=== PATIENT | female | born 1960 | race Caucasian/White ===

== ENCOUNTER → 2019-03-04 10:55 | Outpatient (BNVA) | payer MEDICARE, SELFPAY | PROVIDERS: Family Provider Dermatology; Visit Provider Nurse Practitioner Psychiatric/Mental Health | DX: F33.2 Major depressive disorder, recurrent severe without psychotic features (principal); F40.01 Agoraphobia with panic disorder; F43.12 Post-traumatic stress disorder, chronic | CPT/HCPCS: 99214 ==

== ENCOUNTER 2019-04-27 17:21 | Emergency (ER) | payer MEDICARE, SELFPAY ==
[2019-04-27 17:35] VITALS: BMI 26.4
[2019-04-27 17:44] VITALS: BP 130/84; PULSE 86; RESP 18; TEMP 36.8; O2SAT 97
--- NOTE | 2019-04-27 17:45 | ED_ITS ---
Entered by Eugenia Delaney, acting as scribe for Santi Webster MD, [facility] HPI - Female Genitourinary General: Chief complaint: Urogenital-Female Stated complaint: POSSIBLE UTI Time Seen by Provider: 04/27/19 17:45 Source: patient Mode of arrival: wheelchair Limitations: no limitations History of Present Illness: HPI Narrative: 58 yo Female presents to ED with co mplaint of lower abdominal and back pain. Pt states that she had blood in her urine earlier and every once in a while she gets a sharp pain. Pt states that toward the end of her urination she has pain. Pt has tenderness in her left flank and right lower quadrant. Pt states that she no longer has her gallbladder, appendix, or uterus. MD elicited complaint: UTI and back pain Onset (ago): day(s) Location of symptoms: LLQ and RLQ Female Urogenital Radiation: Non-Radiating Quality of pain: cramping and sharp Vaginal discharge: none Vaginal bleeding: none Urinary symptoms: Difficulty Urinating, Flank Pain and Hematuria Exacerbating factors: urination and movement Relieving factors: none Associated symptoms: Reports abdominal pain; Deny headache(s) or nausea Treatment prior to arrival: none Review of Systems General: Reports: 10 or more systems reviewed and unremarkable except in HPI and below Const: Denies: fever, chills or body aches Eyes: Denies: change in vision or blurry vision ENMT: Denies: throat pain, enlarged tonsils, painful swallowing, hoarseness, mouth pain or swelling of lips/tongue Card: Denies: chest pain, palpitations, irregular heart rhythm, edema or swelling of feet/ankles Resp: Denies: shortness of breath, productive cough or non-productive cough GI: Reports: abdominal pain; Denies: nausea or vomiting : Reports: flank pain, difficulty urinating, painful urination, urinary frequency and blood in urine; Denies: urinary urgency or urinary hesitancy Musc: Reports: back pain; Denies: neck pain or extremity swelling Skin/Breast: Denies: rash, itching or redness Neuro: Denies: headache, numbness in extremities or weakness in extremities Endo: Denies: excessive urination, excessive thirst or tired all the time [facility] ED PFSH: Medical History (Updated 04/27/19 @ 20:20 by Santi Webster MD, [facility]) Chronic post-traumatic stress disorder Major depressive disorder, recurrent severe without psychotic features Panic disorder with agoraphobia and severe panic attacks Surgical History (Updated 04/27/19 @ 17:58 by Eugenia Delaney) History of appendectomy History of cholecystectomy History of hysterectomy Social History Smoking and tobacco status: never smoked Physical Exam Const: COMMON NORMALS: no apparent distress, average body habitus, oriented x3, no limitations, healthy appearing, alert and well nourished HENMT: COMMON NORMALS: normocephalic, head/scalp atraumatic and moist oral mucous membranes HEAD & SCALP: normocephalic and atraumatic Eye: COMMON NORMALS: PERRL, EOMs intact bilaterally, conjunctivae normal and no scleral icterus CONJUNCTIVA: Yes conjunctivae normal PUPIL: Yes PERRL Neck/C-Spine: COMMON NORMALS: full ROM, supple, no meningeal signs, no JVD and no carotid bruits Chest: COMMONS NORMALS: inspection of chest normal and palpation of chest normal Resp: COMMON NORMALS: normal respiratory effort, no retractions, no use of accessory muscles, clear to auscultation bilaterally and percussion normal AUSCULTATION: clear to auscultation bilaterally PERCUSSION: percussion normal Cardio: COMMON NORMALS: no JVD, regular rate, regular rhythm, S1 normal heart sound, S2 normal heart sound, no gallops, no clicks, no murmurs, no rub and peripheral pulses 2+ throughout RATE: regular rate RHYTHM: regular rhythm HEART SOUNDS: S1 normal and S2 normal PERIPHERAL PULSES: pulses 2+ throughout GI: COMMON NORMALS: normal to inspection, nondistended, normoactive bowel sounds, soft to palpation, no hepatosplenomegaly, no masses and no bruits; negative for non-tender PALPATION: Yes soft, Yes tender Details: RLQ and Yes no hepatosplenomegaly : COMMON NORMALS: Yes no CVA tenderness BLADDER/KIDNEY EXAM: Yes no CVA tenderness Back/Pelvis: COMMON NORMALS: no CVA tenderness Extremity: COMMON NORMALS: normal to inspection, full ROM, normal capillary refill, no calf tenderness and no pedal edema Neuro: COMMON NORMALS: oriented x3 SENSORIUM/ORIENTATION: Yes alert MENINGEAL SIGNS: Yes no meningeal signs Skin: COMMON NORMALS: no rashes or lesions noted, no wounds, skin turgor normal, no jaundice, no petechiae and no mottling GENERAL SKIN EXAM: no rashes or lesions noted and turgor normal Course Reevaluation(s): Reevaluation #1: Discussed her labs and imaging findings with her. UA suggestive of a UTI. CT not suggestive of a pyelonephritis. Labs unremarkable. will discharge her home on oral antibiotics and pain medication. She voiced understanding and all questions answered. Time: 20:14 Vital Signs: Vital signs: Vital Signs Temperature 98.2 F 04/27/19 17:44 Pulse Rate 86 04/27/19 17:44 Respiratory Rate 18 04/27/19 20:00 Blood Pressure 130/84 04/27/19 17:44 Pulse Oximetry 98 04/27/19 20:00 MDM - Female MDM Narrative: Medical decision making narrative: 58-year-old female patient who presents to the emergency department with lower abdominal pain radiating to her flank. Evaluation in the emergency department is consistent with a urinary tract infection but no clinical features of pyelonephritis or urolithiasis. She was given 1 dose of ceftriaxone and discharged home on oral antibiotics. Medical Records: Attestation: I reviewed the patient's medical records. Lab Data: Attestation: I reviewed the patient's lab results. Labs: Lab Results 04/27/19 04/27/19 04/27/19 Range/Units 17:45 18:00 18:00 WBC 10.6 H (4.0-10.0) 10^3/ uL RBC 5.30 (4.1-5.3) 10^6/u L Hgb 14.3 (11.5-15.3) g/dL Hct 45.6 (37.0-47.0) % MCV 86.0 (81-99) fL MCH 27.0 L (28.0-34.0) pg MCHC 31.4 (30.0-36.0) g/dL RDW 15.1 (12.1-15.1) % Plt Count 474 H (130-400) 10^3/c mm MPV 9.1 (7.4-10.4) fL Neut % (Auto) 63.6 % Lymph % (Auto) 24.8 % Cameron % (Auto) 8.9 % Eos % (Auto) 1.2 % Baso % (Auto) 0.7 % Neut # (Auto) 6.7 (1.8-7.7) 10^3/u L Lymph # (Auto) 2.6 (0.8-4.8) 10^3/u L Cameron # (Auto) 0.9 (0.2-0.9) 10^3/u L Eos # (Auto) 0.1 (0.0-0.8) 10^3/u L Baso # (Auto) 0.1 (0.0-0.1) 10^3/u L Nucleated RBC % (a uto) 0 % Nucleated RBCs # 0.0 /100WBC Sodium 136 (136-145) mmol/L Potassium 4.3 (3.5-5.1) mmol/L Chloride 97 L (98-107) mmol/L Carbon Dioxide 26 (22-29) mmol/L Anion Gap 17.3 (5-19) BUN 21 (8-23) mg/dL Creatinine 0.9 (0.5-0.9) mg/dL GFR Calculation 63.9 L (90-130) mL/min Glucose 100 (65-115) mg/dL Calculated Osmolal ity 279 L (285-295) mOsm/k g Lactate (0.5-2.2) mmol/L Calcium 10.3 (8.5-10.5) mg/dL Total Bilirubin 0.4 (0.15-1.2) mg/dL AST 17 (0-32) U/L ALT 7 (0-33) U/L Alkaline Phosphata se 85 (35-105) IU/L C-Reactive Protein 24.7 H (0.0-4.9) mg/L Total Protein 7.9 (6.6-8.7) g/dL Albumin 4.5 (3.5-5.2) g/dL Globulin 3.4 (1.3-4.6) g/dL Urine Color Yellow (Yellow) Urine Appearance Cloudy (CLEAR) Urine pH 5 (5-7) Ur Specific Gravit y 1.005 (1.005-1.030) Urine Protein Neg (Negative) Urine Glucose (UA) Norm (Normal) Urine Ketones Negative (Negative) Urine Blood 3+ H (Negative) Urine Nitrate Negative (Negative) Urine Bilirubin Neg (NEGATIVE) Urine Urobilinogen Norm (Negative) mg/dL Ur Leukocyte Margaret ase 1+ H (Negative) Urine RBC 0-4 H (0-2) /hpf Urine WBC >100 H (0-5) /hpf Ur Squamous Epith Cells 0-4 H (0-5) Urine Bacteria 1+ H (NONE) 04/27/19 Range/Units 18:00 WBC (4.0-10.0) 10^3/ uL RBC (4.1-5.3) 10^6/u L Hgb (11.5-15.3) g/dL Hct (37.0-47.0) % MCV (81-99) fL MCH (28.0-34.0) pg MCHC (30.0-36.0) g/dL RDW (12.1-15.1) % Plt Count (130-400) 10^3/c mm MPV (7.4-10.4) fL Neut % (Auto) % Lymph % (Auto) % Cameron % (Auto) % Eos % (Auto) % Baso % (Auto) % Neut # (Auto) (1.8-7.7) 10^3/u L Lymph # (Auto) (0.8-4.8) 10^3/u L Cameron # (Auto) (0.2-0.9) 10^3/u L Eos # (Auto) (0.0-0.8) 10^3/u L Baso # (Auto) (0.0-0.1) 10^3/u L Nucleated RBC % (a uto) % Nucleated RBCs # /100WBC Sodium (136-145) mmol/L Potassium (3.5-5.1) mmol/L Chloride (98-107) mmol/L Carbon Dioxide (22-29) mmol/L Anion Gap (5-19) BUN (8-23) mg/dL Creatinine (0.5-0.9) mg/dL GFR Calculation (90-130) mL/min Glucose (65-115) mg/dL Calculated Osmolal ity (285-295) mOsm/k g Lactate 1.1 (0.5-2.2) mmol/L Calcium (8.5-10.5) mg/dL Total Bilirubin (0.15-1.2) mg/dL AST (0-32) U/L ALT (0-33) U/L Alkaline Phosphata se (35-105) IU/L C-Reactive Protein (0.0-4.9) mg/L Total Protein (6.6-8.7) g/dL Albumin (3.5-5.2) g/dL Globulin (1.3-4.6) g/dL Urine Color (Yellow) Urine Appearance (CLEAR) Urine pH (5-7) Ur Specific Gravit y (1.005-1.030) Urine Protein (Negative) Urine Glucose (UA) (Normal) Urine Ketones (Negative) Urine Blood (Negative) Urine Nitrate (Negative) Urine Bilirubin (NEGATIVE) Urine Urobilinogen (Negative) mg/dL Ur Leukocyte Margaret ase (Negative) Urine RBC (0-2) /hpf Urine WBC (0-5) /hpf Ur Squamous Epith Cells (0-5) Urine Bacteria (NONE) Imaging Data: CT Abd/Pel: Radiologist's impression: [place] [address] CT Scan Report Signed Patient: Annetta Delacruz #: [id number] : 9Acct#:[id number] Age/Sex: 58 / FADM Date: 04/27/19 Loc: [facility]/Bed: Attending Dr: Ordering Provider/Ordering MD: Santi Webster MD, [facility] Date of Service: 04/27/19 Procedure(s): CT kidney stone 41800 Accession Number(s): [id number] Report Number: [id number] PROCEDURE INFORMATION: Exam: CT Abdomen And Pelvis Without Contrast Exam date and time: 04/27/2019 7:40 PM Age: 58 years old Clinical indication: Abdominal pain; Localized; Prior surgery; Surgery date: 6+ months; Surgery type: Hyst; Patient HX: C/O lower abd/flank pain and urinary urgency; Additional info: Flank pain, UTI TECHNIQUE: Imaging protocol: Computed tomography of the abdomen and pelvis without contrast. Total DLP: 1596.07 mGy-cm Radiation optimization: All CT scans at this facility use at least one of these dose optimization techniques: automated exposure control; mA and/or kV adjustment per patient size (includes targeted exams where dose is matched to clinical indication); or iterative reconstruction. COMPARISON: CT abdomen pelvis wo con [id number] 05/18/2016 4:43 PM FINDINGS: Lungs: There are pulmonary parenchymal calcifications consistent with remote granulomatous organism exposure. Mediastinum: Small hiatal hernia. Liver: Normal. No mass. Gallbladder and bile ducts: The gallbladder has been removed. Pancreas: Normal. No ductal dilation. Spleen: Small incidental splenule. Adrenals: Normal. No mass. Kidneys and ureters: Normal. No hydronephrosis. Stomach and bowel: Colonic constipation is present. Appendix: No evidence of appendicitis. Intraperitoneal space: Unremarkable. No free air. No significant fluid collection. Vasculature: There is scattered atherosclerotic plaque in the aorta and iliac arteries. Lymph nodes: Unremarkable. No enlarged lymph nodes. Bladder: Unremarkable as visualized. Reproductive: The uterus is not visualized, consistent with hysterectomy. Bones/joints: There are degenerative changes in the visualized spine most severe across the L4-L5 level. Grade 1 degenerative anterolisthesis of L4 on L5. There is a disc bulge at the L4-L5 level as well contributing to moderate bilateral neural foraminal narrowing. Soft tissues: Tiny fat containing umbilical hernia. CT/CT kidney stone [id number] IMPRESSION: 1. Colonic constipation is present. 2. Grade 1 degenerative anterolisthesis of L4 on L5. There is a disc bulge at the L4-L5 level contributing to moderate bilateral neural foraminal narrowing. Radiation Dose CTDIVOL = (mGy): DLP = 1596.07 (mGy-cm) Dictated By:Susana Garay MD Signed By:Susana Garay MDSigned Date/Time:04/27/192002 DD/ 00 Discharge Plan Discharge Patient Disposition: Home, Self-Care Clinical Impression: Urinary tract infection Qualifiers: Urinary tract infection type: acute cystitis Hematuria presence: with hematuria Qualified Code(s): N30.01 - Acute cystitis with hematuria Condition: Stable Prescriptions: New Augmentin 875-125 mg tablet 1 tab PO BID Qty: 14 RF: 0 [place] 5-325 mg tablet 1 tab PO Q8H PRN (Reason: pain) Qty: 10 RF: 0 Continued omeprazole 40 mg capsule,delayed release(DR/EC) 40 mg PO QDAY RF: 0 Excedrin Migraine 250-250-65 mg tablet 2 tab PO Q6H PRNRF: 0 naproxen sodium [Aleve] 220 mg tablet 220 mg PO BID PRNRF: 0 lorazepam [Ativan] 2 mg tablet 2 mg PO TID Qty: 90 RF: 3 Fetzima 80 mg capsule,extended release 24 hr 80 mg PO .morning Qty: 30 RF: 3 Discharge Orders: Discharge Order (Routine); Ordered 04/27/19 Ordered By: Santi Webster Referrals: Yecenia Vega [Family Provider] - 4-7 days Patient Instructions: Urinary Tract Infection in Women (ED) Activity Restrictions/Additional Instructions: Return for any new or worsening symptoms. Take the medications as prescribed. Follow up with your primary care provider within 5 days. Drink plenty of water to keep well hydrated Coding Level of Care Code ED [employer] Operator Helper for Chg Fwd Exam Comprehensive The documentation recorded by the Elaina castro Carmen, accurately reflects the service I personally performed and the decisions made by Eleanor turner Adegoke I, MD, [facility] Apr 27, 2019 17:21
[2019-04-27 17:55] VITALS: O2SAT 98
[2019-04-27 18:29] LABS: Basophils # 0.1 10^3/uL (0.0-0.1); Basophils % 0.7 %; Eosinophils # 0.1 10^3/uL (0.0-0.8); Eosinophils % 1.2 %; Hematocrit 45.6 % (37.0-47.0); Hemoglobin 14.3 g/dL (11.5-15.3); Lymphocytes # 2.6 10^3/uL (0.8-4.8); Lymphocytes % 24.8 %; Mean Corpuscular HGB Conc 31.4 g/dL (30.0-36.0); Mean Platelet Volume 9.1 fL (7.4-10.4); Monocytes # 0.9 10^3/uL (0.2-0.9); Monocytes % 8.9 %; Neutrophils # 6.7 10^3/uL (1.8-7.7); Neutrophils % 63.6 %; Nucleated Red Blood Cells % 0 %; Platelet Count 474 10^3/cmm (130-400); Red Cell Distribution Width 15.1 % (12.1-15.1); White Blood Count 10.6 10^3/uL (4.0-10.0)
[2019-04-27 18:46] LABS: Alanine Aminotransferase 7 U/L (0-33); Albumin Level 4.5 g/dL (3.5-5.2); Alkaline Phosphatase 85 IU/L (35-105); Anion Gap 17.3 (5-19); Aspartate Amino Transferase 17 U/L (0-32); Blood Urea Nitrogen 21 mg/dL (8-23); C Reactive Protein 24.7 mg/L (0.0-4.9); Calcium 10.3 mg/dL (8.5-10.5); Carbon Dioxide 26 mmol/L (22-29); Chloride 97 mmol/L (98-107); Globulin 3.4 g/dL (1.3-4.6); Glomerular Filtration Rate 63.9 mL/min (90-130); Glucose 100 mg/dL (65-115); Lactate (Lactic Acid level) 1.1 mmol/L (0.5-2.2); Osmolality Calculated 279 mOsm/kg (285-295); Potassium 4.3 mmol/L (3.5-5.1); Sodium 136 mmol/L (136-145); Total Bilirubin 0.4 mg/dL (0.15-1.2); Total Protein 7.9 g/dL (6.6-8.7)
[2019-04-27] MEDS: sodium chloride 0.9% 1,000 ML 999 ML IV (18:48)
[2019-04-27] MEDS: morphine 4 mg/mL SDV 1 mL IVP ×2 (18:48→20:00)
--- NOTE | 2019-04-27 18:51 | PC.NURSE ---
IV infiltrated, initial dose of morphine not given
[2019-04-27 19:08] LABS: Glucose Urine UA Norm (Normal); Ketones Urine Negative (Negative); Protein Urine Neg (Negative); Specific Gravity, Urine 1.005 (1.005-1.030); Urine Appearance Cloudy (CLEAR); Urine Color Yellow (Yellow); pH Urine 5 (5-7)
[2019-04-27 19:09] LABS: Add Urine Culture? Yes; Add Urine Microscopic? YES; Bacteria Urine 1+; Bilirubin Urine Neg (NEGATIVE); Blood Urine 3+ (Negative); Leukocyte Esterase Urine 1+ (Negative); Nitrate Urine Negative (Negative); RBC Urine 0-4 /hpf (0-2); Squamous Epithelial Cell Urine 0-4 (0-5); Urobilinogen Urine Norm (Negative); WBC Urine >100 /hpf (0-5)
--- NOTE | 2019-04-27 19:13 | CTR_ITS ---
PROCEDURE INFORMATION: Exam: CT Abdomen And Pelvis Without Contrast Exam date and time: 04/27/2019 7:40 PM Age: 58 years old Clinical indication: Abdominal pain; Localized; Prior surgery; Surgery date: 6+ months; Surgery type: Hyst; Patient HX: C/O lower abd/flank pain and urinary urgency; Additional info: Flank pain, UTI TECHNIQUE: Imaging protocol: Computed tomography of the abdomen and pelvis without contrast. Total DLP: 1596.07 mGy-cm Radiation optimization: All CT scans at this facility use at least one of these dose optimization techniques: automated exposure control; mA and/or kV adjustment per patient size (includes targeted exams where dose is matched to clinical indication); or iterative reconstruction. COMPARISON: CT abdomen pelvis wo con [id number] 05/18/2016 4:43 PM FINDINGS: Lungs: There are pulmonary parenchymal calcifications consistent with remote granulomatous organism exposure. Mediastinum: Small hiatal hernia. Liver: Normal. No mass. Gallbladder and bile ducts: The gallbladder has been removed. Pancreas: Normal. No ductal dilation. Spleen: Small incidental splenule. Adrenals: Normal. No mass. Kidneys and ureters: Normal. No hydronephrosis. Stomach and bowel: Colonic constipation is present. Appendix: No evidence of appendicitis. Intraperitoneal space: Unremarkable. No free air. No significant fluid collection. Vasculature: There is scattered atherosclerotic plaque in the aorta and iliac arteries. Lymph nodes: Unremarkable. No enlarged lymph nodes. Bladder: Unremarkable as visualized. Reproductive: The uterus is not visualized, consistent with hysterectomy. Bones/joints: There are degenerative changes in the visualized spine most severe across the L4-L5 level. Grade 1 degenerative anterolisthesis of L4 on L5. There is a disc bulge at the L4-L5 level as well contributing to moderate bilateral neural foraminal narrowing. Soft tissues: Tiny fat containing umbilical hernia. CT/CT kidney stone [id number] IMPRESSION: 1. Colonic constipation is present. 2. Grade 1 degenerative anterolisthesis of L4 on L5. There is a disc bulge at the L4-L5 level contributing to moderate bilateral neural foraminal narrowing. Radiation Dose CTDIVOL = (mGy): DLP = 1596.07 (mGy-cm)
[2019-04-27] MEDS: ketorolac 30 mg/mL INJ 15 MG IVP (19:59)
[2019-04-27 20:00] VITALS: RESP 18; O2SAT 98
[2019-04-27] MEDS: cefTRIAXone 1,000 MG in sodium chloride 0.9% (plus) 50 ML 100 MG IV (20:01)
[2019-04-27] MEDS: HYDROcodone-acetaminophen 5-325 mg Tablet 4 TAB PO (21:14)
[2019-04-27] MEDS: amoxicillin-clav 875-125 mg Tablet 1 TAB PO (21:15)
[2019-04-27 21:51] VITALS: BP 101/62; PULSE 88; RESP 16; TEMP 36.9; O2SAT 96
== END 2019-04-27 21:15 | disposition home or self-care (01) ==
PROVIDERS: Emergency Provider Family Medicine; Family Provider Dermatology
DX: N39.0 Urinary tract infection, site not specified (principal)
CPT/HCPCS: 12345; 74176; 80053; 81001; 83605; 85025; 86140; 87077; 87086; 87186; 96374; 96375; 96376; 99283; 99284; A9270; J0696; J1885; J2270; J7030

== ENCOUNTER → 2019-05-27 08:07 | Outpatient (BNVA) | payer MEDICARE, SELFPAY | PROVIDERS: Family Provider Dermatology; Visit Provider Nurse Practitioner Psychiatric/Mental Health | DX: F33.2 Major depressive disorder, recurrent severe without psychotic features (principal); F40.01 Agoraphobia with panic disorder; F43.12 Post-traumatic stress disorder, chronic | CPT/HCPCS: 99214 ==

== ENCOUNTER → 2019-09-19 09:30 | Outpatient (BNVA) | payer MEDICARE, SELFPAY | PROVIDERS: Family Provider Dermatology; Visit Provider Nurse Practitioner Psychiatric/Mental Health | DX: F33.2 Major depressive disorder, recurrent severe without psychotic features (principal); F40.01 Agoraphobia with panic disorder; F43.12 Post-traumatic stress disorder, chronic | CPT/HCPCS: 99214 ==

== ENCOUNTER 2019-12-12 10:26 | Inpatient (IN) | payer MEDICARE, SELFPAY ==
[2019-12-12] VITALS (11 sets, daily range): BP systolic 95–108; BP diastolic 54–71; PULSE 69–74; RESP 12–20; TEMP 36.5–36.7; O2SAT 93–98; BMI 30.7
--- NOTE | 2019-12-12 10:48 | ECG_ITS ---
[facility] Test Date: 2019-12-12 Pat Name: Annetta Delacruz Department: Room: Gender: Female Needle Grinder: : 1960 Requested By: Ana Tabares Order Number: [id number] Reading MD: LORENA BARR Measurements Intervals Hayes Rate: 73 P: 60 MO: 156 QRS: 15 QRSD: 95 T: 67 QT: 418 QTc: 463 Interpretive Statements SINUS RHYTHM LOW QRS VOLTAGE IN PRECORDIAL LEADS [QRS DEFLECTION < 1.0 mV IN CHEST LEADS] NONSPECIFIC ST & T-WAVE ABNORMALITY Compared to ECG 11/22/2018 21:50:38 Low QRS voltage now present T-wave abnormality now present Electronically Signed On 12-13-2019 19:29:56 ENGINEER SERGEANT by LORENA BARR [email or web address]
--- NOTE | 2019-12-12 10:57 | W.ED.GENADLT ---
HPI - General Adult General: Chief complaint: General Medical Stated complaint: BEHAVIORAL ISSUES/ ANXIETY Time Seen by Provider: 12/12/19 10:32 History of Present Illness: HPI narrative: This patient is a 59-year-old female. She was brought in by ambulance today. She is complaining of weakness and hip pain. She says she has not been able to walk in a couple of days. She is extremely tearful and it is difficult to get any sort of coherent history from her. Drug paraphernalia was found in the bed beside her when EMS picked her up including a pipe and IV supplies. She admits to using meth yesterday. She admits to depression and anxiety. She sees counselors and says that is going well. She has a prescription bottle for fluoxetine which was filled on the Onset (ago): unknown Location: pelvis Severity: severe Review of Systems General: Reports: ROS unobtainable due to mental status PFS ED PFSH: Medical History (Updated 12/17/19 @ 00:00 by ) Amphetamine abuse Chronic post-traumatic stress disorder Major depressive disorder, recurrent severe without psychotic features Panic disorder with agoraphobia and severe panic attacks Suicidal risk Surgical History History of appendectomy History of cholecystectomy History of hysterectomy Family History Other Hypertension Psychiatric illness Social History Smoking and tobacco status: never smoked Alcohol intake: former Lives independently: Yes Housing: House Physical Exam Const: COMMON NORMALS: alert GENERAL APPEARANCE: cooperative HENMT: HEAD & SCALP: normal to inspection FACE & SINUS: normal facial exam Eye: GENERAL EYE: appearance normal, both eyes and all related structures Neck/C-Spine: COMMON NORMALS: supple, no meningeal signs and no JVD Chest: COMMONS NORMALS: normal inspection of the chest Resp: COMMON NORMALS: normal respiratory effort, No use of accessory muscles and clear to auscultation bilaterally AUSCULTATION: clear to auscultation bilaterally Cardio: COMMON NORMALS: no JVD, regular rate, regular rhythm and No murmurs present (Cardio) RATE: regular rate RHYTHM: regular rhythm GI: COMMON NORMALS: Normal to inspection, nondistended, normoactive bowel sounds present, Soft to palpation and non-tender INSPECTION: Yes normal to inspection AUSCULTATION: Yes normoactive bowel sounds PALPATION: Yes Soft to palpation Back/Pelvis: COMMON NORMALS: thoracic and lumbar spine normal to inspection Extremity: COMMON NORMALS: normal to inspection Neuro: COMMON NORMALS: moves all extremities and no sensory deficits noted SENSORIUM/ORIENTATION: Yes alert MENINGEAL SIGNS: Yes no meningeal signs GAIT: Yes Unable to assess gait MOTOR EXAM: Abnormal motor strength present (3-5 strength in the right lower extremity. 4 out of 5 strength in the left lower extremity.) DEEP TENDON REFLEXES: Right patellar reflex intensity grade: 1+ and Left patellar reflex intensity grade: 1+ Psych: COMMON NORMALS: mental status grossly normal APPEARANCE: Yes disheveled ATTITUDE: Yes bizarre MOOD & AFFECT: Yes depressed mood, Yes anxious, Yes sad, Yes tearful and Yes Labile affect present Skin: COMMON NORMALS: no rashes or lesions noted and turgor normal GENERAL SKIN EXAM: no rashes or lesions noted and turgor normal Course ED course: This patient is here with confusion and alteration in her mental status. I think she has some underlying psychiatric issues but also substance abuse and her mental status is not back to normal. She will be medically admitted for further evaluation and treatment prior to psychiatric evaluation and treatment. Vital Signs: Vital signs: Vital Signs Temperature 98.9 F 12/16/19 14:04 Pulse Rate 66 12/16/19 14:04 Respiratory Rate 18 12/16/19 14:04 Blood Pressure 125/82 12/16/19 14:04 Pulse Oximetry 93 12/16/19 14:04 [facility] - General Adult Lab Data: Labs: Lab Results 12/12/19 12/12/19 12/12/19 Range/Units 11:16 11:16 11:50 WBC 11.1 H (4.0-10.0) 10^3/ uL RBC 4.59 (4.1-5.3) 10^6/u L Hgb 12.4 (11.5-15.3) g/dL Hct 38.7 (37.0-47.0) % MCV 84.3 (81-99) fL MCH 27.0 L (28.0-34.0) pg MCHC 32.0 (30.0-36.0) g/dL RDW 14.3 (12.1-15.1) % Plt Count 267 (130-400) 10^3/c mm MPV 10.0 (7.4-10.4) fL Neut % (Auto) 52.8 % Lymph % (Auto) 34.8 % Churchill % (Auto) 10.7 % Eos % (Auto) 0.8 % Baso % (Auto) 0.5 % Neut # (Auto) 5.86 (1.8-7.7) 10^3/u L Lymph # (Auto) 3.9 (0.8-4.8) 10^3/u L Churchill # (Auto) 1.2 H (0.2-0.9) 10^3/u L Eos # (Auto) 0.1 (0.0-0.8) 10^3/u L Baso # (Auto) 0.1 (0.0-0.1) 10^3/u L Nucleated RBC % (a uto) 0 % Nucleated RBCs # 0.0 /100WBC Sodium (136-145) mmol/L Potassium (3.5-5.1) mmol/L Chloride (98-107) mmol/L Carbon Dioxide (22-29) mmol/L Anion Gap (5-19) BUN (8-23) mg/dL Creatinine (0.5-0.9) mg/dL GFR Calculation (90-130) mL/min Glucose (65-115) mg/dL Calculated Osmolal ity (285-295) mOsm/k g Calcium (8.5-10.5) mg/dL Iron (37-145) ug/dL TIBC mcg/dl % Saturation (20-50) % Unsat Iron Binding (112-347) ug/dL Total Bilirubin (0.15-1.2) mg/dL AST (0-32) U/L ALT (0-33) U/L Alkaline Phosphata se (35-105) IU/L Creatine Kinase (26-192) U/L C-Reactive Protein (0.0-4.9) mg/L Total Protein (6.6-8.7) g/dL Albumin (3.5-5.2) g/dL Globulin (1.3-4.6) g/dL Vitamin B12 (232-1245) pg/mL Folate (4.8-37.3) ng/mL Procalcitonin (0-0.5) ng/mL TSH (0.27-4.20) uIU/ mL Urine Color Straw (Yellow) Urine Appearance Clear (CLEAR) Urine pH 5 (5-7) Ur Specific Gravit y 1.010 (1.005-1.030) Urine Protein Neg (Negative) Urine Glucose (UA) Norm (Normal) Urine Ketones 1+ H (Negative) Urine Blood 2+ H (Negative) Urine Nitrate Negative (Negative) Urine Bilirubin Neg (Negative) Urine Urobilinogen Neg (Negative) mg/dL Ur Leukocyte Margaret ase Negative (Negative) Urine RBC 0-4 H (0-2) /hpf Urine WBC 0-4 H (0-5) /hpf Ur Squamous Epith Cells 0-4 H (0-5) /hpf Amorphous Sediment Not Reportable Urine Bacteria 3+ H (NONE) /hpf Ur Random Sodium mmol/L Ur Random Potassiu m mmol/L Ur Random Chloride mmol/L Salicylates (3-10) mg/dL Urine Opiates Scre en Negative (Negative) ng/mL Acetaminophen (10-30) ug/mL Ur Barbiturates Sc reen Negative (Negative) ng/mL Ur Phencyclidine S crn Negative (Negative) ng/mL Ur Amphetamines Sc reen Positive H (Negative) ng/mL U Benzodiazepines Scrn Positive H (Negative) ng/mL Urine Cocaine Scre en Negative (Negative) ng/mL U Marijuana (THC) Screen Negative (Negative) ng/mL Ethyl Alcohol (0-10) mg/dL 12/12/19 12/12/19 12/12/19 Range/Units 11:50 11:50 11:50 WBC (4.0-10.0) 10^3/ uL RBC (4.1-5.3) 10^6/u L Hgb (11.5-15.3) g/dL Hct (37.0-47.0) % MCV (81-99) fL MCH (28.0-34.0) pg MCHC (30.0-36.0) g/dL RDW (12.1-15.1) % Plt Count (130-400) 10^3/c mm MPV (7.4-10.4) fL Neut % (Auto) % Lymph % (Auto) % Churchill % (Auto) % Eos % (Auto) % Baso % (Auto) % Neut # (Auto) (1.8-7.7) 10^3/u L Lymph # (Auto) (0.8-4.8) 10^3/u L Churchill # (Auto) (0.2-0.9) 10^3/u L Eos # (Auto) (0.0-0.8) 10^3/u L Baso # (Auto) (0.0-0.1) 10^3/u L Nucleated RBC % (a uto) % Nucleated RBCs # /100WBC Sodium 131 L (136-145) mmol/L Potassium 3.8 (3.5-5.1) mmol/L Chloride 95 L (98-107) mmol/L Carbon Dioxide 20 L (22-29) mmol/L Anion Gap 19.8 H (5-19) BUN 23 (8-23) mg/dL Creatinine 1.2 H (0.5-0.9) mg/dL GFR Calculation 45.7 L (90-130) mL/min Glucose 109 (65-115) mg/dL Calculated Osmolal ity 276 L (285-295) mOsm/k g Calcium 9.6 (8.5-10.5) mg/dL Iron (37-145) ug/dL TIBC mcg/dl % Saturation (20-50) % Unsat Iron Binding (112-347) ug/dL Total Bilirubin 0.7 (0.15-1.2) mg/dL AST 338 H (0-32) U/L ALT 71 H (0-33) U/L Alkaline Phosphata se 86 (35-105) IU/L Creatine Kinase 34119 H* (26-192) U/L C-Reactive Protein 38.6 H (0.0-4.9) mg/L Total Protein 6.8 (6.6-8.7) g/dL Albumin 3.9 (3.5-5.2) g/dL Globulin 2.9 (1.3-4.6) g/dL Vitamin B12 (232-1245) pg/mL Folate (4.8-37.3) ng/mL Procalcitonin (0-0.5) ng/mL TSH 1.85 (0.27-4.20) uIU/ mL Urine Color (Yellow) Urine Appearance (CLEAR) Urine pH (5-7) Ur Specific Gravit y (1.005-1.030) Urine Protein (Negative) Urine Glucose (UA) (Normal) Urine Ketones (Negative) Urine Blood (Negative) Urine Nitrate (Negative) Urine Bilirubin (Negative) Urine Urobilinogen (Negative) mg/dL Ur Leukocyte Margaret ase (Negative) Urine RBC (0-2) /hpf Urine WBC (0-5) /hpf Ur Squamous Epith Cells (0-5) /hpf Amorphous Sediment Urine Bacteria (NONE) /hpf Ur Random Sodium 10 mmol/L Ur Random Potassiu m 6 mmol/L Ur Random Chloride 10 mmol/L Salicylates < 0.3 L (3-10) mg/dL Urine Opiates Scre en (Negative) ng/mL Acetaminophen < 5.0 L (10-30) ug/mL Ur Barbiturates Sc reen (Negative) ng/mL Ur Phencyclidine S crn (Negative) ng/mL Ur Amphetamines Sc reen (Negative) ng/mL U Benzodiazepines Scrn (Negative) ng/mL Urine Cocaine Scre en (Negative) ng/mL U Marijuana (THC) Screen (Negative) ng/mL Ethyl Alcohol < 10 (0-10) mg/dL 12/12/19 12/12/19 12/12/19 Range/Units 11:50 11:50 11:50 WBC (4.0-10.0) 10^3/ uL RBC (4.1-5.3) 10^6/u L Hgb (11.5-15.3) g/dL Hct (37.0-47.0) % MCV (81-99) fL MCH (28.0-34.0) pg MCHC (30.0-36.0) g/dL RDW (12.1-15.1) % Plt Count (130-400) 10^3/c mm MPV (7.4-10.4) fL Neut % (Auto) % Lymph % (Auto) % Churchill % (Auto) % Eos % (Auto) % Baso % (Auto) % Neut # (Auto) (1.8-7.7) 10^3/u L Lymph # (Auto) (0.8-4.8) 10^3/u L Churchill # (Auto) (0.2-0.9) 10^3/u L Eos # (Auto) (0.0-0.8) 10^3/u L Baso # (Auto) (0.0-0.1) 10^3/u L Nucleated RBC % (a uto) % Nucleated RBCs # /100WBC Sodium (136-145) mmol/L Potassium (3.5-5.1) mmol/L Chloride (98-107) mmol/L Carbon Dioxide (22-29) mmol/L Anion Gap (5-19) BUN (8-23) mg/dL Creatinine (0.5-0.9) mg/dL GFR Calculation (90-130) mL/min Glucose (65-115) mg/dL Calculated Osmolal ity (285-295) mOsm/k g Calcium (8.5-10.5) mg/dL Iron 50 (37-145) ug/dL TIBC 322 mcg/dl % Saturation 15.5 L (20-50) % Unsat Iron Binding 272 (112-347) ug/dL Total Bilirubin (0.15-1.2) mg/dL AST (0-32) U/L ALT (0-33) U/L Alkaline Phosphata se (35-105) IU/L Creatine Kinase (26-192) U/L C-Reactive Protein (0.0-4.9) mg/L Total Protein (6.6-8.7) g/dL Albumin (3.5-5.2) g/dL Globulin (1.3-4.6) g/dL Vitamin B12 365 (232-1245) pg/mL Folate 11.4 (4.8-37.3) ng/mL Procalcitonin 0.40 (0-0.5) ng/mL TSH 1.93 (0.27-4.20) uIU/ mL Urine Color (Yellow) Urine Appearance (CLEAR) Urine pH (5-7) Ur Specific Gravit y (1.005-1.030) Urine Protein (Negative) Urine Glucose (UA) (Normal) Urine Ketones (Negative) Urine Blood (Negative) Urine Nitrate (Negative) Urine Bilirubin (Negative) Urine Urobilinogen (Negative) mg/dL Ur Leukocyte Margaret ase (Negative) Urine RBC (0-2) /hpf Urine WBC (0-5) /hpf Ur Squamous Epith Cells (0-5) /hpf Amorphous Sediment Urine Bacteria (NONE) /hpf Ur Random Sodium mmol/L Ur Random Potassiu m mmol/L Ur Random Chloride mmol/L Salicylates (3-10) mg/dL Urine Opiates Scre en (Negative) ng/mL Acetaminophen (10-30) ug/mL Ur Barbiturates Sc reen (Negative) ng/mL Ur Phencyclidine S crn (Negative) ng/mL Ur Amphetamines Sc reen (Negative) ng/mL U Benzodiazepines Scrn (Negative) ng/mL Urine Cocaine Scre en (Negative) ng/mL U Marijuana (THC) Screen (Negative) ng/mL Ethyl Alcohol (0-10) mg/dL Discharge Plan Discharge Admit Provider: Asael Emerson Condition: Stable Discharge Orders: Discharge Order (Routine); Ordered 12/16/19 Ordered By: Jamir Fernandez Discharge Diet: Regular Discharge Activity: Resume usual activity Coding Level of Care Code ED Rehab Specialist for Chg Fwd Exam Comprehensive
[2019-12-12 11:38] LABS: Add Urine Microscopic? YES; Bilirubin Urine Neg (Negative); Blood Urine 2+ (Negative); Glucose Urine UA Norm (Normal); Ketones Urine 1+ (Negative); Leukocyte Esterase Urine Negative (Negative); Nitrate Urine Negative (Negative); Protein Urine Neg (Negative); Urine Appearance Clear (CLEAR); Urine Color Straw (Yellow); Urobilinogen Urine Neg (Negative); pH Urine 5 (5-7)
[2019-12-12 11:46] LABS: Amphetamines Screen Urine Positive (Negative); Barbiturates Screen Urine Negative (Negative); Benzodiazepines Screen Urine Positive (Negative); Cocaine Screen Urine Negative (Negative); Opiate Screen Urine Negative (Negative); PCP Screen Urine Negative (Negative); THC Screen Urine Negative (Negative)
[2019-12-12 11:47] LABS: Add Urine Culture? Yes; Bacteria Urine 3+ /hpf; RBC Urine 0-4 /hpf (0-2); Squamous Epithelial Cell Urine 0-4 /hpf (0-5); WBC Urine 0-4 /hpf (0-5)
[2019-12-12] MEDS: haloperidol inj 5 mg/mL INJ 1 mL IM (11:58)
[2019-12-12] MEDS: diphenhydrAMINE 50 mg/mL SDV 1mL IM (11:58)
[2019-12-12] MEDS: LORazepam 2 mg/mL INJ 1 mL IM (11:58)
[2019-12-12 12:07] LABS: Basophils # 0.1 10^3/uL (0.0-0.1); Basophils % 0.5 %; Eosinophils # 0.1 10^3/uL (0.0-0.8); Eosinophils % 0.8 %; Hematocrit 38.7 % (37.0-47.0); Hemoglobin 12.4 g/dL (11.5-15.3); Lymphocytes # 3.9 10^3/uL (0.8-4.8); Lymphocytes % 34.8 %; Mean Corpuscular Volume 84.3 fL (81-99); Monocytes # 1.2 10^3/uL (0.2-0.9); Monocytes % 10.7 %; Neutrophils # 5.86 10^3/uL (1.8-7.7); Neutrophils % 52.8 %; Nucleated Red Blood Cells % 0 %; Platelet Count 267 10^3/cmm (130-400); Red Blood Count 4.59 10^6/uL (4.1-5.3); Red Cell Distribution Width 14.3 % (12.1-15.1); White Blood Count 11.1 10^3/uL (4.0-10.0)
[2019-12-12 12:39] LABS: Alanine Aminotransferase 71 U/L (0-33); Albumin Level 3.9 g/dL (3.5-5.2); Alkaline Phosphatase 86 IU/L (35-105); Aspartate Amino Transferase 338 U/L (0-32); Blood Urea Nitrogen 23 mg/dL (8-23); C Reactive Protein 38.6 mg/L (0.0-4.9); Calcium 9.6 mg/dL (8.5-10.5); Carbon Dioxide 20 mmol/L (22-29); Chloride 95 mmol/L (98-107); Globulin 2.9 g/dL (1.3-4.6); Glomerular Filtration Rate 45.7 mL/min (90-130); Glucose 109 mg/dL (65-115); Osmolality Calculated 276 mOsm/kg (285-295); Sodium 131 mmol/L (136-145); Thyroid Stimulating Hormone 1.85 uIU/mL (0.27-4.20); Total Bilirubin 0.7 mg/dL (0.15-1.2); Total Protein 6.8 g/dL (6.6-8.7)
[2019-12-12 12:40] LABS: Acetaminophen < 5.0 ug/mL (10-30); Alcohol Level < 10 mg/dL (0-10); Anion Gap 19.8 (5-19); Potassium 3.8 mmol/L (3.5-5.1); Salicylate < 0.3 mg/dL (3-10)
--- NOTE | 2019-12-12 12:43 | CT_ITS ---
WS: [id number] CT THORACIC SPINE TECHNIQUE: Contrast-enhanced CT of the thoracic spine with coronal and sagittal reformatted images. CLINICAL INFORMATION: leg weakness, IVDU COMPARISON: None. DLP: 2505.[address] scans at [facility] use at least one of these dose optimization techniques: automat ed exposure control; mA and/or kV adjustment per patient size (includes targeted exams where dose is matched to clinical indication); or iterative reconstruction. FINDINGS: Images somewhat degraded due to body habitus and beam hardening artifact. Mild thoracic curve convex right. Mild thoracic kyphosis. No acute compression fractures. Disc space heights and vertebral body heights are well preserved. No high-grade central canal stenosis. Mild spi nal canal narrowing in the lower thoracic spine at T10-11. Moderate facet arthropathy lower thoracic spine. No evidence of enhancing epidural abscess or discitis. Mild to moderate bony foraminal narrowing at right T8-9, bilateral T9-T10, and bilateral T10-11. Mild right bony foraminal narrowing T11-12.Diffuse fatty infiltration of the liver. Cholecystectomy clips . Adrenal glands are normal. CT/CT thoracic spine w con [id number] IMPRESSION: 1. Mild thoracic curve. No acute compression fractures. 2. No high-grade central canal stenosis. No evidence of enhancing epidural abs cess or discitis 3. Mild spinal canal narrowing in the lower thoracic spine described above.
--- NOTE | 2019-12-12 12:43 | CT_ITS ---
WS: [id number] CT LUMBAR SPINE TECHNIQUE: Contrast-enhanced CT of the lumbar spine with coronal and sagittal reformatted images. CLINICAL INFORMATION: leg weakness, IVDU COMPARISON: None. DLP: 2320.[address] scans at [facility] use at least one of these dose optimization techniques: automat ed exposure control; mA and/or kV adjustment per patient size (includes targeted exams where dose is matched to clinical indication); or iterative reconstruction. FINDINGS: Mild lumbar curve. No acute compression. Grade 1 anterolisthesis L4 on L5 with disc space narrowing w orse L4-L5 and L5-S1. No evidence of enhancing epidural abscess or discitis. Disc space heights well- preserved. L1-L2: Normal. L2-L3: Normal. L3-L4: Mild annular bulging. Slight effacement of ventral thecal sac. Spinal canal and foramen are pa tent. Moderate facet arthropathy. L4-L5: Grade 1 anterolisthesis. Disc bulging with osteophytic ridging results in moderate to severe c entral canal stenosis. Advanced facet arthropathy. Mild right greater than left foraminal narrowing. L5-S1: Mild annular bulging with slight effacement of ventral thecal sac. Moderate left and no signif icant right foraminal narrowing. Cholecystectomy clips. Adrenal glands are normal. CT/CT lumbar spine w con [id number] IMPRESSION: 1. No evidence of discitis or epidural abscess. 2. Moderate to severe central canal stenosis L4-5 due to disc osteophyte compl ex with facet arthropathy and ligament flavum hypertrophy. 3. Mild to moderate foraminal narrowing described above.
[2019-12-12] MEDS: iodixanol 320 mg/mL 100mL Btl IV ×2 (13:21→13:22)
[2019-12-12] MEDS: ondansetron 2 mg/ML SDV 2 mL 4 MG IVP (13:29)
[2019-12-12] MEDS: morphine 4 mg/mL SDV 1 mL IVP (13:30)
--- NOTE | 2019-12-12 16:58 | XR_ITS ---
WS: [id number] XR pelvis 1-2V* [id number] REASON FOR EXAM: hip pain FINDINGS: Single AP view of the pelvis demonstrates symmetric narrowing of the superior hip joints with margina l spurring of the acetabula. No focal bone lesion identified. No soft tissue abnormality. Incidentally noted is residual contrast in the ureters and within a significantly dilated urinary nita dder. Patient had contrast-enhanced CT scan of the spine. XR/XR pelvis 1-2V* [id number] IMPRESSION: Moderate symmetric osteoarthropathy of the hips.
--- NOTE | 2019-12-12 17:18 | CTR_ITS ---
PROCEDURE INFORMATION: Exam: CT Head Without Contrast Exam date and time: 12/12/2019 6:08 PM Age: 59 years old Clinical indication: Altered mental status/memory loss; Patient HX: Used meth yesterday; Additional info: AMS TECHNIQUE: Imaging protocol: Computed tomography of the head without contrast. Radiation optimization: All CT scans at this facility use at least one of these dose optimization techniques: automated exposure control; mA and/or kV adjustment per patient size (includes targeted exams where dose is matched to clinical indication); or iterative reconstruction. COMPARISON: CT head wo con* [id number] 05/18/2016 3:27 PM RADIATION DOSE METRICS: Total DLP (mGy-cm): 902.49 FINDINGS: Brain: Moderate parenchymal volume loss noted. There is decreased attenuation of the periventricular white matter, consistent with mild microangiopathic chronic white matter disease. Old lacunar infarcts in the bilateral basal ganglia. No parenchymal edema identified. No intracranial hemorrhage noted. Cerebral ventricles: The ventricles are proportional to the sulci. No hydrocephalus is noted. Bones/joints: Unremarkable. No acute fracture. Paranasal sinuses: Small retention cysts in the right maxillary sinus. Minimal air-fluid level left sphenoid sinus. Mastoid air cells: Unremarkable as visualized. No mastoid effusion. Soft tissues: Unremarkable. CT/CT head wo con* [id number] IMPRESSION: 1. Small retention cysts in the right maxillary sinus. Minimal air-fluid level left sphenoid sinus. Chronic intracranial changes are present. 2. No acute intracranial abnormality is noted. 3. There is no interval change from the prior examination. Radiation Dose CTDIVOL = (mGy): DLP = 902.49 (mGy-cm)
--- NOTE | 2019-12-12 18:01 | P.HP_ITS ---
Providers/Chief Complaint Chief Complaint: BEHAVIORAL ISSUES/ ANXIETY History of Present Illness Annetta Delacruz is a 59 year old female with past medical history of PTSD, panic disorder, major depressive disorder with passive ideation of suicide was sent into the ER today after nurse from [facility] called the ambulance. Most of the history taken through the chart review and by phone through her sister Ms. Gustafson on [phone]. Apparently patient has been complaining of back pain and has been having few episodes of fall with last episode yesterday afternoon. These all symptoms started after one of her medication called at [facility] was stopped by her primary care provider and she was started on low-dose Prozac. As per the sister patient has been becoming more confused, becoming more sleepy. As per my review of the chart the nurse from [facility] was concerned of overdose of Ativan because of longstanding history of passive wish so EMS was called. When EMS reached her house drug paraphernalia was found in the bed beside her when EMS picked her up including a pipe and IV supplies. In the ER patient was complaining of hip pain, was extremely tearful, and was difficult to get any current history though she did agree to using meth yesterday. In ER she was given 50 of Benadryl and 5 of Haldol. Her blood work in the ER showed a white count of 11.1, hemoglobin of 12.4, sodium of 131, chloride of 95, creatinine of 1.2, AST/ALT of 338/71, CRP of 38.6, UA negative for nitrite or leukoesterase, drug screen positive for amphetamines and benzodiazepines with negative alcohol level. Review of Systems General: Reports: ROS unobtainable due to mental status Medications/Allergies Home Medications Medication Instructions Recorded Confirmed Last Taken Type efmbiqs-kqoimvcfxkoek-[id number] 250 2 tab PO Q6H PRN 03/04/19 12/12/19 12/12/19 History mg-250 mg-65 mg tablet naproxen sodium 220 mg tablet 220 mg PO BID PRN 03/04/19 12/12/19 12/12/19 History lorazepam 2 mg tablet 2 mg PO TID #90 tab 09/19/19 12/12/19 12/12/19 Rx fluoxetine 40 mg capsule 40 mg PO .morning #30 cap 12/03/19 12/12/19 12/12/19 Rx pantoprazole 40 mg PO DAILY 12/12/19 12/12/19 12/12/19 History Allergies Allergy/AdvReac Type Severity Reaction Status Date / Time benzoin Allergy rash Verified 12/12/19 10:40 butorphanol [From Stadol] Allergy rash Verified 12/12/19 10:40 ciprofloxacin [From Cipro] Allergy rash Verified 12/12/19 10:40 gabapentin Allergy rash Verified 12/12/19 10:40 midazolam [From Versed] Allergy rash Verified 12/12/19 10:40 Sulfa (Sulfonamide Allergy rash Verified 12/12/19 10:40 Antibiotics) tramadol [From Ultram] Allergy rash Verified 12/12/19 10:40 PFSH Acute PFSH: Medical History Chronic post-traumatic stress disorder Major depressive disorder, recurrent severe without psychotic features Panic disorder with agoraphobia and severe panic attacks Suicidal risk Surgical History History of appendectomy History of cholecystectomy History of hysterectomy Family History Other Hypertension Psychiatric illness Social History Smoking and tobacco status: never smoked Alcohol intake: former Substance/Drug Use: current Lives independently: Yes Housing: House Vitals/I&O/Wt Last Vital Signs Temp 97.8 F 12/12/19 10:28 Pulse 73 12/12/19 17:09 Resp 18 12/12/19 17:09 BP 101/64 12/12/19 17:09 Pulse Ox 93 12/12/19 17:09 Weight last 48 hrs Weight 99.79 kg Physical Exam Narrative: EXAM NARRATIVE: General: Dehydrated, obtunded, protecting airway HEENT: PERRLA, pupils bilaterally equal and reactive Chest: Normal vesicular breath sounds, no added sounds, equal good air entry bilaterally CVS: S1-S2 regular, no murmurs, no tachycardia, no gallops, no rubs Abdomen: Soft, nontender, no organomegaly, bowel sounds present Neuro: Obtunded, responds to painful stimulus Data : 12/12/19 11:50 12/12/19 11:50 A&P Assessment and plan (1) ROBERT (acute kidney injury): Status: Acute (2) Dehydration: Status: Acute (3) Hyponatremia: Status: Acute (4) Abnormal liver enzymes: Status: Acute (5) Major depressive disorder, recurrent severe without psychotic features: Status: Chronic (6) Amphetamine abuse: Status: Acute (7) Suicidal risk: Status: Acute Additional A&P Information 59 female with past medical history of depressive disorder, passive suicidal ideation, amphetamine abuse with most recently used yesterday with history of recent changes in medication was brought into the ER by EMS today was delirious and was given diphenhydramine and Haldol. Delirium: Most likely secondary to meth abuse, exacerbation of maría due to recent medication change. Psychiatry has been consulted from the ER. D5 NS at 75 cc/h. Drug screen appreciated. Zofran, Protonix. One-to-one sitter. No sign of infection for now. Has mild leukocytosis most likely secondary to dehydration. If patient has any fever will start on antibiotics at that point. Check blood cultures, procalcitonin. Advised CT head. Thoracolumbar spine CT results appreciated. ROBERT: Creatinine baseline normal. Most likely secondary dehydration. IV fluids as above. Medical reconciliation done for nephrotoxic drugs. Monitor BMP daily. Check urine lites. Hyponatremia/high anion gap metabolic acidosis: Secondary dehydration. Treatment as above. Check vitamin B12, TSH, folate levels, iron panel, HbA1c. Full code. Protonix OPD prophylaxis. Low chances of DVT: SCDs. One-to-one sitter. N.p.o. for now. Cardiac monitoring, fall and seizure precautions. Attestations Medical Necessity Statement*: Patient needs hospitalization for management of acute kidney injury, hyponatremia, delirium secondary to meth abuse and exacerbation of maría. Needs admission most likely for more than 2 midnights. Time Spent in Patient Care: Greater than 35 minutes (>than 50% of time spent in counselling and/or direct pt care on unit) . Coding Level of Care Code Acute Dining Room Cashier for Gage Narayanan Diagnoses ROBERT (acute kidney injury) N17.9 Dehydration E86.0 Hyponatremia E87.1 Abnormal liver enzymes R74.8 Major depressive disorder, recurrent severe without psychotic features F33.2 Amphetamine abuse F15.10 Suicidal risk R45.89
[2019-12-12 18:35] LABS: Creatine Phosphokinase 19870 U/L (26-192)
[2019-12-12 19:59] LABS: Potassium, Radom Urine 6 mmol/L
[2019-12-12 20:11] LABS: Thyroid Stimulating Hormone 1.93 uIU/mL (0.27-4.20); Vitamin B12 365 pg/mL (232-1245)
[2019-12-12 20:13] LABS: Folate Level 11.4 ng/mL (4.8-37.3)
[2019-12-12 20:22] LABS: Urine Random Chloride 10 mmol/L; Urine Random Sodium 10 mmol/L
[2019-12-12 20:24] LABS: Iron 50 ug/dL (37-145); Percent Saturation 15.5 % (20-50); Total Iron Binding Capacity 322 mcg/dl; Unsaturated Iron Binding 272 ug/dL (112-347)
[2019-12-12] MEDS: pantoprazole 40 mg SDV IVP (21:14)
[2019-12-12] MEDS: sodium chloride 0.9% 1,000 ML 999 ML IV ×2 (21:42)
--- NOTE | 2019-12-12 22:27 | PC.NURSE ---
[facility]
[2019-12-13] VITALS: BP 98/63; PULSE 69; RESP 14; TEMP 35.8; O2SAT 93
[2019-12-13] MEDS: dextrose 5%-sod chloride 0.9% 1,000 ML 75 ML IV ×2 (00:30→13:21)
[2019-12-13 04:00] VITALS: BP 92/60; PULSE 66; RESP 20; TEMP 36.4; O2SAT 93
[2019-12-13 05:27] LABS: Basophils % 0.8 %; Eosinophils # 0.1 10^3/uL (0.0-0.8); Eosinophils % 2.8 %; Hematocrit 37.1 % (37.0-47.0); Hemoglobin 11.5 g/dL (11.5-15.3); Lymphocytes # 1.8 10^3/uL (0.8-4.8); Lymphocytes % 35.9 %; Mean Corpuscular Hemoglobin 26.9 pg (28.0-34.0); Mean Corpuscular Volume 86.7 fL (81-99); Monocytes # 0.5 10^3/uL (0.2-0.9); Monocytes % 9.1 %; Neutrophils # 2.56 10^3/uL (1.8-7.7); Neutrophils % 50.8 %; Nucleated Red Blood Cells % 0 %; Platelet Count 264 10^3/cmm (130-400); Red Blood Count 4.28 10^6/uL (4.1-5.3); Red Cell Distribution Width 14.7 % (12.1-15.1)
[2019-12-13 05:41] LABS: Alanine Aminotransferase 55 U/L (0-33); Albumin Level 3.8 g/dL (3.5-5.2); Alkaline Phosphatase 77 IU/L (35-105); Aspartate Amino Transferase 206 U/L (0-32); Blood Urea Nitrogen 16 mg/dL (8-23); Calcium 8.3 mg/dL (8.5-10.5); Carbon Dioxide 25 mmol/L (22-29); Chloride 105 mmol/L (98-107); Globulin 2.3 g/dL (1.3-4.6); Glomerular Filtration Rate 56.4 mL/min (90-130); Glucose 98 mg/dL (65-115); Magnesium 2.2 mg/dL (1.7-2.3); Osmolality Calculated 289 mOsm/kg (285-295); Phosphorus 3.5 mg/dL (2.5-4.5); Sodium 139 mmol/L (136-145); Total Bilirubin 0.7 mg/dL (0.15-1.2); Total Protein 6.1 g/dL (6.6-8.7)
[2019-12-13 05:42] LABS: Chol HDL Ratio 5.56 mg/dL (0.0-4.40); Cholesterol 217 mg/dL (0-200); HDL Cholesterol 39 mg/dL (60-100); LDL Cholesterol Calculated 138 mg/dL (50-129); Triglycerides 199 mg/dL (0-150); VLDL Cholestrol Calculation 40 mg/dL (0-30)
[2019-12-13 05:55] LABS: Anion Gap 12.1 (5-19); Potassium 3.1 mmol/L (3.5-5.1)
[2019-12-13 06:44] LABS: Estmated Average Glucose 120; Hemoglobin A1C 5.8 % (4.0-6.0)
[2019-12-13 07:37] VITALS: BP 96/61; PULSE 67; RESP 15; TEMP 36.8; O2SAT 95
[2019-12-13] MEDS: pantoprazole DR 40 mg Tablet PO (08:30)
[2019-12-13] MEDS: potassium chloride ER 10 mEq Tablet 40 MEQ PO (09:18)
[2019-12-13 11:22] VITALS: BP 92/56; PULSE 72; RESP 16; TEMP 36.6; O2SAT 93
--- NOTE | 2019-12-13 12:15 | PC.CHAP ---
Pastoral Care Encounter/Spiritual Assessment Type of Contact [] Declined e commerce director visit [] Patient/Family/Request visit [] Outpatient visit [] Follow-up visit [] Physician referral [] Code/Alert [] Routine visit [] Staff referral [] Actively dying [] Patient sleeping [] Family support [] [] Out of room [] Palliative care [] [xx] Receiving care in room [] Pre-surgical visit [] Trauma [] Long length of stay [] ICU visit [xx] Other: Constant medical staff care who recommended later visit. Follow up needed Relational/Emotional Strength [] Patient feels connected with others/family/visitors/staff [] Distress [] Loneliness/isolation [] Abandonment Spirituality of Patient [] Person of Jeaneth [] Attends Muslim of their Jeaneth [] Believes in Prayer [] Reads Bible or Yazidism materials [] There are Spiritual issues to be addressed Senior Strategy Analyst Interventions [] Prayer [] Active listening [] Non-anxious presence [] Spiritual/emotional support [] Crisis/trauma care [] Spiritual counseling [] Bereavement support [] Provided bereavement packet [] Provided Bible/devotional materials [] Provided toy/stuffed animal, coloring book to patient or family member [] Provided Communion [] Anointing/Kasbeer [] Salvation [] Completed spiritual assessment [] Other: Impact on Illness or Injury [] Angry [] Fearful [] Anxious [] Often cries [] Exhaustion [] Unable to work [] Unable to attend adventism [] Unable to walk/stand [] Unable to read [] Unable to drive [] Unable to eat/drink [] Unable to sleep [] Unable to be with family [] Patient intubated [] Other: Summary Follow up needed Time spent with patient 2 minutes Senior Strategy Analyst Brittany Skinner
--- NOTE | 2019-12-13 13:27 | P.PN_ITS ---
Subjective Subjective: Interval history: History and physical was reviewed. Patient reports she is doing okay this morning. She denies any suicidal intent. Medications: Reviewed: Yes Vitals/I&O/Wt Last Vital Signs Temp 97.9 F 12/13/19 11:22 Pulse 72 12/13/19 11:22 Resp 16 12/13/19 11:22 BP 92/56 12/13/19 11:22 Pulse Ox 93 12/13/19 11:22 12/12/19 12/13/19 12/13/19 22:59 06:59 14:59 Intake Total 0 / 0 0 / 0 1443.75 / 1443.75 Output Total 0 / 0 850 / 850 Balance 0 / 0 0 / 0 593.75 / 593.75 Weight last 48 hrs Weight 99.337 kg Weight 99.79 kg Physical Exam Narrative: EXAM NARRATIVE: General exam no apparent distress Cardiovascular regular rate and rhythm without murmur Lungs clear Abdomen is soft with positive bowel sounds Extremities no cyanosis clubbing or edema Data : 12/13/19 04:22 12/13/19 04:22 Micro: Microbiology 12/12/19 11:16 Urine Culture - Preliminary Urine,Clean Catch Gram Negative Rods 12/12/19 04:22 Blood Culture - Preliminary Blood SPECIMEN COLLECTED 12/12/19 04:22 Blood Culture - Preliminary Blood SPECIMEN COLLECTED A&P Assessment and plan (1) ROBERT (acute kidney injury): This appears to be resolving Status: Acute (2) Dehydration: Resolved Status: Resolved (3) Hyponatremia: Resolved Status: Resolved (4) Abnormal liver enzymes: Improving Status: Acute (5) Major depressive disorder, recurrent severe without psychotic features: Status: Chronic (6) Amphetamine abuse: Status: Acute (7) Suicidal risk: Psychiatry has evaluated. They accept her to neuropsych when medical appropriate Status: Acute Additional A&P Information Delirium. This appears to be resolved. Psychiatry is seeing the patient. Would like for her to come down to neuropsychiatric floor for further evaluation. Rhabdomyolysis. Await CK level today. Hypokalemia. Supplement. Full code Low risk for DVT, SCDs in place Possible transfer to neuropsychiatric unit today, depending upon CK level. Attestations Medical Necessity Statement*: Needs continued hospitalization for further evaluation of neuropsychiatric disorder with passive suicidal ideation, drug use, poor judgment. Coding Level of Care Code Acute Sales Service Assistant for [facility] Fwd Diagnoses ROBERT (acute kidney injury) N17.9 Dehydration E86.0 Hyponatremia E87.1 Abnormal liver enzymes R74.8 Major depressive disorder, recurrent severe without psychotic features F33.2 Amphetamine abuse F15.10 Suicidal risk R45.89
[2019-12-13 13:47] LABS: Creatine Phosphokinase 8488 U/L (26-192)
[2019-12-13] MEDS: sodium chloride 0.9% 1,000 ML 150 ML IV ×2 (14:55→21:59)
[2019-12-13 15:21] VITALS: BP 90/54; PULSE 72; RESP 16; TEMP 37.8; O2SAT 94
[2019-12-13] MEDS: HYDROcodone-acetaminophen 5-325 mg Tablet 1 TAB PO (15:25)
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
[2019-12-13 20:00] VITALS: BP 166/70; PULSE 69; RESP 17; TEMP 37.1; O2SAT 96
[2019-12-13] MEDS: LORazepam 2 mg Tablet PO (20:04)
[2019-12-13] MEDS: pantoprazole 40 mg SDV IVP (20:33)
[2019-12-14] VITALS (8 sets, daily range): BP systolic 94–147; BP diastolic 58–82; PULSE 66–76; RESP 15–18; TEMP 36.4–37.2; O2SAT 92–97
[2019-12-14] MEDS: sodium chloride 0.9% 1,000 ML 150 ML IV (05:13)
[2019-12-14 07:13] LABS: Alanine Aminotransferase 43 U/L (0-33); Albumin Level 3.1 g/dL (3.5-5.2); Alkaline Phosphatase 63 IU/L (35-105); Anion Gap 13.2 (5-19); Aspartate Amino Transferase 110 U/L (0-32); Blood Urea Nitrogen 10 mg/dL (8-23); Carbon Dioxide 22 mmol/L (22-29); Chloride 108 mmol/L (98-107); Globulin 2.5 g/dL (1.3-4.6); Glomerular Filtration Rate 72.9 mL/min (90-130); Glucose 108 mg/dL (65-115); Osmolality Calculated 288 mOsm/kg (285-295); Potassium 4.2 mmol/L (3.5-5.1); Sodium 139 mmol/L (136-145); Total Bilirubin 0.3 mg/dL (0.15-1.2); Total Protein 5.6 g/dL (6.6-8.7)
[2019-12-14] MEDS: HYDROcodone-acetaminophen 5-325 mg Tablet 1 TAB PO ×3 (07:56→20:30)
[2019-12-14] MEDS: fluoxetine 20 mg Capsule 40 MG PO (08:03)
[2019-12-14] MEDS: LORazepam 2 mg Tablet PO ×3 (08:03→20:30)
[2019-12-14] MEDS: pantoprazole DR 40 mg Tablet PO (08:03)
[2019-12-14 08:30] LABS: Creatine Phosphokinase 4306 U/L (26-192)
[2019-12-14 09:06] LABS: Basophils % 0.8 %; Eosinophils # 0.1 10^3/uL (0.0-0.8); Eosinophils % 2.4 %; Hematocrit 36.2 % (37.0-47.0); Hemoglobin 10.7 g/dL (11.5-15.3); Lymphocytes # 1.7 10^3/uL (0.8-4.8); Lymphocytes % 34.8 %; Mean Corpuscular HGB Conc 29.6 g/dL (30.0-36.0); Mean Corpuscular Hemoglobin 27.1 pg (28.0-34.0); Mean Corpuscular Volume 91.6 fL (81-99); Monocytes # 0.5 10^3/uL (0.2-0.9); Monocytes % 10.4 %; Neutrophils % 50.8 %; Nucleated Red Blood Cells % 0 %; Platelet Count 222 10^3/cmm (130-400); Red Blood Count 3.95 10^6/uL (4.1-5.3); Red Cell Distribution Width 15.4 % (12.1-15.1); White Blood Count 4.9 10^3/uL (4.0-10.0)
--- NOTE | 2019-12-14 11:56 | P.PN_ITS ---
Subjective Subjective: Interval history: CPK continues to trend down, sitter at bedside, hemodynamically stable, afebrile, on RA. Resting quietly in bed, does report some hip pain but otherwise no complaints. Had breakfast this AM, not hungry now so did not eat lunch. Voiding well. To be transferred to NPU this afternoon. Medications: Reviewed: Yes Medication Review Details: Active Medications Generic Name Dose Route Start Last Admin Trade Name Freq PRN Reason Stop Dose Admin Hydrocodone Bitart /Acetaminophen 1 tab 12/13/19 15:07 12/14/19 07:56 [place] 5-325 Mg PO 1 tab Q6H PRN Administration MODERATE PAIN Bisacodyl 10 mg 12/12/19 20:10 Dulcolax PO DAILY PRN CONSTIPATION Fluoxetine HCl 40 mg 12/14/19 09:00 12/14/19 08:03 Prozac PO 40 mg DAILY REJI Administration Sodium Chloride 1,000 mls @ 150 m ls/hr 12/13/19 14:30 12/14/19 05:13 Sodium Chloride 0.9% IV 150 mls/hr .Q6H40M REJI Administration Lorazepam 2 mg 12/13/19 21:00 12/14/19 08:03 Ativan PO 2 mg TID REJI Administration Ondansetron HCl 4 mg 12/12/19 20:10 Zofran IVP Q8H PRN vomiting, or N/V if npo Pantoprazole Sodiu m 40 mg 12/13/19 09:00 12/14/19 08:03 Protonix PO 40 mg DAILY REJI Administration benzoin Allergy (Verified 12/12/19 10:40) rash butorphanol [From Stadol] Allergy (Verified 12/12/19 10:40) rash ciprofloxacin [From Cipro] Allergy (Verified 12/12/19 10:40) rash gabapentin Allergy (Verified 12/12/19 10:40) rash midazolam [From Versed] Allergy (Verified 12/12/19 10:40) rash Sulfa (Sulfonamide Antibiotics) Allergy (Verified 12/12/19 10:40) rash tramadol [From Ultram] Allergy (Verified 12/12/19 10:40) rash Vitals/I&O/Wt Last Vital Signs Temp 98.8 F 12/14/19 11:09 Pulse 71 12/14/19 11:09 Resp 17 12/14/19 11:09 BP 113/71 12/14/19 11:09 Pulse Ox 94 12/14/19 11:09 12/13/19 12/14/19 12/14/19 22:59 06:59 14:59 Intake Total 1240 / 2923.75 1000 / 3923.75 Output Total 650 / 1500 850 / 2350 400 / 400 Balance 590 / 1423.75 150 / 1573.75 -400 / -400 Weight last 48 hrs Weight 109.344 kg Weight 99.337 kg Physical Exam Const: COMMON NORMALS: no acute distress, patient oriented x3 and alert GENERAL APPEARANCE: cooperative and comfortable ORIENTATION/CONSCIOUSNESS: Yes awake OTHER: -resting quietly in bed HENMT: COMMON NORMALS: normocephalic, atraumatic, hearing grossly normal bilaterally and moist oral mucous membranes HEAD & SCALP: normocephalic and atraumatic Eye: COMMON NORMALS: Equal, round and reactive pupils present, EOMs intact bilaterally and conjunctivae normal CONJUNCTIVA: Yes conjunctivae normal PUPIL: Yes Equal, round and reactive pupils present Neck/C-Spine: COMMON NORMALS: full ROM GENERAL: Yes normal visual inspection and Yes trachea midline Resp: COMMON NORMALS: normal respiratory effort, No retractions, No use of ac cessory muscles and clear to auscultation bilaterally EFFORT & INSPECTION: Yes able to speak in complete sentences, Yes symmetric chest movement and No tachypneic AUSCULTATION: clear to auscultation bilaterally OTHER: -on RA Cardio: COMMON NORMALS: regular rate, regular rhythm, S1 normal heart sound present, S2 normal heart sound present and No murmurs present (Cardio) RATE: regular rate RHYTHM: regular rhythm HEART SOUNDS: S1 normal heart sound present and S2 normal heart sound present GI: COMMON NORMALS: Normal to inspection, nondistended, normoactive bowel sounds present, Soft to palpation and non-tender PALPATION: Yes Soft to palpation Extremity: COMMON NORMALS: normal to inspection, full ROM and no clubbing, cyanosis or edema; negative for no pedal edema Neuro: COMMON NORMALS: patient oriented x3, moves all extremities, no focal motor deficits and no sensory deficits noted SENSORIUM/ORIENTATION: Yes alert Psych: COMMON NORMALS: mental status grossly normal, Normal thought process present, cooperative and speech normal SPEECH: Yes normal speech MOOD & AFFECT: Yes Flat affect present THOUGHT PROCESS: Normal thought process present Skin: COMMON NORMALS: no rashes or lesions noted, no jaundice, no petechiae and no mottling GENERAL SKIN EXAM: no rashes or lesions noted Data : 12/14/19 06:42 12/14/19 06:42 Micro: Microbiology 12/12/19 11:16 Urine Culture - Final Urine,Clean Catch Escherichia coli 12/12/19 04:22 Blood Culture - Preliminary Blood NEGATIVE TO DATE 12/12/19 04:22 Blood Culture - Preliminary Blood NEGATIVE TO DATE A&P Assessment and plan (1) Rhabdomyolysis: -CPK consistently trending down with hydration -precipitated by falls prior to presentation -VSS Status: Acute Qualifiers: Encounter type: initial encounter Rhabdomyolysis type: traumatic Qualified Code(s): T79.6XXA - Traumatic ischemia of muscle, initial encounter (2) Suicidal risk: -Appreciate Psychiatry evaluation by Dr. Fernandez -plan to transfer to NPU -has been following at [facility] [place] -sitter at bedside Status: Acute (3) Methamphetamine abuse: -noted on UDS Status: Acute (4) Abnormal liver enzymes: -gradually improving Status: Acute (5) Hyponatremia: Status: Resolved (6) Dehydration: Status: Resolved (7) ROBERT (acute kidney injury): Status: Resolved Additional A&P Information -regular diet as tolerated -GI ppx with PPI -Dispo: transfer to NPU -Code status: FULL code -transfer to NPU this afternoon Attestations Medical Necessity Statement*: Patient requires hospitalization for continued psychiatric care. Time Spent in Patient Care: 16 - 35 minutes (>than 50% of time spent in counselling and/or direct pt care on unit) . Coding Level of Care Code Acute Registered Appraiser for Gage Fwd Exam Comprehensive Diagnoses Rhabdomyolysis T79.6XXA Encounter type: initial encounter Rhabdomyolysis type: traumatic Suicidal risk R45.89 Methamphetamine abuse F15.10 Abnormal liver enzymes R74.8 Hyponatremia E87.1 Dehydration E86.0 ROBERT (acute kidney injury) N17.9
--- NOTE | 2019-12-14 13:45 | PC.NURSE ---
Patient report called to Rodrick RN in NPU, patient going to room 155-1
--- NOTE | 2019-12-14 15:30 | PC.NURSE ---
Patient transported to NPU via wheelchair to room 155-1 with zero difficulties.
[2019-12-15] MEDS: HYDROcodone-acetaminophen 5-325 mg Tablet 1 TAB PO ×3 (02:46→21:20)
[2019-12-15 06:00] VITALS: BP 136/87; PULSE 74; RESP 17; TEMP 36.5; O2SAT 91
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
[2019-12-15] MEDS: pantoprazole DR 40 mg Tablet PO (07:56)
[2019-12-15] MEDS: fluoxetine 20 mg Capsule 40 MG PO (07:56)
[2019-12-15] MEDS: LORazepam 2 mg Tablet PO ×3 (07:56→21:20)
[2019-12-15 14:00] VITALS: BP 123/72; PULSE 70; RESP 18; TEMP 37.2
[2019-12-15 20:21] VITALS: BP 126/82; PULSE 74; RESP 16; TEMP 37.5; O2SAT 95
[2019-12-15 22:09] VITALS: BP 126/82; PULSE 74; RESP 16; TEMP 37.5; O2SAT 95
[2019-12-16 06:13] VITALS: BP 125/82; PULSE 66; RESP 18; TEMP 37.2; O2SAT 93
[2019-12-16] MEDS: HYDROcodone-acetaminophen 5-325 mg Tablet 1 TAB PO (06:21)
[2019-12-16] MEDS: LORazepam 2 mg Tablet PO (09:01)
[2019-12-16] MEDS: pantoprazole DR 40 mg Tablet PO (09:01)
[2019-12-16] MEDS: fluoxetine 20 mg Capsule 40 MG PO (09:01)
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
[2019-12-16 14:04] VITALS: BP 125/82; PULSE 66; RESP 18; TEMP 37.2; O2SAT 93
== END 2019-12-16 14:21 | disposition home or self-care (01) | DRG 683 ==
LOC: ER 18:59 → MEDSURG 19:36 → NP 12-14 15:30
PROVIDERS: Internal Medicine; Admitting Provider Student in an Organized Health Care Education/Training Program; Emergency Provider Emergency Medicine; Visit Provider Psychiatry & Neurology Psychiatry
DX: N17.9 Acute kidney failure, unspecified (principal); R45.851 Suicidal ideations; E87.1 Hypo-osmolality and hyponatremia; F15.121 Other stimulant abuse with intoxication delirium; E87.2 Acidosis; F43.12 Post-traumatic stress disorder, chronic; F40.01 Agoraphobia with panic disorder; F32.9 Major depressive disorder, single episode, unspecified; M25.559 Pain in unspecified hip; F10.21 Alcohol dependence, in remission; E86.0 Dehydration; Z91.5 Personal history of self-harm; T79.6XXA Traumatic ischemia of muscle, initial encounter; X58.XXXA Exposure to other specified factors, initial encounter
CPT/HCPCS: 12345; 36415; 70450; 72129; 72132; 72170; 80053; 80061; 80306; 80307; 81001; 82436; 82550; 82607; 82746; 83036; 83540; 83550; 83735; 84100; 84133; 84145; 84300; 84443; 85025; 86140; 87040; 87077; 87086; 87186; 90471; 90686; 93005; 94664; 96372; 96375; 99283; C9113; J1200; J1630; J2060; J2270; J2405; J7030; Q9967

== ENCOUNTER 2019-12-30 10:15 | Emergency (ER) | payer MEDICARE, SELFPAY ==
[2019-12-30 08:14] VITALS: BP 150/92; PULSE 82; RESP 20; TEMP 36.9; O2SAT 93; BMI 30.1
--- NOTE | 2019-12-30 08:23 | ECG_ITS ---
[facility] Test Date: 2019-12-30 Pat Name: Annetta Delacruz Department: Room: Gender: Female [employer]ol[employer] Aptitude Test Grader: : 1960 Requested By: Jeffery Tabares Order Number: [id number] Sharon MD: Nnamdi Hewitt M.D. Measurements Intervals [place] Rate: 72 P: 81 DE: 175 QRS: 8 QRSD: 82 T: 44 QT: 395 QTc: 434 Interpretive Statements SINUS RHYTHM Compared to ECG 12/12/2019 11:10:28 T-wave abnormality no longer present Electronically Signed On 12-30-2019 16:37:54 BREAKFAST SERVER by Nnamdi Hewitt M.D. [id number]
--- NOTE | 2019-12-30 08:25 | XR_ITS ---
WS: [id number] XR chest 1V portable [id number] REASON FOR EXAM: dyspnea/cough FINDINGS: The chest is unchanged compared 05/19/2016. No active pulmonary parenchymal pleural disease. The heart and mediastinum are within normal limits. The bony thorax is intact. XR/XR chest 1V portable [id number] IMPRESSION: No acute chest abnormality.
--- NOTE | 2019-12-30 08:29 | W.ED.PSYCH ---
HPI - Psych General: Chief Complaint: Psychiatric Symptoms Stated Complaint: panic attack/benzo withdrawl History of Present Illness: MD complaint: feels depressed and other (anxious recently stopped Ativan) Onset (ago): hour(s) Duration: intermittent History of same: Yes Relieving factors: none Exacerbating factors: none Context: significant life stressor Associated psychiatric symptoms: depression and other (anxiety) Treatments prior to arrival: none Review of Systems Const: Denies: fever(s), chills, body aches, change in appetite, fatigue or malaise ENMT: Denies: throat pain, ear or mastoid pain, nasal discharge or nasal congestion Card: Denies: chest pain, edema, dyspnea on exertion or orthopnea Resp: Denies: dyspnea, productive cough or non-productive cough GI: Denies: abdominal pain, nausea, vomiting, hematemesis, coffee ground emesis, diarrhea, constipation, bloating, hematochezia or melena : Denies: flank pain, difficulty voiding, dysuria, urinary frequency or urinary urgency Skin/Breast: Denies: rash or pruritus PFSH ED PFSH: Medical History (Updated 12/30/19 @ 10:14 by Jeffery Finney DO) Amphetamine abuse Chronic post-traumatic stress disorder Major depressive disorder, recurrent severe without psychotic features Panic disorder with agoraphobia and severe panic attacks Suicidal risk Surgical History History of appendectomy History of cholecystectomy History of hysterectomy Family History Other Hypertension Psychiatric illness Social History Smoking and tobacco status: never smoked Alcohol intake: former Substance/Drug Use: former Lives independently: Yes Housing: House Physical Exam Const: COMMON NORMALS: no acute distress GENERAL APPEARANCE: cooperative and comfortable ORIENTATION/CONSCIOUSNESS: Yes awake, Yes oriented to person, Yes oriented to place and Yes oriented to time HENMT: COMMON NORMALS: normocephalic, atraumatic and hearing grossly normal bilaterally HEAD & SCALP: normocephalic and atraumatic Eye: COMMON NORMALS: Equal, round and reactive pupils present, EOMs intact bilaterally, conjunctivae normal and no scleral icterus CONJUNCTIVA: Yes conjunctivae normal PUPIL: Yes Equal, round and reactive pupils present Neck/C-Spine: COMMON NORMALS: no JVD Resp: COMMON NORMALS: normal respiratory effort, No retractions, No use of accessory muscles and clear to auscultation bilaterally AUSCULTATION: clear to auscultation bilaterally Cardio: COMMON NORMALS: no JVD, regular rate, regular rhythm and No murmurs present (Cardio) RATE: regular rate RHYTHM: regular rhythm GI: COMMON NORMALS: Soft to palpation and No hepatosplenomegaly present AUSCULTATION: Yes normoactive bowel sounds PALPATION: Yes Soft to palpation, No Tenderness to palpation present (GI), No Guarding due to palpation present (GI) and Yes No hepatosplenomegaly present Extremity: COMMON NORMALS: normal to inspection, capillary refill normal, no clubbing, cyanosis or edema, no calf tenderness and no pedal edema Neuro: SENSORIUM/ORIENTATION: Yes oriented to person, Yes oriented to place and Yes oriented to time Skin: COMMON NORMALS: no rashes or lesions noted GENERAL SKIN EXAM: no rashes or lesions noted MDM - Psych MDM Narrative: Medical decision making narrative: Patient is hyperventilating. We will go ahead and give her some hydroxyzine here discharge home with a short prescription for hydroxyzine follow-up with [facility] return if has problems Lab Data: Labs: Lab Results 12/30/19 12/30/19 12/30/19 Range/Units 08:37 09:05 09:05 WBC 9.0 (4.0-10.0) 10^3/ uL RBC 4.96 (4.1-5.3) 10^6/u L Hgb 13.3 (11.5-15.3) g/dL Hct 42.4 (37.0-47.0) % MCV 85.5 (81-99) fL MCH 26.8 L (28.0-34.0) pg MCHC 31.4 (30.0-36.0) g/dL RDW 15.2 H (12.1-15.1) % Plt Count 447 H (130-400) 10^3/c mm MPV 9.4 (7.4-10.4) fL Neut % (Auto) 72.2 % Lymph % (Auto) 20.3 % [place] % (Auto) 5.2 % Eos % (Auto) 0.8 % Baso % (Auto) 0.7 % Neut # (Auto) 6.51 (1.8-7.7) 10^3/u L Lymph # (Auto) 1.8 (0.8-4.8) 10^3/u L [place] # (Auto) 0.5 (0.2-0.9) 10^3/u L Eos # (Auto) 0.1 (0.0-0.8) 10^3/u L Baso # (Auto) 0.1 (0.0-0.1) 10^3/u L Nucleated RBC % (a uto) 0 % Nucleated RBCs # 0.0 /100WBC Specimen Type Arterial Sample Site Radial, left ABG pH 7.47 H (7.35-7.45) ABG pCO2 31.3 L (35-45) mmHg ABG pO2 108.0 H (80.0-100.0) mmH g ABG HCO3 22.5 (22-26) mmol/L ABG O2 Saturation 97.8 ABG Base Excess -0.3 (-2.0-2.0) mmol/ L Clark Test Pos A-a O2 Gradient 0.4 L (5-10) mmHg Hematocrit 43.0 (37-47) % Hgb O2 Saturation 97.1 (95-100) % Carboxyhemoglobin 0.1 L (0.4-20.1) %THgb Methemoglobin 0.6 (0.4-1.5) % Total Hemoglobin 14.0 (12-16) g/dL Sodium 138.0 142 (131-143) mmol/L Potassium 4.0 4.3 (3.5-5.0) mmol/L Glucose 134.0 H 144 H (70-115) mg/dL Ionized Calcium 1.2 (1.1-1.4) mmol/L O2 Delivery Device Room air FiO2 21.0 % Engineer Operations And Maintenance ID Cak Chloride 105 (98-107) mmol/L Carbon Dioxide 22 (22-29) mmol/L Anion Gap 19.3 H (5-19) BUN 15 (8-23) mg/dL Creatinine 0.8 (0.5-0.9) mg/dL GFR Calculation 72.9 L (90-130) mL/min Calculated Osmolal ity 297 H (285-295) mOsm/k g Calcium 9.2 (8.5-10.5) mg/dL Total Bilirubin 0.3 (0.15-1.2) mg/dL AST 31 (0-32) U/L ALT 20 (0-33) U/L Alkaline Phosphata se 85 (35-105) IU/L Total Protein 7.2 (6.6-8.7) g/dL Albumin 4.2 (3.5-5.2) g/dL Globulin 3.0 (1.3-4.6) g/dL Urine Color (Yellow) Urine Appearance (CLEAR) Urine pH (5-7) Ur Specific Gravit y (1.005-1.030) Urine Protein (Negative) Urine Glucose (UA) (Normal) Urine Ketones (Negative) Urine Blood (Negative) Urine Nitrate (Negative) Urine Bilirubin (Negative) Urine Urobilinogen (Negative) mg/dL Ur Leukocyte Margaret ase (Negative) Ethyl Alcohol < 10 (0-10) mg/dL 12/30/19 Range/Units 09:36 WBC (4.0-10.0) 10^3/ uL RBC (4.1-5.3) 10^6/u L Hgb (11.5-15.3) g/dL Hct (37.0-47.0) % MCV (81-99) fL MCH (28.0-34.0) pg MCHC (30.0-36.0) g/dL RDW (12.1-15.1) % Plt Count (130-400) 10^3/c mm MPV (7.4-10.4) fL Neut % (Auto) % Lymph % (Auto) % [place] % (Auto) % Eos % (Auto) % Baso % (Auto) % Neut # (Auto) (1.8-7.7) 10^3/u L Lymph # (Auto) (0.8-4.8) 10^3/u L [place] # (Auto) (0.2-0.9) 10^3/u L Eos # (Auto) (0.0-0.8) 10^3/u L Baso # (Auto) (0.0-0.1) 10^3/u L Nucleated RBC % (a uto) % Nucleated RBCs # /100WBC Specimen Type Sample Site ABG pH (7.35-7.45) ABG pCO2 (35-45) mmHg ABG pO2 (80.0-100.0) mmH g ABG HCO3 (22-26) mmol/L ABG O2 Saturation ABG Base Excess (-2.0-2.0) mmol/ L Clark Test A-a O2 Gradient (5-10) mmHg Hematocrit (37-47) % Hgb O2 Saturation (95-100) % Carboxyhemoglobin (0.4-20.1) %THgb Methemoglobin (0.4-1.5) % Total Hemoglobin (12-16) g/dL Sodium (131-143) mmol/L Potassium (3.5-5.0) mmol/L Glucose (70-115) mg/dL Ionized Calcium (1.1-1.4) mmol/L O2 Delivery Device FiO2 % Engineer Operations And Maintenance ID Chloride (98-107) mmol/L Carbon Dioxide (22-29) mmol/L Anion Gap (5-19) BUN (8-23) mg/dL Creatinine (0.5-0.9) mg/dL GFR Calculation (90-130) mL/min Calculated Osmolal ity (285-295) mOsm/k g Calcium (8.5-10.5) mg/dL Total Bilirubin (0.15-1.2) mg/dL AST (0-32) U/L ALT (0-33) U/L Alkaline Phosphata se (35-105) IU/L Total Protein (6.6-8.7) g/dL Albumin (3.5-5.2) g/dL Globulin (1.3-4.6) g/dL Urine Color Straw (Yellow) Urine Appearance Clear (CLEAR) Urine pH 5 (5-7) Ur Specific Gravit y 1.020 (1.005-1.030) Urine Protein Neg (Negative) Urine Glucose (UA) Norm (Normal) Urine Ketones Negative (Negative) Urine Blood Neg (Negative) Urine Nitrate Negative (Negative) Urine Bilirubin Neg (Negative) Urine Urobilinogen Norm (Negative) mg/dL Ur Leukocyte Margaret ase Negative (Negative) Ethyl Alcohol (0-10) mg/dL Discharge Plan Discharge Patient Disposition: Home Clinical Impression: Acute anxiety, Hyperventilation Condition: Stable Prescriptions: New hydroxyzine HCl 25 mg tablet 25 mg PO Q6H PRN (Reason: anxiety) Qty: 14 RF: 0 No Action Excedrin Migraine 250-250-65 mg tablet 2 tab PO Q6H PRN (Reason: haedache) RF: 0 naproxen sodium [Aleve] 220 mg tablet 220 mg PO BID PRN (Reason: Pain) RF: 0 fluoxetine [Prozac] 40 mg capsule 40 mg PO .morning Qty: 30 RF: 1 lorazepam [Ativan] 1 mg tablet 1 mg PO TID Qty: 21 RF: 0 lorazepam [Ativan] 0.5 mg tablet 0.5 mg PO TID Qty: 21 RF: 0 hydroxyzine HCl 25 mg tablet 25 mg PO BID PRN (Reason: anxiety) Qty: 60 RF: 0 pantoprazole 40 mg tablet,delayed release (DR/EC) 40 mg PO DAILY RF: 0 Discharge Orders: Discharge Order (Routine); Ordered 12/30/19 Ordered By: Jeffery Finney Discharge Diet: Usual diet Discharge Activity: Increase activity as tolerated Activity Restrictions/Additional Instructions: Follow-up with [facility] as previously scheduled Coding Level of Care Code ED Quitline Counselor for Emilyg Fwd Exam Comprehensive
[2019-12-30 08:50] LABS: ABG PCO2 31.3 mmHg (35-45); ABG PH Result 7.47 (7.35-7.45); Alveolar-Arterial Oxygen Gradi 0.4 mmHg (5-10); Base Excess ABG -0.3 mmol/L (-2.0-2.0); Blood Gas Allen Test Pos; Blood Gas Operator Identificat CAK; Blood Gas Sample Site Radial, left; Blood Gas Sample Type Arterial; Carboxyhemoglobin 0.1 %THgb (0.4-20.1); HCO3 ABG 22.5 mmol/L (22-26); HGB O2 Sat 97.1 % (95-100); Ionized Calcium Level - ABG 1.2 mmol/L (1.1-1.4); Methemoglobin 0.6 % (0.4-1.5); Oxygen Device ROOM AIR; Oxygen Saturation ABG 97.8
[2019-12-30 09:25] LABS: Basophils # 0.1 10^3/uL (0.0-0.1); Basophils % 0.7 %; Eosinophils # 0.1 10^3/uL (0.0-0.8); Eosinophils % 0.8 %; Hematocrit 42.4 % (37.0-47.0); Hemoglobin 13.3 g/dL (11.5-15.3); Lymphocytes # 1.8 10^3/uL (0.8-4.8); Lymphocytes % 20.3 %; Mean Corpuscular HGB Conc 31.4 g/dL (30.0-36.0); Mean Corpuscular Hemoglobin 26.8 pg (28.0-34.0); Mean Corpuscular Volume 85.5 fL (81-99); Mean Platelet Volume 9.4 fL (7.4-10.4); Monocytes # 0.5 10^3/uL (0.2-0.9); Monocytes % 5.2 %; Neutrophils # 6.51 10^3/uL (1.8-7.7); Neutrophils % 72.2 %; Nucleated Red Blood Cells % 0 %; Platelet Count 447 10^3/cmm (130-400); Red Blood Count 4.96 10^6/uL (4.1-5.3); Red Cell Distribution Width 15.2 % (12.1-15.1)
[2019-12-30 09:42] LABS: Alanine Aminotransferase 20 U/L (0-33); Albumin Level 4.2 g/dL (3.5-5.2); Alkaline Phosphatase 85 IU/L (35-105); Anion Gap 19.3 (5-19); Aspartate Amino Transferase 31 U/L (0-32); Blood Urea Nitrogen 15 mg/dL (8-23); Calcium 9.2 mg/dL (8.5-10.5); Carbon Dioxide 22 mmol/L (22-29); Chloride 105 mmol/L (98-107); Glomerular Filtration Rate 72.9 mL/min (90-130); Glucose 144 mg/dL (65-115); Osmolality Calculated 297 mOsm/kg (285-295); Potassium 4.3 mmol/L (3.5-5.1); Sodium 142 mmol/L (136-145); Total Bilirubin 0.3 mg/dL (0.15-1.2); Total Protein 7.2 g/dL (6.6-8.7)
[2019-12-30 09:43] LABS: Alcohol Level < 10 mg/dL (0-10)
[2019-12-30] MEDS: hyDROXYzine 25 mg Capsule 50 MG PO (10:00)
[2019-12-30 10:08] LABS: Add Urine Microscopic? NO
[2019-12-30 10:10] LABS: Bilirubin Urine Neg (Negative); Blood Urine Neg (Negative); Glucose Urine UA Norm (Normal); Ketones Urine Negative (Negative); Leukocyte Esterase Urine Negative (Negative); Nitrate Urine Negative (Negative); Protein Urine Neg (Negative); Urine Appearance Clear (CLEAR); Urine Color Straw (Yellow); Urobilinogen Urine Norm (Negative); pH Urine 5 (5-7)
[2019-12-30 10:19] LABS: Amphetamines Screen Urine Negative (Negative); Barbiturates Screen Urine Negative (Negative); Benzodiazepines Screen Urine Positive (Negative); Cocaine Screen Urine Negative (Negative); Opiate Screen Urine Negative (Negative); PCP Screen Urine Negative (Negative); THC Screen Urine Negative (Negative)
[2019-12-30 11:03] VITALS: BP 161/115; PULSE 79; RESP 14; O2SAT 95
== END 2019-12-30 11:04 | disposition home or self-care (01) ==
PROVIDERS: Emergency Provider Family Medicine
DX: F41.9 Anxiety disorder, unspecified (principal); R06.4 Hyperventilation; Z79.899 Other long term (current) drug therapy
CPT/HCPCS: 12345; 36600; 71045; 80051; 80053; 80306; 80307; 81003; 82330; 82805; 83605; 85025; 93005; 99284

== ENCOUNTER → 2020-01-14 08:00 | Outpatient (BNVA) | payer MEDICARE, SELFPAY | PROVIDERS: Visit Provider Nurse Practitioner Psychiatric/Mental Health | DX: F33.2 Major depressive disorder, recurrent severe without psychotic features (principal); F40.01 Agoraphobia with panic disorder; F43.12 Post-traumatic stress disorder, chronic | CPT/HCPCS: 99214 ==

== ENCOUNTER 2020-01-23 10:33 | Outpatient (CLI) | payer MEDICARE, SELFPAY ==
--- NOTE | 2020-01-23 10:50 | XR_ITS ---
WS: [id number] AP views, both hips, 01/23/2020 Clinical Data: HIP PAIN Comparison: None. Findings: No narrowing, erosion or sclerosis is seen of the hips. There are no fractures or dislocations. There are prominent acetabular lips. The adjacent pelvis is unremarkable. XR/XR hip BI 2V wo/w pel [id number] Impression: Bilateral acetabular lips which can indicate osteoarthritis.
--- NOTE | 2020-01-23 10:50 | XR_ITS ---
WS: [id number] Left knee, 3 views, 01/23/2020 Clinical Data: ACUTE PAIN OF LEFT KNEE Comparison: None. Findings: No fractures or dislocations are seen. There is narrowing of the medial joint compartment with a smal l osteophyte of the medial femoral condyle. The patella is normal. The soft tissues are unremarkable. XR/XR knee LT 3V* [id number] Impression: Osteoarthritis of the medial joint compartment of the left knee.
== END 2020-01-23 10:34 | disposition home or self-care (01) ==
LOC: RADWPI 10:37
PROVIDERS: PCP Family Medicine
DX: M25.552 Pain in left hip; M25.551 Pain in right hip; M17.12 Unilateral primary osteoarthritis, left knee
CPT/HCPCS: 73521; 73562

== ENCOUNTER → 2020-01-27 08:11 | Outpatient (BNVA) | payer MEDICARE, SELFPAY | PROVIDERS: Visit Provider Nurse Practitioner Psychiatric/Mental Health | DX: F43.12 Post-traumatic stress disorder, chronic (principal); F33.2 Major depressive disorder, recurrent severe without psychotic features; F40.01 Agoraphobia with panic disorder; F15.21 Other stimulant dependence, in remission | CPT/HCPCS: 99214 ==

== ENCOUNTER → 2020-02-25 07:37 | Outpatient (BNVA) | payer MEDICARE, SELFPAY | PROVIDERS: Visit Provider Nurse Practitioner Psychiatric/Mental Health | DX: F33.2 Major depressive disorder, recurrent severe without psychotic features (principal); F40.01 Agoraphobia with panic disorder; F43.12 Post-traumatic stress disorder, chronic; F15.21 Other stimulant dependence, in remission | CPT/HCPCS: 99214 ==

== ENCOUNTER → 2020-03-10 09:07 | Outpatient (BNVA) | payer MEDICARE, SELFPAY | PROVIDERS: Visit Provider Nurse Practitioner Psychiatric/Mental Health | DX: F33.2 Major depressive disorder, recurrent severe without psychotic features (principal); F40.01 Agoraphobia with panic disorder; F43.12 Post-traumatic stress disorder, chronic; F15.21 Other stimulant dependence, in remission | CPT/HCPCS: 99214 ==

== ENCOUNTER → 2020-03-24 07:40 | Outpatient (BNVA) | payer MEDICARE, SELFPAY | PROVIDERS: Visit Provider Nurse Practitioner Psychiatric/Mental Health | DX: F33.2 Major depressive disorder, recurrent severe without psychotic features (principal); F15.21 Other stimulant dependence, in remission; F40.01 Agoraphobia with panic disorder; F43.12 Post-traumatic stress disorder, chronic | CPT/HCPCS: 99214 ==

== ENCOUNTER → 2020-04-21 07:39 | Outpatient (BNVA) | payer MEDICARE, SELFPAY | PROVIDERS: Visit Provider Nurse Practitioner Psychiatric/Mental Health | DX: F33.2 Major depressive disorder, recurrent severe without psychotic features (principal); F40.01 Agoraphobia with panic disorder; F43.12 Post-traumatic stress disorder, chronic; Z79.899 Other long term (current) drug therapy; F15.21 Other stimulant dependence, in remission | CPT/HCPCS: 99214 ==

== ENCOUNTER → 2020-05-11 07:34 | Outpatient (BNVA) | payer MEDICARE, SELFPAY | PROVIDERS: Visit Provider Nurse Practitioner Psychiatric/Mental Health | DX: F33.2 Major depressive disorder, recurrent severe without psychotic features (principal); F43.12 Post-traumatic stress disorder, chronic; F40.01 Agoraphobia with panic disorder; Z79.899 Other long term (current) drug therapy; F15.21 Other stimulant dependence, in remission | CPT/HCPCS: 99214 ==

== ENCOUNTER → 2020-05-25 07:37 | Outpatient (BNVA) | payer MEDICARE, SELFPAY | PROVIDERS: Visit Provider Nurse Practitioner Psychiatric/Mental Health | DX: F33.2 Major depressive disorder, recurrent severe without psychotic features (principal); F40.01 Agoraphobia with panic disorder; F43.12 Post-traumatic stress disorder, chronic; Z79.899 Other long term (current) drug therapy; F15.21 Other stimulant dependence, in remission | CPT/HCPCS: 99214 ==

== ENCOUNTER → 2020-06-08 07:45 | Outpatient (BNVA) | payer MEDICARE, SELFPAY | PROVIDERS: Visit Provider Nurse Practitioner Psychiatric/Mental Health | DX: F33.2 Major depressive disorder, recurrent severe without psychotic features (principal); F40.01 Agoraphobia with panic disorder; Z79.899 Other long term (current) drug therapy; F15.21 Other stimulant dependence, in remission; F43.12 Post-traumatic stress disorder, chronic; F33.1 Major depressive disorder, recurrent, moderate | CPT/HCPCS: 99214 ==

== ENCOUNTER → 2020-06-22 07:20 | Outpatient (BNVA) | payer MEDICARE, SELFPAY | PROVIDERS: Visit Provider Nurse Practitioner Psychiatric/Mental Health | DX: F33.2 Major depressive disorder, recurrent severe without psychotic features (principal); F43.12 Post-traumatic stress disorder, chronic; F40.01 Agoraphobia with panic disorder; F15.21 Other stimulant dependence, in remission | CPT/HCPCS: 99214 ==

== ENCOUNTER 2020-07-08 09:34 | Outpatient (CLI) | payer MEDICARE, SELFPAY ==
[2020-07-08 10:31] LABS: Estmated Average Glucose 148; Hemoglobin A1C 6.8 % (4.0-6.0)
[2020-07-08 10:40] LABS: Alanine Aminotransferase 40 U/L (0-33); Albumin Level 4.1 g/dL (3.5-5.2); Alkaline Phosphatase 96 IU/L (35-105); Aspartate Amino Transferase 40 U/L (0-32); Blood Urea Nitrogen 24 mg/dL (8-23); Calcium 8.2 mg/dL (8.5-10.5); Carbon Dioxide 18 mmol/L (22-29); Chloride 106 mmol/L (98-107); Chol HDL Ratio 4.56 mg/dL (0.0-4.40); Cholesterol 246 mg/dL (0-200); Glomerular Filtration Rate 72.7 mL/min (90-130); Glucose 125 mg/dL (65-115); HDL Cholesterol 54 mg/dL (60-100); LDL Cholesterol Calculated 158 mg/dL (50-129); LDL HDL Ratio 2.93 RATIO (0.00-3.22); Osmolality Calculated 290 mOsm/kg (285-295); Sodium 137 mmol/L (136-145); Total Bilirubin 0.2 mg/dL (0.15-1.2); Total Protein 7.1 g/dL (6.6-8.7); Triglycerides 168 mg/dL (0-150)
== END 2020-07-08 09:35 | disposition home or self-care (01) ==
PROVIDERS: Visit Provider Nurse Practitioner Psychiatric/Mental Health
DX: Z79.899 Other long term (current) drug therapy (principal)
CPT/HCPCS: 36415; 80053; 80061; 83036

== ENCOUNTER → 2020-07-09 07:27 | Outpatient (BNVA) | payer MEDICARE, SELFPAY | PROVIDERS: Visit Provider Nurse Practitioner Psychiatric/Mental Health | DX: F33.2 Major depressive disorder, recurrent severe without psychotic features (principal); F40.01 Agoraphobia with panic disorder; F43.12 Post-traumatic stress disorder, chronic; Z79.899 Other long term (current) drug therapy; F15.21 Other stimulant dependence, in remission | CPT/HCPCS: 99214 ==

== ENCOUNTER → 2020-08-03 08:04 | Outpatient (BNVA) | payer MEDICARE, SELFPAY | PROVIDERS: PCP Family Medicine; Visit Provider Nurse Practitioner Psychiatric/Mental Health | DX: F33.2 Major depressive disorder, recurrent severe without psychotic features (principal); F40.01 Agoraphobia with panic disorder; F43.12 Post-traumatic stress disorder, chronic; Z79.899 Other long term (current) drug therapy; F15.21 Other stimulant dependence, in remission | CPT/HCPCS: 99214 ==

== ENCOUNTER → 2020-08-06 08:31 | Outpatient (BNVA) | payer MEDICARE, SELFPAY | PROVIDERS: PCP Family Medicine; Visit Provider Family Medicine Adult Medicine | DX: R10.9 Unspecified abdominal pain (principal); S29.012A Strain of muscle and tendon of back wall of thorax, initial encounter; E66.01 Morbid (severe) obesity due to excess calories; Z68.35 Body mass index [BMI] 35.0-35.9, adult | CPT/HCPCS: 81000 ==

== ENCOUNTER → 2020-09-11 12:45 | Outpatient (BNVA) | payer MEDICARE, SELFPAY | PROVIDERS: PCP Family Medicine Adult Medicine; Visit Provider Nurse Practitioner Family | DX: Z20.822 Contact with and (suspected) exposure to COVID-19 (principal); J06.9 Acute upper respiratory infection, unspecified | CPT/HCPCS: 87426 ==

== ENCOUNTER 2020-10-05 | Outpatient (CLI) | payer MEDICARE, SELFPAY | END 2020-10-05 00:01 | disposition home or self-care (01) | LOC: RADSHAW 06-14 08:51 | PROVIDERS: PCP Family Medicine Adult Medicine; Visit Provider Family Medicine Adult Medicine | DX: F33.2 Major depressive disorder, recurrent severe without psychotic features (principal); F40.01 Agoraphobia with panic disorder; F43.12 Post-traumatic stress disorder, chronic; F15.21 Other stimulant dependence, in remission | CPT/HCPCS: 99214 ==

== ENCOUNTER → 2021-04-08 16:02 | Outpatient (BNVA) | payer MEDICARE, SELFPAY | PROVIDERS: PCP Family Medicine Adult Medicine; Visit Provider Family Medicine Adult Medicine | DX: N18.2 Chronic kidney disease, stage 2 (mild) (principal); E11.9 Type 2 diabetes mellitus without complications; E78.5 Hyperlipidemia, unspecified; Z13.6 Encounter for screening for cardiovascular disorders; L82.1 Other seborrheic keratosis; E66.9 Obesity, unspecified | CPT/HCPCS: 85025 ==

== ENCOUNTER 2021-08-01 12:04 | Inpatient (IN) | payer MEDICARE, SELFPAY ==
[2021-08-01] VITALS (8 sets, daily range): BP systolic 106–144; BP diastolic 50–66; PULSE 65–92; RESP 16–20; TEMP 37.9; O2SAT 89–97
--- NOTE | 2021-08-01 20:07 | CTR_ITS ---
PROCEDURE INFORMATION: Exam: CT Abdomen And Pelvis Without Contrast Exam date and time: 08/01/2021 9:10 PM Age: 61 years old Clinical indication: Nausea and vomiting; Abdominal pain; Localized; Left lower quadrant (llq); Prior surgery; Surgery type: Gb. Appy. Hysterectomy. Patient HX: Llq pain with n/v. ; Additional info: Llq pain, fever vomiting TECHNIQUE: Imaging protocol: Computed tomography of the abdomen and pelvis without contrast. Sagittal and coronal reformatted images were created and reviewed. Radiation optimization: All CT scans at this facility use at least one of these dose optimization techniques: automated exposure control; mA and/or kV adjustment per patient size (includes targeted exams where dose is matched to clinical indication); or iterative reconstruction. COMPARISON: CT kidney stone [id number] 04/27/2019 7:45 PM RADIATION DOSE METRICS: Total DLP (mGy-cm): 1839.81 FINDINGS: Limitations: Evaluation of solid organs and vasculature is limited without intravenous contrast. Lungs: Stable calcified granuloma in the right lower lobe. No focal consolidation. No pulmonary edema. Liver: Interval development of diffuse, moderately decreased density in the liver. Findings are consistent with moderate fatty infiltration. Gallbladder and bile ducts: Stable findings consistent with a previous cholecystectomy. No biliary ductal dilatation. Pancreas: The pancreas is unremarkable. No pancreatic ductal dilatation. Spleen: The spleen is unremarkable. Adrenal glands: The right and left adrenal glands are unremarkable. Kidneys and ureters: The right kidney is unremarkable. Moderate left perinephric inflammation, possible pyelonephritis cannot be ruled out. The right and left ureters are unremarkable. No hydroureteronephrosis. No calcified urolithiasis. Stomach and bowel: See Appendix finding. Appendix: Appendix not definitely visualized. No inflammatory changes in the pericecal region however. Intraperitoneal space: No free intraperitoneal air. No ascites. No loculated fluid collections to suggest an abscess. Vasculature: Stable mild atherosclerotic calcifications in the visualized arteries. No evidence for aortic aneurysm. Lymph nodes: No lymphadenopathy. Urinary bladder: Small amount of air in the bladder. Reproductive: Stable changes consistent with a previous hysterectomy. The ovaries are not definitely visualized, not an expected in a postmenopausal female. This may be due to ovarian atrophy. Alternatively, the patient may have had a previous bilateral oophorectomy. Findings are stable. Bones/joints: Old fracture of the posterior left 11th rib. This is new compared with 04/27/2019. Degenerative changes in the spine and hips. Grade I anterolisthesis of L4 on L5. Mild spinal canal stenosis at L4-L5. Multilevel foraminal stenosis of varying severity in the visualized spine. Soft tissues: No acute abnormality in the extra-abdominal soft tissues. CT/CT abdomen pelvis wo con [id number] IMPRESSION: 1. Moderate left perinephric inflammation, possible left pyelonephritis cannot be ruled out. Recommend clinical correlation. No hydroureteronephrosis. 2. Small amount of air in the bladder. This may be iatrogenic related to recent catheterization. If this is not the case, then cystitis would be a consideration. Recommend clinical correlation. 3. Interval development of moderate fatty infiltration of the liver. 4. Incidental/nonacute findings are listed in the report.
[2021-08-01 20:28] LABS: Bilirubin Urine Neg (Negative); Blood Urine 3+ (Negative); Glucose Urine UA 4+ (Normal); Ketones Urine 1+ (Negative); Nitrate Urine Negative (Negative); Protein Urine 3+ (Negative); Urine Appearance Cloudy (CLEAR); Urine Color Yellow (Yellow); pH Urine 5 (5-7)
[2021-08-01 20:29] LABS: Add Urine Microscopic? YES; Leukocyte Esterase Urine 2+ (Negative); SARS Covid-2 Antigen Negative (Negative); Urobilinogen Urine Norm (Negative)
[2021-08-01 20:30] LABS: WBC Urine TOO NUMEROUS TO CNT /hpf (0-5)
[2021-08-01 20:33] LABS: Add Urine Culture? Yes; Bacteria Urine 3+ /hpf; Coarse Granular Casts Urine 0-4 /lpf; Mucus Urine 1+ /hpf; RBC Urine 15-25 /hpf (0-2)
--- NOTE | 2021-08-01 20:49 | ED_ITS ---
HPI - General Adult General: Chief complaint: General Medical Stated complaint: Fever, abd pain, vomiting Time Seen by Provider: 08/01/21 19:41 Source: patient History of Present Illness: 61-year-old female with 3 days of abdominal discomfort, fever, and vomiting. She notes that she has not been able to hold down liquids today. No significant diarrhea. No cough. No blood in the stool. Onset (ago): day(s) Location: abdomen Radiation: non-radiation Severity: moderate Quality: aching Relieving factors: none Exacerbating factors: none Associated symptoms: Reports decreased appetite, fevers/chills, headache(s), nausea, vomiting and weakness (Generalized); Deny chest pain, confusion, cough, dyspnea or short of breath Review of Systems Const: Reports: fever(s), chills and body aches Eyes: Denies: change in vision ENMT: Denies: throat pain Card: Denies: chest pain Resp: Denies: dyspnea, productive cough or non-productive cough GI: Reports: abdominal pain, nausea and vomiting Neuro: Reports: headache(s); Denies: confusion PFSH ED PFSH: Medical History Abnormal liver enzymes Amphetamine abuse Amphetamine substance use disorder, moderate, in early remission last use of meth on 12/12/19 Chronic kidney disease (CKD) stage G2/A2, mildly decreased glomerular filtration rate (GFR) between 60-89 mL/min/1.73 square meter and albuminuria creatinine ratio between 30-299 mg/g Chronic post-traumatic stress disorder Dyslipidemia (high LDL; low HDL) Fibromyalgia muscle pain GERD (gastroesophageal reflux disease) History of hepatitis C Major depressive disorder, recurrent severe without psychotic features Methamphetamine abuse Newly diagnosed diabetes Obesity (BMI 30-39.9) Osteoarthritis (arthritis due to wear and tear of joints) Panic disorder with agoraphobia and severe panic attacks Seborrheic keratoses Surgical History History of appendectomy History of cholecystectomy History of hysterectomy Family History Other Hypertension Psychiatric illness Social History Smoking and tobacco status: former smoker Alcohol intake: former Lives independently: Yes Housing: House Marital status: Number of children: 2 Number of grandchildren: 6 Current occupational status: disabled Physical Exam Const: GENERAL APPEARANCE: cooperative and frail appearing NUTRITIONAL APPEARANCE: obese HENMT: COMMON NORMALS: normocephalic and atraumatic HEAD & SCALP: normocephalic and atraumatic FACE & SINUS: normal facial exam and face symmetric Eye: COMMON NORMALS: Equal, round and reactive pupils present and EOMs intact bilaterally PUPIL: Yes Equal, round and reactive pupils present Neck/C-Spine: GENERAL: Yes trachea midline Chest: CHEST: Yes Symmetrical chest wall rise Resp: COMMON NORMALS: normal respiratory effort, No use of accessory muscles and clear to auscultation bilaterally AUSCULTATION: clear to auscultation bi laterally Cardio: COMMON NORMALS: regular rate and regular rhythm RATE: regular rate RHYTHM: regular rhythm GI: COMMON NORMALS: Soft to palpation INSPECTION: Yes abdominal distension PALPATION: Yes Soft to palpation and Yes Tenderness to palpation present (GI) Details: LLQ Neuro: BIPIN COMA SCALE: document GCS findings [place] coma scale eye opening: Spontaneous [place] coma scale verbal response: Orientated [place] coma scale motor response: Obey commands [place] coma scale total score: 15 Course Vital Signs: Vital signs: Vital Signs Temperature 98.0 F 08/02/21 15:44 Pulse Rate 86 08/02/21 23:51 Respiratory Rate 17 08/03/21 00:05 Blood Pressure 111/70 08/02/21 23:51 Pulse Oximetry 96 08/02/21 23:51 MDM - General Adult Medical Decision Making WBC 15. Temp 100.3. She has been vomiting. Too many WBCS to count on your analysis. She has evidence of pyelonephritis on CT scan. She will be admitted. has received antibiotics after blood cultures here, As well as fluid resuscitation. Lab Data : 08/02/21 05:16 08/02/21 12:57 Radiology Impressions Abdomen/Pelvis CT 08/01/21 20:07 IMPRESSION: 1. Moderate left perinephric inflammation, possible left pyelonephritis cannot be ruled out. Recommend clinical correlation. No hydroureteronephrosis. 2. Small amount of air in the bladder. This may be iatrogenic related to recent catheterization. If this is not the case, then cystitis would be a consideration. Recommend clinical correlation. 3. Interval development of moderate fatty infiltration of the liver. 4. Incidental/nonacute findings are listed in the report. Head CT 08/01/21 21:08 IMPRESSION: No acute intracranial abnormality. Laboratory Results WBC 15.3 10^3/uL (4.0-10.0) H 08/01/21 20:49 RBC 5.07 10^6/uL (4.1-5.3) 08/01/21 20:49 Hgb 13.5 g/dL (11.5-15.3) 08/01/21 20:49 Hct 41.0 % (37.0-47.0) 08/01/21 20:49 MCV 80.9 fl (81-99) L 08/01/21 20:49 MCH 26.6 pg (28.0-34.0) L 08/01/21 20:49 MCHC 32.9 g/dL (30.0-36.0) 08/01/21 20:49 RDW 15.5 % (12.1-15.1) H 08/01/21 20:49 Plt Count 243 10^3/cmm (130-400) 08/01/21 20:49 MPV 10.2 fL (7.4-10.4) 08/01/21 20:49 Neut % (Auto) 78.6 % 08/01/21 20:49 Lymph % (Auto) 9.5 % 08/01/21 20:49 [place] % (Auto) 9.9 % 08/01/21 20:49 Eos % (Auto) 0.7 % 08/01/21 20:49 Baso % (Auto) 0.5 % 08/01/21 20:49 Neut # (Auto) 12.04 10^3/uL (1.8-7.7) H 08/01/21 20:49 Lymph # (Auto) 1.5 10^3/uL (0.8-4.8) 08/01/21 20:49 [place] # (Auto) 1.5 10^3/uL (0.2-0.9) H 08/01/21 20:49 Eos # (Auto) 0.1 10^3/uL (0.0-0.8) 08/01/21 20:49 Baso # (Auto) 0.1 10^3/uL (0.0-0.1) 08/01/21 20:49 Nucleated RBC % (auto) 0 % 08/01/21 20:49 Nucleated RBCs # 0.0 /100WBC 08/01/21 20:49 Specimen Type Arterial 08/01/21 23:07 Sample Site Radial, left 08/01/21 23:07 ABG pH 7.39 (7.35-7.45) 08/01/21 23:07 ABG pCO2 35.9 mmHg (35-45) 08/01/21 23:07 ABG pO2 78.2 mmHg (80.0-100.0) L 08/01/21 23:07 ABG HCO3 21.8 mmol/L (22-26) L 08/01/21 23:07 ABG Base Excess -2.6 mmol/L (-2.0-2.0) L 08/01/21 23:07 Clark Test Pos 08/01/21 23:07 Hematocrit 38.9 % (37-47) 08/01/21 23:07 FiO2 21.0 % 08/01/21 23:07 College Sports Coach ID [place] 08/01/21 23:07 Sodium 127 mmol/L (136-145) L 08/01/21 20:49 Potassium 4.5 mmol/L (3.5-5.1) 08/01/21 20:49 Chloride 89 mmol/L (98-107) L 08/01/21 20:49 Carbon Dioxide 21 mmol/L (22-29) L 08/01/21 20:49 Anion Gap 21.5 (5-19) H 08/01/21 20:49 BUN 28 mg/dL (8-23) H 08/01/21 20:49 Creatinine 2.3 mg/dL (0.5-0.9) H 08/01/21 20:49 GFR Calculation 21.4 mL/min (90-130) L 08/01/21 20:49 Glucose 495 mg/dL (65-115) H 08/01/21 20:49 Estimat Average Glucose 312 08/01/21 20:49 Hemoglobin A1c 12.5 % (4.0-6.0) H 08/01/21 20:49 Calculated Osmolality 292 mOsm/kg (285-295) 08/01/21 20:49 Lactate 1.6 mmol/L (0.5-2.2) 08/01/21 23:30 Calcium 8.4 mg/dL (8.5-10.5) L 08/01/21 20:49 Total Bilirubin 0.9 mg/dL (0.15-1.2) 08/01/21 20:49 AST 44 U/L (0-32) H 08/01/21 20:49 ALT 32 U/L (0-33) 08/01/21 20:49 Alkaline Phosphatase 230 IU/L (35-105) H 08/01/21 20:49 Total Protein 8.2 g/dL (6.6-8.7) 08/01/21 20:49 Albumin 3.8 g/dL (3.5-5.2) 08/01/21 20:49 Globulin 4.4 g/dL (1.3-4.6) 08/01/21 20:49 Lipase 3 U/L (13-60) L 08/01/21 20:49 TSH 2.29 uIU/mL (0.27-4.20) 08/01/21 20:49 Random Cortisol 45.03 ug/dL (2.47-19.5) H 08/01/21 20:49 Urine Color Yellow (Yellow) 08/01/21 20:00 Urine Appearance Cloudy (CLEAR) 08/01/21 20:00 Urine pH 5 (5-7) 08/01/21 20:00 Ur Specific [place] 1.020 (1.005-1.030) 08/01/21 20:00 Urine Protein 3+ (Negative) H 08/01/21 20:00 Urine Glucose (UA) 4+ (Normal) H 08/01/21 20:00 Urine Ketones 1+ (Negative) H 08/01/21 20:00 Urine Blood 3+ (Negative) H 08/01/21 20:00 Urine Nitrate Negative (Negative) 08/01/21 20:00 Urine Bilirubin Neg (Negative) 08/01/21 20:00 Urine Urobilinogen Norm mg/dL (Negative) 08/01/21 20:00 Ur Leukocyte Esterase 2+ (Negative) H 08/01/21 20:00 Urine RBC 15-25 /hpf (0-2) H 08/01/21 20:00 Urine WBC Too numerous to cnt /hpf (0-5) H 08/01/21 20:00 Ur Squamous Epith Cells 5-10 /hpf (0-5) H 08/01/21 20:00 Amorphous Sediment Not Reportable 08/01/21 20:00 Urine Bacteria 3+ /hpf (NONE) H 08/01/21 20:00 Coarse Granular Casts 0-4 /lpf H 08/01/21 20:00 Urine Mucus 1+ /hpf 08/01/21 20:00 U Random Total Protein 510 mg/dL 08/01/21 20:50 Ur Random Sodium 37 mmol/L 08/01/21 20:50 Ur Random Chloride 22 mmol/L 08/01/21 20:50 Urine Creatinine 133 mg/dL (28-217) 08/01/21 20:50 Serum Ketones Negative (Negative) 08/01/21 23:30 SARS-CoV-2 Ag (Rapid) Negative (Negative) 08/01/21 20:00 Discharge Plan Discharge Patient Disposition: Admitted As Inpatient Admit Provider: Bar Malloy Clinical Impression: Pyelonephritis, UTI (urinary tract infection), Acute kidney injury superimposed on CKD Condition: Stable Coding Level of Care Code ED Substance Abuse Therapist for Emilyg Fwd Exam Comprehensive
[2021-08-01 20:54] LABS: Basophils # 0.1 10^3/uL (0.0-0.1); Basophils % 0.5 %; Eosinophils # 0.1 10^3/uL (0.0-0.8); Eosinophils % 0.7 %; Hemoglobin 13.5 g/dL (11.5-15.3); Lymphocytes # 1.5 10^3/uL (0.8-4.8); Lymphocytes % 9.5 %; Mean Corpuscular HGB Conc 32.9 g/dL (30.0-36.0); Mean Corpuscular Hemoglobin 26.6 pg (28.0-34.0); Mean Corpuscular Volume 80.9 fl (81-99); Mean Platelet Volume 10.2 fL (7.4-10.4); Monocytes # 1.5 10^3/uL (0.2-0.9); Monocytes % 9.9 %; Neutrophils # 12.04 10^3/uL (1.8-7.7); Neutrophils % 78.6 %; Nucleated Red Blood Cells % 0 %; Platelet Count 243 10^3/cmm (130-400); Red Blood Count 5.07 10^6/uL (4.1-5.3); Red Cell Distribution Width 15.5 % (12.1-15.1); White Blood Count 15.3 10^3/uL (4.0-10.0)
[2021-08-01] MEDS: sodium chloride 0.9% 1,000 ML 999 ML IV ×2 (20:55→23:41)
[2021-08-01] MEDS: ondansetron 2 mg/ML SDV 2 mL 4 MG IVP ×2 (20:55→21:29)
[2021-08-01] MEDS: ketorolac 30 mg/mL INJ 15 MG IVP (20:55)
--- NOTE | 2021-08-01 21:08 | CTR_ITS ---
PROCEDURE INFORMATION: Exam: CT Head Without Contrast Exam date and time: 08/01/2021 9:14 PM Age: 61 years old Clinical indication: Pain; Patient HX: C/O severe left temporal headache. ; Additional info: Headache L roman catholic TECHNIQUE: Imaging protocol: Computed tomography of the head without contrast. Radiation optimization: All CT scans at this facility use at least one of these dose optimization techniques: automated exposure control; mA and/or kV adjustment per patient size (includes targeted exams where dose is matched to clinical indication); or iterative reconstruction. COMPARISON: CT head wo con* [id number] 12/12/2019 6:17 PM RADIATION DOSE METRICS: Total DLP (mGy-cm): 913.94 FINDINGS: Brain: No hemorrhage. No edema. Mild diffuse cerebral atrophy and sequela of chronic small vessel ischemic disease. No mass effect. Cerebral ventricles: No ventriculomegaly. Paranasal sinuses: Visualized sinuses are unremarkable. No fluid levels. Mastoid air cells: Visualized mastoid air cells are well aerated. Bones/joints: Unremarkable. No acute fracture. Soft tissues: Unremarkable. CT/CT head wo con* [id number] IMPRESSION: No acute intracranial abnormality.
[2021-08-01 21:11] LABS: Alanine Aminotransferase 32 U/L (0-33); Albumin Level 3.8 g/dL (3.5-5.2); Alkaline Phosphatase 230 IU/L (35-105); Anion Gap 21.5 (5-19); Aspartate Amino Transferase 44 U/L (0-32); Blood Urea Nitrogen 28 mg/dL (8-23); Calcium 8.4 mg/dL (8.5-10.5); Carbon Dioxide 21 mmol/L (22-29); Chloride 89 mmol/L (98-107); Globulin 4.4 g/dL (1.3-4.6); Glomerular Filtration Rate 21.4 mL/min (90-130); Glucose 495 mg/dL (65-115); Lipase 3 U/L (13-60); Osmolality Calculated 292 mOsm/kg (285-295); Potassium 4.5 mmol/L (3.5-5.1); Sodium 127 mmol/L (136-145); Total Bilirubin 0.9 mg/dL (0.15-1.2); Total Protein 8.2 g/dL (6.6-8.7)
[2021-08-01] MEDS: morphine 4 mg/mL SDV 1 mL IVP (21:29)
[2021-08-01 23:18] LABS: ABG PCO2 35.9 mmHg (35-45); ABG PH Result 7.39 (7.35-7.45); Arterial Blood Gas Hematocrit 38.9 % (37-47); Base Excess ABG -2.6 mmol/L (-2.0-2.0); Blood Gas Allen Test Pos; Blood Gas Operator Identificat WALCI; Blood Gas Sample Site Radial, left; Blood Gas Sample Type Arterial; HCO3 ABG 21.8 mmol/L (22-26); PO2 ABG 78.2 mmHg (80.0-100.0)
[2021-08-01] MEDS: cefTRIAXone 1,000 MG in sodium chloride 0.9% (plus) 50 ML 100 MG IV (23:40)
[2021-08-01] MEDS: insulin regular-human 100 units/1 mL 10 UNIT IVP (23:43)
[2021-08-01 23:51] LABS: Ketone (Acetest) Serum Negative (Negative)
[2021-08-01 23:58] LABS: Lactate (Lactic Acid level) 1.6 mmol/L (0.5-2.2)
[2021-08-02] VITALS (15 sets, daily range): BP systolic 99–129; BP diastolic 43–80; PULSE 70–96; RESP 16–22; TEMP 36.7–38.7; O2SAT 92–98
--- NOTE | 2021-08-02 00:28 | PM.HP ---
Providers/Chief Complaint Admitting Physician: Bar Malloy MD Primary Care Provider: Roscoe Chilel MD Chief Complaint: Fever, abd pain, vomiting History of Present Illness Annetta Delacruz is a 61 year old female with past medical history of morbid obesity, fibromyalgia GERD history of hep C, depression, newly diagnosed diabetes, Came in with chief complaint of left lower quadrant abdominal pain fever, nausea as well as vomiting going on for the last 3 days. Abdominal pain is 8 out of 10 in severity, sharp, partially relieved with pain medicine.She is also complaining of generalized headache, is extremely anxious. Currently she is denying any chest pain shortness of breath, cough. Upon arrival in the ER she was worked up for above mentioned complaint: Pertinent imaging studies: CT head without contrast: No acute intracranial abnormality. CT abdomen pelvis with contrast: ?Moderate left perinephric inflammation, possible left pyelonephritis cannot be ruled out. Recommend clinical correlation.? No hydroureteronephrosis.Small amount of air in the bladder.Interval development of moderate fatty infiltration of the liver. Pertinent labs: WBC 15.3, H&H 13 and 41 , PLT : 243 , serum sodium 127 , serum potassium 4.5, BUN and serum creatinine:28/2.3 , random blood sugar 495 Total bilirubin 0.9 , AST: 44 ,ALT : 32 ALP : 230 , lipase 3, serum bicarb 21, anion gap 21 HbA1c:6.8 Urinalysis: Urine WBC too numerous to count, urine bacteria 3+, urine leukocyte esterase 2+, urine nitrite negative, urine protein 3+, urine ketones 1+ Lactate 1.6, ABG: pH 7.39, PCO2 35 , PO2 78 Review of Systems General: Reports: 10 or more systems reviewed and unremarkable except in HPI and below Const: Reports: fever(s); Denies: chills or diaphoresis Card: Denies: palpitations, edema, swelling of feet/ankles, dyspnea on exertion, orthopnea or leg pain with exertion Resp: Denies: dyspnea, productive cough, wheezing or pain on inspiration GI: Reports: abdominal pain, nausea and vomiting; Denies: diarrhea or constipation : Reports: flank pain Musc: Denies: back pain, extremity pain or extremity swelling Medications/Allergies Home Medications Medication Instructions Recorded Confirmed Last Taken Type acetaminophen 325 mg tablet 325 mg PO TID PRN #100 tab 07/22/20 08/02/2122 Rx (Tylenol) aspirin 81 mg tablet,delayed 81 mg PO DAILY 07/22/20 08/02/21 08/01/21 08:00 History release (Adult Aspirin Regimen) vit d 3 5,000 units PO DAILY 07/22/20 08/02/21 08/01/21 08:00 History pantoprazole 40 mg tablet,delayed 40 mg PO DAILY #30 tab 08/24/20 08/02/21 08/01/21 08:00 Rx release celecoxib 400 mg capsule See Rx Instructions .ROUTE 04/28/21 08/02/21 08/01/21 08:00 Rx .COMPLEX 90 Days #90 cap niacin 500 mg tablet,extended See Rx Instructions .ROUTE 04/28/21 08/02/21 07/31/21 21:00 Rx release 24 hr .COMPLEX #30 tab olanzapine 2.5 mg tablet (Zyprexa) 2.5 mg PO BID #60 tab 06/07/21 08/02/21 07/31/21 21:00 Rx fluoxetine 10 mg capsule 10 mg PO 0800 08/02/21 08/02/21 08/02/21 01:22 History fluoxetine 20 mg capsule 20 mg PO 0800 08/02/21 08/02/21 08/01/21 08:00 History Allergies Allergy/AdvReac Type Severity Reaction Status Date / Time benzoin Allergy Intermediate rash Verified 04/08/21 15:20 butorphanol [From Stadol] Allergy Intermediate rash Verified 04/08/21 15:20 ciprofloxacin [From Cipro] Allergy Intermediate rash Verified 04/08/21 15:20 midazolam [From Versed] Allergy Intermediate rash Verified 04/08/21 15:20 Sulfa (Sulfonamide Allergy Intermediate rash Verified 04/08/21 15:20 Antibiotics) tramadol [From Ultram] Allergy Intermediate rash Verified 04/08/21 15:20 PFSH Acute PFSH: Medical History Abnormal liver enzymes Amphetamine abuse Amphetamine substance use disorder, moderate, in early remission last use of meth on 12/12/19 Chronic kidney disease (CKD) stage G2/A2, mildly decreased glomerular filtration rate (GFR) between 60-89 mL/min/1.73 square meter and albuminuria creatinine ratio between 30-299 mg/g Chronic post-traumatic stress disorder Dyslipidemia (high LDL; low HDL) Fibromyalgia muscle pain GERD (gastroesophageal reflux disease) History of hepatitis C Major depressive disorder, recurrent severe without psychotic features Methamphetamine abuse Newly diagnosed diabetes Obesity (BMI 30-39.9) Osteoarthritis (arthritis due to wear and tear of joints) Panic disorder with agoraphobia and severe panic attacks Seborrheic keratoses Surgical History History of appendectomy History of cholecystectomy History of hysterectomy Family History Other Hypertension Psychiatric illness Social History Smoking and tobacco status: former smoker Alcohol intake: former Lives independently: Yes Housing: House Marital status: Number of children: 2 Number of grandchildren: 6 Current occupational status: disabled Vitals/I&O/Wt Last Vital Signs Temp 100.3 F H 08/01/21 13:07 Pulse 72 08/01/21 23:30 Resp 16 08/01/21 23:30 BP 112/66 08/01/21 23:30 Pulse Ox 94 08/01/21 23:30 08/01/21 08/01/21 08/02/21 14:59 22:59 06:59 Intake Total 1000 / 1000 Balance 1000 / 1000 Weight last 48 hrs Weight 108.862 kg Physical Exam Const: COMMON NORMALS: patient oriented x3 HENMT: COMMON NORMALS: normocephalic and atraumatic HEAD & SCALP: normocephalic and atraumatic Resp: COMMON NORMALS: clear to auscultation bilaterally EFFORT & INSPECTION: Yes symmetric chest movement AUSCULTATION: clear to auscultation bilaterally Cardio: COMMON NORMALS: regular rate, regular rhythm, S1 normal heart sound present, S2 normal heart sound present, No gallops present (Cardio), No murmurs present (Cardio), No rub (Cardio) and Peripheral pulses 2+ throughout RATE: regular rate RHYTHM: regular rhythm HEART SOUNDS: S1 normal heart sound present and S2 normal heart sound present PERIPHERAL PULSES: Peripheral pulses 2+ throughout GI: AUSCULTATION: Yes normoactive bowel sounds RECTAL EXAM: deferred OTHER: Left lower quadrant abdominal tenderness present , minimal guarding, no rebound tenderness, no rigidity Extremity: COMMON NORMALS: no clubbing, cyanosis or edema and no pedal edema Neuro: COMMON NORMALS: patient oriented x3 Data : 08/01/21 20:49 08/01/21 20:49 A&P Assessment and plan (1) Obesity (BMI 30-39.9): Status: Acute (2) GERD (gastroesophageal reflux disease): Status: Acute (3) Fibromyalgia muscle pain: Status: Acute (4) UTI (urinary tract infection): Status: Acute (5) Pyelonephritis: Status: Acute (6) Acute kidney injury superimposed on CKD: Status: Acute (7) Hyperglycemia: Status: Acute (8) Diabetes: Status: Acute Plan 61 year old female with past medical history of morbid obesity, fibromyalgia GERD history of hep C, depression, newly diagnosed diabetes, Came in with chief complaint of left lower quadrant abdominal pain fever, nausea as well as vomiting going on for the last 3 days. Abdominal pain is 8 out of 10 in severity, sharp, partially relieved with pain medicine.She is also complaining of generalized headache, is extremely anxious. Assessment: Acute pyelonephritis UTI ROBERT on CKD: Likely prerenal ROBERT Diabetes Hyperglycemia Pseudohyponatremia History of hep C Fibromyalgia GERD Plan: Follow blood culture Follow urine culture Follow procalcitonin Follow random urine sodium Follow random urine creatinine Follow random urine total protein UPCR Fena Random cortisol Low-dose sliding scale insulin Monitor fingerstick because Monitoring intake output charting Avoid nephrotoxic's Continue ceftriaxone CODE STATUS: Full code DVT prophylaxis: On heparin Attestations Medical Necessity Statement*: Patient needs to be in hospital for the management of Ac pyelonephritis. Anticipated LOS Greater then 2 midnights. Time Spent in Patient Care: Greater than 35 minutes (>than 50% of time spent in counselling and/or direct pt care on unit). Coding Level of Care Code Acute Director Of Vocational Training for Chg Fwd Exam Detailed Diagnoses Obesity (BMI 30-39.9) E66.9 GERD (gastroesophageal reflux disease) K21.9 Fibromyalgia muscle pain M79.7 UTI (urinary tract infection) N39.0 Pyelonephritis N12 Acute kidney injury superimposed on CKD N17.9; N18.9 Hyperglycemia R73.9 Diabetes E11.9
[2021-08-02] MEDS: morphine 4 mg/mL SDV 1 mL IVP (00:45)
[2021-08-02 00:48] LABS: Glucose Point of Care 411 mg/dL (70-110)
[2021-08-02] MEDS: sodium chloride 0.9% 1,000 ML 125 ML IV ×3 (01:02→16:18)
[2021-08-02 01:08] LABS: Urine Creatinine 133 mg/dL (28-217); Urine Random Chloride 22 mmol/L; Urine Random Sodium 37 mmol/L
[2021-08-02] MEDS: fluoxetine 10 mg Capsule PO (01:09)
[2021-08-02] MEDS: heparin 5,000 unit/mL INJ 1 mL 5000 UNIT SUBCUT ×2 (01:10→12:39)
[2021-08-02 01:19] LABS: Urine Protein Random 510 mg/dL
--- NOTE | 2021-08-02 01:35 | PC.NURSE ---
Discussed patient allergy to Versed and patient says it makes her mean however she reports taking Ativan in the past without any reactions.
[2021-08-02] MEDS: LORazepam 2 mg Tablet PO (01:38)
[2021-08-02 05:41] LABS: Basophils % 0.3 %; Eosinophils # 0.1 10^3/uL (0.0-0.8); Eosinophils % 0.4 %; Hematocrit 40.7 % (37.0-47.0); Hemoglobin 12.7 g/dL (11.5-15.3); Lymphocytes # 1.3 10^3/uL (0.8-4.8); Lymphocytes % 10.1 %; Mean Corpuscular HGB Conc 31.2 g/dL (30.0-36.0); Mean Corpuscular Hemoglobin 26.3 pg (28.0-34.0); Mean Corpuscular Volume 84.4 fl (81-99); Monocytes # 0.8 10^3/uL (0.2-0.9); Monocytes % 6.8 %; Neutrophils # 10.09 10^3/uL (1.8-7.7); Neutrophils % 81.7 %; Nucleated Red Blood Cells % 0 %; Platelet Count 213 10^3/cmm (130-400); Red Blood Count 4.82 10^6/uL (4.1-5.3); Red Cell Distribution Width 15.7 % (12.1-15.1); White Blood Count 12.4 10^3/uL (4.0-10.0)
[2021-08-02 06:01] LABS: Alanine Aminotransferase 27 U/L (0-33); Albumin Level 2.4 g/dL (3.5-5.2); Alkaline Phosphatase 200 IU/L (35-105); Blood Urea Nitrogen 32 mg/dL (8-23); Calcium 7.5 mg/dL (8.5-10.5); Carbon Dioxide 16 mmol/L (22-29); Chloride 93 mmol/L (98-107); Globulin 4.7 g/dL (1.3-4.6); Glomerular Filtration Rate 22.5 mL/min (90-130); Glucose 365 mg/dL (65-115); Osmolality Calculated 282 mOsm/kg (285-295); Sodium 125 mmol/L (136-145); Total Bilirubin 0.7 mg/dL (0.15-1.2); Total Protein 7.1 g/dL (6.6-8.7)
[2021-08-02 06:04] LABS: Anion Gap 20.5 (5-19); Aspartate Amino Transferase 42 U/L (0-32); Potassium 4.5 mmol/L (3.5-5.1)
[2021-08-02 06:07] LABS: Procalcitonin 5.24 ng/mL (0-0.5)
[2021-08-02] MEDS: cefTRIAXone 2,000 MG in sodium chloride 0.9% (plus) 50 ML 100 MG IV (06:08)
[2021-08-02 07:10] LABS: Estmated Average Glucose 312; Hemoglobin A1C 12.5 % (4.0-6.0)
[2021-08-02 07:32] LABS: Thyroid Stimulating Hormone 2.29 uIU/mL (0.27-4.20)
[2021-08-02 07:33] LABS: Cortisol Random 45.03 ug/dL (2.47-19.5)
[2021-08-02 08:18] LABS: Glucose Point of Care 326 mg/dL (70-110)
[2021-08-02] MEDS: acetaminophen 325 mg Tablet 650 MG PO ×3 (08:26→22:45)
[2021-08-02] MEDS: OLANZapine 5 mg TABLET 2.5 MG PO ×2 (08:26→18:23)
[2021-08-02] MEDS: pantoprazole DR 40 mg Tablet PO (08:27)
[2021-08-02] MEDS: insulin lispro 100 unit/1 mL SUBCUT ×4 (08:27→21:27)
[2021-08-02] MEDS: aspirin 81 mg EC Tablet PO (08:27)
[2021-08-02] MEDS: piperacillin-tazobactam 3.375 GM in sodium chloride 0.9% (plus) 50 ML IV ×2 (10:28→21:28)
[2021-08-02] MEDS: insulin glargine 100 units/1 mL 5 UNIT SUBCUT ×2 (10:28→21:27)
--- NOTE | 2021-08-02 10:41 | PC.CHAP ---
Pastoral Care Encounter/Spiritual Assessment Type of Contact [] Declined biomedical repair technician visit [] Patient/Family/Request visit [] Outpatient visit [] Follow-up visit [] Physician referral [] Code/Alert [x] Routine visit [] Staff referral [] Actively dying [x] Patient sleeping [] Family support [] [] Out of room [] Palliative care [] [] Receiving care in room [] Pre-surgical visit [] Trauma [] Long length of stay [] ICU visit [] Other: Relational/Emotional Strength [] Patient feels connected with others/family/visitors/staff [] Distress [] Loneliness/isolation [] Abandonment Spirituality of Patient [] Person of Jeaneth [] Attends Caodaism of their Jeaneth [] Believes in Prayer [] Reads Bible or Caodaism materials [] There are Spiritual issues to be addressed National Sales Trainer Interventions [] Prayer [] Active listening [] Non-anxious presence [] Spiritual/emotional support [] Crisis/trauma care [] Spiritual counseling [] Bereavement support [] Provided bereavement packet [] Provided Bible/devotional materials [] Provided toy/stuffed animal, coloring book to patient or family member [] Provided Communion [] Anointing/[place] [] Salvation [] Completed spiritual assessment [] Other: Impact on Illness or Injury [] Angry [] Fearful [] Anxious [] Often cries [] Exhaustion [] Unable to work [] Unable to attend yarsani [] Unable to walk/stand [] Unable to read [] Unable to drive [] Unable to eat/drink [] Unable to sleep [] Unable to be with family [] Patient intubated [] Other: Summary Time spent with patient
[2021-08-02 11:56] LABS: Glucose Point of Care 386 mg/dL (70-110)
[2021-08-02 13:41] LABS: Anion Gap 19.4 (5-19); Blood Urea Nitrogen 36 mg/dL (8-23); Calcium 7.8 mg/dL (8.5-10.5); Carbon Dioxide 21 mmol/L (22-29); Chloride 91 mmol/L (98-107); Glomerular Filtration Rate 16.4 mL/min (90-130); Glucose 431 mg/dL (65-115); Osmolality Calculated 291 mOsm/kg (285-295); Potassium 4.4 mmol/L (3.5-5.1); Sodium 127 mmol/L (136-145)
[2021-08-02 13:50] LABS: Magnesium 1.6 mg/dL (1.7-2.3); Phosphorus 3.4 mg/dL (2.5-4.5)
[2021-08-02 13:59] LABS: Ketone (Acetest) Serum Negative (Negative)
--- NOTE | 2021-08-02 14:31 | PM.PN ---
Subjective Subjective: Patient was seen this morning, she is a bit nauseous, no abdominal pain, no lightheadedness, no dizziness, she is surprised about her hemoglobin A1c, she does also complain of fatigue and malaise Vitals/I&O/Wt Last Vital Signs Temp 98.7 F 08/02/21 12:00 Pulse 71 08/02/21 12:00 Resp 16 08/02/21 12:00 BP 99/63 08/02/21 12:00 Pulse Ox 93 08/02/21 12:00 08/01/21 08/02/21 08/02/21 22:59 06:59 14:59 Intake Total 1000 / 1000 1580 / 2580 1097.083 / 1097.083 Balance 1000 / 1000 1580 / 2580 1097.083 / 1097.083 Weight last 48 hrs Weight 109.951 kg Weight 108.862 kg Physical Exam Const: COMMON NORMALS: no acute distress and patient oriented x3 Resp: COMMON NORMALS: normal respiratory effort, No retractions, No use of accessory muscles and clear to auscultation bilaterally AUSCULTATION: clear to auscultation bilaterally Cardio: COMMON NORMALS: regular rate, regular rhythm, S1 normal heart sound present and S2 normal heart sound present RATE: regular rate RHYTHM: regular rhythm HEART SOUNDS: S1 normal heart sound present and S2 normal heart sound present GI: COMMON NORMALS: Normal to inspection, nondistended, normoactive bowel sounds present, Soft to palpation and non-tender PALPATION: Yes Soft to palpation Extremity: COMMON NORMALS: no pedal edema Neuro: COMMON NORMALS: patient oriented x3 Psych: COMMON NORMALS: mental status grossly normal Data : 08/02/21 05:16 08/02/21 12:57 Micro: Microbiology 08/02/21 10:30 Blood Culture - Preliminary Blood SPECIMEN COLLECTED 08/02/21 10:30 Blood Culture - Preliminary Blood SPECIMEN COLLECTED A&P Assessment and plan (1) Obesity (BMI 30-39.9): Status: Acute (2) GERD (gastroesophageal reflux disease): Status: Acute (3) Fibromyalgia muscle pain: Status: Acute (4) UTI (urinary tract infection): Status: Acute (5) Pyelonephritis: Status: Acute (6) Acute kidney injury superimposed on CKD: Status: Acute (7) Hyperglycemia: Status: Acute (8) Diabetes: Status: Acute Plan 61 year old female with past medical history of morbid obesity, fibromyalgia GERD history of hep C, depression, newly diagnosed diabetes, Came in with chief complaint of left lower quadrant abdominal pain fever, nausea as well as vomiting going on for the last 3 days. Abdominal pain is 8 out of 10 in severity, sharp, partially relieved with pain medicine.She is also complaining of generalized headache, is extremely anxious. Assessment: Acute pyelonephritis UTI ROBERT on CKD: Likely prerenal ROBERT Diabetes Hyperglycemia Pseudohyponatremia History of hep C Fibromyalgia GERD Plan: Follow blood culture Follow urine culture Low-dose sliding scale insulin, Lantus 5 units twice daily Monitor blood sugars Monitoring intake output charting Avoid nephrotoxic's Expand antibiotic coverage to Zosyn Continue IV fluids CODE STATUS: Full code DVT prophylaxis: On heparin Attestations Medical Necessity Statement*: patient requires hospitalization for pyelonephritis Coding Level of Care Code Acute Table Cover Folder for Chg Fwd Exam Detailed Diagnoses Obesity (BMI 30-39.9) E66.9 GERD (gastroesophageal reflux disease) K21.9 Fibromyalgia muscle pain M79.7 UTI (urinary tract infection) N39.0 Pyelonephritis N12 Acute kidney injury superimposed on CKD N17.9; N18.9 Hyperglycemia R73.9 Diabetes E11.9
[2021-08-02] MEDS: HYDROmorphone 1 mg/mL INJ 1 mL 0.4 MG IVP ×2 (16:15→19:55)
[2021-08-02 17:23] LABS: Glucose Point of Care 368 mg/dL (70-110)
[2021-08-02 21:07] LABS: Glucose Point of Care 317 mg/dL (70-110)
[2021-08-03] VITALS (14 sets, daily range): BP systolic 97–146; BP diastolic 50–80; PULSE 72–94; RESP 17–20; TEMP 36.5–37.3; O2SAT 87–94
[2021-08-03] MEDS: HYDROmorphone 1 mg/mL INJ 1 mL 0.4 MG IVP ×5 (00:05→21:00)
[2021-08-03] MEDS: heparin 5,000 unit/mL INJ 1 mL 5000 UNIT SUBCUT ×2 (00:08→11:54)
[2021-08-03] MEDS: piperacillin-tazobactam 3.375 GM in sodium chloride 0.9% (plus) 50 ML IV (04:06)
[2021-08-03] MEDS: sodium chloride 0.9% 1,000 ML 125 ML IV ×4 (05:41→23:53)
[2021-08-03] MEDS: fluoxetine 10 mg Capsule PO (05:41)
[2021-08-03] MEDS: acetaminophen 325 mg Tablet 650 MG PO ×3 (05:44→23:17)
[2021-08-03 06:45] LABS: Glucose Point of Care 194 mg/dL (70-110)
[2021-08-03 07:19] LABS: Basophils # 0.1 10^3/uL (0.0-0.1); Basophils % 0.6 %; Eosinophils # 0.1 10^3/uL (0.0-0.8); Eosinophils % 0.7 %; Hematocrit 34.1 % (37.0-47.0); Hemoglobin 11.2 g/dL (11.5-15.3); Lymphocytes # 1.3 10^3/uL (0.8-4.8); Lymphocytes % 10.4 %; Mean Corpuscular HGB Conc 32.8 g/dL (30.0-36.0); Mean Corpuscular Hemoglobin 26.7 pg (28.0-34.0); Mean Corpuscular Volume 81.4 fl (81-99); Monocytes # 1.3 10^3/uL (0.2-0.9); Monocytes % 10.6 %; Neutrophils # 9.29 10^3/uL (1.8-7.7); Neutrophils % 76.5 %; Nucleated Red Blood Cells % 0 %; Platelet Count 187 10^3/cmm (130-400); Red Blood Count 4.19 10^6/uL (4.1-5.3); Red Cell Distribution Width 15.6 % (12.1-15.1); White Blood Count 12.1 10^3/uL (4.0-10.0)
[2021-08-03 07:29] LABS: Anion Gap 20.1 (5-19); Blood Urea Nitrogen 38 mg/dL (8-23); Calcium 7.3 mg/dL (8.5-10.5); Carbon Dioxide 17 mmol/L (22-29); Chloride 95 mmol/L (98-107); Glomerular Filtration Rate 15.8 mL/min (90-130); Glucose 215 mg/dL (65-115); Magnesium 1.7 mg/dL (1.7-2.3); Osmolality Calculated 282 mOsm/kg (285-295); Phosphorus 3.1 mg/dL (2.5-4.5); Potassium 4.1 mmol/L (3.5-5.1); Sodium 128 mmol/L (136-145)
[2021-08-03 07:36] LABS: Procalcitonin 6.87 ng/mL (0-0.5)
[2021-08-03] MEDS: insulin glargine 100 units/1 mL 5 UNIT SUBCUT ×2 (09:13→21:01)
[2021-08-03] MEDS: insulin lispro 100 unit/1 mL SUBCUT ×4 (09:14→23:47)
[2021-08-03] MEDS: midodrine 5 mg TABLET PO ×3 (09:15→20:59)
[2021-08-03] MEDS: pantoprazole DR 40 mg Tablet PO (09:15)
[2021-08-03] MEDS: OLANZapine 5 mg TABLET 2.5 MG PO ×2 (09:15→17:28)
[2021-08-03] MEDS: aspirin 81 mg EC Tablet PO (09:16)
--- NOTE | 2021-08-03 11:12 | US_ITS ---
WS: [id number] RENAL ULTRASOUND HISTORY: coral COMPARISON: None available. TECHNIQUE: 2-D and color Doppler imaging of the kidney submitted. Right kidney: 10.9 cm x 5.5 cm x 6.9 cm. Normal echogenicity with no hydronephrosis or mass. Left kidney: 12.5 cm x 5.2 cm x 6.4 cm. Normal echogenicity with no hydronephrosis or mass. Aorta: Normal. Urinary Bladder: Normal distention. US/US renal BI* [id number] IMPRESSION: Normal renal ultrasound.
[2021-08-03 11:23] LABS: Glucose Point of Care 243 mg/dL (70-110)
--- NOTE | 2021-08-03 12:01 | PC.CHAP ---
Pastoral Care Encounter/Spiritual Assessment Type of Contact [] Declined circuit clerk visit [] Patient/Family/Request visit [] Outpatient visit [] Follow-up visit [] Physician referral [] Code/Alert [x] Routine visit [] Staff referral [] Actively dying [] Patient sleeping [] Family support [] [] Out of room [] Palliative care [] [] Receiving care in room [] Pre-surgical visit [] Trauma [] Long length of stay [] ICU visit [] Other: Relational/Emotional Strength [x] Patient feels connected with others/family/visitors/staff [] Distress [] Loneliness/isolation [] Abandonment Spirituality of Patient [x] Person of Jeaneth [] Attends Jainism of their Jeaneth [x] Believes in Prayer [] Reads Bible or Yarsani materials [] There are Spiritual issues to be addressed Micromatic Hone Operator Interventions [x] Prayer [x] Active listening []x Non-anxious presence x[] Spiritual/emotional support [] Crisis/trauma care [x] Spiritual counseling [] Bereavement support [] Provided bereavement packet [] Provided Bible/devotional materials [] Provided toy/stuffed animal, coloring book to patient or family member [] Provided Communion [] Anointing/[place] [] Salvation [x] Completed spiritual assessment [] Other: Impact on Illness or Injury [] Angry [] Fearful [] Anxious [] Often cries [] Exhaustion [] Unable to work [] Unable to attend sikhism [] Unable to walk/stand [] Unable to read [] Unable to drive [] Unable to eat/drink [] Unable to sleep [] Unable to be with family [] Patient intubated [] Other: Summary Time spent with patient 10 min
[2021-08-03 16:17] LABS: Osmolality Urine 436 mOsm/kg (50-1200)
[2021-08-03 16:17] LABS: Osmolality Serum 295 mOsm/kg (278-305)
[2021-08-03 17:18] LABS: Glucose Point of Care 208 mg/dL (70-110)
--- NOTE | 2021-08-03 17:36 | PM.PN ---
Subjective Subjective: Patient was seen this morning she continues to complain of abdominal pain, her appetite has improved, she does complain of intermittent left temporal pain and tenderness, no headache, blurry vision, no jaw pain, no nausea, no lightheadedness, no dizziness, she never had a pain like this before, no history of migraines, denies any diarrhea, dysuria Vitals/I&O/Wt Last Vital Signs Temp 98.9 F 08/03/21 16:00 Pulse 81 08/03/21 16:00 Resp 18 08/03/21 16:00 BP 124/77 08/03/21 16:00 Pulse Ox 92 08/03/21 16:00 08/03/21 08/03/21 08/03/21 06:59 14:59 22:59 Intake Total 1050 / 3848.333 1502.500 / 1502.500 100 / 1602.500 Output Total 400 / 1100 1000 / 1000 Balance 650 / 2748.333 502.500 / 502.500 100 / 602.500 Weight last 48 hrs Weight 109.951 kg Physical Exam Const: COMMON NORMALS: no acute distress and patient oriented x3 OTHER: On exam, left temporal artery, not palpable does have superficial tenderness more medial Resp: COMMON NORMALS: normal respiratory effort, No retractions, No use of accessory muscles and clear to auscultation bilaterally AUSCULTATION: clear to auscultation bilaterally Cardio: COMMON NORMALS: regular rate, regular rhythm, S1 normal heart sound present and S2 normal heart sound present RATE: regular rate RHYTHM: regular rhythm HEART SOUNDS: S1 normal heart sound present and S2 normal heart sound present GI: COMMON NORMALS: Normal to inspection, nondistended, normoactive bowel sounds present, Soft to palpation and non-tender PALPATION: Yes Soft to palpation Extremity: COMMON NORMALS: no pedal edema Neuro: COMMON NORMALS: patient oriented x3 Psych: COMMON NORMALS: mental status grossly normal Data : 08/03/21 06:56 08/03/21 06:56 Micro: Microbiology 08/02/21 10:30 Blood Culture - Preliminary Blood NEGATIVE TO DATE 08/02/21 10:30 Blood Culture - Preliminary Blood NEGATIVE TO DATE 08/01/21 20:00 Urine Culture - Preliminary Urine,Clean Catch Gram Negative Rods A&P Assessment and plan (1) Obesity (BMI 30-39.9): Status: Acute (2) GERD (gastroesophageal reflux disease): Status: Acute (3) Fibromyalgia muscle pain: Status: Acute (4) UTI (urinary tract infection): Status: Acute (5) Pyelonephritis: Status: Acute (6) Acute kidney injury superimposed on CKD: Status: Acute (7) Hyperglycemia: Status: Acute (8) Diabetes: Status: Acute Plan 61 year old female with past medical history of morbid obesity, fibromyalgia GERD history of hep C, depression, newly diagnosed diabetes, Came in with chief complaint of left lower quadrant abdominal pain fever, nausea as well as vomiting going on for the last 3 days. Abdominal pain is 8 out of 10 in severity, sharp, partially relieved with pain medicine.She is also complaining of generalized headache, is extremely anxious. Assessment: Acute pyelonephritis UTI ROBERT on CKD: Likely prerenal ROBERT Diabetes Hyperglycemia Pseudohyponatremia History of hep C Fibromyalgia GERD Plan: Follow blood culture Follow urine culture Low-dose sliding scale insulin, Lantus 5 units twice daily Monitor blood sugars Monitoring intake output charting Avoid nephrotoxic's Expand antibiotic coverage to Zosyn Continue IV fluids Creatinine at 3, monitor urine output She does have complaints of left temporal tenderness, temporal arteritis is certainly possible, ESR ordered, continue to monitor, if she would have any jaw pain or changes in vision w, will consider temporal artery biopsy CODE STATUS: Full code DVT prophylaxis: On heparin Attestations Medical Necessity Statement*: Patient requires hospitalization for pyelonephritis, ROBERT, left temporal tenderness Coding Level of Care Code Acute Stable Manager for Chg Fwd Diagnoses Obesity (BMI 30-39.9) E66.9 GERD (gastroesophageal reflux disease) K21.9 Fibromyalgia muscle pain M79.7 UTI (urinary tract infection) N39.0 Pyelonephritis N12 Acute kidney injury superimposed on CKD N17.9; N18.9 Hyperglycemia R73.9 Diabetes E11.9
[2021-08-04] VITALS (14 sets, daily range): BP systolic 136–172; BP diastolic 70–90; PULSE 65–84; RESP 16–20; TEMP 36.4–37.6; O2SAT 91–97
[2021-08-04] MEDS: heparin 5,000 unit/mL INJ 1 mL 5000 UNIT SUBCUT (00:01)
[2021-08-04] MEDS: HYDROmorphone 1 mg/mL INJ 1 mL 0.4 MG IVP ×4 (02:06→18:02)
[2021-08-04 05:21] LABS: Glucose Point of Care 248 mg/dL (70-110)
[2021-08-04 05:21] LABS: Glucose Point of Care 173 mg/dL (70-110)
[2021-08-04] MEDS: fluoxetine 10 mg Capsule PO (05:45)
[2021-08-04 06:48] LABS: Basophils # 0.1 10^3/uL (0.0-0.1); Basophils % 0.9 %; Eosinophils # 0.1 10^3/uL (0.0-0.8); Hematocrit 35.4 % (37.0-47.0); Hemoglobin 11.2 g/dL (11.5-15.3); Lymphocytes # 1.4 10^3/uL (0.8-4.8); Lymphocytes % 13.4 %; Mean Corpuscular HGB Conc 31.6 g/dL (30.0-36.0); Mean Corpuscular Hemoglobin 26.3 pg (28.0-34.0); Mean Corpuscular Volume 83.1 fl (81-99); Mean Platelet Volume 10.8 fL (7.4-10.4); Monocytes % 10.1 %; Neutrophils # 7.41 10^3/uL (1.8-7.7); Neutrophils % 72.8 %; Nucleated Red Blood Cells % 0 %; Platelet Count 258 10^3/cmm (130-400); Red Blood Count 4.26 10^6/uL (4.1-5.3); Red Cell Distribution Width 15.9 % (12.1-15.1); White Blood Count 10.2 10^3/uL (4.0-10.0)
[2021-08-04 07:18] LABS: Anion Gap 16.9 (5-19); Blood Urea Nitrogen 28 mg/dL (8-23); Calcium 7.8 mg/dL (8.5-10.5); Carbon Dioxide 20 mmol/L (22-29); Chloride 102 mmol/L (98-107); Glomerular Filtration Rate 25.2 mL/min (90-130); Glucose 221 mg/dL (65-115); Magnesium 1.9 mg/dL (1.7-2.3); Osmolality Calculated 292 mOsm/kg (285-295); Phosphorus 2.6 mg/dL (2.5-4.5); Potassium 3.9 mmol/L (3.5-5.1); Sodium 135 mmol/L (136-145)
[2021-08-04 07:24] LABS: Procalcitonin 3.11 ng/mL (0-0.5)
[2021-08-04] MEDS: aspirin 81 mg EC Tablet PO (08:19)
[2021-08-04] MEDS: OLANZapine 5 mg TABLET 2.5 MG PO ×2 (08:19→17:17)
[2021-08-04] MEDS: pantoprazole DR 40 mg Tablet PO ×2 (08:21→17:17)
[2021-08-04] MEDS: sodium chloride 0.9% 1,000 ML 125 ML IV (08:22)
[2021-08-04] MEDS: insulin lispro 100 unit/1 mL SUBCUT ×5 (08:24→20:44)
[2021-08-04] MEDS: insulin glargine 100 units/1 mL 5 UNIT SUBCUT (08:25)
--- NOTE | 2021-08-04 10:20 | CT_ITS ---
WS: [id number] CT HEAD NONCONTRAST HISTORY: left [facility] TECHNIQUE: Contiguous axial imaging performed through the brain in 2.5 mm imaging. Bone and soft tiss ue windows. Sagittal and coronal reformats reviewed. All CT scans at [facility] use at least one of these dose optimization techniques: automated exposure control; mA and/or kV adjustment per pa tient size (includes targeted exams where dose is matched to clinical indication); or iterative recon struction. DLP: 940.19 mGy.cm COMPARISON: 08/01/2021 No acute intracranial hemorrhage, midline shift or mass effect. Very mild atrophy and small vessel ischemic disease. Prior lacunar infarcts bilateral basal ganglia. There is a large amount of artifact through the posterior fossa. Ventricles: Normal size with no hydrocephalus. No inferior displacement of cerebellar tonsils. Paranasal sinuses: As visualized are clear. Mastoid air cells: Well pneumatized. Calvarium and scalp: Skull is intact with no soft tissue edema or swelling. CT/CT head wo con* [id number] IMPRESSION: 1. No acute intracranial hemorrhage or edema. 2. Mild atrophy and small vessel ischemic disease. Stable noncontrast head CT since 08/01/2021.
[2021-08-04 12:08] LABS: Glucose Point of Care 204 mg/dL (70-110)
--- NOTE | 2021-08-04 13:29 | P.PN_ITS ---
Subjective Subjective: Patient was seen this morning -Denies any abdominal pain, no nausea, no vomiting, no flank pain -Patient's only complaint today is severe left yarsanism pain, she continues to have left yarsanism pain, now she tells me that is radiating to her jaw, now she is having jaw pain -No blurry vision, no changes in vision -I advised that given her persistent left yarsanism tenderness, unfortunately our ESR machine here in the hospital is down, and were sending everything off to [facility], and the result is not back yet -Given her left temporal tenderness, jaw claudication like symptoms, her persistent elevated CRP, I am highly suspicious that this is temporal arteritis -Given the life-threatening nature of temporal arteritis, and its threatening nature to her vision -I will start her on high-dose steroids, will have to keep an eye on her blood sugar, there is a high risk of hypoglycemia given her underlying diabetes -ESR still pending -CT of the head has been ordered -I have kept her n.p.o. -I have consulted general surgery for a temporal artery biopsy -Anticoagulation has been held -Patient voices any, all questions answered, agreed to proceed Vitals/I&O/Wt Last Vital Signs Temp 98.9 F 08/04/21 11:48 Pulse 69 08/04/21 11:48 Resp 18 08/04/21 11:48 BP 144/78 08/04/21 11:48 Pulse Ox 92 08/04/21 11:48 08/03/21 08/04/21 08/04/21 22:59 06:59 14:59 Intake Total 1260 / 2762.500 340 / 3102.500 1120 / 1120 Output Total 800 / 1800 1000 / 1000 Balance 1260 / 1762.500 -460 / 1302.500 120 / 120 Physical Exam Const: COMMON NORMALS: no acute distress and patient oriented x3 HENMT: OTHER: On examination, exquisite left temporal tenderness Pupils equal round reactive to light, no visual deficits reported, no blurry vision No neck pain, does have jaw pain, temporal tenderness rating to left jaw Resp: COMMON NORMALS: normal respiratory effort, No retractions, No use of accessory muscles and clear to auscultation bilaterally AUSCULTATION: clear to auscultation bilaterally Cardio: COMMON NORMALS: regular rate, regular rhythm, S1 normal heart sound present and S2 normal heart sound present RATE: regular rate RHYTHM: regular rhythm HEART SOUNDS: S1 normal heart sound present and S2 normal heart sound present GI: COMMON NORMALS: Normal to inspection, nondistended, normoactive bowel sounds present, Soft to palpation and non-tender PALPATION: Yes Soft to palpation Extremity: COMMON NORMALS: no pedal edema Neuro: COMMON NORMALS: patient oriented x3 Psych: COMMON NORMALS: mental status grossly normal Data : 08/04/21 06:34 08/04/21 06:34 Micro: Microbiology 08/01/21 20:00 Urine Culture - Final Urine,Clean Catch Escherichia coli 08/02/21 10:30 Blood Culture - Preliminary Blood NEGATIVE TO DATE 08/02/21 10:30 Blood Culture - Preliminary Blood NEGATIVE TO DATE A&P Assessment and plan (1) Obesity (BMI 30-39.9): Status: Acute (2) GERD (gastroesophageal reflux disease): Status: Acute (3) Fibromyalgia muscle pain: Status: Acute (4) UTI (urinary tract infection): Status: Acute (5) Pyelonephritis: Status: Acute (6) Acute kidney injury superimposed on CKD: Status: Acute (7) Hyperglycemia: Status: Acute (8) Diabetes: Status: Acute (9) Temporal arteritis: Status: Acute Plan 61 year old female with past medical history of morbid obesity, fibromyalgia GERD history of hep C, depression, newly diagnosed diabetes, Came in with chief complaint of left lower quadrant abdominal pain fever, nausea as well as vomiting going on for the last 3 days. Abdominal pain is 8 out of 10 in severity, sharp, partially relieved with pain medicine.She is also complaining of generalized headache, is extremely anxious. Assessment: Acute pyelonephritis UTI ROBERT on CKD: Likely prerenal ROBERT Diabetes Hyperglycemia Pseudohyponatremia History of hep C Fibromyalgia GERD Now with temporal arteritis concern Plan: Follow blood culture, so far no growth Urine cultures E. coli, sensitive to penicillins Stop Primaxin, switch to Rocephin Given concerns for temporal arteritis, start high-dose steroids Solu-Medrol 500 every 24 hours Continue home aspirin Given her decreased GFR, will hold off on PCP prophylaxis, and has allergy to sulfas Follow ESR General surgery consulted for temporal artery biopsy Has type 2 diabetes mellitus, will need to monitor blood sugars very closely Switch to high-dose sliding scale, Lantus 10 units twice daily Monitor blood sugars Monitoring intake output charting Avoid nephrotoxic's Continue IV fluids, decrease to 50 cc Creatinine at 2, monitor urine output CODE STATUS: Full code DVT prophylaxis: On heparin, currently on hold and plans for temporal artery biopsy Attestations Medical Necessity Statement*: Patient requires hospitalization for acute pyelonephritis, UTI, ROBERT, now with concerns for left temporal arteritis Coding Level of Care Code Acute Medical Assistant Cardiology for Chg Fwd Diagnoses Obesity (BMI 30-39.9) E66.9 GERD (gastroesophageal reflux disease) K21.9 Fibromyalgia muscle pain M79.7 UTI (urinary tract infection) N39.0 Pyelonephritis N12 Acute kidney injury superimposed on CKD N17.9; N18.9 Hyperglycemia R73.9 Diabetes E11.9 Temporal arteritis M31.6
[2021-08-04 14:18] LABS: COMPLEMENT COMPONENT C3C 218 mg/dL (83-193); COMPLEMENT COMPONENT C4C 35 mg/dL (15-57); COMPLEMENT, TOTAL (CH50) >60 U/mL (31-60)
[2021-08-04 15:23] LABS: THYROID PEROXIDASE ANTIBODIES <1 IU/mL (<9)
[2021-08-04 16:57] LABS: Glucose Point of Care 185 mg/dL (70-110)
--- NOTE | 2021-08-04 16:58 | P.CONIM_ITS ---
Providers/Reason For Consult Consulting Physician/Specialty*: Dr. Adrián Sanchez, DO Reason for Consult*: Left temporal headache with left jaw pain Attending Physician: Luis E Bro MD Primary Care Provider: Roscoe Chilel MD History of Present Illness History of Present Illness Annetta Delacruz is a 61 year old female who presented hospital a couple days ago with left flank pain. She was found to have pyelonephritis and is being treated for that. Also, she has had a left temporal headache since Monday which is only gotten worse. She denies any changes in vision. She does report some left jaw pain. The headache is throbbing and constant. Pain radiates to her jaw. Nothing makes the pain worse but pressure makes the pain better. Denies any other symptoms Review of Systems General: Reports: 10 or more systems reviewed and unremarkable except in HPI and below Medications/Allergies Home Medications Medication Instructions Recorded Confirmed Last Taken Type acetaminophen 325 mg tablet 325 mg PO TID PRN #100 tab 07/22/20 08/02/21 08/01/21 Rx (Tylenol) aspirin 81 mg tablet,delayed 81 mg PO DAILY 07/22/20 08/02/21 08/01/21 08:00 History release (Adult Aspirin Regimen) vit d 3 5,000 units PO DAILY 07/22/20 08/02/21 08/01/21 08:00 History pantoprazole 40 mg tablet,delayed 40 mg PO DAILY #30 tab 08/24/20 08/02/21 08/01/21 08:00 Rx release celecoxib 400 mg capsule See Rx Instructions .ROUTE 04/28/21 08/02/21 08/01/21 08:00 Rx .COMPLEX 90 Days #90 cap niacin 500 mg tablet,extended See Rx Instructions .ROUTE 04/28/21 08/02/21 07/31/21 21:00 Rx release 24 hr .COMPLEX #30 tab olanzapine 2.5 mg tablet (Zyprexa) 2.5 mg PO BID #60 tab 06/07/21 08/02/21 07/31/21 21:00 Rx fluoxetine 10 mg capsule [place] [address]/02/21 08/02/21 08/02/21 01:22 History fluoxetine 20 mg capsule [place] [address]/02/21 08/02/21 08/01/21 08:00 History Allergies Allergy/AdvReac Type Severity Reaction Status Date / Time benzoin Allergy Intermediate rash Verified 04/08/21 15:20 butorphanol [From Stadol] Allergy Intermediate rash Verified 04/08/21 15:20 ciprofloxacin [From Cipro] Allergy Intermediate rash Verified 04/08/21 15:20 midazolam [From Versed] Allergy Intermediate rash Verified 04/08/21 15:20 Sulfa (Sulfonamide Allergy Intermediate rash Verified 04/08/21 15:20 Antibiotics) tramadol [From Ultram] Allergy Intermediate rash Verified 04/08/21 15:20 Current Medications Generic Name Dose Route Start Last Admin Trade Name Freq PRN Reason Stop Dose Admin Acetaminophen 650 mg 08/02/21 00:20 08/03/21 23:17 Acetaminophen 325 Mg Tablet PO 650 mg Q6H PRN Administration Mild/Mod Pain Or Temp >/= 101 Aspirin 81 mg 08/02/21 09:00 08/04/21 08:19 Aspirin 81 Mg Ec Tablet PO 81 mg DAILY REJI Administration Fluoxetine HCl 10 mg 08/02/21 00:30 08/04/21 05:45 Fluoxetine 10 Mg Capsule PO 10 mg QAM REJI Administration Heparin Sodium (Porcine) 5,000 unit 08/02/21 00:30 08/04/21 00:01 Heparin 5,000 Unit/Ml Inj 1 Ml SUBCUT 5,000 unit Q12H REJI Administration Hydromorphone HCl 0.4 mg 08/02/21 08:55 08/04/21 10:49 Hydromorphone 1 Mg/Ml Inj 1 Ml IVP 0.4 mg Q4H PRN Administration PAIN Insulin Human Lispro 0 unit 08/04/21 12:00 08/04/21 11:45 Insulin Lispro 100 Unit/1 Ml SUBCUT 4 unit WM&BEDTIME REJI Administration Protocol Methylprednisolone Sodium Succinate 500 mg 08/04/21 10:30 08/04/21 10:48 Methylprednisolone Sod Succ 125 Mg/2 Ml Inj IVP 08/07/21 10:29 500 mg Q24H REJI Administration Olanzapine 2.5 mg 08/02/21 09:00 08/04/21 08:19 Olanzapine 5 Mg Tablet PO 2.5 mg BID REJI Administration PFSH Acute PFSH: Medical History Abnormal liver enzymes Amphetamine abuse Amphetamine substance use disorder, moderate, in early remission last use of meth on 12/12/19 Chronic kidney disease (CKD) stage G2/A2, mildly decreased glomerular filtration rate (GFR) between 60-89 mL/min/1.73 square meter and albuminuria creatinine ratio between 30-299 mg/g Chronic post-traumatic stress disorder Dyslipidemia (high LDL; low HDL) Fibromyalgia muscle pain GERD (gastroesophageal reflux disease) History of hepatitis C Major depressive disorder, recurrent severe without psychotic features Methamphetamine abuse Newly diagnosed diabetes Obesity (BMI 30-39.9) Osteoarthritis (arthritis due to wear and tear of joints) Panic disorder with agoraphobia and severe panic attacks Seborrheic keratoses Surgical History History of appendectomy History of cholecystectomy History of hysterectomy Family History Other Hypertension Psychiatric illness Social History Smoking and tobacco status: former smoker Alcohol intake: former Lives independently: Yes Housing: House Marital status: Number of children: 2 Number of grandchildren: 6 Current occupational status: disabled Vitals/I&O/Wt Last Vital Signs Temp 98.1 F 08/04/21 16:00 Pulse 71 08/04/21 16:00 Resp 17 08/04/21 16:00 BP 151/89 08/04/21 16:00 Pulse Ox 91 08/04/21 16:00 08/04/21 08/04/21 08/04/21 06:59 14:59 22:59 Intake Total 340 / 3102.500 1120 / 1120 Output Total 800 / 1800 1000 / 1000 Balance -460 / 1302.500 120 / 120 Physical Exam Narrative: General : Patient is well developed , no acute distress, oriented x3 Head : Normal cephalic, a-traumatic. Ears : Pinnae and external canal are normal. Hearing is normal. Eyes : PERRLA, Sclera and injection are normal. No conjunctival discharge. Nose : Mucous membranes are without erythema. Throat : buccal mucosa is normal, gums are without significant recession or hypertrophy. Lungs : Equal chest rise bilaterally, no use of accessory muscles, trachea is mi dline. Cor : Rate and rhythm are normal. Abdomen : Soft, ND, NT, no g/r/m Extremities : No edema, no cyanosis or clubbing, dorsalis pedis pulses are present bilaterally, non-tender to palpation of calves. Upper extremities are normal bilaterally. Back : non-tender to palpation, no CVA tenderness. Neuro : CN II - XII intact, Upper and lower extremities have equal and full strength Data : 08/04/21 06:34 08/04/21 06:34 Micro: Microbiology 08/01/21 20:00 Urine Culture - Final Urine,Clean Catch Escherichia coli A&P Assessment and plan (1) Left temporal headache: Status: Acute Plan Bilateral temporal artery biopsy Risks and benefits of the procedure, including not limited to, bleeding, infection, lack of an artery on that side, scar, numbness, pain, nerve damage, damage to surrounding structures, were explained to the patient. She is understanding of the risks and wishes to proceed. N.p.o. 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
[2021-08-04 17:08] LABS: CENTROMERE B ANTIBODY <1.0 NEG AI (<1.0 NEG); JO-1 ANTIBODY <1.0 NEG AI (<1.0 NEG); RNP ANTIBODY <1.0 NEG AI (<1.0 NEG); SCL-70 ANTIBODY <1.0 NEG AI (<1.0 NEG); SJOGREN'S ANTIBODY (SS-A) <1.0 NEG AI (<1.0 NEG); SM ANTIBODY <1.0 NEG AI (<1.0 NEG); SS-B <1.0 NEG AI (<1.0 NEG)
[2021-08-04] MEDS: sodium chloride 0.9% 1,000 ML 50 ML IV (17:18)
[2021-08-04 17:29] LABS: Glucose Point of Care 325 mg/dL (70-110)
--- NOTE | 2021-08-04 18:13 | PC.NURSE ---
PATIENT'S PAIN HAS GREATLY IMPROVED AFTER LARGE DOSE OF SOLU MEDROL THIS MORNING. GOOD PO INTAKE AND GOOD OUTPUT. PATIENT HAS REQUIRED DILAUDID TWICE TODAY. BLOOD SUGAR ELEVATED THIS EVENING, INSULIN ADMINISTERED. CURRENTLY RESTING IN BED AT THIS TIME.
[2021-08-04] MEDS: insulin glargine 100 units/1 mL 10 UNIT SUBCUT (20:37)
[2021-08-04 20:49] LABS: Glucose Point of Care 472 mg/dL (70-110)
[2021-08-04] MEDS: ALPRAZolam 0.5 mg Tablet 0.25 MG PO (22:17)
[2021-08-05] VITALS (21 sets, daily range): BP systolic 122–183; BP diastolic 77–95; PULSE 40–77; RESP 12–25; TEMP 35.2–37; O2SAT 90–98
[2021-08-05 00:55] LABS: Glucose Point of Care 410 mg/dL (70-110)
--- NOTE | 2021-08-05 02:07 | PC.NURSE ---
DAVID givens informed of midnight low temp and low HR
[2021-08-05] MEDS: sodium chloride 0.9% 1,000 ML 50 ML IV (03:08)
--- NOTE | 2021-08-05 04:58 | PC.NURSE ---
Rosa< RN notified about 0 BP
--- NOTE | 2021-08-05 05:15 | PC.NURSE ---
Assumed pt care at this time. Pt was up in the shower, linen change done.
[2021-08-05 06:26] LABS: Glucose Point of Care 357 mg/dL (70-110)
[2021-08-05] MEDS: HYDROmorphone 1 mg/mL INJ 1 mL 0.4 MG IVP ×3 (08:10→20:03)
[2021-08-05] MEDS: cefTRIAXone 1,000 MG in sodium chloride 0.9% (plus) 50 ML 100 MG IV (08:10)
--- NOTE | 2021-08-05 09:19 | W.PM.OPSUD ---
Surgery/Procedure H&P Update DATE OF PROCEDURE: August 05, 2021 DATE H&P PERFORMED: 08/04/21 PLANNED PROCEDURE: Operation Date: 08/05/21 10:30 Proposed Procedures p Temporal Artery Biopsy(Not Applicable) - Adrián Sanchez DO
[2021-08-05] MEDS: insulin lispro 100 unit/1 mL SUBCUT ×3 (09:49→21:31)
--- NOTE | 2021-08-05 10:01 | ANES.PREANE2 ---
Pre-Anesthetic Assessment Height/Weight: Height 1.8 m Weight 109.951 kg Temp Pulse Resp BP Pulse Ox 98 F 56 L 17 157/91 96 08/05/21 08:00 08/05/21 08:00 08/05/21 08:10 08/05/21 08:00 08/05/21 08:00 Preop Diagnosis: temporal arteritis Operation Date: 08/05/21 10:30 Proposed Procedures p Temporal Artery Biopsy(Not Applicable) - Adrián Sanchez DO Familial anesthetic complications: none Was Beta Roula taken within 24 hours: N/A Was Clonidine taken within 24 hours: N/A Last intake: Intake Last Liquid Date 08/05/21 Last Liquid Time 00:00 Last Solid Date 08/04/21 Last Solid Time 21:00 Social No alcohol and No tobacco Hx of amphetamine abuse Exam alert, oriented x 3, clear to auscultation bilaterally and regular rate & rhythm Airway Submandibular: within normal limits Mallampati: Class II Dentition: false Pulmonary None reported CV/HEM Anemia Chronic Renal Failure Acute on chronic renal failure Pyelonephritis Hepatic Hepatitis (C) GI Gastroesophageal Reflux Disease (Poorly controlled ) Metabolic Diabetes Mellitus [facility] [place] Fibromyalgia and Osteoarthritis/DJD Neuropsych Anxiety and Depression Agoraphobia Anesthetic Plan ASA status: 3 (61 year old obese former smoker with hx of hepatitis C, agoraphobia, GERD, methamphetamine abuse, with pyelonephritis acute on chronic kidney disease and newly diagnosed DM for temporal artery biopsy for arteritis ) Anesthesia: Anesthesia Evaluation and General Other: We discussed risk and benefits of general anesthesia including PONV, sore throat (sometimes severe), corneal abrasion, positioning and peripheral nerve injuries, life threatening allergic reaction, post operative ICU admission requiring prolonged intubation, aspiration, stroke, heart attack, , and rare incidences of recall. I discussed with the patient risks, goals, and benefits of MAC and general anesthesia. We discussed spectrum of MAC anesthesia including conversion to general as well as possibility of recall of intraoperative stimuli including discomfort/pain. Patient prefers general anesthesia. Risk of > 500 ml blood loss (7ml/kg in children): No Other Pertinent Information Blood glucose after short acting insulin penidng Medications/Allergies Home Medications Medication Instructions Recorded Confirmed Last Taken Type acetaminophen 325 mg tablet 325 mg PO TID PRN #100 tab 07/22/20 08/02/21 08/01/21 Rx (Tylenol) aspirin 81 mg tablet,delayed 81 mg PO DAILY 07/22/20 08/02/21 08/01/21 08:00 History release (Adult Aspirin Regimen) vit d 3 5,000 units PO DAILY 07/22/20 08/02/21 08/01/21 08:00 History pantoprazole 40 mg tablet,delayed 40 mg PO DAILY #30 tab 08/24/20 08/02/21 08/01/21 08:00 Rx release celecoxib 400 mg capsule See Rx Instructions .ROUTE 04/28/21 08/02/21 08/01/21 08:00 Rx .COMPLEX 90 Days #90 cap niacin 500 mg tablet,extended See Rx Instructions .ROUTE 04/28/21 08/02/21 07/31/21 21:00 Rx release 24 hr .COMPLEX #30 tab olanzapine 2.5 mg tablet (Zyprexa) 2.5 mg PO BID #60 tab 06/07/21 08/02/21 07/31/21 21:00 Rx fluoxetine 10 mg capsule 10 mg PO 0808/02/21 08/02/21 08/02/21 01:22 History fluoxetine 20 mg capsule 20 mg PO 0800 08/02/21 08/02/21 08/01/21 08:00 History Allergies Allergy/AdvReac Type Severity Reaction Status Date / Time benzoin Allergy Intermediate rash Verified 04/08/21 15:20 butorphanol [From Stadol] Allergy Intermediate rash Verified 04/08/21 15:20 ciprofloxacin [From Cipro] Allergy Intermediate rash Verified 04/08/21 15:20 midazolam [From Versed] Allergy Intermediate rash Verified 04/08/21 15:20 Sulfa (Sulfonamide Allergy Intermediate rash Verified 04/08/21 15:20 Antibiotics) tramadol [From Ultram] Allergy Intermediate rash Verified 04/08/21 15:20 Current Medications Generic Name Dose Route Start Last Admin Trade Name Freq PRN Reason Stop Dose Admin Acetaminophen 650 mg 08/02/21 00:20 08/03/21 23:17 Acetaminophen 325 Mg Tablet PO 650 mg Q6H PRN Administration Mild/Mod Pain Or Temp >/= 101 Aspirin 81 mg 08/02/21 09:00 08/04/21 08:19 Aspirin 81 Mg Ec Tablet PO 81 mg DAILY REJI Administration Fluoxetine HCl 10 mg 08/02/21 00:30 08/05/21 05:17 Fluoxetine 10 Mg Capsule PO Not Given QAM REJI Heparin Sodium (Porcine) 5,000 unit 08/02/21 00:30 08/04/21 00:01 Heparin 5,000 Unit/Ml Inj 1 Ml SUBCUT 5,000 unit Q12H REJI Administration Hydromorphone HCl 0.4 mg 08/02/21 08:55 08/05/21 08:10 Hydromorphone 1 Mg/Ml Inj 1 Ml IVP 0.4 mg Q4H PRN Administration PAIN Sodium Chloride 1,000 mls @ 50 mls/hr 08/04/21 13:30 08/05/21 03:08 Sodium Chloride 0.9% IV 50 mls/hr .Q20H REJI Administration Ceftriaxone Sodium 1,000 mg/ 50 mls @ 100 mls/hr 08/05/21 08:00 08/05/21 09:47 Sodium Chloride IV Infused Q24H REJI Infusion Protocol Insulin Glargine 20 unit 08/05/21 09:00 08/05/21 09:46 Insulin Glargine 100 Units/1 Ml SUBCUT Not Given 899,2099 [facility] Insulin Human Lispro 0 unit 08/04/21 12:00 08/05/21 09:49 Insulin Lispro 100 Unit/1 Ml SUBCUT 16 unit WM&BEDTIME REJI Administration Protocol Methylprednisolone Sodium Succinate 500 mg 08/04/21 10:30 08/04/21 10:48 Methylprednisolone Sod Succ 125 Mg/2 Ml Inj IVP 08/07/21 10:29 500 mg Q24H REJI Administration Olanzapine 2.5 mg 08/02/21 09:00 08/04/21 17:17 Olanzapine 5 Mg Tablet PO 2.5 mg BID REJI Administration Pantoprazole Sodium 40 mg 08/04/21 18:00 08/04/21 17:[address] 40 Mg Tablet PO 40 mg BID REJI Administration PFSH Anesthesia Medical History Abnormal liver enzymes Amphetamine abuse Amphetamine substance use disorder, moderate, in early remission last use of meth on 12/12/19 Chronic kidney disease (CKD) stage G2/A2, mildly decreased glomerular filtration rate (GFR) between 60-89 mL/min/1.73 square meter and albuminuria creatinine ratio between 30-299 mg/g Chronic post-traumatic stress disorder Dyslipidemia (high LDL; low HDL) Fibromyalgia muscle pain GERD (gastroesophageal reflux disease) History of hepatitis C Major depressive disorder, recurrent severe without psychotic features Methamphetamine abuse Newly diagnosed diabetes Obesity (BMI 30-39.9) Osteoarthritis (arthritis due to wear and tear of joints) Panic disorder with agoraphobia and severe panic attacks Seborrheic keratoses Surgical History History of appendectomy History of cholecystectomy History of hysterectomy Family History Other Hypertension Psychiatric illness Social History Smoking and tobacco status: former smoker Alcohol intake: former Lives independently: Yes Housing: House Marital status: Number of children: 2 Number of grandchildren: 6 Current occupational status: disabled Data Anesthesia : 08/04/21 06:34 08/04/21 06:34 Short CBC 08/04/21 Range/Units 06:34 WBC 10.2 H (4.0-10.0) 10^3/uL Hgb 11.2 L (11.5-15.3) g/dL Hct 35.4 L (37.0-47.0) % MCV 83.1 (81-99) fl Plt Count 258 D (130-400) 10^3/cmm Neut % (Auto) 72.8 % Neut # (Auto) 7.41 (1.8-7.7) 10^3/uL BMP 08/04/21 06:34 Sodium 135 L Potassium 3.9 Chloride 102 Carbon Dioxide 20 L BUN 28 H Creatinine 2.0 H Glucose 221 H Calcium 7.8 L Coags 08/03/21 08/04/21 08/04/21 06:56 06:34 06:34 ESR Cancelled C-Reactive Protein 225.0 H Cancelled Microbiology 08/01/21 20:00 Urine Culture - Final Urine,Clean Catch Escherichia coli Cardiac Studies: No Data to Display
[2021-08-05 10:13] LABS: Glucose Point of Care 358 mg/dL (70-110)
--- NOTE | 2021-08-05 10:23 | PC.SOCIAL ---
IMM Update pg 2 of IMM updated and reviewed w/ patient. Copy provided and Copy placed in chart.
[2021-08-05] MEDS: sodium chloride 0.9% 1,000 ML 30 ML IV (10:25)
[2021-08-05] MEDS: insulin regular-human 100 units/1 mL 10 UNIT IV (10:28)
[2021-08-05 12:40] LABS: Glucose Point of Care 325 mg/dL (70-110)
--- NOTE | 2021-08-05 13:26 | P.OP_ITS ---
Operative Report Date of procedure: August 05, 2021 Pre-op diagnosis: Preop Diagnosis Temporal headache Post-op diagnosis: same Procedure done: Bilateral temporal artery biopsies Specimens removed/disposition: bilateral temporal arteries Surgeon: Dr. Adrián Sanchez DO Estimated blood loss: 30 Complications: None apparent Brief History: 61-year-old female with left temporal headache and jaw pain. Bilateral temporal artery biopsies were indicated. Risks and benefits were explained and understood as well as documented. Procedure: Patient was wheeled into the room and placed on the OR table in supine position. The bilateral temples were inspected prepped and draped in usual sterile fashion. A timeout was performed and all present were in agreement. I began on the patient's left side. The left temporal artery was palpated and dopplered, just anterior and superior to the ear. The site was marked and 2% lidocaine with epinephrine was used to anesthetize the skin and hydrodissect the subcutaneous tissue away from the artery. A 3 cm vertical incision was made at the site marked. Dissection was carried down to the fascia with cautery and blunt dissection. The fascia was opened with iris scissors, vertically, on each side of the temporal artery. The temporal artery was isolated and ligated proximally distally with 3-0 silk. A sample of the artery measuring proximately 2.5 cm was excised and sent to pathology. Hemostasis was achieved with electrocautery. Dermis was approximated with 3-0 Vicryl and skin was closed with Dermabond. Attention was then brought to the patient's right side. The right temporal artery was palpated and dopplered, just anterior and superior to the ear. The site was marked and 2% lidocaine with epinephrine was used to anesthetize the skin and hydrodissect the subcutaneous tissue away from the artery. A 3 cm v ertical incision was made at the site marked. Dissection was carried down to the fascia with cautery and blunt dissection. The fascia was opened with iris scissors, vertically, on each side of the temporal artery. The temporal artery was isolated and ligated proximally distally with 3-0 silk. A sample of the artery measuring proximately 2.5 cm was excised and sent to pathology. Hemostasis was achieved with electrocautery. Dermis was approximated with 3-0 Vicryl and skin was closed with Dermabond. Patient tolerated the procedure well.
[2021-08-05 13:38] LABS: ANA PATTERN Cytoplasmic; ANA SCREEN, IFA POSITIVE (NEGATIVE)
[2021-08-05] MEDS: OLANZapine 5 mg TABLET 2.5 MG PO ×2 (13:46→18:12)
[2021-08-05] MEDS: pantoprazole DR 40 mg Tablet PO ×2 (13:46→18:12)
[2021-08-05] MEDS: aspirin 81 mg EC Tablet PO (13:48)
[2021-08-05] MEDS: insulin lispro 100 unit/1 mL 14 UNIT SUBCUT (14:05)
--- NOTE | 2021-08-05 14:48 | ANE.PACU2 ---
Inpatient post-anesthesia follow up: Airway intact: Yes Vital signs: Temperature 98.2 F Pulse Rate 56 Respiratory Rate 13 Blood Pressure 131/79 Pulse Oximetry 95 Oxygen Delivery Me thod [ Room Air Current Rate & Del lewis] Oxygen Delivery Me thod Nasal Cannula Oxygen Flow Rate [ Current Rate 2.5 & Delivery] Oxygen Flow Rate 2 Fraction of Inspir ed Oxygen Hydration adequate: Yes Nausea and vomiting: No Pain level: 1 Mental status: Baseline
--- NOTE | 2021-08-05 14:54 | P.PN_ITS ---
Subjective Subjective: Patient was seen this morning, after her bilateral temporal artery biopsy -She tells me yesterday after she had received her steroids her left temporal tenderness, jaw pain has resolved, she feels significantly better -Currently no vision changes, no jaw claudication, no jaw pain -She does tell me that for the last year or so, she has had bilateral shoulder pain, hip pain, -She might also have a component of polymyalgia rheumatica Vitals/I&O/Wt Last Vital Signs Temp 98.2 F 08/05/21 13:13 Pulse 56 L 08/05/21 13:13 Resp 13 08/05/21 13:13 BP 131/79 08/05/21 13:13 Pulse Ox 95 08/05/21 13:13 08/04/21 08/05/21 08/05/21 22:59 06:59 14:59 Intake Total 1820 / 2940 491.667 / 3431.667 50 / 50 Output Total 600 / 1600 Balance 1220 / 1340 491.667 / 1831.667 Physical Exam Const: COMMON NORMALS: no acute distress and patient oriented x3 Resp: COMMON NORMALS: normal respiratory effort, No retractions, No use of accessory muscles and clear to auscultation bilaterally AUSCULTATION: clear to auscultation bilaterally GI: COMMON NORMALS: Normal to inspection, nondistended, normoactive bowel sounds present, Soft to palpation, non-tender, No hepatosplenomegaly present and no masses PALPATION: Yes Soft to palpation and Yes No hepatosplenomegaly present Extremity: COMMON NORMALS: no pedal edema Neuro: COMMON NORMALS: patient oriented x3 Psych: COMMON NORMALS: mental status grossly normal Data : 08/04/21 06:34 08/04/21 06:34 Micro: Microbiology 08/01/21 20:00 Urine Culture - Final Urine,Clean Catch Escherichia coli A&P Assessment and plan (1) Obesity (BMI 30-39.9): Status: Acute (2) GERD (gastroesophageal reflux disease): Status: Acute (3) Fibromyalgia muscle pain: Status: Acute (4) UTI (urinary tract infection): Status: Acute (5) Pyelonephritis: Status: Acute (6) Acute kidney injury superimposed on CKD: Status: Acute (7) Hyperglycemia: Status: Acute (8) Diabetes: Status: Acute (9) Temporal arteritis: Status: Acute Plan 61 year old female with past medical history of morbid obesity, fibromyalgia GERD history of hep C, depression, newly diagnosed diabetes, Came in with chief complaint of left lower quadrant abdominal pain fever, nausea as well as vomiting going on for the last 3 days. Abdominal pain is 8 out of 10 in severity, sharp, partially relieved with pain medicine.She is also complaining of generalized headache, is extremely anxious. Assessment: Acute pyelonephritis UTI ROBERT on CKD: Likely prerenal ROBERT Diabetes Hyperglycemia Pseudohyponatremia History of hep C Fibromyalgia GERD Now with temporal arteritis concern Plan: Follow blood culture, so far no growth Urine cultures E. coli, sensitive to penicillins Currently on Rocephin status post temporal artery biopsy, follow biopsy results Given concerns for temporal arteritis, status post temporal artery biopsy, follow-up biopsy results start high-dose steroids Solu-Medrol 500 every 24 hours Continue home aspirin Given her decreased GFR, will hold off on PCP prophylaxis, and has allergy to sulfas Follow ESR Has type 2 diabetes mellitus, will need to monitor blood sugars very closely, Switch to high-dose sliding scale, increase to Lantus 20 twice daily Monitor blood sugars Monitoring intake output charting Avoid nephrotoxic's Continue IV fluids, decrease to 50 cc Creatinine at 2, monitor urine output CODE STATUS: Full code DVT prophylaxis: On heparin, currently on hold and plans for temporal artery biopsy Attestations Medical Necessity Statement*: Patient requires hospitalization for temporal arteritis, acute pyelonephritis, hyperglycemia Coding Level of Care Code 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
[2021-08-05 14:58] LABS: Hematocrit 34.3 % (37.0-47.0); Mean Corpuscular HGB Conc 32.1 g/dL (30.0-36.0); Mean Corpuscular Hemoglobin 26.4 pg (28.0-34.0); Mean Corpuscular Volume 82.5 fl (81-99); Mean Platelet Volume 10.7 fL (7.4-10.4); Platelet Count 303 10^3/cmm (130-400); Red Blood Count 4.16 10^6/uL (4.1-5.3); Red Cell Distribution Width 15.9 % (12.1-15.1)
[2021-08-05 15:11] LABS: Alanine Aminotransferase 23 U/L (0-33); Albumin Level 2.8 g/dL (3.5-5.2); Alkaline Phosphatase 240 IU/L (35-105); Anion Gap 17.4 (5-19); Aspartate Amino Transferase 34 U/L (0-32); Blood Urea Nitrogen 29 mg/dL (8-23); Calcium 7.8 mg/dL (8.5-10.5); Carbon Dioxide 20 mmol/L (22-29); Chloride 103 mmol/L (98-107); Globulin 3.8 g/dL (1.3-4.6); Glomerular Filtration Rate 41.4 mL/min (90-130); Glucose 338 mg/dL (65-115); Osmolality Calculated 301 mOsm/kg (285-295); Potassium 4.4 mmol/L (3.5-5.1); Sodium 136 mmol/L (136-145); Total Bilirubin 0.4 mg/dL (0.15-1.2); Total Protein 6.6 g/dL (6.6-8.7)
[2021-08-05 15:21] LABS: C Reactive Protein 117.3 mg/L (0.0-4.9); Magnesium 1.8 mg/dL (1.7-2.3)
[2021-08-05 15:28] LABS: Procalcitonin 1.33 ng/mL (0-0.5); Slide Review Slide Review Perform
[2021-08-05 15:29] LABS: Eosinophils 0 %; Lymphocytes 2 %; Lymphocytes Absolute 1.9 10^3/cmm (1.2-3.4); Monocytes Absolute 0.8 10^3/cmm (0.1-0.6); Segmented Neutrophils 73 %; Total Cells Counted 100 (0-100)
[2021-08-05 15:30] LABS: Platelet Estimate Normal (Normal)
--- NOTE | 2021-08-05 15:46 | SUR.PHASEI ---
1245 PT TO FLOOR PER CART PT AWAKE ALERT CONTINUES TO DENIE PAIN AND NAUSEA, WANTS TO EAT, BLOOD GLUCOSE CHECKED EARLIER, REMAINS ELEVATED, ANESTHESIA NOTED EARLIER INSULIN GIVEN AND WANTED TO MAKE SURE LEVEL WAS NOT LOW, PT WILL CONTINUE SLIDING SCALE INSULIN ON FLOOR WHEN HER DIET IS RESUMED, PT ALERT WITH BILAT INCISIONS TO TEMPLES WITH DERMABOND, D/I PT UP TO BATHROOM WITH ASSIST OF RN ON ARRIVAL TO FLOOR, BEDSIDE HANDOFF WITH ARTIE HERNANDEZ.
[2021-08-05 16:17] LABS: DNA AB (DS) CRITHIDIA,IFA NEGATIVE (NEGATIVE)
[2021-08-05 17:18] LABS: Glucose Point of Care 356 mg/dL (70-110)
[2021-08-05] MEDS: insulin glargine 100 units/1 mL 20 UNIT SUBCUT (18:11)
[2021-08-05 18:44] LABS: Erythrocyte Sedimentation Rate 94 mm/hr (0-15)
[2021-08-06] VITALS (15 sets, daily range): BP systolic 135–169; BP diastolic 73–91; PULSE 47–61; RESP 16–20; TEMP 36.3–36.5; O2SAT 96–99
[2021-08-06 00:31] LABS: Glucose Point of Care 335 mg/dL (70-110)
[2021-08-06 00:32] LABS: Glucose Point of Care 324 mg/dL (70-110)
[2021-08-06 00:52] LABS: Glucose Point of Care 312 mg/dL (70-110)
[2021-08-06] MEDS: HYDROmorphone 1 mg/mL INJ 1 mL 0.4 MG IVP ×4 (03:15→23:48)
[2021-08-06] MEDS: sodium chloride 0.9% 1,000 ML 50 ML IV (06:03)
[2021-08-06] MEDS: insulin glargine 100 units/1 mL 20 UNIT SUBCUT (06:03)
[2021-08-06] MEDS: fluoxetine 10 mg Capsule PO (06:03)
[2021-08-06 06:48] LABS: Glucose Point of Care 288 mg/dL (70-110)
[2021-08-06 07:07] LABS: Basophils # 0.1 10^3/uL (0.0-0.1); Basophils % 0.7 %; Hematocrit 34.6 % (37.0-47.0); Hemoglobin 11.3 g/dL (11.5-15.3); Lymphocytes # 1.7 10^3/uL (0.8-4.8); Lymphocytes % 15.9 %; Mean Corpuscular HGB Conc 32.7 g/dL (30.0-36.0); Mean Corpuscular Hemoglobin 26.5 pg (28.0-34.0); Mean Corpuscular Volume 81.2 fl (81-99); Mean Platelet Volume 10.8 fL (7.4-10.4); Monocytes # 0.5 10^3/uL (0.2-0.9); Monocytes % 4.3 %; Neutrophils # 8.12 10^3/uL (1.8-7.7); Neutrophils % 74.7 %; Nucleated Red Blood Cells % 0.2 %; Platelet Count 371 10^3/cmm (130-400); Red Blood Count 4.26 10^6/uL (4.1-5.3); Red Cell Distribution Width 15.9 % (12.1-15.1); White Blood Count 10.9 10^3/uL (4.0-10.0)
[2021-08-06 07:11] LABS: Glucose Point of Care 312 mg/dL (70-110)
[2021-08-06 07:13] LABS: Alanine Aminotransferase 27 U/L (0-33); Albumin Level 3.1 g/dL (3.5-5.2); Alkaline Phosphatase 292 IU/L (35-105); Anion Gap 17.8 (5-19); Aspartate Amino Transferase 49 U/L (0-32); Blood Urea Nitrogen 30 mg/dL (8-23); C Reactive Protein 67.2 mg/L (0.0-4.9); Calcium 7.9 mg/dL (8.5-10.5); Carbon Dioxide 21 mmol/L (22-29); Chloride 100 mmol/L (98-107); Globulin 2.5 g/dL (1.3-4.6); Glucose 341 mg/dL (65-115); Magnesium 1.7 mg/dL (1.7-2.3); Osmolality Calculated 298 mOsm/kg (285-295); Phosphorus 3.4 mg/dL (2.5-4.5); Potassium 4.8 mmol/L (3.5-5.1); Sodium 134 mmol/L (136-145); Total Bilirubin 0.4 mg/dL (0.15-1.2); Total Protein 5.6 g/dL (6.6-8.7)
[2021-08-06 07:19] LABS: Procalcitonin 1.08 ng/mL (0-0.5)
[2021-08-06 07:54] LABS: Slide Review Slide Review Perform
[2021-08-06] MEDS: insulin lispro 100 unit/1 mL SUBCUT ×4 (09:02→20:22)
[2021-08-06 09:05] LABS: Glucose Point of Care 361 mg/dL (70-110)
[2021-08-06] MEDS: cefTRIAXone 1,000 MG in sodium chloride 0.9% (plus) 50 ML 100 MG IV (09:05)
[2021-08-06] MEDS: heparin 5,000 unit/mL INJ 1 mL 5000 UNIT SUBCUT ×2 (09:08→20:22)
[2021-08-06] MEDS: OLANZapine 5 mg TABLET 2.5 MG PO ×2 (09:08→18:24)
[2021-08-06] MEDS: aspirin 81 mg EC Tablet PO (09:12)
[2021-08-06] MEDS: pantoprazole DR 40 mg Tablet PO ×2 (09:12→18:24)
[2021-08-06] MEDS: cloNIDine 0.1 mg Tablet PO ×2 (09:13→18:25)
[2021-08-06 11:50] LABS: Glucose Point of Care 339 mg/dL (70-110)
--- NOTE | 2021-08-06 12:19 | PM.PN ---
Subjective Subjective: Pain controlled. Denies any new symptoms Vitals/I&O/Wt Last Vital Signs Temp 97.5 F L 08/06/21 11:14 Pulse 61 08/06/21 11:14 Resp 16 08/06/21 11:37 BP 163/73 08/06/21 11:14 Pulse Ox 99 08/06/21 11:37 08/05/21 08/06/21 08/06/21 22:59 06:59 14:59 Intake Total 258 / 808 1600 / 2408 600 / 600 Output Total 1175 / 1195 Balance -917 / -387 1600 / 1213 600 / 600 Physical Exam Narrative: General: Awake alert and oriented x3, no acute distress Incisions: Intact without erythema or exudate Data : 08/06/21 06:40 08/06/21 06:40 A&P Assessment and plan (1) Left temporal headache: Status: Acute Plan Postoperative day #1 status post bilateral temporal artery biopsies Incisions appear to be healing well Further management per hospitalist Attestations Medical Necessity Statement*: Further hospitalization per hospitalist Coding Level of Care Code Acute [employer] 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
--- NOTE | 2021-08-06 13:02 | P.PN_ITS ---
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 she needs all her insulin testing supplies, as she was prior a diet-controlled diabetic Vitals/I&O/Wt Last Vital Signs Temp 97.5 F L 08/06/21 11:14 Pulse 61 08/06/21 11:14 Resp 16 08/06/21 11:37 BP 163/73 08/06/21 11:14 Pulse Ox 99 08/06/21 11:37 08/05/21 08/06/21 08/06/21 22:59 06:59 14:59 Intake Total 258 / 808 1600 / 2408 600 / 600 Output Total 1175 / 1195 Balance -917 / -387 1600 / 1213 600 / 600 Physical Exam Const: COMMON NORMALS: no acute distress and patient oriented x3 HENMT: OTHER: Bilateral temples, surgical site clean and dry Resp: COMMON NORMALS: normal respiratory effort, No retractions, No use of accessory muscles and clear to auscultation bilaterally AUSCULTATION: clear to auscultation bilaterally Cardio: COMMON NORMALS: regular rate, regular rhythm, S1 normal heart sound present and S2 normal heart sound present RATE: regular rate RHYTHM: regular rhythm HEART SOUNDS: S1 normal heart sound present and S2 normal heart sound present GI: COMMON NORMALS: Normal to inspection, nondistended, normoactive bowel sounds present, Soft to palpation, non-tender and no masses PALPATION: Yes Soft to palpation Extremity: COMMON NORMALS: no pedal edema Neuro: COMMON NORMALS: patient oriented x3 Psych: COMMON NORMALS: mental status grossly normal Data : 08/06/21 06:40 08/06/21 06:40 A&P Assessment and plan (1) Obesity (BMI 30-39.9): Status: Acute (2) GERD (gastroesophageal reflux disease): Status: Acute (3) Fibromyalgia muscle pain: Status: Acute (4) UTI (urinary tract infection): Status: Acute (5) Pyelonephritis: Status: Acute (6) Acute kidney injury superimposed on CKD: Status: Acute (7) Hyperglycemia: Status: Acute (8) Diabetes: Status: Acute (9) Temporal arteritis: Status: Acute Plan 61 year old female with past medical history of morbid obesity, fibromyalgia GERD history of hep C, depression, newly diagnosed diabetes, Came in with chief complaint of left lower quadrant abdominal pain fever, nausea as well as vomiting going on for the last 3 days. Abdominal pain is 8 out of 10 in severity, sharp, partially relieved with pain medicine.She is also complaining of generalized headache, is extremely anxious. Assessment: Acute pyelonephritis UTI ROBERT on CKD: Likely prerenal ROBERT Diabetes Hyperglycemia Pseudohyponatremia History of hep C Fibromyalgia GERD Giant cell arteritis Type 2 diabetes mellitus, hemoglobin A1c 12.5 Concern for polymyalgia rheumatica, positive rheumatoid factor, positive TORRIE Plan: Follow blood culture, so far no growth Urine cultures E. coli, sensitive to penicillins Currently on Rocephin status post temporal artery biopsy, follow biopsy results Given concerns for temporal arteritis, status post temporal artery biopsy, follow-up biopsy results start high-dose steroids Solu-Medrol 500 every 24 hours last day, start steroid taper tomorrow Continue home aspirin Given her decreased GFR, will hold off on PCP prophylaxis, and has allergy to sulfas Follow ESR Has type 2 diabetes mellitus, will need to monitor blood sugars very closely, Switch to high-dose sliding scale, increase to Lantus 30 units twice a day Monitor blood sugars Monitoring intake output charting Avoid nephrotoxic's Stop IV fluids Creatinine at 1, monitor creatinine CODE STATUS: Full code DVT prophylaxis: On heparin Plan on discharging in the next 24 to 48 hours Attestations Medical Necessity Statement*: Patient requires hospitalization for pyelonephritis, UTI, giant cell arteritis Coding Level of Care Code Acute 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
--- NOTE | 2021-08-06 13:03 | USCV_ITS ---
Annetta Delacruz Age: 61 Gender: F : 1960 Exam Date: 08/06/2021 14:34 Ordering Phys: Luis E Bro MD Technologist: Singh Henry [place] [facility] [place]: chest pain BP: 163 / 73 HR: 48 Rhythm: Sinus Technical Quality: Suboptimal MEASUREMENTS (Male / Female) Normal Values 2D ECHO LV Diastolic Diameter PLAX 4.9 cm 4.2 - 5.9 / 3.9 - 5.3 cm LV Systolic Diameter PLAX 3.1 cm IVS Diastolic Thickness 1.1 cm 0.6 - 1.0 / 0.6 - 0.9 cm IVS Systolic Thickness 1.6 cm LVPW Diastolic Thickness 1.2 cm 0.6 - 1.0 / 0.6 - 0.9 cm LVPW Systolic Thickness 1.8 cm LVOT Diameter 2.0 cm LV Ejection Fraction 2D Teich 65.9 % LV Ejection Fraction MOD 2C 61.2 % LV Ejection Fraction 2C AL 60.1 % LA Diameter 3.3 cm Aorta at Sinotubular Diameter 2.9 cm M-MODE Aortic Annulus Diameter 3.5 cm LA Ao Ratio MM 0.9 MV E Point Septal Separation 1.2 cm DOPPLER AV Peak Velocity 167.7 cm/s LVOT Peak Velocity 109.0 cm/s AV Area Cont Eq vti 2.0 cm squared AV Area Cont Eq pk 2.1 cm squared MV Area PHT 5.0 cm squared Mitral E to A Ratio 2.9 MV E' Velocity 63.5 cm/s Mitral E to MV E' Ratio 11.0 Mitral E to LV E' Lateral Ratio 8.9 Mitral E to LV E' Septal Ratio 14.6 TR Peak Velocity 348.0 cm/s TR Peak Gradient 48.4 mmHg Right Atrial Pressure 3.0 mmHg Pulmonary Artery Systolic Pressu 51.4 mmHg PV Peak Velocity 87.0 cm/s FINDINGS Left Ventricle Normal left ventricular size, systolic function and wall thickness, with no regional wall motion abnormalities. Left ventricular ejection fraction is estimated at 60 %. Right Ventricle Normal right ventricular size and systolic function. Mild pulmonary hypertension, RVSP 51.4 mmHg. Right Atrium Mildly increased right atrial size. Left Atrium Mildly increased left atrial size. Mitral Valve Structurally normal mitral valve. Mild-moderate mitral valve regurgitation. No mitral valve stenosis. Aortic Valve Structurally normal aortic valve without significant sclerosis or stenosis. There is no aortic regurgitation. Tricuspid Valve Structurally normal tricuspid valve. [id number] tricuspid valve regurgitation. No tricuspid valve stenosis. Pulmonic Valve Pulmonic valve not well visualized. Pericardium Normal pericardium without effusion. Aorta Normal ascending aorta dimension. IVC Inferior vena cava not visualized. CONCLUSIONS Normal left ventricular size, systolic function and wall thickness, with no regional wall motion abnormalities. Left ventricular ejection fraction is estimated at 60 %. Normal right ventricular size and systolic function. Mild pulmonary hypertension, RVSP 51.4 mmHg. Mildly increased right atrial size. Mildly increased left atrial size. Structurally normal mitral valve. Mild-moderate mitral valve regurgitation. No mitral valve stenosis. Dr. Yusef High MD (Electronically Signed) Final Date: 06 August 2021 15:24 S
[2021-08-06 17:13] LABS: Glucose Point of Care 268 mg/dL (70-110)
[2021-08-06] MEDS: insulin glargine 100 units/1 mL 30 UNIT SUBCUT (18:24)
[2021-08-06 20:20] LABS: Glucose Point of Care 330 mg/dL (70-110)
[2021-08-07] VITALS (11 sets, daily range): BP systolic 145–182; BP diastolic 86–101; PULSE 48–60; RESP 16–22; TEMP 36.4–36.6; O2SAT 97–100
[2021-08-07 01:28] LABS: Glucose Point of Care 319 mg/dL (70-110)
[2021-08-07] MEDS: HYDROmorphone 1 mg/mL INJ 1 mL 0.4 MG IVP ×2 (04:45→10:24)
[2021-08-07] MEDS: insulin glargine 100 units/1 mL 30 UNIT SUBCUT (05:37)
[2021-08-07] MEDS: fluoxetine 10 mg Capsule PO (05:37)
[2021-08-07 06:44] LABS: Glucose Point of Care 264 mg/dL (70-110)
[2021-08-07 06:45] LABS: Glucose Point of Care 299 mg/dL (70-110)
[2021-08-07] MEDS: cefTRIAXone 1,000 MG in sodium chloride 0.9% (plus) 50 ML 100 MG IV (10:15)
[2021-08-07] MEDS: insulin lispro 100 unit/1 mL SUBCUT (10:17)
[2021-08-07] MEDS: aspirin 81 mg EC Tablet PO (10:18)
[2021-08-07] MEDS: OLANZapine 5 mg TABLET 2.5 MG PO (10:18)
[2021-08-07] MEDS: cloNIDine 0.1 mg Tablet PO (10:20)
[2021-08-07] MEDS: pantoprazole DR 40 mg Tablet PO (10:21)
[2021-08-07] MEDS: heparin 5,000 unit/mL INJ 1 mL 5000 UNIT SUBCUT (10:21)
[2021-08-07] MEDS: predniSONE 20 mg Tablet 60 MG PO (10:21)
[2021-08-07] MEDS: FUROsemide 10 mg/mL SDV 4mL 40 MG IVP (10:23)
[2021-08-07] MEDS: amlodipine 10 mg Tablet PO (10:31)
--- NOTE | 2021-08-07 11:44 | PM.DCS ---
Discharge Providers Date of Admission: 08/02/21 00:07 Date of Discharge: August 07, 2021 Attending Provider at Admission: Bar Malloy MD Attending Provider at Discharge: Luis E Bro MD Primary Care Provider: Roscoe Chilel MD Diagnoses at Discharge Discharge Diagnosis (1) Obesity (BMI 30-39.9): Status: Acute (2) GERD (gastroesophageal reflux disease): Status: Acute (3) Fibromyalgia muscle pain: Status: Acute (4) UTI (urinary tract infection): Status: Acute (5) Pyelonephritis: Status: Acute (6) Acute kidney injury superimposed on CKD: Status: Acute (7) Hyperglycemia: Status: Acute (8) Diabetes: Status: Acute (9) Temporal arteritis: Status: Acute Reason for Visit Reason for Visit: Fever, abd pain, vomiting Hospital Course Hospital Course This is a 61-year-old female with a past medical history of type 2 diabetes mellitus, morbid obesity, fibromyalgia, GERD who presents to [facility] due to left lower quadrant abdominal pain, fevers, nausea Patient was admitted to [facility] for acute pyelonephritis, with acute kidney injury, received broad-spectrum antibiotic therapy urine culture showing E. coli, sensitive to penicillins, discharged on Augmentin with instructions to hydrate well, follow-up with primary care provider During her hospitalization, patient developed significant left temporal pain, also had complaints of bilateral shoulder pain, hip pain which were chronic Progressively developed left jaw pain, concerns for giant cell arteritis. She was started on Solu-Medrol high-dose as there was a delay in her biopsy and ESR. Biopsy was initially delayed for a day, she received steroids, her ESR was also delayed, as inpatient ESR machine was broken and lab results were being sent out to [employer]. After receiving Solu-Medrol her jaw pain and left temporal pains significantly resolved. She underwent biopsy which did not show pathologic evidence of giant cell arteritis bilaterally. Her ESR was elevated 94. She received 3 days of high-dose Solu-Medrol 500 mg once daily for 3 days as inpatient. Patient's rheumatoid factor was 77, CCP pending, WILLIS nuclear cytoplasmic, titer 1:80. She has been complaining of bilateral hip pain, bilateral shoulder pain. 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 She also has features of rheumatoid arthritis. I have discharged her on a slow prednisone taper 60 mg for 2 weeks, 50 mg for 2 weeks, 40 mg for 2 weeks, 30 mg for 2 weeks, 20 mg for 2 weeks, 10 mg for 2 weeks. In addition I have discharged her with close follow-up with rheumatology and her primary care as outpatient She has type 2 diabetes mellitus, before steroids her A1c was 12.5, a year ago it was in the 6 range. Given her elevated A1c, and now high-dose steroids, I have discharged her on Lantus 30 units twice daily, with high-dose sliding scale. 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 She will follow-up with Dr. Chilel for routine blood sugar checks. -For your type 2 diabetes mellitus hemoglobin A1c 12.5 -Take Lantus 30 units every 12 hours -Inject NovoLog, subcut, 3 times daily, after meals, based on sliding scale provided -Do not inject insulin if you do not eat -This is a high-dose sliding scale provided below due to high doses of prednisone I have discharged you on -Insulin sliding fingerstick? Insulin 141-180?6 units/sq 181-220?8 units/sq 221-260?10 units/sq 261-300?12 units/sq 301-350 14 units/sq 351-400 16 units/sq 401-450??18 units/sq 451-500 20 units/sq -Please monitor your blood sugars closely, record in a blood sugar log, bring to Dr. Chilel office -If your blood sugars less than 60 drink or juice or eat a hard candy -If you develop severe hypoglycemia blood sugar is less than 60 and you are symptomatic emergency glucagon has been provided -If her blood sugars greater than 500 inject insulin as prescribed, and call primary care -I have discharged you on a long prednisone taper -Initially your blood sugars are going to run on the higher end -But as your prednisone dose decreases, your insulin requirements will decrease -Therefore you have a higher risk of low blood sugars -What I want you to do is if your blood sugars are running lower than 200 consistently, or you are developing frequent hypoglycemia which is any blood sugar in which you feel lightheaded or dizzy or if blood sugar less than 60 -I want you to decrease the Lantus 5 units twice a day i.e. decrease to 25 units twice a day -If your blood sugars continue to run lower than continue to decrease it 5 units twice a day down to 20 units twice a day and then are in 15 units twice a day then are in 10 units twice a day, then are in 5 units twice a day -If the above insulin sliding scale is causing you to develop hypoglycemia, then use insulin sliding scale provided below which is more of a low-dose sliding scale -Insulin sliding fingerstick? Insulin 141-180?2 units/sq 181-220?4 units/sq 221-260?6 units/sq 261-300?8 units/sq 301-350 10 units/sq 351-400 12 units/sq > 400? 14 units/sq -Please follow-up with Dr. Chilel -For your giant cell arteritis, polymyalgia rheumatica, please follow-up with rheumatology -Please continue to hydrate well -Please take antibiotics as prescribed Physical Exam Const: COMMON NORMALS: no acute distress and patient oriented x3 Resp: COMMON NORMALS: normal respiratory effort, No retractions, No use of accessory muscles and clear to auscultation bilaterally AUSCULTATION: clear to auscultation bilaterally Cardio: COMMON NORMALS: regular rate, regular rhythm, S1 normal heart sound present and S2 normal heart sound present RATE: regular rate RHYTHM: regular rhythm HEART SOUNDS: S1 normal heart sound present and S2 normal heart sound present GI: COMMON NORMALS: Normal to inspection, nondistended, normoactive bowel sounds present, Soft to palpation and non-tender PALPATION: Yes Soft to palpation Extremity: COMMON NORMALS: no pedal edema Neuro: COMMON NORMALS: patient oriented x3 Psych: COMMON NORMALS: mental status grossly normal Skin: NARRATIVE SKIN EXAM: Bitemporal site looks clean and dry Discharge Data Studies Completed and Pending Completed Studies During Hospitalization Category Date Time Status CT abdomen pelvis wo con [id number] Urgent Cat Scan 08/01/21 20:[address] head wo con* [id number] Stat Cat Scan 08/01/21 21:[address] head wo con* [id number] Stat Cat Scan 08/04/21 10:20 Completed Pathology: Surgical [PTH] Routine Pth 08/05/21 12:18 Completed CV. echo complete* [id number] Routine Ultrasound 08/06/21 13:03 Completed US renal BI* [id number] Routine Ultrasound 08/03/21 11:12 Completed Pending at discharge Category Date Time Status CCP [Cyclic Citrullinated Peptide] QAM Lab 08/06/21 06:40 Received Complete Blood Count w/Auto AM LABS Lab 08/07/21 04:00 Ordered Complete Blood Count w/Auto AM LABS Lab 08/08/21 04:00 Ordered Comprehensive Metabolic Panel AM LABS Lab 08/07/21 04:00 Ordered Comprehensive Metabolic Panel AM LABS Lab 08/08/21 04:00 Ordered Radiology Impressions Abdomen/Pelvis CT 08/01/21 20:07 IMPRESSION: 1. Moderate left perinephric inflammation, possible left pyelonephritis cannot be ruled out. Recommend clinical correlation. No hydroureteronephrosis. 2. Small amount of air in the bladder. This may be iatrogenic related to recent catheterization. If this is not the case, then cystitis would be a consideration. Recommend clinical correlation. 3. Interval development of moderate fatty infiltration of the liver. 4. Incidental/nonacute findings are listed in the report. Renal Ultrasound 08/03/21 11:12 IMPRESSION: Normal renal ultrasound. Head CT 08/04/21 10:20 IMPRESSION: 1. No acute intracranial hemorrhage or edema. 2. Mild atrophy and small vessel ischemic disease. Stable noncontrast head CT since 08/01/2021. Laboratory Results WBC 10.9 10^3/uL (4.0-10.0) H 08/06/21 06:40 RBC 4.26 10^6/uL (4.1-5.3) 08/06/21 06:40 Hgb 11.3 g/dL (11.5-15.3) L 08/06/21 06:40 Hct 34.6 % (37.0-47.0) L 08/06/21 06:40 MCV 81.2 fl (81-99) 08/06/21 06:40 MCH 26.5 pg (28.0-34.0) L 08/06/21 06:40 MCHC 32.7 g/dL (30.0-36.0) 08/06/21 06:40 RDW 15.9 % (12.1-15.1) H 08/06/21 06:40 Plt Count 371 10^3/cmm (130-400) 08/06/21 06:40 MPV 10.8 fL (7.4-10.4) H 08/06/21 06:40 Neut % (Auto) 74.7 % 08/06/21 06:40 Lymph % (Auto) 15.9 % 08/06/21 06:40 Heard % (Auto) 4.3 % 08/06/21 06:40 Eos % (Auto) 0.0 % 08/06/21 06:40 Baso % (Auto) 0.7 % 08/06/21 06:40 Neut # (Auto) 8.12 10^3/uL (1.8-7.7) H 08/06/21 06:40 Lymph # (Auto) 1.7 10^3/uL (0.8-4.8) 08/06/21 06:40 Heard # (Auto) 0.5 10^3/uL (0.2-0.9) 08/06/21 06:40 Eos # (Auto) 0.0 10^3/uL (0.0-0.8) 08/06/21 06:40 Baso # (Auto) 0.1 10^3/uL (0.0-0.1) 08/06/21 06:40 Nucleated RBC % (auto) 0.2 % 08/06/21 06:40 Total Counted 100 (0-100) 08/05/21 14:43 Atypical Lymphs % 15.0 % (0-5) H 08/05/21 14:43 Absolute Neutrophils 8.0 10^3/cmm (1.4-6.5) H 08/05/21 14:43 Segmented Neutrophils 73 % 08/05/21 14:43 Abs Segm Neuts (Man) 8.0 10/cmm (1.6-7.1) H 08/05/21 14:43 Band Neutrophils 0.0 % 08/05/21 14:43 Abs Band Neuts (Man) 0.0 10^3/cmm (0.0-1.2) 08/05/21 14:43 Absolute Lymphocytes 1.9 10^3/cmm (1.2-3.4) 08/05/21 14:43 Lymphocytes (Manual) 2 % 08/05/21 14:43 Monocytes (Manual) 7.0 % 08/05/21 14:43 Absolute Monocytes 0.8 10^3/cmm (0.1-0.6) H 08/05/21 14:43 Eosinophils (Manual) 0 % 08/05/21 14:43 Absolute Eosinophils 0.0 10^3/cmm (0.0-0.7) 08/05/21 14:43 Basophils (Manual) 0.0 % 08/05/21 14:43 Absolute Basophils 0.0 10^3/cmm (0.0-0.2) 08/05/21 14:43 Myelocytes 3.0 % 08/05/21 14:43 Nucleated RBCs # 0.0 /100WBC 08/06/21 06:40 Platelet Estimate Normal (Normal) 08/05/21 14:43 ESR 94 mm/hr (0-15) H 08/03/21 13:37 Specimen Type Arterial 08/01/21 23:07 Sample Site Radial, left 08/01/21 23:07 ABG pH 7.39 (7.35-7.45) 08/01/21 23:07 ABG pCO2 35.9 mmHg (35-45) 08/01/21 23:07 ABG pO2 78.2 mmHg (80.0-100.0) L 08/01/21 23:07 ABG HCO3 21.8 mmol/L (22-26) L 08/01/21 23:07 ABG Base Excess -2.6 mmol/L (-2.0-2.0) L 08/01/21 23:07 Clark Test Pos 08/01/21 23:07 Hematocrit 38.9 % (37-47) 08/01/21 23:07 O2 Delivery Device Not Reportable 08/01/21 23:07 FiO2 21.0 % 08/01/21 23:07 Through Operator ID Cindi 08/01/21 23:07 Sodium 134 mmol/L (136-145) L 08/06/21 06:40 Potassium 4.8 mmol/L (3.5-5.1) 08/06/21 06:40 Chloride 100 mmol/L (98-107) 08/06/21 06:40 Carbon Dioxide 21 mmol/L (22-29) L 08/06/21 06:40 Anion Gap 17.8 (5-19) 08/06/21 06:40 BUN 30 mg/dL (8-23) H 08/06/21 06:40 Creatinine 1.0 mg/dL (0.5-0.9) H 08/06/21 06:40 GFR Calculation 56.0 mL/min (90-130) L 08/06/21 06:40 Glucose 341 mg/dL (65-115) H 08/06/21 06:40 POC Glucose 299 mg/dL (70-110) H 08/07/21 06:31 Estimat Average Glucose 312 08/01/21 20:49 Hemoglobin A1c 12.5 % (4.0-6.0) H 08/01/21 20:49 Serum Osmolality 295 mOsm/kg (278-305) 08/01/21 23:30 Calculated Osmolality 298 mOsm/kg (285-295) H 08/06/21 06:40 Lactate 1.6 mmol/L (0.5-2.2) 08/01/21 23:30 Calcium 7.9 mg/dL (8.5-10.5) L 08/06/21 06:40 Phosphorus 3.4 mg/dL (2.5-4.5) 08/06/21 06:40 Magnesium 1.7 mg/dL (1.7-2.3) 08/06/21 06:40 Total Bilirubin 0.4 mg/dL (0.15-1.2) 08/06/21 06:40 AST 49 U/L (0-32) H 08/06/21 06:40 ALT 27 U/L (0-33) 08/06/21 06:40 Alkaline Phosphatase 292 IU/L (35-105) H 08/06/21 06:40 C-Reactive Protein 67.2 mg/L (0.0-4.9) H 08/06/21 06:40 Total Protein 5.6 g/dL (6.6-8.7) L 08/06/21 06:40 Albumin 3.1 g/dL (3.5-5.2) L 08/06/21 06:40 Globulin 2.5 g/dL (1.3-4.6) 08/06/21 06:40 Lipase 3 U/L (13-60) L 08/01/21 20:49 Procalcitonin 1.08 ng/mL (0-0.5) H 08/06/21 06:40 TSH 2.29 uIU/mL (0.27-4.20) 08/01/21 20:49 Random Cortisol 45.03 ug/dL (2.47-19.5) H 08/01/21 20:49 Urine Color Yellow (Yellow) 08/01/21 20:00 Urine Appearance Cloudy (CLEAR) 08/01/21 20:00 Urine pH 5 (5-7) 08/01/21 20:00 Ur Specific Landis 1.020 (1.005-1.030) 08/01/21 20:00 Urine Protein 3+ (Negative) H 08/01/21 20:00 Urine Glucose (UA) 4+ (Normal) H 08/01/21 20:00 Urine Ketones 1+ (Negative) H 08/01/21 20:00 Urine Blood 3+ (Negative) H 08/01/21 20:00 Urine Nitrate Negative (Negative) 08/01/21 20:00 Urine Bilirubin Neg (Negative) 08/01/21 20:00 Urine Urobilinogen Norm mg/dL (Negative) 08/01/21 20:00 Ur Leukocyte Esterase 2+ (Negative) H 08/01/21 20:00 Urine RBC 15-25 /hpf (0-2) H 08/01/21 20:00 Urine WBC Too numerous to cnt /hpf (0-5) H 08/01/21 20:00 Ur Squamous Epith Cells 5-10 /hpf (0-5) H 08/01/21 20:00 Amorphous Sediment Not Reportable 08/01/21 20:00 Urine Bacteria 3+ /hpf (NONE) H 08/01/21 20:00 Coarse Granular Casts 0-4 /lpf H 08/01/21 20:00 Urine Mucus 1+ /hpf 08/01/21 20:00 Urine Osmolality 436 mOsm/kg (50-1200) 08/01/21 20:50 U Random Total Protein 510 mg/dL 08/01/21 20:50 Ur Random Sodium 37 mmol/L 08/01/21 20:50 Ur Random Chloride 22 mmol/L 08/01/21 20:50 Urine Creatinine 133 mg/dL (28-217) 08/01/21 20:50 Serum Ketones Negative (Negative) 08/02/21 12:57 Rheumatoid Factor 77.0 IU/mL (0-14) H 08/06/21 06:40 TORRIE Nuclear Membr Pat Cytoplasmic A 08/03/21 13:37 TORRIE IFA Animal Tis Ttr 1:80 titer H 08/03/21 13:37 TORRIE IFA Animal Tis Res Positive (NEGATIVE) A 08/03/21 13:37 STEPHON-1 Antibody <1.0 neg AI (<1.0 NEG) 08/03/21 13:37 SS-A Antibody <1.0 neg AI (<1.0 NEG) 08/03/21 13:37 SS-B Antibody <1.0 neg AI (<1.0 NEG) 08/03/21 13:37 Sm (Oliver) Antibody <1.0 neg AI (<1.0 NEG) 08/03/21 13:37 HAT [employer]ACHINE OPERATOR Antibody <1.0 neg AI (<1.0 NEG) 08/03/21 13:37 Scl-70 Antibody <1.0 neg AI (<1.0 NEG) 08/03/21 13:37 Anti-ds DNA IgG (Crith) Negative (NEGATIVE) 08/03/21 13:37 Centromere B Antibody <1.0 neg AI (<1.0 NEG) 08/03/21 13:37 Thyroid Peroxidase Ab <1 IU/mL (<9) 08/03/21 13:37 Complement C3c 218 mg/dL (83-193) H 08/03/21 13:37 Complement C4c 35 mg/dL (15-57) 08/03/21 13:37 CH50 Classical Pathway >60 U/mL (31-60) H 08/03/21 13:37 SARS-CoV-2 Ag (Rapid) Negative (Negative) 08/01/21 20:00 Misc Test Reference Cancelled 08/03/21 13:37 Vitals Last Vital Signs Temp 97.9 F 08/07/21 07:40 Pulse 51 L 08/07/21 07:40 Resp 16 08/07/21 10:24 BP 180/99 08/07/21 10:20 Pulse Ox 98 08/07/21 09:39 Discharge Plan Discharge Patient Disposition: Home Condition: Stable Prescriptions: New (DME) glucometer testing kit See Rx Instructions .Route .MEDSUPPLY Qty: 1 0RF Rx Instructions: Glucometer testing kit Lancets #100 Strips #100 Lantus Solostar U-100 Insulin 100 unit/mL (3 mL) insulin pen 30 unit SUBCUT Q12H Qty: 15 0RF Novolog Flexpen U-100 Insulin 100 unit/mL (3 mL) insulin pen See Rx Instructions .ROUTE .COMPLEX MDD 60 units Qty: 15 0RF Rx Instructions: Inject insulin, subcut, 3 times daily, after meals, based on sliding scale provided clonidine HCl 0.1 mg Tablet 0.1 mg PO BID 30 Days Qty: 60 0RF amlodipine 10 mg Tablet 10 mg PO DAILY 30 Days Qty: 30 0RF prednisone 10 mg tablet See Rx Instructions .ROUTE .COMPLEX Qty: 294 0RF Rx Instructions: 6 tab a day for 2 weeks, 5 tab a day for 2 week, 4 tab for 2 week, 3 tabs a day for 2 week, 2 tab a day for 2 week, 1 tab daily for 2 week spironolactone 25 mg Tablet 25 mg PO BID 30 Days Qty: 60 0RF Lasix 20 mg tablet 20 mg PO DAILY PRN (Reason: edema) 5 Days Qty: 5 0RF amoxicillin-pot clavulanate 875-125 mg tablet 1 tab PO BID 5 Days Qty: 10 0RF Glucagon (HCl) Emergency Kit 1 mg recon soln 1 mg IM Q20M PRN (Reason: hypoglycemia) Qty: 1 0RF Rx Instructions: until target blood sugar attained Continued aspirin [Adult Aspirin Regimen] 81 mg tablet,delayed release (DR/EC) 81 mg PO DAILY 0RF vit d 3 5,000 unit capsule 5,000 units PO DAILY 0RF acetaminophen [Tylenol] 325 mg tablet 325 mg PO TID PRN (Reason: Chronic pain) Qty: 100 3RF niacin 500 mg tablet extended release 24 hr See Rx Instructions .ROUTE .COMPLEX Qty: 30 5RF Dose Instruction: TAKE 1 TABLET BY MOUTH ONCE DAILY AT BEDTIME F0R LOW HDL Rx Instructions: TAKE 1 TABLET BY MOUTH ONCE DAILY AT BEDTIME F0R LOW HDL olanzapine [Zyprexa] 2.5 mg tablet 2.5 mg PO BID Qty: 60 2RF Rx Instructions: May take one tablet at bedtime; may take one tablet daily as needed for anxiety/agitation fluoxetine 10 mg capsule 10 mg PO 0800 0RF fluoxetine 20 mg capsule 20 mg PO 0800 0RF Changed pantoprazole 40 mg tablet,delayed release (DR/EC) 40 mg PO BIDWM 30 Days Qty: 60 5RF Discontinued celecoxib 400 mg capsule See Rx Instructions .ROUTE .COMPLEX 90 Days Qty: 90 0RF Dose Instruction: TAKE 1 CAPSULE BY MOUTH ONCE DAILY WITH FOOD FOR ARTHRITIS PAIN Rx Instructions: TAKE 1 CAPSULE BY MOUTH ONCE DAILY WITH FOOD FOR ARTHRITIS PAIN Discharge Orders: Discharge Order (Routine); Ordered 08/07/21 Ordered By: Luis E Bro Referrals: Clayton Davenport MD [Physician] - 7-10 days (Please call Monday to schedule a follow up appointment [facility], [facility]) Roscoe Chilel MD [Primary Care Provider] - 4-7 days (Please call Monday to schedule a follow up appointment.) Discharge Diet: Diabetic Discharge Activity: Resume usual activity Patient Instructions: Type 2 Diabetes, Diabetes and Diet, Spironolactone (By mouth), Clonidine (By mouth), Furosemide (By mouth), Prednisone (By mouth), Amoxicillin/Clavulanate Potassium (By mouth), Glucagon (By injection), Amlodipine (By mouth), Insulin Aspart, Recombinant (By injection), Insulin Glargine (By injection) (Lantus, Lantus SoloStar, Toujeo, Semglee), Insulin Glargine (By injection), Diabetic Ketoacidosis (GEN), Hypoglycemia in a Person with Diabetes (DC), Type 2 Diabetes in Adults: New Diagnosis (DC), How to Give an Insulin Injection (DC), How to Give a Subcutaneous Injection (GEN), Insulin Pens (DC), What to Do if Your Blood Sugar is Low (DC), What to Do if Your Blood Sugar is Low (GEN), How to Check your Blood Sugar (GEN), Hypoglycemia in Adolescents with Diabetes (DC), Opioid Safety Activity Restrictions/Additional Instructions: -For your type 2 diabetes mellitus hemoglobin A1c 12.5 -Take Lantus 30 units every 12 hours -Inject NovoLog, subcut, 3 times daily, after meals, based on sliding scale provided -Do not inject insulin if you do not eat -This is a high-dose sliding scale provided below due to high doses of prednisone I have discharged you on -Insulin sliding fingerstick? Insulin 141-180?6 units/sq 181-220?8 units/sq 221-260?10 units/sq 261-300?12 units/sq 301-350 14 units/sq 351-400 16 units/sq 401-450??18 units/sq 451-500 20 units/sq -Please monitor your blood sugars closely, record in a blood sugar log, bring to Dr. Chilel office -If your blood sugars less than 60 drink or juice or eat a hard candy -If you develop severe hypoglycemia blood sugar is less than 60 and you are symptomatic emergency glucagon has been provided -If her blood sugars greater than 500 inject insulin as prescribed, and call primary care -I have discharged you on a long prednisone taper -Initially your blood sugars are going to run on the higher end -But as your prednisone dose decreases, your insulin requirements will decrease -Therefore you have a higher risk of low blood sugars -What I want you to do is if your blood sugars are running lower than 200 consistently, or you are developing frequent hypoglycemia which is any blood sugar in which you feel lightheaded or dizzy or if blood sugar less than 60 -I want you to decrease the Lantus 5 units twice a day i.e. decrease to 25 units twice a day -If your blood sugars continue to run lower than continue to decrease it 5 units twice a day down to 20 units twice a day and then are in 15 units twice a day then are in 10 units twice a day, then are in 5 units twice a day -If the above insulin sliding scale is causing you to develop hypoglycemia, then use insulin sliding scale provided below which is more of a low-dose sliding scale -Insulin sliding fingerstick? Insulin 141-180?2 units/sq 181-220?4 units/sq 221-260?6 units/sq 261-300?8 units/sq 301-350 10 units/sq 351-400 12 units/sq > 400? 14 units/sq -Please follow-up with Dr. Chilel -For your giant cell arteritis, polymyalgia rheumatica, please follow-up with rheumatology -Please continue to hydrate well -Please take antibiotics as prescribed Discharge Attestations Time Spent in Discharge Care*: less than 30 min Quality Metrics Clinical Quality Measures [ No reported AMI, CVA or VTE this stay] Coding Level of Care Code Acute g [facility] note Diagnoses Obesity (BMI 30-39.9) E66.9 GERD (gastroesophageal reflux disease) K21.9 Fibromyalgia muscle pain M79.7 UTI (urinary tract infection) N39.0 Pyelonephritis N12 Acute kidney injury superimposed on CKD N17.9; N18.9 Hyperglycemia R73.9 Diabetes E11.9 Temporal arteritis M31.6
[2021-08-07 11:49] LABS: Glucose Point of Care 320 mg/dL (70-110)
--- NOTE | 2021-08-07 12:36 | PC.SOCIAL ---
IMM Updated pt on IMM. No questions voiced. Provided pt a copy. Initialed, dated, & timed copy in chart.
[2021-08-10 14:49] LABS: Cyclic Citrullinated Peptide <16 UNITS
== END 2021-08-07 14:30 | disposition home or self-care (01) | DRG 674 ==
LOC: ER 19:41 → MEDSURG 08-02 00:25
PROVIDERS: Physician Assistant; Surgery; Admitting Provider Internal Medicine; Emergency Provider Emergency Medicine; PCP Family Medicine Adult Medicine; Visit Provider Family Medicine
PROC: 03BT0ZX Excision of Left Temporal Artery, Open Approach, Diagnostic (ICD-10-PCS; CPT 37609; principal; 2021-08-05 10:30)
DX: N12 Tubulo-interstitial nephritis, not specified as acute or chronic (principal); F33.9 Major depressive disorder, recurrent, unspecified; E11.65 Type 2 diabetes mellitus with hyperglycemia; E11.22 Type 2 diabetes mellitus with diabetic chronic kidney disease; N18.2 Chronic kidney disease, stage 2 (mild); F43.12 Post-traumatic stress disorder, chronic; E78.5 Hyperlipidemia, unspecified; M79.7 Fibromyalgia; K21.9 Gastro-esophageal reflux disease without esophagitis; Z86.19 Personal history of other infectious and parasitic diseases; E66.01 Morbid (severe) obesity due to excess calories; Z68.33 Body mass index [BMI] 33.0-33.9, adult; Z87.891 Personal history of nicotine dependence; N39.0 Urinary tract infection, site not specified; N17.9 Acute kidney failure, unspecified; F41.9 Anxiety disorder, unspecified; Z79.82 Long term (current) use of aspirin; G89.29 Other chronic pain; M25.512 Pain in left shoulder; M25.511 Pain in right shoulder; M25.552 Pain in left hip; M25.551 Pain in right hip; B96.20 Unspecified Escherichia coli [E. coli] as the cause of diseases classified elsewhere; M31.5 Giant cell arteritis with polymyalgia rheumatica
CPT/HCPCS: 36415; 36416; 36600; 70450; 74176; 76770; 80048; 80053; 81001; 82009; 82436; 82533; 82570; 82803; 82962; 83036; 83605; 83690; 83735; 83930; 83935; 84100; 84145; 84156; 84300; 84443; 85007; 85025; 85651; 86140; 86160; 86162; 86200; 86235; 86255; 86376; 86431; 87040; 87077; 87086; 87186; 87426; 93306; 96365; 96372; 96375; 99285; J0696; J0743; J1170; J1644; J1815; J1885; J1940; J2270; J2405; J2543; J2704; J2930; J3010; J7030; J7050; J7512

== ENCOUNTER → 2021-08-27 07:55 | Outpatient (BNVA) | payer MEDICARE, SELFPAY | PROVIDERS: PCP Family Medicine Adult Medicine; Visit Provider Internal Medicine | DX: M31.6 Other giant cell arteritis (principal); Z11.59 Encounter for screening for other viral diseases; Z11.1 Encounter for screening for respiratory tuberculosis; E11.22 Type 2 diabetes mellitus with diabetic chronic kidney disease; N18.2 Chronic kidney disease, stage 2 (mild); Z79.4 Long term (current) use of insulin; Z79.52 Long term (current) use of systemic steroids | CPT/HCPCS: 36415; 73120; 80053; 82550; 84443; 86431; 86704; 86803; 87340; 99204 ==

== ENCOUNTER → 2021-08-30 22:30 | Outpatient (BNVA) | payer MEDICARE, SELFPAY | PROVIDERS: PCP Family Medicine Adult Medicine; Visit Provider Internal Medicine | DX: M31.6 Other giant cell arteritis (principal); N18.2 Chronic kidney disease, stage 2 (mild); E11.9 Type 2 diabetes mellitus without complications | CPT/HCPCS: 87522 ==

== ENCOUNTER 2021-11-09 11:52 | Inpatient (IN) | payer MEDICARE, SELFPAY ==
[2021-11-09] VITALS (8 sets, daily range): BP systolic 117–139; BP diastolic 68–93; PULSE 78–106; RESP 13–20; TEMP 36.4–36.8; O2SAT 91–97; BMI 33.5
--- NOTE | 2021-11-09 12:01 | ED_ITS ---
HPI - Nausea/Vomiting/Diarrhea General: Chief complaint: ER Hold Stated complaint: N/V/ L FLANK PAIN Time Seen by Provider: 11/09/21 12:01 Source: patient Mode of arrival: ambulatory Limitations: no limitations History of Present Illness: 61-year-old female presents emergency room with complaint of right flank pain with nausea and vomiting. She has not taken her insulin for the last 4 days. She has been nauseous having nausea and vomiting not able to keep anything down her blood sugars have been in excess of 400. She denies any fever she has had some dysuria she has no history of nephrolithiasis she has not had any gross hematuria that she is noted. She was just recently started on the insulin. She is awake and alert and oriented x3. Denies any other abdominal or chest pain no shortness of breath. MD elicited complaint: nausea and vomiting Onset (ago): day(s) (4) Description of vomiting: watery Associated nausea: Yes Associated abdominal pain: No (Flank pain on the left only) Location of pain: L flank Radiation: other (Left pelvis groin) Pain consistency: constant Severity: severe Quality: sharp Exacerbating factors: none Relieving factors: none Associated symtoms: Reports dysuria, fevers/chills, malaise and nausea; Denies altered mental status, anxiety, bloating, change in vision, chest pain, cough, diaphoresis, decreased urine output, dizziness, epistaxis, fatigue, fecal incontinence, headache(s), anorexia, myalgias, numbness, palpitations, rash, short of breath, syncope, tenesmus, tinnitus or weakness Review of Systems Const: Reports: malaise; Denies: fever(s), chills, fatigue or diaphoresis Eyes: Denies: change in vision ENMT: Denies: tinnitus or epistaxis Card: Denies: chest pain, palpitations or syncope Resp: Denies: dyspnea, productive cough or non-productive cough GI: Reports: nausea and vomiting; Denies: abdominal pain, hematemesis, diarrhea, bloating or fecal incontinence : Reports: flank pain, difficulty voiding, dysuria, urinary frequency and urinary urgency Musc: Denies: neck pain or back pain Skin/Breast: Denies: rash or pruritus Neuro: Denies: headache(s) or dizziness Psych: Denies: anxiety PFSH ED PFSH: Medical History Abnormal liver enzymes Amphetamine abuse Amphetamine substance use disorder, moderate, in early remission last use of meth on 12/12/19 Chronic kidney disease (CKD) stage G2/A2, mildly decreased glomerular filtration rate (GFR) between 60-89 mL/min/1.73 square meter and albuminuria creatinine ratio between 30-299 mg/g Chronic post-traumatic stress disorder Dyslipidemia (high LDL; low HDL) Fibromyalgia muscle pain GERD (gastroesophageal reflux disease) History of hepatitis C Hypertension associated with chronic kidney disease due to type 2 diabetes mellitus Major depressive disorder, recurrent severe without psychotic features Methamphetamine abuse Obesity (BMI 30-39.9) Osteoarthritis (arthritis due to wear and tear of joints) Panic disorder with agoraphobia and severe panic attacks Surgical History History of appendectomy History of cholecystectomy History of hysterectomy History of knee surgery History of tonsillectomy and adenoidectomy Family History Other Hypertension Psychiatric illness Social History Smoking and tobacco status: former smoker Alcohol intake: former Lives independently: Yes Housing: House Marital status: Number of children: 2 Number of grandchildren: 6 Current occupational status: disabled Physical Exam Const: EXAM LIMITATIONS: no altered mental status GENERAL APPEARANCE: cooperative and comfortable ORIENTATION/CONSCIOUSNESS: Yes awake, Yes oriented to person, Yes oriented to place and Yes oriented to time HENMT: COMMON NORMALS: normocephalic, atraumatic and hearing grossly normal bilaterally HEAD & SCALP: normocephalic and atraumatic Resp: COMMON NORMALS: normal respiratory effort, No retractions, No use of accessory muscles and clear to auscultation bilaterally AUSCULTATION: clear to auscultation bilaterally Cardio: COMMON NORMALS: regular rate, regular rhythm and No murmurs present (Cardio) RATE: regular rate RHYTHM: regular rhythm GI: COMMON NORMALS: Soft to palpation and No hepatosplenomegaly present AUSCULTATION: Yes normoactive bowel sounds PALPATION: Yes Soft to palpation, No Tenderness to palpation present (GI), No Guarding due to palpation present (GI) and Yes No hepatosplenomegaly present : BLADDER/KIDNEY EXAM: Yes CVA tenderness on the left Back/Pelvis: GENERAL BACK: Yes CVA tenderness Extremity: COMMON NORMALS: normal to inspection, capillary refill normal, no clubbing, cyanosis or edema, no calf tenderness and no pedal edema Neuro: SENSORIUM/ORIENTATION: Yes oriented to person, Yes oriented to place and Yes oriented to time Skin: COMMON NORMALS: no rashes or lesions noted GENERAL SKIN EXAM: no rashes or lesions noted Course Vital Signs: Vital signs: Vital Signs Temperature 97.9 F 11/09/21 11:53 Pulse Rate 94 11/09/21 15:32 Respiratory Rate 13 11/09/21 15:32 Blood Pressure 139/74 11/09/21 14:30 Pulse Oximetry 91 11/09/21 15:32 Oxygen Delivery Me thod 11/09/21 11:53 MDM - Nausea/Vomiting/Diarrhea Medical Decision Making Pyelonephritis no obstruction no abscess. Start antibiotics cultures done discussed with hospitalist orders written Medical Records I reviewed the patient's medical records. Lab Data I reviewed the patient's lab results. : 11/09/21 12:18 11/09/21 13:55 Radiology Impressions Abdomen/Pelvis CT 11/09/21 13:36 IMPRESSION: 1. No obstructing renal or ureteral calculi. No hydronephrosis in either kidney. 2. Small amount of air in the nondependent bladder may be due to recent instrumentation. Recommend clinical correlation. Recommend correlation for UTI. 3. Prior appendectomy. Prior hysterectomy and cholecystectomy. Laboratory Results WBC 15.7 10^3/uL (4.0-10.0) H 11/09/21 12:18 RBC 4.77 10^6/uL (4.1-5.3) 11/09/21 12:18 Hgb 13.1 g/dL (11.5-15.3) 11/09/21 12:18 Hct 41.3 % (37.0-47.0) 11/09/21 12:18 MCV 86.6 fl (81-99) 11/09/21 12:18 MCH 27.5 pg (28.0-34.0) L 11/09/21 12:18 MCHC 31.7 g/dL (30.0-36.0) 11/09/21 12:18 RDW 15.9 % (12.1-15.1) H 11/09/21 12:18 Plt Count 437 10^3/cmm (130-400) H 11/09/21 12:18 MPV 10.4 fL (7.4-10.4) 11/09/21 12:18 Neut % (Auto) 70.8 % 11/09/21 12:18 Lymph % (Auto) 13.4 % 11/09/21 12:18 [place] % (Auto) 10.0 % 11/09/21 12:18 Eos % (Auto) 0.2 % 11/09/21 12:18 Baso % (Auto) 0.7 % 11/09/21 12:18 Neut # (Auto) 11.10 10^3/uL (1.8-7.7) H 11/09/21 12:18 Lymph # (Auto) 2.1 10^3/uL (0.8-4.8) 11/09/21 12:18 [place] # (Auto) 1.6 10^3/uL (0.2-0.9) H 11/09/21 12:18 Eos # (Auto) 0.0 10^3/uL (0.0-0.8) 11/09/21 12:18 Baso # (Auto) 0.1 10^3/uL (0.0-0.1) 11/09/21 12:18 Nucleated RBC % (auto) 0 % 11/09/21 12:18 Nucleated RBCs # 0.0 /100WBC 11/09/21 12:18 Specimen Type Arterial 11/09/21 12:03 Sample Site Brachial, right 11/09/21 12:03 ABG pH 7.47 (7.35-7.45) H 11/09/21 12:03 ABG pCO2 28.4 mmHg (35-45) L 11/09/21 12:03 ABG pO2 93.7 mmHg (80.0-100.0) 11/09/21 12:03 ABG HCO3 20.4 mmol/L (22-26) L 11/09/21 12:03 ABG O2 Saturation 96.8 11/09/21 12:03 ABG Base Excess -2.1 mmol/L (-2.0-2.0) L 11/09/21 12:03 Clark Test N/a 11/09/21 12:03 A-a O2 Gradient 2.6 mmHg (5-10) L 11/09/21 12:03 Hematocrit 42.4 % (37-47) 11/09/21 12:03 Hgb O2 Saturation 95.8 % (95-100) 11/09/21 12:03 Carboxyhemoglobin 0.5 %THgb (0.4-20.1) 11/09/21 12:03 Methemoglobin 0.5 % (0.4-1.5) 11/09/21 12:03 Total Hemoglobin 13.8 g/dL (12-16) 11/09/21 12:03 Sodium 128.0 mmol/L (131-143) L 11/09/21 12:03 Potassium 4.1 mmol/L (3.5-5.0) 11/09/21 12:03 Glucose 426.0 mg/dL (70-115) H 11/09/21 12:03 Ionized Calcium 1.1 mmol/L (1.1-1.4) 11/09/21 12:03 O2 Delivery Device Room air 11/09/21 12:03 Water Treatment Plant Repairer ID Gd 11/09/21 12:03 Sodium 130 mmol/L (136-145) L 11/09/21 13:55 Potassium 3.9 mmol/L (3.5-5.1) 11/09/21 13:55 Chloride 93 mmol/L (98-107) L 11/09/21 13:55 Carbon Dioxide 21 mmol/L (22-29) L 11/09/21 13:55 Anion Gap 19.9 (5-19) H 11/09/21 13:55 BUN 12 mg/dL (8-23) 11/09/21 13:55 Creatinine 1.2 mg/dL (0.5-0.9) H 11/09/21 13:55 GFR Calculation 45.4 mL/min (90-130) L 11/09/21 13:55 Glucose 275 mg/dL (65-115) H 11/09/21 13:55 Calculated Osmolality 280 mOsm/kg (285-295) L 11/09/21 13:55 Calcium 8.7 mg/dL (8.5-10.5) 11/09/21 13:55 Total Bilirubin 0.7 mg/dL (0.15-1.2) 11/09/21 13:55 AST 11 U/L (0-32) 11/09/21 13:55 ALT 17 U/L (0-33) 11/09/21 13:55 Alkaline Phosphatase 215 U/L (35-105) H 11/09/21 13:55 Total Protein 7.0 g/dL (6.6-8.7) 11/09/21 13:55 Albumin 3.0 g/dL (3.5-5.2) L 11/09/21 13:55 Globulin 4.0 g/dL (1.3-4.6) 11/09/21 13:55 Lipase 25 U/L (13-60) 11/09/21 13:55 Urine Color Yellow (Yellow) 11/09/21 13:09 Urine Appearance Cloudy (CLEAR) A 11/09/21 13:09 Urine pH 5 (5-7) 11/09/21 13:09 Ur Specific [place] 1.015 (1.005-1.030) 11/09/21 13:09 Urine Protein 1+ (Negative) H 11/09/21 13:09 Urine Glucose (UA) 4+ (Normal) H 11/09/21 13:09 Urine Ketones 1+ (Negative) H 11/09/21 13:09 Urine Blood 3+ (Negative) H 11/09/21 13:09 Urine Nitrate Negative (Negative) 11/09/21 13:09 Urine Bilirubin Neg (Negative) 11/09/21 13:09 Urine Urobilinogen Norm mg/dL (Negative) 11/09/21 13:09 Ur Leukocyte Esterase Negative (Negative) 11/09/21 13:09 Urine RBC 0-4 /hpf (0-2) H 11/09/21 13:09 Urine WBC Too numerous to cnt /hpf (0-5) H 11/09/21 13:09 Ur Squamous Epith Cells 15-25 /hpf (0-5) H 11/09/21 13:09 Amorphous Sediment Not Reportable 11/09/21 13:09 Urine Bacteria 3+ /hpf (NONE) H 11/09/21 13:09 Serum Ketones Negative (Negative) 11/09/21 12:18 Discharge Plan Discharge Patient Disposition: Admitted As Inpatient Admit Provider: Frase,Kala Clinical Impression: Pyelonephritis, GERD (gastroesophageal reflux disease), Chronic post-traumatic stress disorder, Diabetes, Temporal arteritis, Hypertension associated with chronic kidney disease due to type 2 diabetes mellitus Condition: Stable Coding Level of Care Code ED Fabric Machine Operator for Chg Fwd Exam Comprehensive
--- NOTE | 2021-11-09 12:16 | ECG_ITS ---
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 Measurements Intervals [place] Rate: 99 P: 50 [place]: 151 QRS: 52 QRSD: 90 T: 59 QT: 336 QTc: 431 Interpretive Statements SINUS RHYTHM Compared to ECG 12/30/2019 08:20:40 No significant changes Electronically Signed On 11-09-2021 13:52:43 CDT by Raquel Michaels M.D. [email or web address]
[2021-11-09 12:20] LABS: ABG PCO2 28.4 mmHg (35-45); ABG PH Result 7.47 (7.35-7.45); Alveolar-Arterial Oxygen Gradi 2.6 mmHg (5-10); Arterial Blood Gas Hematocrit 42.4 % (37-47); Base Excess ABG -2.1 mmol/L (-2.0-2.0); Blood Gas Operator Identificat GD; Blood Gas Sample Site Brachial, right; Blood Gas Sample Type Arterial; Carboxyhemoglobin 0.5 %THgb (0.4-20.1); HCO3 ABG 20.4 mmol/L (22-26); HGB O2 Sat 95.8 % (95-100); Ionized Calcium Level - ABG 1.1 mmol/L (1.1-1.4); Methemoglobin 0.5 % (0.4-1.5); Oxygen Device ROOM AIR; Oxygen Saturation ABG 96.8; PO2 ABG 93.7 mmHg (80.0-100.0); Potassium Level - ABG 4.1 mmol/L (3.5-5.0); Total Hemoglobin 13.8 g/dL (12-16)
[2021-11-09] MEDS: sodium chloride 0.9% 1,000 ML 999 ML IV (12:32)
[2021-11-09] MEDS: ondansetron 2 mg/ML SDV 2 mL 4 MG IVP (12:32)
[2021-11-09 12:51] LABS: Basophils # 0.1 10^3/uL (0.0-0.1); Basophils % 0.7 %; Eosinophils % 0.2 %; Hematocrit 41.3 % (37.0-47.0); Hemoglobin 13.1 g/dL (11.5-15.3); Lymphocytes # 2.1 10^3/uL (0.8-4.8); Lymphocytes % 13.4 %; Mean Corpuscular HGB Conc 31.7 g/dL (30.0-36.0); Mean Corpuscular Hemoglobin 27.5 pg (28.0-34.0); Mean Corpuscular Volume 86.6 fl (81-99); Mean Platelet Volume 10.4 fL (7.4-10.4); Monocytes # 1.6 10^3/uL (0.2-0.9); Neutrophils % 70.8 %; Nucleated Red Blood Cells % 0 %; Platelet Count 437 10^3/cmm (130-400); Red Blood Count 4.77 10^6/uL (4.1-5.3); Red Cell Distribution Width 15.9 % (12.1-15.1); White Blood Count 15.7 10^3/uL (4.0-10.0)
[2021-11-09] MEDS: insulin regular-human 100 units/1 mL 10 UNIT IVP (13:06)
--- NOTE | 2021-11-09 13:09 | PC.NURSE ---
PT IS PLACED ON CONTINUOUS SPO2, NIBP, AND CM.
[2021-11-09 13:10] LABS: Ketone (Acetest) Serum Negative (Negative)
--- NOTE | 2021-11-09 13:36 | CT_ITS ---
WS: [id number] CT ABDOMEN PELVIS TECHNIQUE: Noncontrast CT of the abdomen and pelvis with coronal and sagittal reformatted images. CLINICAL INFORMATION: flank pain COMPARISON: April 27, 2019 DLP: 1105.[address] scans at [facility] use at least one of these dose optimization techniques: automated e xposure control; mA and/or kV adjustment per patient size (includes targeted exams where dose is matc hed to clinical indication); or iterative reconstruction. FINDINGS:No obstructing renal or ureteral calculi. No hydronephrosis in either kidney. Small amount o f air in the nondependent portion of the bladder may be due to recent instrumentation. Recommend clin ical correlation. Recommend correlation for UTI. Prior appendectomy. Prior hysterectomy. Hepatomegaly. Diffuse fatty infiltration liver. Prior cholecy stectomy. Normal GE junction. Tiny esophageal hiatal hernia. Fatty atrophy of the pancreas. Lung base s are well aerated. Normal caliber abdominal aorta. Mild aortic calcification. Normal sigmoid colon. No high-grade small or large bowel obstruction. Tiny fat-containing umbilical hernia. No free fluid in the abdomen or pelvis. Slight anterolisthesis L4 on L5. CT/CT kidney stone [id number] IMPRESSION: 1. No obstructing renal or ureteral calculi. No hydronephrosis in either kidne y. 2. Small amount of air in the nondependent bladder may be due to recent instru mentation. Recommend clinical correlation. Recommend correlation for UTI. 3. Prior appendectomy. Prior hysterectomy and cholecystectomy.
[2021-11-09 13:45] LABS: Blood Urine 3+ (Negative); Glucose Urine UA 4+ (Normal); Ketones Urine 1+ (Negative); Protein Urine 1+ (Negative); Specific Gravity, Urine 1.015 (1.005-1.030); Urine Appearance Cloudy (CLEAR); Urine Color Yellow (Yellow); pH Urine 5 (5-7)
[2021-11-09 13:46] LABS: Add Urine Culture? Yes; Add Urine Microscopic? YES; Bacteria Urine 3+ /hpf; Bilirubin Urine Neg (Negative); Leukocyte Esterase Urine Negative (Negative); Nitrate Urine Negative (Negative); RBC Urine 0-4 /hpf (0-2); Squamous Epithelial Cell Urine 15-25 /hpf (0-5); Urobilinogen Urine Norm (Negative); WBC Urine TOO NUMEROUS TO CNT /hpf (0-5)
--- NOTE | 2021-11-09 14:09 | PC.NURSE ---
ATTEMPTED TO ADM ROCEPHIN [address] VÁZQUEZ VO TO HOLD UNTIL CULTURES OBTAINED.
[2021-11-09 14:16] LABS: Glucose Point of Care 261 mg/dL (70-110)
[2021-11-09 14:31] LABS: Alanine Aminotransferase 17 U/L (0-33); Alkaline Phosphatase 215 U/L (35-105); Anion Gap 19.9 (5-19); Aspartate Amino Transferase 11 U/L (0-32); Blood Urea Nitrogen 12 mg/dL (8-23); Calcium 8.7 mg/dL (8.5-10.5); Carbon Dioxide 21 mmol/L (22-29); Chloride 93 mmol/L (98-107); Glomerular Filtration Rate 45.4 mL/min (90-130); Glucose 275 mg/dL (65-115); Lipase 25 U/L (13-60); Osmolality Calculated 280 mOsm/kg (285-295); Potassium 3.9 mmol/L (3.5-5.1); Sodium 130 mmol/L (136-145); Total Bilirubin 0.7 mg/dL (0.15-1.2)
[2021-11-09] MEDS: sodium chloride 0.9% 1,000 ML 150 ML IV (14:48)
[2021-11-09] MEDS: cefTRIAXone 2,000 MG in sodium chloride 0.9% (plus) 50 ML 100 MG IV (15:05)
--- NOTE | 2021-11-09 15:36 | PC.NURSE ---
REPORT GIVEN TO DONNA HERNANDEZ.
[2021-11-09 16:11] LABS: Glucose Point of Care 273 mg/dL (70-110)
--- NOTE | 2021-11-09 16:16 | PM.HP ---
Providers/Chief Complaint Admitting Physician: Kala Rick MD Primary Care Provider: Roscoe Chilel MD Chief Complaint: N/V/ L FLANK PAIN History of Present Illness Annetta Delacruz is a 61 year old female who presented to the emergency room with chief complaint of nausea, vomiting, fever and left-sided flank pain along with fever up to 101. Symptoms started on Monday initially with fever. GI symptoms shortly followed. She was not able to keep much of anything down. She had been started on insulin for diabetes in July or August of this year. At the time hemoglobin A1c was 12.5 after having been 6.8 the year prior. She understood that when she was not eating she should not take her insulin. She has had difficulty keeping any oral medications or oral intake down the last couple of days and so she did not take her insulin either. Her symptoms progressively worsened to the point that she presented. She was found to have evidence of significant urinary tract infection. No obstructing renal stones or ureteral calculi were identified nor was any hydronephrosis. Sugars were greater than 400. She had other electrolyte abnormalities. She received fluids and insulin in the ER as well as Rocephin and is being admitted for further care. Review of Systems Const: Reports: fever(s), chills, change in appetite (Not much appetite), fatigue and malaise ENMT: Denies: throat pain or nasal congestion Card: Reports: edema; Denies: chest pain or palpitations Resp: Denies: dyspnea or productive cough GI: Reports: abdominal pain, nausea, vomiting and diarrhea; Denies: hematemesis, constipation, hematochezia or melena : Reports: flank pain and urinary frequency; Denies: difficulty voiding, dysuria or hematuria Musc: Reports: other (Has chronic muscle pain); Denies: neck pain Skin/Breast: Denies: rash, pruritus or sores Neuro: Denies: headache(s) or confusion Psych: Reports: anxiety (Symptoms controlled currently) Dipak/Lymph: Denies: easy bruising or easy bleeding Medications/Allergies Home Medications Medication Instructions Recorded Confirmed Last Taken Type acetaminophen 325 mg tablet 325 mg PO TID PRN Chronic pain 07/22/20 11/09/21 08/01/21 Rx (Tylenol) #100 tabs aspirin 81 mg tablet,delayed 81 mg PO DAILY 07/22/20 11/09/21 11/05/21 History release (Adult Aspirin Regimen) pen needle, diabetic 32 gauge x #150 ea 08/18/21 11/09/21 Unknown Rx 04/21 (Comfort EZ Pen [place]) amlodipine 10 mg tablet 10 mg PO DAILY 30 days #30 tabs 09/01/21 11/09/21 11/05/21 Rx clonidine HCl 0.1 mg tablet 0.1 mg PO BID BP 30 days #60 tabs 09/01/21 11/09/21 11/05/21 Rx fluoxetine 10 mg capsule 10 mg PO 0800 Mental health #30 09/01/21 11/09/21 11/05/21 Rx caps fluoxetine 20 mg capsule 20 mg PO 0800 Mental health #30 09/01/21 11/09/21 11/05/21 Rx caps insulin aspart U-100 100 unit/mL See Rx Instructions .Route 09/01/21 11/09/21 Unknown Rx (3 mL) subcutaneous pen (Novolog .COMPLEX #15 mL Flexpen U-100 Insulin aspart) insulin glargine 100 unit/mL (3 30 unit (0.3 mL) SUBCUT Q12H #15 mL 09/01/21 11/09/21 11/05/21 Rx mL) subcutaneous pen (Lantus Solostar U-100 Insulin) olanzapine 2.5 mg tablet (Zyprexa) 2.5 mg PO BID #60 tabs 09/01/21 11/09/21 11/05/21 Rx pantoprazole 40 mg tablet,delayed 40 mg PO DAILY #30 tabs 09/01/21 11/09/21 11/05/21 Rx release (Protonix) spironolactone 50 mg tablet 50 mg PO DAILY edema & BP #30 tabs 09/01/21 11/09/21 11/08/21 Rx glucometer testing kit #1 ea 09/03/21 11/09/21 Unknown Rx blood sugar diagnostic (Accu-Chek #100 ea 09/29/21 11/09/21 Unknown Rx Guide test strips) lancets (Accu-Chek Softclix #100 ea 09/29/21 11/09/21 Unknown Rx Lancets) cholecalciferol (vitamin D3) 125 125 mcg PO DAILY 11/09/21 11/09/21 11/05/21 History mcg (5,000 unit) tablet (Vitamin D3) prednisone 20 mg tablet 40 mg PO DAILY 11/09/21 11/09/21 11/07/21 History Allergies Allergy/AdvReac Type Severity Reaction Status Date / Time benzoin Allergy Intermediate rash Verified 09/01/21 07:32 butorphanol [From Stadol] Allergy Intermediate rash Verified 09/01/21 07:32 ciprofloxacin [From Cipro] Allergy Intermediate rash Verified 09/01/21 07:32 midazolam [From Versed] Allergy Intermediate rash Verified 09/01/21 07:32 Sulfa (Sulfonamide Allergy Intermediate rash Verified 09/01/21 07:32 Antibiotics) tramadol [From Ultram] Allergy Intermediate rash Verified 09/01/21 07:32 PFSH Acute PFSH: Medical History (Updated 11/09/21 @ 20:35 by Kala Rick MD) Amphetamine substance use disorder, moderate, in early remission last use of meth on 12/12/19 Chronic kidney disease (CKD) stage G2/A2, mildly decreased glomerular filtration rate (GFR) between 60-89 mL/min/1.73 square meter and albuminuria creatinine ratio between 30-299 mg/g Chronic post-traumatic stress disorder Diabetes mellitus, type II Dyslipidemia (high LDL; low HDL) Fibromyalgia muscle pain GERD (gastroesophageal reflux disease) History of hepatitis C Hypertension associated with chronic kidney disease due to type 2 diabetes mellitus Major depressive disorder, recurrent severe without psychotic features Obesity (BMI 30-39.9) Osteoarthritis (arthritis due to wear and tear of joints) Panic disorder with agoraphobia and severe panic attacks Surgical History (Updated 11/09/21 @ 20:34 by Kala Rick MD) History of appendectomy History of cholecystectomy History of hysterectomy History of knee surgery History of temporal artery biopsy History of tonsillectomy and adenoidectomy Family History Other Hypertension Psychiatric illness Social History Smoking and tobacco status: former smoker Alcohol intake: former Lives independently: Yes Housing: House Marital status: Number of children: 2 Number of grandchildren: 6 Current occupational status: disabled Vitals/I&O/Wt Last Vital Signs Temp 97.9 F 11/09/21 11:53 Pulse 94 11/09/21 15:32 Resp 13 11/09/21 15:32 BP 139/74 11/09/21 14:30 Pulse Ox 91 11/09/21 15:32 O2 Del Method 11/09/21 11:53 11/09/21 11/09/21 11/09/21 06:59 14:59 22:59 Intake Total 1000 / 1000 50 / 1050 Balance 1000 / 1000 50 / 1050 Weight last 48 hrs Weight 108.862 kg Physical Exam Narrative: Constitutional: Awake and alert, cooperative HEENT: Normocephalic, extraocular movements intact, dry mucous membranes Neck: Supple Respiratory: Clear to auscultation bilaterally Cardiovascular: Regular rate and rhythm Abdomen: Soft, left flank tenderness, positive bowel sounds Extremities: No pitting edema Skin: Dry, pink Neuro: Speech clear, face symmetric, moves all extremities Psych: Normal affect Data : 11/09/21 12:18 11/09/21 13:55 Other Labs: Radiology Impressions Abdomen/Pelvis CT 11/09/21 13:36 IMPRESSION: 1. No obstructing renal or ureteral calculi. No hydronephrosis in either kidney. 2. Small amount of air in the nondependent bladder may be due to recent instrumentation. Recommend clinical correlation. Recommend correlation for UTI. 3. Prior appendectomy. Prior hysterectomy and cholecystectomy. Laboratory Results WBC 15.7 10^3/uL (4.0-10.0) H 11/09/21 12:18 RBC 4.77 10^6/uL (4.1-5.3) 11/09/21 12:18 Hgb 13.1 g/dL (11.5-15.3) 11/09/21 12:18 Hct 41.3 % (37.0-47.0) 11/09/21 12:18 MCV 86.6 fl (81-99) 11/09/21 12:18 MCH 27.5 pg (28.0-34.0) L 11/09/21 12:18 MCHC 31.7 g/dL (30.0-36.0) 11/09/21 12:18 RDW 15.9 % (12.1-15.1) H 11/09/21 12:18 Plt Count 437 10^3/cmm (130-400) H 11/09/21 12:18 MPV 10.4 fL (7.4-10.4) 11/09/21 12:18 Neut % (Auto) 70.8 % 11/09/21 12:18 Lymph % (Auto) 13.4 % 11/09/21 12:18 Bremer % (Auto) 10.0 % 11/09/21 12:18 Eos % (Auto) 0.2 % 11/09/21 12:18 Baso % (Auto) 0.7 % 11/09/21 12:18 Neut # (Auto) 11.10 10^3/uL (1.8-7.7) H 11/09/21 12:18 Lymph # (Auto) 2.1 10^3/uL (0.8-4.8) 11/09/21 12:18 Bremer # (Auto) 1.6 10^3/uL (0.2-0.9) H 11/09/21 12:18 Eos # (Auto) 0.0 10^3/uL (0.0-0.8) 11/09/21 12:18 Baso # (Auto) 0.1 10^3/uL (0.0-0.1) 11/09/21 12:18 Nucleated RBC % (auto) 0 % 11/09/21 12:18 Nucleated RBCs # 0.0 /100WBC 11/09/21 12:18 Specimen Type Arterial 11/09/21 12:03 Sample Site Brachial, right 11/09/21 12:03 ABG pH 7.47 (7.35-7.45) H 11/09/21 12:03 ABG pCO2 28.4 mmHg (35-45) L 11/09/21 12:03 ABG pO2 93.7 mmHg (80.0-100.0) 11/09/21 12:03 ABG HCO3 20.4 mmol/L (22-26) L 11/09/21 12:03 ABG O2 Saturation 96.8 11/09/21 12:03 ABG Base Excess -2.1 mmol/L (-2.0-2.0) L 11/09/21 12:03 Clark Test N/a 11/09/21 12:03 A-a O2 Gradient 2.6 mmHg (5-10) L 11/09/21 12:03 Hematocrit 42.4 % (37-47) 11/09/21 12:03 Hgb O2 Saturation 95.8 % (95-100) 11/09/21 12:03 Carboxyhemoglobin 0.5 %THgb (0.4-20.1) 11/09/21 12:03 Methemoglobin 0.5 % (0.4-1.5) 11/09/21 12:03 Total Hemoglobin 13.8 g/dL (12-16) 11/09/21 12:03 Sodium 128.0 mmol/L (131-143) L 11/09/21 12:03 Potassium 4.1 mmol/L (3.5-5.0) 11/09/21 12:03 Glucose 426.0 mg/dL (70-115) H 11/09/21 12:03 Ionized Calcium 1.1 mmol/L (1.1-1.4) 11/09/21 12:03 O2 Delivery Device Room air 11/09/21 12:03 Sheep Clipper ID Gd 11/09/21 12:03 Sodium 130 mmol/L (136-145) L 11/09/21 13:55 Potassium 3.9 mmol/L (3.5-5.1) 11/09/21 13:55 Chloride 93 mmol/L (98-107) L 11/09/21 13:55 Carbon Dioxide 21 mmol/L (22-29) L 11/09/21 13:55 Anion Gap 19.9 (5-19) H 11/09/21 13:55 BUN 12 mg/dL (8-23) 11/09/21 13:55 Creatinine 1.2 mg/dL (0.5-0.9) H 11/09/21 13:55 GFR Calculation 45.4 mL/min (90-130) L 11/09/21 13:55 Glucose 275 mg/dL (65-115) H 11/09/21 13:55 POC Glucose 273 mg/dL (70-110) H 11/09/21 15:58 Calculated Osmolality 280 mOsm/kg (285-295) L 11/09/21 13:55 Calcium 8.7 mg/dL (8.5-10.5) 11/09/21 13:55 Total Bilirubin 0.7 mg/dL (0.15-1.2) 11/09/21 13:55 AST 11 U/L (0-32) 11/09/21 13:55 ALT 17 U/L (0-33) 11/09/21 13:55 Alkaline Phosphatase 215 U/L (35-105) H 11/09/21 13:55 Total Protein 7.0 g/dL (6.6-8.7) 11/09/21 13:55 Albumin 3.0 g/dL (3.5-5.2) L 11/09/21 13:55 Globulin 4.0 g/dL (1.3-4.6) 11/09/21 13:55 Lipase 25 U/L (13-60) 11/09/21 13:55 Urine Color Yellow (Yellow) 11/09/21 13:09 Urine Appearance Cloudy (CLEAR) A 11/09/21 13:09 Urine pH 5 (5-7) 11/09/21 13:09 Ur Specific [place] 1.015 (1.005-1.030) 11/09/21 13:09 Urine Protein 1+ (Negative) H 11/09/21 13:09 Urine Glucose (UA) 4+ (Normal) H 11/09/21 13:09 Urine Ketones 1+ (Negative) H 11/09/21 13:09 Urine Blood 3+ (Negative) H 11/09/21 13:09 Urine Nitrate Negative (Negative) 11/09/21 13:09 Urine Bilirubin Neg (Negative) 11/09/21 13:09 Urine Urobilinogen Norm mg/dL (Negative) 11/09/21 13:09 Ur Leukocyte Esterase Negative (Negative) 11/09/21 13:09 Urine RBC 0-4 /hpf (0-2) H 11/09/21 13:09 Urine WBC Too numerous to cnt /hpf (0-5) H 11/09/21 13:09 Ur Squamous Epith Cells 15-25 /hpf (0-5) H 11/09/21 13:09 Amorphous Sediment Not Reportable 11/09/21 13:09 Urine Bacteria 3+ /hpf (NONE) H 11/09/21 13:09 Serum Ketones Negative (Negative) 11/09/21 12:18 Micro: Microbiology 11/09/21 14:53 Blood Culture - Preliminary Blood SPECIMEN COLLECTED 11/09/21 15:05 Blood Culture - Preliminary Blood SPECIMEN COLLECTED A&P Assessment and plan (1) Pyelonephritis: Present on admission, acute (2) Diabetes mellitus, type II: Currently poorly controlled secondary to not taking insulin during acute illness; hemoglobin A1c up from 6.8 a year prior Qualifiers: Diabetes mellitus rn long term care insulin use: with retirement use Diabetes mellitus complication status: with hyperglycemia Qualified Code(s): E11.65 - Type 2 diabetes mellitus with hyperglycemia; Z79.4 - senior care (current) use of insulin (3) senior care current use of systemic steroids: On prednisone dosing for temporal arteritis (4) Temporal arteritis: Diagnosed in July of this year, clinical diagnosis with biopsy negative; responded to steroid treatment (5) Chronic kidney disease (CKD) stage G2/A2, mildly decreased glomerular filtration rate (GFR) between 60-89 mL/min/1.73 square meter and albuminuria creatinine ratio between 30-299 mg/g: Renal function near baseline (6) Hypertension associated with chronic kidney disease due to type 2 diabetes mellitus: Chronically on amlodipine, clonidine and Aldactone (7) Dyslipidemia (high LDL; low HDL): Diagnosis per medical records but does not appear to be on any chronic treatment, has not had cholesterol checked for more than a year (8) GERD (gastroesophageal reflux disease): Chronically on PPI (9) Chronic post-traumatic stress disorder: Chronically on fluoxetine and olanzapine (10) Fibromyalgia muscle pain: Chronically on acetaminophen (11) Obesity (BMI 30-39.9): Plan Inpatient admission Rocephin Follow-up pending cultures IV fluids Short and long-acting insulin Adjust insulin coverage accordingly Continue home prednisone dosing Monitor for need to stress dose steroids Adjust home antihypertensive agents with half usual amlodipine, holding Aldactone for couple of days and changing clonidine to as needed presently Continue home olanzapine, fluoxetine Continue home PPI Check lipid panel and hemoglobin A1c Pending results of above can discuss statin therapy as overall risk factor modification Continue home aspirin therapy Monitor for changes Lovenox for DVT prophylaxis Supportive care otherwise Patient had questions about insulin therapy during acute illness, we discussed checking her blood sugars especially during acute illness and considering having her dose of insulin if she is unable to take oral intake rather than stopping it altogether or alternatively discussing with provider. She has a referral to endocrinology on an outpatient basis Anticipate discharge home with outpatient follow-up to PCP, rheumatology (has appointment on 12/06) and endocrinology (has appointment 11/18) Full code Attestations Medical Necessity Statement*: Anticipated stay greater than 2 midnights inpatient with pyelonephritis and uncontrolled diabetes mellitus. Plans are as noted above. Requiring IV antibiotics, IV fluids and aggressive insulin therapy with close monitoring. 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
[2021-11-09] MEDS: insulin lispro 100 unit/1 mL SUBCUT ×2 (17:08→21:24)
[2021-11-09] MEDS: enoxaparin 40 mg/0.4 mL Syringe SUBCUT (17:08)
[2021-11-09] MEDS: sodium chlor 0.9% + KCl 20 mEq 20 MEQ/1,000 ML BAG 100 MEQ IV (17:09)
[2021-11-09] MEDS: HYDROcodone-acetaminophen 5-325 mg Tablet 1 TAB PO ×2 (17:19→21:23)
[2021-11-09] MEDS: acetaminophen 325 mg Tablet 650 MG PO (21:22)
[2021-11-09] MEDS: OLANZapine 5 mg TABLET 2.5 MG PO (21:23)
[2021-11-09] MEDS: insulin glargine 100 units/1 mL 15 UNIT SUBCUT (21:24)
[2021-11-09 21:37] LABS: Glucose Point of Care 215 mg/dL (70-110)
[2021-11-09] MEDS: morphine 4 mg/mL SDV 1 mL IVP (23:05)
[2021-11-10] VITALS (7 sets, daily range): BP systolic 107–132; BP diastolic 65–81; PULSE 78–84; RESP 16–19; TEMP 36.4–36.7; O2SAT 90–93
[2021-11-10] MEDS: sodium chlor 0.9% + KCl 20 mEq 20 MEQ/1,000 ML BAG 100 MEQ IV ×3 (02:30→21:10)
[2021-11-10 05:23] LABS: Basophils # 0.1 10^3/uL (0.0-0.1); Basophils % 0.6 %; Eosinophils # 0.1 10^3/uL (0.0-0.8); Eosinophils % 0.8 %; Hematocrit 39.4 % (37.0-47.0); Hemoglobin 12.2 g/dL (11.5-15.3); Lymphocytes # 2.7 10^3/uL (0.8-4.8); Lymphocytes % 23.8 %; Mean Corpuscular Hemoglobin 27.5 pg (28.0-34.0); Mean Corpuscular Volume 88.9 fl (81-99); Mean Platelet Volume 10.1 fL (7.4-10.4); Monocytes # 1.2 10^3/uL (0.2-0.9); Monocytes % 10.1 %; Neutrophils # 6.81 10^3/uL (1.8-7.7); Neutrophils % 60.1 %; Nucleated Red Blood Cells % 0 %; Platelet Count 364 10^3/cmm (130-400); Red Blood Count 4.43 10^6/uL (4.1-5.3); Red Cell Distribution Width 15.9 % (12.1-15.1); White Blood Count 11.3 10^3/uL (4.0-10.0)
[2021-11-10] MEDS: acetaminophen 325 mg Tablet 650 MG PO ×2 (05:30→14:00)
[2021-11-10] MEDS: HYDROcodone-acetaminophen 5-325 mg Tablet 1 TAB PO ×2 (05:31→12:39)
[2021-11-10 05:41] LABS: Alanine Aminotransferase 19 U/L (0-33); Albumin Level 3.1 g/dL (3.5-5.2); Alkaline Phosphatase 258 U/L (35-105); Aspartate Amino Transferase 22 U/L (0-32); Blood Urea Nitrogen 9 mg/dL (8-23); Calcium 8.5 mg/dL (8.5-10.5); Carbon Dioxide 24 mmol/L (22-29); Chloride 95 mmol/L (98-107); Chol HDL Ratio 8.13 mg/dL (0.0-4.40); Cholesterol 187 mg/dL (0-200); Globulin 3.8 g/dL (1.3-4.6); Glomerular Filtration Rate 50.2 mL/min (90-130); Glucose 237 mg/dL (65-115); HDL Cholesterol 23 mg/dL (60-100); LDL Cholesterol Calculated 102 mg/dL (50-129); LDL HDL Ratio 4.43 RATIO (0.00-3.22); Osmolality Calculated 282 mOsm/kg (285-295); Phosphorus 2.8 mg/dL (2.5-4.5); Sodium 133 mmol/L (136-145); Total Bilirubin 0.5 mg/dL (0.15-1.2); Total Protein 6.9 g/dL (6.6-8.7); Triglycerides 311 mg/dL (0-150)
[2021-11-10 05:43] LABS: Anion Gap 18.1 (5-19); Estmated Average Glucose 318; Hemoglobin A1C 12.7 % (4.0-6.0); Potassium 4.1 mmol/L (3.5-5.1)
[2021-11-10] MEDS: morphine 4 mg/mL SDV 1 mL IVP ×2 (06:16→14:00)
[2021-11-10 06:23] LABS: Glucose Point of Care 218 mg/dL (70-110)
[2021-11-10] MEDS: fluoxetine 10 mg Capsule PO (08:10)
[2021-11-10] MEDS: pantoprazole DR 40 mg Tablet PO (08:10)
[2021-11-10] MEDS: fluoxetine 20 mg Capsule PO (08:10)
[2021-11-10] MEDS: amlodipine 10 mg Tablet 5 MG PO (08:11)
[2021-11-10] MEDS: OLANZapine 5 mg TABLET 2.5 MG PO ×2 (08:11→20:31)
[2021-11-10] MEDS: insulin glargine 100 units/1 mL 15 UNIT SUBCUT ×2 (08:11→20:45)
[2021-11-10] MEDS: aspirin 81 mg EC Tablet PO (08:11)
[2021-11-10] MEDS: predniSONE 20 mg Tablet 40 MG PO (08:11)
[2021-11-10] MEDS: insulin lispro 100 unit/1 mL SUBCUT ×4 (08:12→20:44)
--- NOTE | 2021-11-10 09:28 | PC.CHAP ---
Pastoral Care Encounter/Spiritual Assessment Type of Contact [] Declined group burner machine visit [] Patient/Family/Request visit [] Outpatient visit [] Follow-up visit [] Physician referral [] Code/Alert [x] Routine visit [] Staff referral [] Actively dying [] Patient sleeping [] Family support [] [] Out of room [] Palliative care [] [] Receiving care in room [] Pre-surgical visit [] Trauma [] Long length of stay [] ICU visit [] Other: Relational/Emotional Strength [x] Patient feels connected with others/family/visitors/staff [] Distress [] Loneliness/isolation [] Abandonment Spirituality of Patient [x] Person of Jeaneth [] Attends Rastafari of their Jeaneth [x] Believes in Prayer [] Reads Bible or Pentecostal materials [] There are Spiritual issues to be addressed 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 Interventions [x] Prayer [x] Active listening [x] Non-anxious presence [x] Spiritual/emotional support [] Crisis/trauma care [] Spiritual counseling [] Bereavement support [] Provided bereavement packet [] Provided Bible/devotional materials [] Provided toy/stuffed animal, coloring book to patient or family member [] Provided Communion [] Anointing/[place] [] Salvation [x] Completed spiritual assessment [] Other: Impact on Illness or Injury [] Angry [] Fearful [] Anxious [] Often cries [] Exhaustion [] Unable to work [] Unable to attend confucianism [] Unable to walk/stand [] Unable to read [] Unable to drive [] Unable to eat/drink [] Unable to sleep [] Unable to be with family [] Patient intubated [] Other: Summary Time spent with patient 10m
[2021-11-10 11:48] LABS: Glucose Point of Care 361 mg/dL (70-110)
[2021-11-10] MEDS: cefTRIAXone 1,000 MG in sodium chloride 0.9% (plus) 50 ML 100 MG IV (11:57)
--- NOTE | 2021-11-10 15:01 | PM.PN ---
Subjective Subjective: Patient was seen this morning she tells me that she has a little bit of a headache, no fevers, no chills, no nausea, no vomiting, no chest pain, she feels a bit better, but continues to feel fatigued Vitals/I&O/Wt Last Vital Signs Temp 97.5 F L 11/10/21 14:57 Pulse 81 11/10/21 14:57 Resp 18 11/10/21 14:57 BP 110/78 11/10/21 14:57 Pulse Ox 93 11/10/21 14:57 O2 Del Method 11/10/21 14:57 11/10/21 11/10/21 11/10/21 06:59 14:59 22:59 Intake Total 935 / 3465 2073.333 / 2072.333 Balance 935 / 3465 2072.333 / 2072.333 Weight last 48 hrs Weight 108.862 kg Physical Exam Const: COMMON NORMALS: no acute distress and patient oriented x3 Resp: COMMON NORMALS: normal respiratory effort, No retractions, No use of accessory muscles and clear to auscultation bilaterally AUSCULTATION: clear to auscultation bilaterally Cardio: COMMON NORMALS: regular rate, regular rhythm, S1 normal heart sound present and S2 normal heart sound present RATE: regular rate RHYTHM: regular rhythm HEART SOUNDS: S1 normal heart sound present and S2 normal heart sound present GI: COMMON NORMALS: Normal to inspection, nondistended, normoactive bowel sounds present, non-tender and no bruits Extremity: COMMON NORMALS: no pedal edema Neuro: COMMON NORMALS: patient oriented x3 Psych: COMMON NORMALS: mental status grossly normal Data : 11/10/21 05:17 11/10/21 05:17 Micro: Microbiology 11/09/21 13:09 Urine Culture - Preliminary Urine,Clean Catch Gram Negative Rods 11/09/21 14:53 Blood Culture - Preliminary Blood SPECIMEN COLLECTED 11/09/21 15:05 Blood Culture - Preliminary Blood SPECIMEN COLLECTED A&P Assessment and plan (1) Pyelonephritis: Present on admission, acute (2) Diabetes mellitus, type II: Currently poorly controlled secondary to not taking insulin during acute illness; hemoglobin A1c up from 6.8 a year prior Qualifiers: Diabetes mellitus intermediate frame tender insulin use: with skilled nursing use Diabetes mellitus complication status: with hyperglycemia Qualified Code(s): E11.65 - Type 2 diabetes mellitus with hyperglycemia; Z79.4 - [facility] (current) use of insulin (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: On prednisone dosing for temporal arteritis (4) Temporal arteritis: Diagnosed in July of this year, clinical diagnosis with biopsy negative; responded to steroid treatment (5) Chronic kidney disease (CKD) stage G2/A2, mildly decreased glomerular filtration rate (GFR) between 60-89 mL/min/1.73 square meter and albuminuria creatinine ratio between 30-299 mg/g: Renal function near baseline (6) Hypertension associated with chronic kidney disease due to type 2 diabetes mellitus: Chronically on amlodipine, clonidine and Aldactone (7) Dyslipidemia (high LDL; low HDL): Diagnosis per medical records but does not appear to be on any chronic treatment, has not had cholesterol checked for more than a year (8) GERD (gastroesophageal reflux disease): Chronically on PPI (9) Chronic post-traumatic stress disorder: Chronically on fluoxetine and olanzapine (10) Fibromyalgia muscle pain: Chronically on acetaminophen (11) Obesity (BMI 30-39.9): Plan Inpatient admission Continue Rocephin Follow-up pending cultures Continue IV fluids Short and long-acting insulin Adjust insulin coverage accordingly Continue home prednisone dosing Monitor for need to stress dose steroids Adjust home antihypertensive agents with half usual amlodipine, holding Aldactone for couple of days and changing clonidine to as needed presently Continue home olanzapine, fluoxetine Continue home PPI A1c 12.7, need to monitor blood sugars closely Pending results of above can discuss statin therapy as overall risk factor modification Continue home aspirin therapy Monitor for changes Lovenox for DVT prophylaxis Supportive care otherwise Patient had questions about insulin therapy during acute illness, we discussed checking her blood sugars especially during acute illness and considering having her dose of insulin if she is unable to take oral intake rather than stopping it altogether or alternatively discussing with provider. 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 Diagnoses Pyelonephritis N12 Diabetes mellitus, type II E11.65; Z79.4 Diabetes mellitus intermediate frame tender insulin use: with skilled nursing use Diabetes mellitus complication status: with hyperglycemia USP current use of systemic steroids Z79.52 Temporal arteritis M31.6 Chronic kidney disease (CKD) stage G2/A2, mildly decreased glomerular filtration rate (GFR) between 60-89 mL/min/1.73 square meter and albuminuria creatinine ratio between 30-299 mg/g N18.2 Hypertension associated with chronic kidney disease due to type 2 diabetes mellitus E11.22; I12.9 Dyslipidemia (high LDL; low HDL) E78.5 GERD (gastroesophageal reflux disease) K21.9 Chronic post-traumatic stress disorder F43.12 Fibromyalgia muscle pain M79.7 Obesity (BMI 30-39.9) E66.9
[2021-11-10 17:00] LABS: Glucose Point of Care 381 mg/dL (70-110)
[2021-11-10] MEDS: enoxaparin 40 mg/0.4 mL Syringe SUBCUT (17:27)
[2021-11-10 20:45] LABS: Glucose Point of Care 425 mg/dL (70-110)
[2021-11-10] MEDS: ketorolac 30 mg/mL INJ IM (23:27)
[2021-11-11] VITALS (7 sets, daily range): BP systolic 118–142; BP diastolic 65–81; PULSE 61–71; RESP 18–21; TEMP 36.6–36.8; O2SAT 95–99
[2021-11-11] MEDS: HYDROcodone-acetaminophen 5-325 mg Tablet 1 TAB PO (00:34)
[2021-11-11] MEDS: acetaminophen 325 mg Tablet 650 MG PO (02:08)
[2021-11-11 06:05] LABS: Glucose Point of Care 288 mg/dL (70-110)
[2021-11-11] MEDS: OLANZapine 5 mg TABLET 2.5 MG PO ×2 (09:54→20:56)
[2021-11-11] MEDS: fluoxetine 20 mg Capsule PO (09:54)
[2021-11-11] MEDS: fluoxetine 10 mg Capsule PO (09:54)
[2021-11-11] MEDS: predniSONE 20 mg Tablet 40 MG PO (09:54)
[2021-11-11] MEDS: insulin lispro 100 unit/1 mL SUBCUT ×4 (09:55→21:35)
[2021-11-11] MEDS: amlodipine 10 mg Tablet 5 MG PO (09:55)
[2021-11-11] MEDS: aspirin 81 mg EC Tablet PO (09:55)
[2021-11-11] MEDS: pantoprazole DR 40 mg Tablet PO (09:55)
[2021-11-11] MEDS: insulin glargine 100 units/1 mL 20 UNIT SUBCUT ×2 (10:03→20:56)
[2021-11-11] MEDS: sodium chlor 0.9% + KCl 20 mEq 20 MEQ/1,000 ML BAG 100 MEQ IV (10:03)
[2021-11-11] MEDS: morphine 4 mg/mL SDV 1 mL 2 MG IVP (10:11)
[2021-11-11 11:19] LABS: Glucose Point of Care 361 mg/dL (70-110)
--- NOTE | 2021-11-11 11:25 | PM.PN ---
Subjective Subjective: Patient was seen this morning, she continues to feel nauseous, no abdominal pain, she is complaining of left-sided headaches, she does not want Solu-Medrol really helped, but she is worried as her blood sugars are elevated, she tells me that morphine also tends to help the Toradol that it started yesterday did not really help with her headaches, no fevers, no blurry vision Vitals/I&O/Wt Last Vital Signs Temp 98.0 F 11/11/21 07:42 Pulse 64 11/11/21 07:42 Resp 18 11/11/21 10:11 BP 132/72 11/11/21 07:42 Pulse Ox 96 11/11/21 07:42 O2 Del Method 11/11/21 07:42 11/10/21 11/11/21 11/11/21 22:59 06:59 14:59 Intake Total 2483.333 / 4556.666 720 / 5276.666 1000 / 1000 Output Total 1650 / 1650 800 / 800 Balance 2483.333 / 4556.666 -930 / 3626.666 200 / 200 Weight last 48 hrs Weight 108.862 kg Physical Exam Const: COMMON NORMALS: no acute distress and patient oriented x3 Resp: COMMON NORMALS: normal respiratory effort, No retractions, No use of accessory muscles and clear to auscultation bilaterally AUSCULTATION: clear to auscultation bilaterally Cardio: COMMON NORMALS: regular rate, regular rhythm, S1 normal heart sound present and S2 normal heart sound present RATE: regular rate RHYTHM: regular rhythm HEART SOUNDS: S1 normal heart sound present and S2 normal heart sound present GI: COMMON NORMALS: Normal to inspection, nondistended, normoactive bowel sounds present, non-tender and no masses Extremity: COMMON NORMALS: no pedal edema Neuro: COMMON NORMALS: patient oriented x3 Psych: COMMON NORMALS: mental status grossly normal Data : 11/10/21 05:17 11/10/21 05:17 Micro: Microbiology 11/09/21 14:53 Blood Culture - Preliminary Blood NEGATIVE TO DATE 11/09/21 15:05 Blood Culture - Preliminary Blood NEGATIVE TO DATE 11/09/21 13:09 Urine Culture - Preliminary Urine,Clean Catch Gram Negative Rods A&P Assessment and plan (1) Pyelonephritis: Present on admission, acute (2) Diabetes mellitus, type II: Currently poorly controlled secondary to not taking insulin during acute illness; hemoglobin A1c up from 6.8 a year prior Qualifiers: Diabetes mellitus fpc insulin use: with fpc use Diabetes mellitus complication status: with hyperglycemia Qualified Code(s): E11.65 - Type 2 diabetes mellitus with hyperglycemia; Z79.4 - half-way (current) use of insulin (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: On prednisone dosing for temporal arteritis (4) Temporal arteritis: Diagnosed in July of this year, clinical diagnosis with biopsy negative; responded to steroid treatment (5) Chronic kidney disease (CKD) stage G2/A2, mildly decreased glomerular filtration rate (GFR) between 60-89 mL/min/1.73 square meter and albuminuria creatinine ratio between 30-299 mg/g: Renal function near baseline (6) Hypertension associated with chronic kidney disease due to type 2 diabetes mellitus: Chronically on amlodipine, clonidine and Aldactone (7) Dyslipidemia (high LDL; low HDL): Diagnosis per medical records but does not appear to be on any chronic treatment, has not had cholesterol checked for more than a year (8) GERD (gastroesophageal reflux disease): Chronically on PPI (9) Chronic post-traumatic stress disorder: Chronically on fluoxetine and olanzapine (10) Fibromyalgia muscle pain: Chronically on acetaminophen (11) Obesity (BMI 30-39.9): Plan Inpatient admission Continue Rocephin Follow-up pending cultures Continue IV fluids Change to high-dose sliding scale, Lantus 20 units twice daily Add morphine as needed for headaches, if blood sugars allow will consider Solu-Medrol Adjust insulin coverage accordingly Continue home prednisone dosing Monitor for need to stress dose steroids Adjust home antihypertensive agents with half usual amlodipine, holding Aldactone for couple of days and changing clonidine to as needed presently Continue home olanzapine, fluoxetine Continue home PPI A1c 12.7, need to monitor blood sugars closely Pending results of above can discuss statin therapy as overall risk factor modification Continue home aspirin therapy Monitor for changes Lovenox for DVT prophylaxis Supportive care otherwise Patient had questions about insulin therapy during acute illness, we discussed checking her blood sugars especially during acute illness and considering having her dose of insulin if she is unable to take oral intake rather than stopping it altogether or alternatively discussing with provider. She has a referral to endocrinology on an outpatient basis Anticipate discharge home with outpatient follow-up to PCP, rheumatology (has appointment on 12/06) and endocrinology (has appointment 11/18) Full code Attestations Medical Necessity Statement*: Patient requires hospitalization for UTI, dehydration Coding Level of Care Code Acute Speech [facility] Hearing Clinic Director for g Fwd Diagnoses Pyelonephritis N12 Diabetes mellitus, type II E11.65; Z79.4 Diabetes mellitus long term care phlebotomist insulin use: with long term care phlebotomist use Diabetes mellitus complication status: with hyperglycemia 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
[2021-11-11] MEDS: cefTRIAXone 1,000 MG in sodium chloride 0.9% (plus) 50 ML 100 MG IV (11:48)
[2021-11-11 17:01] LABS: Glucose Point of Care 340 mg/dL (70-110)
[2021-11-11] MEDS: enoxaparin 40 mg/0.4 mL Syringe SUBCUT (17:31)
[2021-11-11 21:28] LABS: Glucose Point of Care 403 mg/dL (70-110)
[2021-11-12] VITALS: BP 141/84; PULSE 69; RESP 17; TEMP 36.6; O2SAT 93
[2021-11-12] MEDS: sodium chlor 0.9% + KCl 20 mEq 20 MEQ/1,000 ML BAG 100 MEQ IV (01:09)
[2021-11-12 03:26] VITALS: BP 129/77; PULSE 60; RESP 17; TEMP 36.6; O2SAT 95
[2021-11-12 05:14] LABS: Hematocrit 33.5 % (37.0-47.0); Hemoglobin 10.5 g/dL (11.5-15.3); Mean Corpuscular HGB Conc 31.3 g/dL (30.0-36.0); Mean Corpuscular Hemoglobin 27.9 pg (28.0-34.0); Mean Corpuscular Volume 89.1 fl (81-99); Platelet Count 412 10^3/cmm (130-400); Positive C 1; Positive M 1; Red Blood Count 3.76 10^6/uL (4.1-5.3); Red Cell Distribution Width 15.9 % (12.1-15.1); White Blood Count 11.5 10^3/uL (4.0-10.0)
[2021-11-12 05:35] LABS: Anion Gap 15.7 (5-19); Blood Urea Nitrogen 9 mg/dL (8-23); Calcium 8.1 mg/dL (8.5-10.5); Carbon Dioxide 24 mmol/L (22-29); Chloride 106 mmol/L (98-107); Glomerular Filtration Rate 63.2 mL/min (90-130); Glucose 293 mg/dL (65-115); Osmolality Calculated 301 mOsm/kg (285-295); Potassium 4.7 mmol/L (3.5-5.1); Sodium 141 mmol/L (136-145)
[2021-11-12 05:41] LABS: Absolute Segmented Neutrophil 7.1 10/cmm (1.6-7.1); Band Neutrophils Absolute 0.2 10^3/cmm (0.0-1.2); Eosinophils 0 %; Lymphocytes 24 %; Lymphocytes Absolute 2.8 10^3/cmm (1.2-3.4); Monocytes Absolute 0.8 10^3/cmm (0.1-0.6); Segmented Neutrophils 62 %; Total Cells Counted 100 (0-100)
[2021-11-12 05:42] LABS: Absolute Neutrophil 7.4 10^3/cmm (1.4-6.5); Platelet Estimate Increased (Normal)
[2021-11-12 07:07] LABS: Glucose Point of Care 262 mg/dL (70-110)
[2021-11-12 08:00] VITALS: BP 126/72; PULSE 73; RESP 17; TEMP 36.7; O2SAT 92
[2021-11-12] MEDS: insulin lispro 100 unit/1 mL SUBCUT ×2 (08:44→12:53)
[2021-11-12] MEDS: insulin glargine 100 units/1 mL 20 UNIT SUBCUT (08:45)
[2021-11-12] MEDS: OLANZapine 5 mg TABLET 2.5 MG PO (08:46)
[2021-11-12] MEDS: pantoprazole DR 40 mg Tablet PO (08:46)
[2021-11-12] MEDS: fluoxetine 10 mg Capsule PO (08:46)
[2021-11-12] MEDS: spironolactone 25 mg Tablet 50 MG PO (08:46)
[2021-11-12] MEDS: fluoxetine 20 mg Capsule PO (08:46)
[2021-11-12] MEDS: predniSONE 20 mg Tablet 40 MG PO (08:47)
[2021-11-12] MEDS: amlodipine 10 mg Tablet 5 MG PO (08:47)
[2021-11-12] MEDS: aspirin 81 mg EC Tablet PO (08:47)
--- NOTE | 2021-11-12 11:00 | PM.DCS ---
Discharge Providers Date of Admission: 11/09/21 14:26 Date of Discharge: November 12, 2021 Attending Provider at Admission: Kala Rick MD Attending Provider at Discharge: Luis E Bro MD Primary Care Provider: Roscoe Chilel MD Diagnoses at Discharge Discharge Diagnosis (1) Pyelonephritis: Status: Acute (2) Diabetes mellitus, type II: Status: Chronic Qualifiers: Diabetes mellitus group home insulin use: with group home use Diabetes mellitus complication status: with hyperglycemia Qualified Code(s): E11.65 - Type 2 diabetes mellitus with hyperglycemia; Z79.4 - care home (current) use of insulin (3) care home current use of systemic steroids: Status: Chronic Permanent problem details: prednisone for temporal arteritis (4) Temporal arteritis: Status: Chronic Permanent problem details: Diagnosed in 07/2021, clinical diagnosis, responded to steroids, ESR 94, biopsy negative, follows with Dr Davenport (5) Chronic kidney disease (CKD) stage G2/A2, mildly decreased glomerular filtration rate (GFR) between 60-89 mL/min/1.73 square meter and albuminuria creatinine ratio between 30-299 mg/g: Status: Chronic (6) Hypertension associated with chronic kidney disease due to type 2 diabetes mellitus: Status: Chronic (7) Dyslipidemia (high LDL; low HDL): Status: Chronic (8) GERD (gastroesophageal reflux disease): Status: Chronic (9) Chronic post-traumatic stress disorder: Status: Chronic (10) Fibromyalgia muscle pain: Status: Chronic (11) Obesity (BMI 30-39.9): Status: Chronic Reason for Visit Reason for Visit: N/V/ L FLANK PAIN Hospital Course Hospital Course Annetta Delacruz is a 61 year old female who presented to the emergency room with chief complaint of nausea, vomiting, fever and left-sided flank pain along with fever up to 101.? Symptoms started on Monday initially with fever. Patient presented to [facility] for pyelonephritis, UTI, received broad-spectrum antibiotic therapy, so far blood cultures remain unremarkable, urine cultures positive for E. coli, patient clinically improved, discharged on cefdinir for 3 remaining days. Physical Exam Const: COMMON NORMALS: no acute distress and patient oriented x3 Resp: COMMON NORMALS: normal respiratory effort, No retractions, No use of accessory muscles and clear to auscultation bilaterally AUSCULTATION: clear to auscultation bilaterally Cardio: COMMON NORMALS: regular rate, regular rhythm, S1 normal heart sound present and S2 normal heart sound present RATE: regular rate RHYTHM: regular rhythm HEART SOUNDS: S1 normal heart sound present and S2 normal heart sound present GI: COMMON NORMALS: Normal to inspection, nondistended, normoactive bowel sounds present, non-tender and no masses Extremity: COMMON NORMALS: no pedal edema Neuro: COMMON NORMALS: patient oriented x3 Psych: COMMON NORMALS: mental status grossly normal Discharge Data Studies Completed and Pending Completed Studies During Hospitalization Category Date Time Status [place] kidney stone [id number] Stat Cat Scan 11/09/21 13:36 Completed Pending at discharge Category Date Time Status Basic Metabolic Panel AM LABS Lab 11/13/21 04:00 Ordered Basic Metabolic Panel AM LABS Lab 11/14/21 04:00 Ordered Blood Culture Stat Lab 11/09/21 14:53 Results Complete Blood Count w/Auto AM LABS Lab 11/13/21 04:00 Ordered Complete Blood Count w/Auto AM LABS Lab 11/14/21 04:00 Ordered Radiology Impressions Abdomen/Pelvis CT 11/09/21 13:36 IMPRESSION: 1. No obstructing renal or ureteral calculi. No hydronephrosis in either kidney. 2. Small amount of air in the nondependent bladder may be due to recent instrumentation. Recommend clinical correlation. Recommend correlation for UTI. 3. Prior appendectomy. Prior hysterectomy and cholecystectomy. Laboratory Results WBC 11.5 10^3/uL (4.0-10.0) H 11/12/21 04:55 RBC 3.76 10^6/uL (4.1-5.3) L 11/12/21 04:55 Hgb 10.5 g/dL (11.5-15.3) L 11/12/21 04:55 Hct 33.5 % (37.0-47.0) L 11/12/21 04:55 MCV 89.1 fl (81-99) 11/12/21 04:55 MCH 27.9 pg (28.0-34.0) L 11/12/21 04:55 MCHC 31.3 g/dL (30.0-36.0) 11/12/21 04:55 RDW 15.9 % (12.1-15.1) H 11/12/21 04:55 Plt Count 412 10^3/cmm (130-400) H 11/12/21 04:55 MPV 10.0 fL (7.4-10.4) 11/12/21 04:55 Neut % (Auto) 60.1 % 11/10/21 05:17 Lymph % (Auto) Not Reportable 11/12/21 04:55 [place] % (Auto) Not Reportable 11/12/21 04:55 Eos % (Auto) 0.8 % 11/10/21 05:17 Baso % (Auto) 0.6 % 11/10/21 05:17 Neut # (Auto) 6.81 10^3/uL (1.8-7.7) 11/10/21 05:17 Lymph # (Auto) Not Reportable 11/12/21 04:55 [place] # (Auto) Not Reportable 11/12/21 04:55 Eos # (Auto) 0.1 10^3/uL (0.0-0.8) 11/10/21 05:17 Baso # (Auto) 0.1 10^3/uL (0.0-0.1) 11/10/21 05:17 Nucleated RBC % (auto) 0 % 11/10/21 05:17 Total Counted 100 (0-100) 11/12/21 04:55 Atypical Lymphs % 0.0 % (0-5) 11/12/21 04:55 Absolute Neutrophils 7.4 10^3/cmm (1.4-6.5) H 11/12/21 04:55 Segmented Neutrophils 62 % 11/12/21 04:55 Abs Segm Neuts (Man) 7.1 10/cmm (1.6-7.1) 11/12/21 04:55 Band Neutrophils 2.0 % 11/12/21 04:55 Abs Band Neuts (Man) 0.2 10^3/cmm (0.0-1.2) 11/12/21 04:55 Absolute Lymphocytes 2.8 10^3/cmm (1.2-3.4) 11/12/21 04:55 Lymphocytes (Manual) 24 % 11/12/21 04:55 Monocytes (Manual) 7.0 % 11/12/21 04:55 Absolute Monocytes 0.8 10^3/cmm (0.1-0.6) H 11/12/21 04:55 Eosinophils (Manual) 0 % 11/12/21 04:55 Absolute Eosinophils 0.0 10^3/cmm (0.0-0.7) 11/12/21 04:55 Basophils (Manual) 0.0 % 11/12/21 04:55 Absolute Basophils 0.0 10^3/cmm (0.0-0.2) 11/12/21 04:55 Metamyelocytes 5.0 % 11/12/21 04:55 Nucleated RBCs # 0.0 /100WBC 11/10/21 05:17 Platelet Estimate Increased (Normal) H 11/12/21 04:55 Specimen Type Arterial 11/09/21 12:03 Sample Site Brachial, right 11/09/21 12:03 ABG pH 7.47 (7.35-7.45) H 11/09/21 12:03 ABG pCO2 28.4 mmHg (35-45) L 11/09/21 12:03 ABG pO2 93.7 mmHg (80.0-100.0) 11/09/21 12:03 ABG HCO3 20.4 mmol/L (22-26) L 11/09/21 12:03 ABG O2 Saturation 96.8 11/09/21 12:03 ABG Base Excess -2.1 mmol/L (-2.0-2.0) L 11/09/21 12:03 Clark Test N/a 11/09/21 12:03 A-a O2 Gradient 2.6 mmHg (5-10) L 11/09/21 12:03 Hematocrit 42.4 % (37-47) 11/09/21 12:03 Hgb O2 Saturation 95.8 % (95-100) 11/09/21 12:03 Carboxyhemoglobin 0.5 %THgb (0.4-20.1) 11/09/21 12:03 Methemoglobin 0.5 % (0.4-1.5) 11/09/21 12:03 Total Hemoglobin 13.8 g/dL (12-16) 11/09/21 12:03 Sodium 128.0 mmol/L (131-143) L 11/09/21 12:03 Potassium 4.1 mmol/L (3.5-5.0) 11/09/21 12:03 Glucose 426.0 mg/dL (70-115) H 11/09/21 12:03 Ionized Calcium 1.1 mmol/L (1.1-1.4) 11/09/21 12:03 O2 Delivery Device Room air 11/09/21 12:03 Afternoon Babysitter ID Gd 11/09/21 12:03 Sodium 141 mmol/L (136-145) 11/12/21 04:55 Potassium 4.7 mmol/L (3.5-5.1) 11/12/21 04:55 Chloride 106 mmol/L (98-107) 11/12/21 04:55 Carbon Dioxide 24 mmol/L (22-29) 11/12/21 04:55 Anion Gap 15.7 (5-19) 11/12/21 04:55 BUN 9 mg/dL (8-23) 11/12/21 04:55 Creatinine 0.9 mg/dL (0.5-0.9) 11/12/21 04:55 GFR Calculation 63.2 mL/min (90-130) L 11/12/21 04:55 Glucose 293 mg/dL (65-115) H 11/12/21 04:55 POC Glucose 262 mg/dL (70-110) H 11/12/21 06:38 Estimat Average Glucose 318 11/10/21 05:17 Hemoglobin A1c 12.7 % (4.0-6.0) H 11/10/21 05:17 Calculated Osmolality 301 mOsm/kg (285-295) H 11/12/21 04:55 Calcium 8.1 mg/dL (8.5-10.5) L 11/12/21 04:55 Phosphorus 2.8 mg/dL (2.5-4.5) 11/10/21 05:17 Magnesium 2.0 mg/dL (1.7-2.3) 11/10/21 05:17 Total Bilirubin 0.5 mg/dL (0.15-1.2) 11/10/21 05:17 AST 22 U/L (0-32) 11/10/21 05:17 ALT 19 U/L (0-33) 11/10/21 05:17 Alkaline Phosphatase 258 U/L (35-105) H 11/10/21 05:17 Total Protein 6.9 g/dL (6.6-8.7) 11/10/21 05:17 Albumin 3.1 g/dL (3.5-5.2) L 11/10/21 05:17 Globulin 3.8 g/dL (1.3-4.6) 11/10/21 05:17 Triglycerides 311 mg/dL (0-150) H 11/10/21 05:17 Cholesterol 187 mg/dL (0-200) 11/10/21 05:17 LDL Cholesterol, Calc 102 mg/dL (50-129) 11/10/21 05:17 HDL Cholesterol 23 mg/dL (60-100) L 11/10/21 05:17 LDL/HDL Ratio 4.43 RATIO (0.00-3.22) H 11/10/21 05:17 Cholesterol/HDL Ratio 8.13 mg/dL (0.0-4.40) H 11/10/21 05:17 Lipase 25 U/L (13-60) 11/09/21 13:55 Urine Color Yellow (Yellow) 11/09/21 13:09 Urine Appearance Cloudy (CLEAR) A 11/09/21 13:09 Urine pH 5 (5-7) 11/09/21 13:09 Ur Specific [place] 1.015 (1.005-1.030) 11/09/21 13:09 Urine Protein 1+ (Negative) H 11/09/21 13:09 Urine Glucose (UA) 4+ (Normal) H 11/09/21 13:09 Urine Ketones 1+ (Negative) H 11/09/21 13:09 Urine Blood 3+ (Negative) H 11/09/21 13:09 Urine Nitrate Negative (Negative) 11/09/21 13:09 Urine Bilirubin Neg (Negative) 11/09/21 13:09 Urine Urobilinogen Norm mg/dL (Negative) 11/09/21 13:09 Ur Leukocyte Esterase Negative (Negative) 11/09/21 13:09 Urine RBC 0-4 /hpf (0-2) H 11/09/21 13:09 Urine WBC Too numerous to cnt /hpf (0-5) H 11/09/21 13:09 Ur Squamous Epith Cells 15-25 /hpf (0-5) H 11/09/21 13:09 Amorphous Sediment Not Reportable 11/09/21 13:09 Urine Bacteria 3+ /hpf (NONE) H 11/09/21 13:09 Serum Ketones Negative (Negative) 11/09/21 12:18 Vitals Last Vital Signs Temp 98.1 F 11/12/21 08:00 Pulse 73 11/12/21 08:00 Resp 17 11/12/21 08:00 BP 126/72 11/12/21 08:00 Pulse Ox 92 11/12/21 08:00 O2 Del Method 11/12/21 08:00 Discharge Plan Discharge Patient Disposition: Home Condition: Stable Prescriptions: New cefdinir 300 mg capsule 300 mg PO BID 3 Days Qty: 6 0RF Continued aspirin [Adult Aspirin Regimen] 81 mg tablet,delayed release (DR/EC) 81 mg PO DAILY acetaminophen [Tylenol] 325 mg tablet 325 mg PO TID PRN (Reason: Chronic pain) Qty: 100 3RF amlodipine 10 mg tablet 10 mg PO DAILY 30 Days Qty: 30 5RF clonidine HCl 0.1 mg tablet 0.1 mg PO BID 30 Days Qty: 60 5RF fluoxetine 10 mg capsule 10 mg PO 0800 Qty: 30 5RF fluoxetine 20 mg capsule 20 mg PO 0800 Qty: 30 5RF Novolog Flexpen U-100 Insulin 100 unit/mL (3 mL) insulin pen See Rx Instructions .ROUTE .COMPLEX MDD 60 units Qty: 15 5RF Rx Instructions: Inject insulin, subcut, 3 times daily, after meals, based on sliding scale provided Lantus Solostar U-100 Insulin 100 unit/mL (3 mL) insulin pen 30 unit SUBCUT Q12H Qty: 15 5RF olanzapine [Zyprexa] 2.5 mg tablet 2.5 mg PO BID Qty: 60 5RF Rx Instructions: May take one tablet at bedtime; may take one tablet daily as needed for anxiety/agitation pantoprazole [Protonix] 40 mg tablet,delayed release (DR/EC) 40 mg PO DAILY Qty: 30 5RF spironolactone 50 mg tablet 50 mg PO DAILY Qty: 30 5RF (DME) pen needle, diabetic [Comfort EZ Pen [place]] 32 gauge x 3/16 needle See Rx Instructions .Route Qty: 150 2RF Rx Instructions: As directed, inject insulin 5 times a day. once (DME) glucometer testing kit See Rx Instructions .Route .MEDSUPPLY Qty: 1 0RF Rx Instructions: Glucometer testing kit Lancets #100 Strips #100 Check blood sugar 3 times a day (DME) Accu-Chek Guide test strips Strip See Rx Instructions .ROUTE .COMPLEX Qty: 100 5RF Dose Instruction: USE 1 TEST STRIP THREE TIMES DAILY (E11.9) Rx Instructions: USE 1 TEST STRIP THREE TIMES DAILY (E11.9) (DME) lancets [Accu-Chek Softclix Lancets] Misc See Rx Instructions .ROUTE .COMPLEX Qty: 100 5RF Dose Instruction: USE 1 LANCET TO CHECK GLUCOSE THREE TIMES DAILY (E11.9) Rx Instructions: USE 1 LANCET TO CHECK GLUCOSE THREE TIMES DAILY (E11.9) Vitamin D3 125 mcg (5,000 unit) Tablet 125 mcg PO DAILY prednisone 20 mg tablet 40 mg PO DAILY Discharge Orders: Discharge Order (Routine); Ordered 11/12/21 Ordered By: Luis E Bro Referrals: Roscoe Chilel MD [Primary Care Provider] - Discharge Diet: Cardiac and Diabetic Discharge Activity: Resume usual activity Patient Instructions: Opioid Safety Activity Restrictions/Additional Instructions: - Take antibiotics as prescribed, monitor blood sugars closely - Discharge Attestations Time Spent in Discharge Care*: less than 30 min Quality Metrics Clinical Quality Measures [ No reported AMI, CVA or VTE this stay] Coding Level of Care Code Acute Chg FW DC note Diagnoses Pyelonephritis N12 Diabetes mellitus, type II E11.65; Z79.4 Diabetes mellitus group home insulin use: with group home use Diabetes mellitus complication status: with hyperglycemia care home current use of systemic steroids Z79.52 Temporal arteritis M31.6 Chronic kidney disease (CKD) stage G2/A2, mildly decreased glomerular filtration rate (GFR) between 60-89 mL/min/1.73 square meter and albuminuria creatinine ratio between 30-299 mg/g N18.2 Hypertension associated with chronic kidney disease due to type 2 diabetes mellitus E11.22; I12.9 Dyslipidemia (high LDL; low HDL) E78.5 GERD (gastroesophageal reflux disease) K21.9 Chronic post-traumatic stress disorder F43.12 Fibromyalgia muscle pain M79.7 Obesity (BMI 30-39.9) E66.9
[2021-11-12 11:34] LABS: Glucose Point of Care 280 mg/dL (70-110)
--- NOTE | 2021-11-12 11:51 | PC.SOCIAL ---
IMM Update pg 2 of IMM updated and reviewed w/ patient. Copy provided and Copy dated, initialed and placed in chart.
[2021-11-12 12:00] VITALS: BP 151/86; PULSE 79; RESP 17; TEMP 36.9; O2SAT 95
[2021-11-12] MEDS: cefTRIAXone 1,000 MG in sodium chloride 0.9% (plus) 50 ML 100 MG IV (13:01)
== END 2021-11-12 14:28 | disposition home or self-care (01) | DRG 690 ==
LOC: ER 12:57 → MEDSURG 15:41
PROVIDERS: Admitting Provider Hospitalist; Emergency Provider Family Medicine; PCP Family Medicine Adult Medicine; Visit Provider Family Medicine
DX: N10 Acute pyelonephritis (principal); N39.0 Urinary tract infection, site not specified; B96.20 Unspecified Escherichia coli [E. coli] as the cause of diseases classified elsewhere; M31.6 Other giant cell arteritis; E11.22 Type 2 diabetes mellitus with diabetic chronic kidney disease; E11.65 Type 2 diabetes mellitus with hyperglycemia; I12.9 Hypertensive chronic kidney disease with stage 1 through stage 4 chronic kidney disease, or unspecified chronic kidney disease; N18.2 Chronic kidney disease, stage 2 (mild); E86.0 Dehydration; R51.9 Headache, unspecified; E78.5 Hyperlipidemia, unspecified; K21.9 Gastro-esophageal reflux disease without esophagitis; M79.7 Fibromyalgia; E66.9 Obesity, unspecified; F43.12 Post-traumatic stress disorder, chronic; Z68.33 Body mass index [BMI] 33.0-33.9, adult; Z79.52 Long term (current) use of systemic steroids; Z79.4 Long term (current) use of insulin; Z87.891 Personal history of nicotine dependence; Z90.49 Acquired absence of other specified parts of digestive tract; Z86.19 Personal history of other infectious and parasitic diseases
CPT/HCPCS: 36415; 36416; 36600; 74176; 80048; 80051; 80053; 80061; 81001; 82009; 82330; 82805; 82962; 83036; 83690; 83735; 84100; 85007; 85025; 87040; 87077; 87086; 87186; 93005; 96365; 96372; 96375; 99285; J0696; J1650; J1815; J1885; J2270; J2405; J7030; J7512

== ENCOUNTER → 2022-02-28 14:57 | Outpatient (BNVA) | payer MEDICARE, SELFPAY | PROVIDERS: PCP Family Medicine Adult Medicine; Visit Provider Internal Medicine | DX: M31.6 Other giant cell arteritis (principal); N18.2 Chronic kidney disease, stage 2 (mild) | CPT/HCPCS: 99214 ==

== ENCOUNTER → 2022-03-10 12:41 | Outpatient (BNVA) | payer MEDICARE, SELFPAY | PROVIDERS: PCP Family Medicine Adult Medicine; Visit Provider Internal Medicine | DX: E11.65 Type 2 diabetes mellitus with hyperglycemia (principal); E78.5 Hyperlipidemia, unspecified; Z79.4 Long term (current) use of insulin | CPT/HCPCS: 99204 ==

== ENCOUNTER → 2022-06-08 16:02 | Outpatient (BNVA) | payer MEDICARE, SELFPAY | PROVIDERS: PCP Family Medicine Adult Medicine; Visit Provider Internal Medicine | DX: M79.7 Fibromyalgia (principal); F33.2 Major depressive disorder, recurrent severe without psychotic features; M31.6 Other giant cell arteritis; N18.2 Chronic kidney disease, stage 2 (mild); E66.9 Obesity, unspecified; Z79.52 Long term (current) use of systemic steroids | CPT/HCPCS: 99213 ==

== ENCOUNTER 2022-06-27 07:37 | Outpatient (CLI) | payer MEDICARE, SELFPAY ==
[2022-06-27 08:23] LABS: Basophils # 0.1 10^3/uL (0.0-0.1); Basophils % 0.3 %; Eosinophils # 0.1 10^3/uL (0.0-0.8); Eosinophils % 0.7 %; Hematocrit 41.2 % (37.0-47.0); Hemoglobin 12.6 g/dL (11.5-15.3); Lymphocytes # 3.8 10^3/uL (0.8-4.8); Lymphocytes % 23.7 %; Mean Corpuscular HGB Conc 30.6 g/dL (30.0-36.0); Mean Corpuscular Hemoglobin 25.9 pg (28.0-34.0); Mean Corpuscular Volume 84.6 fl (81-99); Mean Platelet Volume 9.8 fL (7.4-10.4); Monocytes # 0.7 10^3/uL (0.2-0.9); Monocytes % 4.4 %; Neutrophils # 10.95 10^3/uL (1.8-7.7); Neutrophils % 68.4 %; Nucleated Red Blood Cells % 0 %; Platelet Count 513 10^3/cmm (130-400); Red Blood Count 4.87 10^6/uL (4.1-5.3); Red Cell Distribution Width 15.6 % (12.1-15.1)
[2022-06-27 08:57] LABS: Alanine Aminotransferase 8 U/L (0-33); Albumin Level 3.6 g/dL (3.5-5.2); Alkaline Phosphatase 149 U/L (35-105); Aspartate Amino Transferase 8 U/L (0-32); Blood Urea Nitrogen 30 mg/dL (8-23); C Reactive Protein 178.6 mg/L (0.0-4.9); Calcium 9.9 mg/dL (8.5-10.5); Carbon Dioxide 18 mmol/L (22-29); Chloride 93 mmol/L (98-107); Chol HDL Ratio 4.22 mg/dL (0.0-4.40); Cholesterol 194 mg/dL (0-200); Glomerular Filtration Rate 45.4 mL/min (90-130); Glucose 291 mg/dL (65-115); HDL Cholesterol 46 mg/dL (60-100); LDL Cholesterol Calculated 90 mg/dL (50-129); LDL HDL Ratio 1.96 RATIO (0.00-3.22); Osmolality Calculated 287 mOsm/kg (285-295); Sodium 130 mmol/L (136-145); Thyroid Stimulating Hormone 4.65 uIU/mL (0.27-4.20); Total Bilirubin 0.3 mg/dL (0.15-1.2); Total Protein 7.6 g/dL (6.6-8.7); Triglycerides 288 mg/dL (0-150)
[2022-06-27 09:01] LABS: Anion Gap 22.8 (5-19); Potassium 3.8 mmol/L (3.5-5.1)
[2022-06-27 09:03] LABS: Erythrocyte Sedimentation Rate > 130 mm/hr (0-15)
[2022-06-27 09:16] LABS: Add Urine Microscopic? YES; Bilirubin Urine Neg (Negative); Blood Urine 2+ (Negative); Glucose Urine UA 2+ (Normal); Ketones Urine Negative (Negative); Leukocyte Esterase Urine 2+ (Negative); Nitrate Urine Negative (Negative); Protein Urine Neg (Negative); Specific Gravity, Urine 1.005 (1.005-1.030); Urine Appearance Clear (CLEAR); Urine Color Straw (Yellow); Urobilinogen Urine Norm (Negative); pH Urine 5 (5-7)
[2022-06-27 09:17] LABS: Add Urine Culture? Yes; Bacteria Urine 2+ /hpf; WBC Urine 40-55 /hpf (0-5)
[2022-06-27 09:24] LABS: Estmated Average Glucose 384
[2022-06-29 11:50] LABS: Quantiferon Mitogen 8.87 IU/mL; Quantiferon Nil 0.02 IU/mL; Quantiferon Plus TB1 0.01 IU/mL; Quantiferon Plus TB2 0.01 IU/mL; Quantiferon TB Gold NEGATIVE (NEGATIVE)
== END 2022-06-27 07:38 | disposition home or self-care (01) ==
LOC: LAB 07:42
PROVIDERS: PCP Family Medicine Adult Medicine; Referring Provider Internal Medicine; Visit Provider Internal Medicine
DX: E78.5 Hyperlipidemia, unspecified (principal); F33.2 Major depressive disorder, recurrent severe without psychotic features; E66.9 Obesity, unspecified; M31.6 Other giant cell arteritis; M79.7 Fibromyalgia; N18.2 Chronic kidney disease, stage 2 (mild); Z79.52 Long term (current) use of systemic steroids
CPT/HCPCS: 36415; 80053; 80061; 81001; 83036; 84443; 85025; 85651; 86140; 86480; 87077; 87086; 87186

== ENCOUNTER → 2022-09-15 10:43 | Outpatient (BNVA) | payer MEDICARE, SELFPAY | PROVIDERS: PCP Family Medicine Adult Medicine; Visit Provider Internal Medicine | DX: E11.65 Type 2 diabetes mellitus with hyperglycemia; N39.0 Urinary tract infection, site not specified; E78.5 Hyperlipidemia, unspecified; Z79.4 Long term (current) use of insulin | CPT/HCPCS: 36415; 80053; 80061; 81001; 82044; 83036; 83721; 84439; 84443; 87077; 87086; 87186; 99214 ==

== ENCOUNTER → 2022-11-10 15:56 | Outpatient (BNVA) | payer MEDICARE, SELFPAY | PROVIDERS: PCP Family Medicine Adult Medicine; Visit Provider Internal Medicine | DX: N18.2 Chronic kidney disease, stage 2 (mild) (principal); M31.6 Other giant cell arteritis | CPT/HCPCS: 36415; 80053; 85025; 85651; 86140; 99214 ==

== ENCOUNTER → 2022-12-22 09:52 | Outpatient (BNVA) | payer MEDICARE, SELFPAY | PROVIDERS: PCP Family Medicine Adult Medicine; Visit Provider Family Medicine Adult Medicine | DX: N39.0 Urinary tract infection, site not specified (principal) | CPT/HCPCS: 81000 ==

== ENCOUNTER → 2023-02-22 15:48 | Outpatient (BNVA) | payer MEDICARE, SELFPAY | PROVIDERS: PCP Family Medicine Adult Medicine; Visit Provider Internal Medicine | DX: M31.6 Other giant cell arteritis (principal); N18.2 Chronic kidney disease, stage 2 (mild) | CPT/HCPCS: 99214 ==

== ENCOUNTER 2024-02-27 09:14 | Outpatient (CLI) | payer MEDICARE, SELFPAY ==
[2024-02-27 09:50] LABS: Basophils # 0.1 10^3/uL (0.0-0.1); Eosinophils # 0.1 10^3/uL (0.0-0.8); Eosinophils % 1.3 %; Hematocrit 44.9 % (36-47); Lymphocytes # 2.6 10^3/uL (0.8-4.8); Lymphocytes % 27.4 %; Mean Corpuscular HGB Conc 31.4 g/dL (30-55); Mean Corpuscular Hemoglobin 27.8 pg (27-33); Mean Corpuscular Volume 88.6 fl (85-98); Mean Platelet Volume 9.2 fL (7.4-10.4); Monocytes # 0.7 10^3/uL (0.2-0.9); Monocytes % 7.2 %; Neutrophils # 5.79 10^3/uL (1.8-7.7); Neutrophils % 60.4 %; Nucleated Red Blood Cells % 0 %; Platelet Count 404 10^3/cmm (157-399); Red Blood Count 5.07 10^6/uL (3.85-5.65); Red Cell Distribution Width 15.1 % (12.1-15.1); White Blood Count 9.59 10^3/uL (3.29-11.43)
[2024-02-27 10:01] LABS: Estmated Average Glucose 349; Hemoglobin A1C 13.8 % (4.0-6.0)
[2024-02-27 10:12] LABS: Alanine Aminotransferase 31 U/L (0-33); Alkaline Phosphatase 191 U/L (35-105); C Reactive Protein 29.4 mg/L (0.0-4.9); Chloride 90 mmol/L (98-107); Chol HDL Ratio 4.06 mg/dL (0.0-4.40); Cholesterol 146 mg/dL (0-200); HDL Cholesterol 36 mg/dL (60-100); LDL Cholesterol Calculated 41 mg/dL (50-129); LDL HDL Ratio 1.14 RATIO (0.00-3.22); Potassium 4.5 mmol/L (3.5-5.1); Sodium 129 mmol/L (136-145); Triglycerides 346 mg/dL (0-150)
[2024-02-27 10:42] LABS: Anion Gap 24.5 (5-19); Aspartate Amino Transferase 39 U/L (0-32); Blood Urea Nitrogen 28 mg/dL (8-23); Carbon Dioxide 19 mmol/L (22-29); Globulin 3.6 g/dL (1.3-4.6); Glomerular Filtration Rate 45.1 mL/min (90-130); Osmolality Calculated 300 mOsm/kg (285-295); Total Bilirubin 0.6 mg/dL (0.15-1.2); Total Protein 7.6 g/dL (6.6-8.7)
[2024-02-27 11:17] LABS: Glucose 582 mg/dL (65-115)
[2024-02-27 12:48] LABS: 25 Hydroxy Vitamin D 33 ng/mL (30-100)
== END 2024-02-27 09:15 | disposition home or self-care (01) ==
LOC: LAB 09:15
PROVIDERS: PCP Family Medicine; Visit Provider Family Medicine
DX: M79.7 Fibromyalgia (principal); E78.5 Hyperlipidemia, unspecified; E11.22 Type 2 diabetes mellitus with diabetic chronic kidney disease; I12.9 Hypertensive chronic kidney disease with stage 1 through stage 4 chronic kidney disease, or unspecified chronic kidney disease; E11.65 Type 2 diabetes mellitus with hyperglycemia; Z79.4 Long term (current) use of insulin; K21.9 Gastro-esophageal reflux disease without esophagitis; N18.30 Chronic kidney disease, stage 3 unspecified; M31.6 Other giant cell arteritis; F33.2 Major depressive disorder, recurrent severe without psychotic features
CPT/HCPCS: 36415; 80053; 80061; 82306; 83036; 84443; 85025; 85652; 86140; 90662

== ENCOUNTER → 2024-02-28 11:38 | Outpatient (BNVA) | payer MEDICARE, SELFPAY | PROVIDERS: PCP Family Medicine; Visit Provider Internal Medicine | DX: E11.65 Type 2 diabetes mellitus with hyperglycemia (principal); Z79.4 Long term (current) use of insulin; E78.5 Hyperlipidemia, unspecified; N30.01 Acute cystitis with hematuria | CPT/HCPCS: 99214 ==

== ENCOUNTER → 2024-09-16 10:25 | Outpatient (BNVA) | payer MEDICARE, SELFPAY | PROVIDERS: PCP Family Medicine; Visit Provider Internal Medicine | DX: E11.65 Type 2 diabetes mellitus with hyperglycemia (principal); Z79.4 Long term (current) use of insulin; E11.22 Type 2 diabetes mellitus with diabetic chronic kidney disease; N18.30 Chronic kidney disease, stage 3 unspecified; E78.5 Hyperlipidemia, unspecified; N30.01 Acute cystitis with hematuria | CPT/HCPCS: 99214 ==

== ENCOUNTER 2024-12-30 04:50 | Observation (INO) | payer MEDICARE, SELFPAY ==
[2024-12-30] VITALS (62 sets, daily range): BP systolic 107–166; BP diastolic 56–132; PULSE 55–85; RESP 13–33; TEMP 36.2–37.4; O2SAT 87–95; BMI 39.0; BMI 37.3
--- NOTE | 2024-12-30 04:56 | XRR_ITS ---
PROCEDURE INFORMATION: Exam: XR Chest Exam date and time: 12/30/2024 05:06 AM Age: 64 years old Clinical indication: Pain; Angina pectoris; Additional info: Cp TECHNIQUE: Imaging protocol: Radiologic exam of the chest. Views: 1 view. COMPARISON: CR XR chest 1V portable [id number] 12/30/2019 08:27 AM FINDINGS: Lungs: Unremarkable. No consolidation. Pleural spaces: Unremarkable. No pleural effusion. No pneumothorax. Heart/Mediastinum: Unremarkable. No cardiomegaly. Bones/joints: Unremarkable. XR/XR chest 1V portable [id number] IMPRESSION: No acute findings.
--- NOTE | 2024-12-30 04:56 | ECG_ITS ---
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 Measurements Intervals [place] Rate: 78 P: 77 CT: 170 QRS: 35 QRSD: 102 T: 49 QT: 396 QTc: 453 Interpretive Statements SINUS RHYTHM Compared to ECG 11/09/2021 12:16:51 No significant changes Electronically Signed On 12-30-2024 10:31:43 CHARGER OPERATOR by Marisol Song M.D. [email or web address] [id number]
--- OUTSIDE RECORDS SUMMARY | 2024-12-30 04:58 | XMS_ITS | Encounter Summary ---
Author Organization [facility] Address [address] [place] [address] Care Team Providers Care Ferry Terminal Supervisor Name Role Phone Unavailable Primary Care Provider Unavailabl e Encounter Details Date Type Department Care Team (Latest Contact Info) Description 08/16/1999 Outpatient Historical [facility] Umesh Petersen, Mark Alvares MD [address] [place] [phone] Edema (Primary Dx) Social History Tobacco Use Types Packs/Day Years Used Date Smoking Tobacco: Never Assessed Comments Unknown Sex and Gender Information Value Date Recorded Sex Assigned at Not on file Legal 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
--- OUTSIDE RECORDS SUMMARY | 2024-12-30 04:58 | XMS_ITS | Encounter Summary ---
Author Organization [facility] Address [address] [place] [address] Care Team Providers Care Regional Facilities Specialist Name Role Phone Unavailable Primary Care Provider Unavailabl e Encounter Details Date Type Department Care Team (Latest Contact Info) Description 07/22/2002 Outpatient Historical [facility] Umesh Petersen, Mark Alvares MD [address] [place] [phone] GASTROINTEST HEMORR NOS (Primary Dx) Social History Tobacco Use Types Packs/Day Years Used Date Smoking Tobacco: Never Assessed Comments Unknown Sex and Gender Information Value Date Recorded Sex Assigned at Not on file 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
--- OUTSIDE RECORDS SUMMARY | 2024-12-30 04:58 | XMS_ITS | Encounter Summary ---
Author Organization [facility] Address [address] [place] [address] Care Team Providers Care Network Operations Project Manager Name Role Phone Unavailable Primary Care Provider Unavailabl e Encounter Details Date Type Department Care Team (Latest Contact Info) Description 12/21/1999 Outpatient Historical [facility] Elijah Dangelo MD [address] [place] [phone] Sprain lumbosacral (Primary Dx); Sacroiliitis, not elsewhere classified Social History Tobacco Use Types Packs/Day Years Used Date Smoking Tobacco: Never Assessed Comments Unknown Sex and Gender Information Value Date Recorded Sex Assigned at Not on file Legal Sex Female 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
--- OUTSIDE RECORDS SUMMARY | 2024-12-30 04:58 | XMS_ITS | Encounter Summary ---
Author Organization [facility] Address [address] [place] [address] Care Team Providers Care Registered Midwife Name Role Phone Unavailable Primary Care Provider Unavailabl e Encounter Details Date Type Department Care Team (Latest Contact Info) Description 01/19/2000 Outpatient Historical [facility] Umesh Petersen, Mark Alvares MD [address] [place] [phone] Hematuria (Primary Dx); Nausea alone Social History Tobacco Use Types Packs/Day Years Used Date Smoking Tobacco: Never Assessed Comments Unknown Sex and Gender Information Value Date Recorded Sex Assigned at Not on file Legal Sex Female 4:48 AM 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
--- OUTSIDE RECORDS SUMMARY | 2024-12-30 04:58 | XMS_ITS | Encounter Summary ---
Author Organization [facility] Address [address] [place] [address] Care Team Providers Care Colored Liquid Plastic Applier Name Role Phone Unavailable Primary Care Provider Unavailabl e Encounter Details Date Type Department Care Team (Latest Contact Info) Description 09/13/2000 Outpatient Historical HIS [facility] Jose J Smith NO ADDRESS ON FILE Abn Pap Smear-Cervix (Primary Dx); Screening for malignant neoplasm of the cervix; Dysuria Social History Tobacco Use Types Packs/Day Years Used Date Smoking Tobacco: Never Assessed Comments Unknown Sex and Gender Information Value Date Recorded Sex Assigned at Not on file Legal Sex Female 4:48 AM CANE LOADER Gender Identity Not on file Sexual Orientation Not on file documented as of this encounter Plan of Treatment Not on file documented as of this encounter Visit Diagnoses Diagnosis Abn Pap Smear-Cervix- Primary Abnormal Papanicolaou smear of cervix and cervical HPV Screening for malignant neoplasm of the cervix Dysuria documented in this encounter
--- OUTSIDE RECORDS SUMMARY | 2024-12-30 04:58 | XMS_ITS | Encounter Summary ---
Author Organization [facility] Address [address] [place] [address] Care Team Providers Care Model Maker Apprentice Name Role Phone Unavailable Primary Care Provider Unavailabl e Encounter Details Date Type Department Care Team (Latest Contact Info) Description 05/16/2002 Outpatient Historical HIS [facility] Mark Calvo Jr., MD [address] [place] [address] Routine medical exam (Primary Dx); SCREENING FOR COND NEC; OSTEOARTHROS NOS-L/LEG; SCREENING-ENDOC/NUT/ MET/IMMUN OTHER; SCREENING-LIPOID DISORDERS; SCREENING-THYROID DISORDER Social History Tobacco Use Types Packs/Day Years Used Date Smoking Tobacco: Never Assessed Comments Unknown Sex and Gender Information Value Date Recorded Sex Assigned at Not on file Legal Sex Female 4:48 AM CHANNEL EXECUTIVE Gender Identity Not on file Sexual Orientation Not on file documented as of this encounter Plan of Treatment Not on file documented as of this encounter Visit Diagnoses Diagnosis Routine medical exam- Primary Routine general medical examination at a health care facility Screening for other and unspecified genitourinary condition Osteoarthrosis, unspecified whether generalized or localized, lower leg Screening for other and unspecified endocrine, nutritional, metabolic, and immunity disorders Screening for lipoid disorders Screening for thyroid disorder documented in this encounter
--- OUTSIDE RECORDS SUMMARY | 2024-12-30 04:58 | XMS_ITS | Encounter Summary ---
Author Organization [facility] Address [address] [place] [address] Care Team Providers Care Anodiser Name Role Phone Unavailable Primary Care Provider Unavailabl e Encounter Details Date Type Department Care Team (Latest Contact Info) Description 11/02/2000 Outpatient Historical HIS [facility] Umesh Petersen, Mark Alvares MD [address] [place] [phone] Hematuria (Primary Dx) Social History Tobacco Use Types Packs/Day Years Used Date Smoking Tobacco: Never Assessed Comments Unknown Sex and Gender Information Value Date Recorded Sex Assigned at Not on file Legal Sex Female 4:48 AM STACKER AND SORTER OPERATOR Gender Identity Not on file Sexual Orientation Not on file documented as of this encounter Plan of Treatment Not on file documented as of this encounter Visit Diagnoses Diagnosis Hematuria- Primary documented in this encounter
--- OUTSIDE RECORDS SUMMARY | 2024-12-30 04:58 | XMS_ITS | Encounter Summary ---
Author Organization [facility] Address [address] [place] [address] Care Team Providers Care Kiln Puller Name Role Phone Unavailable Primary Care Provider Unavailabl e Encounter Details Date Type Department Care Team (Latest Contact Info) Description 12/04/1997 Outpatient Historical HIS [facility] Umesh Petersen, Mark Alvares MD [address] [place] [phone] Cervicalgia (Primary Dx); Mononeuritis of unspecified site Social History Tobacco Use Types Packs/Day Years Used Date Smoking Tobacco: Never Assessed Comments Unknown Sex and Gender Information Value Date Recorded Sex Assigned at Not on file Legal Sex Female 4:48 AM LENS GRINDER ROUGH Gender Identity Not on file Sexual Orientation Not on file documented as of this encounter Plan of Treatment Not on file documented as of this encounter Visit Diagnoses Diagnosis Cervicalgia- Primary Mononeuritis of unspecified site documented in this encounter
--- OUTSIDE RECORDS SUMMARY | 2024-12-30 04:58 | XMS_ITS | Encounter Summary ---
Author Organization [facility] Address [address] [place] [address] Care Team Providers Care Oversize Load Pilot Escort Name Role Phone Unavailable Primary Care Provider Unavailabl e Encounter Details Date Type Department Care Team (Latest Contact Info) Description 06/04/1998 Outpatient Historical HIS [facility] Umesh Petersen, Mark Alvares MD [address] [place] [phone] Diffus cystic mastopathy (Primary Dx) Social History Tobacco Use Types Packs/Day Years Used Date Smoking Tobacco: Never Assessed Comments Unknown Sex and Gender Information Value Date Recorded Sex Assigned at Not on file Legal Sex Female 4:48 AM CANCELLATION CLERK Gender Identity Not on file Sexual Orientation Not on file documented as of this encounter Plan of Treatment Not on file documented as of this encounter Visit Diagnoses Diagnosis Diffus cystic mastopathy- Primary Diffuse cystic mastopathy documented in this encounter
--- OUTSIDE RECORDS SUMMARY | 2024-12-30 04:58 | XMS_ITS | Encounter Summary ---
Author Organization [facility] Address [address] [place] [address] Care Team Providers Care Order Selector Name Role Phone Unavailable Primary Care Provider Unavailabl e Encounter Details Date Type Department Care Team (Latest Contact Info) Description 02/24/2000 Outpatient Historical [facility]- [facility] [place] [address] [place] [phone] Андрей Arita, [address] [facility] [address] [place] [address] Other and unspecified nonspecific immunological findings (Primary Dx); Pain in joint, hand; Hematuria Social History Tobacco Use Types Packs/Day Years Used Date Smoking Tobacco: Never Assessed Comments Unknown Sex and Gender Information Value Date Recorded Sex Assigned at Not on file Legal Sex Female 4:48 AM PASSENGER CAR INSPECTOR Gender Identity Not on file Sexual Orientation Not on file documented as of this encounter Plan of Treatment Not on file documented as of this encounter Visit Diagnoses Diagnosis Other and unspecified nonspecific immunological findings- Primary Pain in joint, hand Hematuria documented in this encounter
--- OUTSIDE RECORDS SUMMARY | 2024-12-30 04:58 | XMS_ITS | Encounter Summary ---
Author Organization [facility] Address [address] [place] [address] Care Team Providers Care Neurophysiological Technician Name Role Phone Unavailable Primary Care Provider Unavailabl e Encounter Details Date Type Department Care Team (Latest Contact Info) Description 06/19/2001 Outpatient Historical HIS [facility] Woody Pearce MD [address] [place], [place] [phone] ACUTE BRONCHITIS (Primary Dx); CHEST PAIN NEC Social History Tobacco Use Types Packs/Day Years Used Date Smoking Tobacco: Never Assessed Comments Unknown Sex and Gender Information Value Date Recorded Sex Assigned at Not on file Legal Sex Female 4:48 AM LIBRARIAN SPECIALIST Gender Identity Not on file Sexual Orientation Not on file documented as of this encounter Plan of Treatment Not on file documented as of this encounter Visit Diagnoses Diagnosis Acute bronchitis- Primary Other chest pain documented in this encounter
--- OUTSIDE RECORDS SUMMARY | 2024-12-30 04:58 | XMS_ITS | Clinical Summary ---
Author Organization [facility] Address [address] [place]: Epic Prelude ADT [place] [address] Care Team Providers Care Design Coordinator Name Role Phone Unavailable Primary Care Provider Unavailabl e Social History Tobacco Use Types Packs/Day Years Used Date Smoking Tobacco: Never Assessed Comments Unknown Sex and Gender Information Value Date Recorded Sex Assigned at Not on file Legal Sex Female 4:48 AM AIRPORT SCREENER Gender Identity Not on file Sexual Orientation Not on file Plan of Treatment Health Maintenance Due Date Last Done Comments DTAP/TDAP/TD VACCINES (1 - Tdap) 1977 BREAST CANCER SCREENING 1998 COLORECTAL SCREENING 07/09/2003 Colorectal Cancer Screening 07/09/2003 FIT-DNA Q 3 years 07/09/2003 FIT/FOBT Q 1 year 07/09/2003 06/15/2000, 08/09/1999 Flex Sig/CT Colonography Q 5 years 07/09/2003 PNEUMOCOCCAL VACCINE 50+ YEA RS (1 of 1 - PCV) 2008 ZOSTER VACCINE (1 of 2) 2008 OSTEOPOROSIS SCREENING 07/09/2023 INFLUENZA VACCINE (#1) 2024 RSV VACCINE (60+ or ) (1 - 1-dose 75+ series) 2033
--- OUTSIDE RECORDS SUMMARY | 2024-12-30 04:58 | XMS_ITS | Encounter Summary ---
Author Organization [facility] Address [address] [place] [address] Care Team Providers Care Sugar Refiner Name Role Phone Unavailable Primary Care Provider Unavailabl e Encounter Details Date Type Department Care Team (Latest Contact Info) Description 01/11/1999 Outpatient Historical HIS [facility] Umesh Petersen, Mark Alvares MD [address] [place] [phone] Headache(784.0) (Primary Dx) Social History Tobacco Use Types Packs/Day Years Used Date Smoking Tobacco: Never Assessed Comments Unknown Sex and Gender Information Value Date Recorded Sex Assigned at Not on file Legal Sex Female 4:48 AM SAFETY TECH Gender Identity Not on file Sexual Orientation Not on file documented as of this encounter Plan of Treatment Not on file documented as of this encounter Visit Diagnoses Diagnosis Headache(784.0)- Primary Headache documented in this encounter
--- OUTSIDE RECORDS SUMMARY | 2024-12-30 04:58 | XMS_ITS | Encounter Summary ---
Author Organization [facility] Address [address] [place] [address] Care Team Providers Care Certified Appliance Service Technician Name Role Phone Unavailable Primary Care Provider Unavailabl e Encounter Details Date Type Department Care Team (Latest Contact Info) Description 06/24/1999 Outpatient Historical HIS [facility] Umesh Petersen, Mark Alvares MD [address] [place] [phone] Calculus of bile duct without mention of cholecystitis or obstruction (Primary Dx) Social History Tobacco Use Types Packs/Day Years Used Date Smoking Tobacco: Never Assessed Comments Unknown Sex and Gender Information Value Date Recorded Sex Assigned at Not on file Legal Sex Female 4:48 AM BREAD PACKER Gender Identity Not on file Sexual Orientation Not on file documented as of this encounter Plan of Treatment Not on file documented as of this encounter Visit Diagnoses Diagnosis Calculus of bile duct without mention of cholecystitis or obstruction- Primary documented in this encounter
--- OUTSIDE RECORDS SUMMARY | 2024-12-30 04:58 | XMS_ITS | Encounter Summary ---
Author Organization [facility] Address [address] [place] [address] Care Team Providers Care Space Systems Operations Manager Name Role Phone Unavailable Primary Care Provider Unavailabl e Encounter Details Date Type Department Care Team (Late st Contact Info) Description 07/23/2002 Outpatient Historical HIS [facility] Umesh Petersen, Mark Alvares MD [address] [place] [phone] Social History Tobacco Use Types Packs/Day Years Used Date Smoking Tobacco: Never Assessed Comments Unknown Sex and Gender Information Value Date Recorded Sex Assigned at Not on file Legal Sex Female 4:48 AM PRODUCT APPLICATIONS SCIENTIST Gender Identity Not on file Sexual Orientation Not on file documented as of this encounter Plan of Treatment Not on file documented as of this encounter Visit Diagnoses Not on filedocumented in this encounter
--- OUTSIDE RECORDS SUMMARY | 2024-12-30 04:58 | XMS_ITS | Encounter Summary ---
Author Organization [facility] Address [address] [place] [address] Care Team Providers Care Reliability Technicians Name Role Phone Unavailable Primary Care Provider Unavailabl e Encounter Details Date Type Department Care Team (Latest Contact Info) Description 07/23/2002 Outpatient Historical HIS [facility] Umesh Petersen, Mark Alvares MD [address] [place] [phone] GASTROINTEST HEMORR NOS (Primary Dx); Pure hypercholesterolem; AFTERCARE CORRECTION USE MEDICATN Social History Tobacco Use Types Packs/Day Years Used Date Smoking Tobacco: Never Assessed Comments Unknown Sex and Gender Information Value Date Recorded Sex Assigned at Not on file Legal Sex Female 4:48 AM LINE SUPERVISOR Gender Identity Not on file Sexual Orientation Not on file documented as of this encounter Plan of Treatment Not on file documented as of this encounter Visit Diagnoses Diagnosis Hemorrhage of gastrointestinal tract, unspecified- Primary Pure hypercholesterolem Pure hypercholesterolemia Encounter for long-term (current) use of other medications documented in this encounter
--- OUTSIDE RECORDS SUMMARY | 2024-12-30 04:58 | XMS_ITS | Encounter Summary ---
Author Organization [facility] Address [address] [place] [address] Care Team Providers Care Productivity Engineer Name Role Phone Unavailable Primary Care Provider Unavailabl e Encounter Details Date Type Department Care Team (Latest Contact Info) Description 09/29/1999 Outpatient Historical HIS [facility] Jose J Smith NO ADDRESS ON FILE Panic disorder without agoraphobia (Primary Dx) Social History Tobacco Use Types Packs/Day Years Used Date Smoking Tobacco: Never Assessed Comments Unknown Sex and Gender Information Value Date Recorded Sex Assigned at Not on file Legal Sex Female 4:48 AM PUBLICATION MANAGER Gender Identity Not on file Sexual Orientation Not on file documented as of this encounter Plan of Treatment Not on file documented as of this encounter Visit Diagnoses Diagnosis Panic disorder without agoraphobia- Primary documented in this encounter
--- OUTSIDE RECORDS SUMMARY | 2024-12-30 04:58 | XMS_ITS | Encounter Summary ---
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
--- OUTSIDE RECORDS SUMMARY | 2024-12-30 04:58 | XMS_ITS | Encounter Summary ---
Author Organization [employer] [facility] Address [address] [place] [address] Care Team Providers Care Corporate Executive Chef Name Role Phone Unavailable Primary Care Provider Unavailabl e Encounter Details Date Type Department Care Team (Latest Contact Info) Description 05/24/1999 Outpatient Historical HIS [facility] Elijah Dangelo MD [address] [place] [phone] Lump or mass in breast (Primary Dx); Vaginitis and vulvovaginitis, unspecified; Candidiasis of vulva and vagina; Screening for malignant neoplasm of the cervix Social History Tobacco Use Types Packs/Day Years Used Date Smoking Tobacco: Never Assessed Comments Unknown Sex and Gender Information Value Date Recorded Sex Assigned at Not on file Legal Sex Female 4:48 AM BICYCLE FITTER Gender Identity Not on file Sexual Orientation Not on file documented as of this encounter Plan of Treatment Not on file documented as of this encounter Visit Diagnoses Diagnosis Lump or mass in breast- Primary Vaginitis and vulvovaginitis, unspecified Candidiasis of vulva and vagina Screening for malignant neoplasm of the cervix documented in this encounter
--- OUTSIDE RECORDS SUMMARY | 2024-12-30 04:58 | XMS_ITS | Encounter Summary ---
Author Organization [facility] Address [address] [place] [address] Care Team Providers Care Basket Operator Name Role Phone Unavailable Primary Care Provider Unavailabl e Encounter Details Date Type Department Care Team (Latest Contact Info) Description 03/08/2000 Outpatient Historical HIS [facility] Umesh Petersen, Mark Alvares MD [address] [place] [phone] Other and unspecified nonspecific immunological findings (Primary Dx); Hematuria; Pain in joint, hand Social History Tobacco Use Types Packs/Day Years Used Date Smoking Tobacco: Never Assessed Comments Unknown Sex and Gender Information Value Date Recorded Sex Assigned at Not on file Legal Sex Female 4:48 AM HYPO DIPPER Gender Identity Not on file Sexual Orientation Not on file documented as of this encounter Plan of Treatment Not on file documented as of this encounter Visit Diagnoses Diagnosis Other and unspecified nonspecific immunological findings- Primary Hematuria Pain in joint, hand documented in this encounter
--- OUTSIDE RECORDS SUMMARY | 2024-12-30 04:58 | XMS_ITS | Encounter Summary ---
Author Organization [facility] Address [address] [place] [address] Care Team Providers Care Haul Truck Driver Name Role Phone Unavailable Primary Care Provider Unavailabl e Encounter Details Date Type Department Care Team (Late st Contact Info) Description 02/24/2000 Outpatient Historical HIS [facility] Андрей Arita DO [address] [facility] [address] [place] [address] Other and unspecified nonspecific immunological findings (Primary Dx) Social History Tobacco Use Types Packs/Day Years Used Date Smoking Tobacco: Never Assessed Comments Unknown Sex and Gender Information Value Date Recorded Sex Assigned at Not on file Legal Sex Female 4:48 AM INSOLE TOE SNIPPING MACHINE OPERATOR Gender Identity Not on file Sexual Orientation Not on file documented as of this encounter Plan of Treatment Not on file documented as of this encounter Visit Diagnoses Diagnosis Other and unspecified nonspecific immunological findings- Primary documented in this encounter
--- OUTSIDE RECORDS SUMMARY | 2024-12-30 04:58 | XMS_ITS | Encounter Summary ---
Author Organization [facility] Address [address] [place] [address] Care Team Providers Care Balancer Scale Name Role Phone Unavailable Primary Care Provider Unavailabl e Encounter Details Date Type Department Care Team (Late st Contact Info) Description 11/04/[address] [facility] Oral and Maxillo Surgery- [address] [place] [address] Social History Tobacco Use Types Packs/Day Years Used Date Smoking Tobacco: Never Assessed Comments Unknown Sex and Gender Information Value Date Recorded Sex Assigned at Not on file Legal Sex Female 4:48 AM POWER LINEMAN TECHNICIAN Gender Identity Not on file Sexual Orientation Not on file documented as of this encounter Plan of Treatment Not on file documented as of this encounter Visit Diagnoses Not on filedocumented in this encounter
--- OUTSIDE RECORDS SUMMARY | 2024-12-30 04:58 | XMS_ITS | Encounter Summary ---
Author Organization [facility] Address [address] [place] [address] Care Team Providers Care Rail Loader Name Role Phone Unavailable Primary Care Provider Unavailabl e Encounter Details Date Type Department Care Team (Latest Contact Info) Description 08/09/1999 Outpatient Historical HIS [facility] Umesh Petersen, Mark Alvares MD [address] [place] [phone] Diverticulitis of colon (Primary Dx) Social History Tobacco Use Types Packs/Day Years Used Date Smoking Tobacco: Never Assessed Comments Unknown Sex and Gender Information Value Date Recorded Sex Assigned at Not on file Legal Sex Female 4:48 AM INSPECTOR ALUMINUM BOAT Gender Identity Not on file Sexual Orientation Not on file documented as of this encounter Plan of Treatment Not on file documented as of this encounter Visit Diagnoses Diagnosis Diverticulitis of colon- Primary Diverticulitis of colon (without mention of hemorrhage) documented in this encounter
--- OUTSIDE RECORDS SUMMARY | 2024-12-30 04:58 | XMS_ITS | Encounter Summary ---
Author Organization [facility] Address [address] [place] [address] Care Team Providers Care Foot Setter Name Role Phone Unavailable Primary Care Provider Unavailabl e Encounter Details Date Type Department Care Team (Latest Contact Info) Description 06/07/1999 Outpatient Historical HIS [facility] Jude Roca MD [address] [facility] [address] [place] [address] Follow-up examination following surgery (Primary Dx) Social History Tobacco Use Types Packs/Day Years Used Date Smoking Tobacco: Never Assessed Comments Unknown Sex and Gender Information Value Date Recorded Sex Assigned at Not on file Legal Sex Female 4:48 AM CHURN OPERATOR Gender Identity Not on file Sexual Orientation Not on file documented as of this encounter Plan of Treatment Not on file documented as of this encounter Visit Diagnoses Diagnosis Follow-up examination following surgery- Primary documented in this encounter
--- OUTSIDE RECORDS SUMMARY | 2024-12-30 04:58 | XMS_ITS | Encounter Summary ---
Author Organization [facility] Address [address] [place] [address] Care Team Providers Care Manager Gaming Name Role Phone Unavailable Primary Care Provider Unavailabl e Encounter Details Date Type Department Care Team (Latest Contact Info) Description 01/10/2001 Outpatient Historical HIS [facility] Umesh Petersen, Mark Alvares MD [address] [place] [phone] ACUTE SINUSITIS NOS (Primary Dx); BRONCHITIS NOS Social History Tobacco Use Types Packs/Day Years Used Date Smoking Tobacco: Never Assessed Comments Unknown Sex and Gender Information Value Date Recorded Sex Assigned at Not on file Legal Sex Female 4:48 AM INTEGRATION MANAGER Gender Identity Not on file Sexual Orientation Not on file documented as of this encounter Plan of Treatment Not on file documented as of this encounter Visit Diagnoses Diagnosis Acute sinusitis, unspecified- Primary Bronchitis, not specified as acute or chronic documented in this encounter
--- OUTSIDE RECORDS SUMMARY | 2024-12-30 04:58 | XMS_ITS | Encounter Summary ---
Author Organization [facility] Address [address] [place] [address] Care Team Providers Care Mis Director Name Role Phone Unavailable Primary Care Provider Unavailabl e Encounter Details Date Type Department Care Team (Latest Contact Info) Description 07/13/2000 Outpatient Historical HIS [facility] Mark Calvo Jr., MD [address] [place] [phone] Plantar fibromatosis (Primary Dx); Tension headache; Pain in limb Social History Tobacco Use Types Packs/Day Years Used Date Smoking Tobacco: Never Assessed Comments Unknown Sex and Gender Information Value Date Recorded Sex Assigned at Not on file Legal Sex Female 4:48 AM PASTRY WRAPPER Gender Identity Not on file Sexual Orientation Not on file documented as of this encounter Plan of Treatment Not on file documented as of this encounter Visit Diagnoses Diagnosis Plantar fibromatosis- Primary Plantar fascial fibromatosis Tension headache Pain in limb Pain in soft tissues of limb documented in this encounter
--- OUTSIDE RECORDS SUMMARY | 2024-12-30 04:58 | XMS_ITS | Encounter Summary ---
Author Organization [facility] Address [address] [place] [address] Care Team Providers Care Cargo And Container Inspector Name Role Phone Unavailable Primary Care Provider Unavailabl e Encounter Details Date Type Department Care Team (Late st Contact Info) Description 10/22/1999 Outpatient Historical [facility] Oral and Maxillo Surgery- [address] [phone] Social History Tobacco Use Types Packs/Day Years Used Date Smoking Tobacco: Never Assessed Comments Unknown Sex and Gender Information Value Date Recorded Sex Assigned at Not on file Legal Sex Female 4:48 AM DRAWBENCH OPERATOR HELPER Gender Identity Not on file Sexual Orientation Not on file documented as of this encounter Plan of Treatment Not on file documented as of this encounter Visit Diagnoses Not on filedocumented in this encounter
--- OUTSIDE RECORDS SUMMARY | 2024-12-30 04:58 | XMS_ITS | Encounter Summary ---
Author Organization [facility] Address [address] [place] [address] Care Team Providers Care Department Sales Manager Name Role Phone Unavailable Primary Care Provider Unavailabl e Encounter Details Date Type Department Care Team (Latest Contact Info) Description 09/12/2001 Outpatient Historical HIS [facility] Woody Pearce MD [address] [place], [place] [phone] PRURITIC DISORDER NOS (Primary Dx) Social History Tobacco Use Types Packs/Day Years Used Date Smoking Tobacco: Never Assessed Comments Unknown Sex and Gender Information Value Date Recorded Sex Assigned at Not on file Legal Sex Female 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
--- OUTSIDE RECORDS SUMMARY | 2024-12-30 04:58 | XMS_ITS | Encounter Summary ---
Author Organization [facility] Address [address] [place] [address] Care Team Providers Care Operations Lead Name Role Phone Unavailable Primary Care Provider Unavailabl e Encounter Details Date Type Department Care Team (Latest Contact Info) Description 06/02/1999 Outpatient Historical HIS [facility] Jude Roca MD [address] [facility] [address] [place] [address] Lump or mass in breast (Primary Dx) Social History Tobacco Use Types Packs/Day Years Used Date Smoking Tobacco: Never Assessed Comments Unknown Sex and Gender Information Value Date Recorded Sex Assigned at Not on file Legal Sex Female 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
--- OUTSIDE RECORDS SUMMARY | 2024-12-30 04:58 | XMS_ITS | Encounter Summary ---
Author Organization [facility] Address [address] [place] [address] Care Team Providers Care Fisher Weir Name Role Phone Unavailable Primary Care Provider Unavailabl e Encounter Details Date Type Department Care Team (Latest Contact Info) Description 01/19/1998 Outpatient Historical HIS [facility] Mark Calvo Jr., MD [address] [place] [phone] Synovitis and tenosynovitis, unspecified (Primary Dx) Social History Tobacco Use Types Packs/Day Years Used Date Smoking Tobacco: Never Assessed Comments Unknown Sex and Gender Information Value Date Recorded Sex Assigned at Not on file Legal Sex Female 4:48 AM ASSISTANT NEWS DIRECTOR Gender Identity Not on file Sexual Orientation Not on file documented as of this encounter Plan of Treatment Not on file documented as of this encounter Visit Diagnoses Diagnosis Synovitis and tenosynovitis, unspecified- Primary documented in this encounter
--- OUTSIDE RECORDS SUMMARY | 2024-12-30 04:58 | XMS_ITS | Encounter Summary ---
Author Organization [facility] Address [address] [place] [address] Care Team Providers Care Door To Door Salesman Name Role Phone Unavailable Primary Care Provider Unavailabl e Encounter Details Date Type Department Care Team (Latest Contact Info) Description 10/29/1999 Outpatient Historical HIS [facility] Elijah Dangelo MD [address] [place] [phone] Ingrowing nail (Primary Dx); Dermatophytosis of nail Social History Tobacco Use Types Packs/Day Years Used Date Smoking Tobacco: Never Assessed Comments Unknown Sex and Gender Information Value Date Recorded Sex Assigned at Not on file Legal Sex Female 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
--- OUTSIDE RECORDS SUMMARY | 2024-12-30 04:58 | XMS_ITS | Encounter Summary ---
Author Organization [facility] Address [address] [place] [address] Care Team Providers Care Stereo Equipment Installer Name Role Phone Unavailable Primary Care Provider Unavailabl e Encounter Details Date Type Department Care Team (Latest Contact Info) Description 06/23/2000 Outpatient Historical HIS [facility] Mark Calvo Jr., MD [address] [place] [address] Headache(784.0) (Primary Dx); Gout, unspecified; Myalgia and myositis, unspecified; Hematuria Social History Tobacco Use Types Packs/Day Years Used Date Smoking Tobacco: Never Assessed Comments Unknown Sex and Gender Information Value Date Recorded Sex Assigned at Not on file Legal Sex Female 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
--- OUTSIDE RECORDS SUMMARY | 2024-12-30 04:58 | XMS_ITS | Encounter Summary ---
Author Organization [facility] Address [address] [place] [address] Care Team Providers Care Estimator Printing Name Role Phone Unavailable Primary Care Provider Unavailabl e Encounter Details Date Type Department Care Team (Latest Contact Info) Description 07/31/2000 Outpatient Historical HIS [facility] Umesh Petersen, Mark Alvares MD [address] [place] [phone] Hematuria (Primary Dx) Social History Tobacco Use Types Packs/Day Years Used Date Smoking Tobacco: Never Assessed Comments Unknown Sex and Gender Information Value Date Recorded Sex Assigned at Not on file Legal Sex Female 4:48 AM DREDGING INSPECTOR Gender Identity Not on file Sexual Orientation Not on file documented as of this encounter Plan of Treatment Not on file documented as of this encounter Visit Diagnoses Diagnosis Hematuria- Primary documented in this encounter
--- OUTSIDE RECORDS SUMMARY | 2024-12-30 04:58 | XMS_ITS | Encounter Summary ---
Author Organization [email or web address] Address [address] [place] [address] Care Team Providers Care Service Liaison Representative Name Role Phone Unavailable Primary Care Provider Unavailabl e Encounter Details Date Type Department Care Team (Latest Contact Info) Description 04/09/2001 Outpatient Historical HIS [facility] Umesh Petersen, Mark Alvares MD [address] [place] [phone] UNCERTAIN BEHAV NEOPL SKIN (Primary Dx) Social History Tobacco Use Types Packs/Day Years Used Date Smoking Tobacco: Never Assessed Comments Unknown Sex and Gender Information Value Date Recorded Sex Assigned at Not on file Legal Sex Female 4: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
--- OUTSIDE RECORDS SUMMARY | 2024-12-30 04:58 | XMS_ITS | Encounter Summary ---
Author Organization [facility] Address [address] [place] [address] Care Team Providers Care Inventory Control Supervisor Name Role Phone Unavailable Primary Care Provider Unavailabl e Encounter Details Date Type Department Care Team (Late st Contact Info) Description 05/16/2002 Outpatient Historical HIS [facility] Umesh Petersen, Mark Alvares MD [address] [place] [phone] Social History Tobacco Use Types Packs/Day Years Used Date Smoking Tobacco: Never Assessed Comments Unknown Sex and Gender Information Value Date Recorded Sex Assigned at Not on file Legal Sex Female 4: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
--- OUTSIDE RECORDS SUMMARY | 2024-12-30 04:59 | XMS_ITS | Patient Health Record ---
Author Organization [facility] Address [address] [place] [address] Care Team Providers Care Slide Fastener Chain Assembler Name Role Phone Chaz Santiago Primary Care Provider [phone] Mark Calvo Unavailable [phone] Allergies Allergen (clinical drug ingredient) Drug/Non Drug Allergy documented on EMR Reaction Allergy Type Onset Date Status Benzoin Unknown Drug Allergy 04/16/2003 Active ciprofloxacin Cipro Unknown Drug Allergy 02/11/2008 Ac tive midazolam Midazolam HCl Unknown Drug Allergy 04/16/2003 Ac tive Stadol Unknown Drug Allergy 04/16/2003 Active tramadol Ultram Unknown Drug Allergy 04/16/2003 Active Substance with sulfonamide structure and antibacterial mechanism of action (substance) Sulfa Antibiotics Unknown Drug Allergy 04/16/2003 Active Reason For Referral No Information Medications Medication SIG (Take, Route, Frequency, Duration) Notes Start Date End Date Status Vitamin D3 125 MCG (5000 UT) Capsule 1 capsule Orally Once a day; Duration: 90 days needs Vitamin D level rechecked in 90 days 01/24/2020 Active Vascepa 1 GM Capsule 2 capsules with meals Orally Twice a day; Duration: 30 day(s) 01/24/2020 Active Atorvastatin Calcium 10 MG Tablet 1 tablet Orally Once a day; Duration: 30 day(s) 01/24/2020 Active hydrOXYzine HCl 25 MG Tablet 1 tablet as needed Orally every 8 hrs [facility] Active Aspirin 81 81 MG Tablet Delayed Release 1 tablet Orally Once a day; Duration: 30 day(s) 01/24/2020 Active OLANZapine 5 MG Tablet 1 tablet Orally Once a day [facility] Active Doxycycline Hyclate 100 MG Tablet 1 tablet Orally Twice a day; Duration: 7 days 02/04/2020 Active Melatonin 5 MG Tablet 1 tablet in the evening Orally Once a day OTC Active Cane - Miscellaneous as directed Needs cane for ambulation Dx: M25.562 Acute pain left knee 01/23/2020 Active guaiFENesin 600 MG Tablet Extended Release 1 tablet as needed Orally every 4 hrs; Duration: 14 days 02/04/2020 Active PROzac 20 MG Capsule 1 capsule Orally Once a day [facility] prescribing and managing Active Protonix 40 MG Tablet Delayed Release 1 tablet Orally Once a day; Duration: 90 days Active Ventolin HFA 90 MCG/ACT Aerosol Solution 1 puff as needed Inhalation every 4 hrs; Duration: 30 days 02/04/2020 Active Stopain Roll-On 8 % Liquid 1 application as needed Externally Three times a day Active Lidocaine 4 % Cream 1 application as needed Externally Three times a day Active Excedrin Migraine 250-250-65 MG Tablet 2 tablets Orally Once a day Active Naproxen Sodium 220 MG Tablet 1 tablet with food or milk as needed Orally every 12 hrs OTC Active Immunizations Vaccine Route Administration Date Status Comme nts Flucelvax Unknown 11/19/2015 Administered Pneumovax 23 Unknown 02/08/2010 Administered Social History Tobacco Use: Social History Observation Description Date Details (start date - stop date) Former Smoker NA - NA Social History Drugs/Alcohol: Social Info Question Answer Notes Alcohol Screen (Audit-C) Did you have a drink containing alcohol in the past year? No Points 0 Interpretation Negative Drugs Have you used drugs other than those for medical reasons in the past 12 months? experimented with amphetamin es and marijuana in the past Household: Social Info Question Answer Notes Household Marital status: Level of education: finished college Tobacco Use: Social Info Question Answer Notes xTobacco Use/Smoking Are you a former smoker How long has it been since you last smoked? 1-5 years Tobacco use other than smoking: How often do you smoke ? 30+ pack year history Additional Details Category Social Info Options Details Drugs/Alcohol: Do you smoke marijuana? De nies Problems Problem Type SNOMED Code ICD Code Onset Dates Problem Status W/U Status Risk Notes Problem Gastroesophageal reflux disease without esophagitis (280978094) Gastroesophageal reflux disease without esophagitis (K21.9) Active confirmed Problem Vitamin D deficiency (20530854) Vitamin D deficiency (E55.9) Active confirmed Problem Diabetic peripheral neuropathy associated with type 2 diabetes mellitus (0987363468849) Type 2 diabetes mellitus with diabetic neuropathy, without long-term current use of insulin (E11.40) Active confirmed Problem Hypercholesterolemia (30845968) Hypercholesterolemia (E78.00) Active confirmed Problem Localized, primary osteoarthritis of the pelvic region and thigh (187549219) Osteoarthritis of both hips, unspecified osteoarthritis type (M16.0) Active confirmed Plan Of Treatment No Information Insurance Providers Payer Name Payer Address Payer Phone Subscriber Number Group Number Insured Name Patient Relationship to Insured Coverage Start Date Coverage End Date [place] [address] [address] [place] [address] [phone] [id number] Annetta Delacruz Self - patient is the insured [place] Medicare [address] [address] [place] [phone] [id number] Annetta Delacruz Self - patient is the insured Medical (General) History Medical History History ICD Code Essential hypertension (resolved 005) I10 Low back pain (resolved 09/10/2008) M54. 5 Hepatitis C B19.20 Major depression, chronic F32.9 Generalized anxiety disorder F41.1 Vitamin D deficiency E55.9 Syncope (resolved 03/16/2018) R55 Postmenopausal atrophic vaginitis (resol sun 03/16/2018) N95.2 Hypercholesterolemia E78.00 NOAM (obstructive sleep apnea) G47.33 Panic attacks PTSD Osteoarthritis of both hips, unspecified osteoarthritis type M16.0 Surgical History Surgery Date(Month/Year) 3 scopes : X 2; Hysterectomy Tonsillectomy/Adenoidectomy R ACL grafts x 2 Liver Biopsy 3\2013; Appendectomy Hospitalization History Reason Date(Month/Year) overdose on ativan 12/2019 2 suicide attempts stress unit
--- OUTSIDE RECORDS SUMMARY | 2024-12-30 04:59 | XMS_ITS | Encounter Summary ---
Author Organization [facility] Address [address] [place] [address] Care Team Providers Care Teacher Home Therapy Name Role Phone Unavailable Primary Care Provider Unavailabl e Encounter Details Date Type Department Care Team (Latest Contact Info) Description 05/08/2000 Outpatient Historical HIS [facility] Umesh Petersen, Mark Alvares MD [address] [place] [phone] Acute sinusitis, unspecified (Primary Dx); Acute pharyngitis; Anxiety state, unspecified Social History Tobacco Use Types Packs/Day Years Used Date Smoking Tobacco: Never Assessed Comments Unknown Sex and Gender Information Value Date Recorded Sex Assigned at Not on file Legal Sex Female 4:48 AM DOCUMENT MANAGEMENT SPECIALIST Gender Identity Not on file Sexual Orientation Not on file documented as of this encounter Plan of Treatment Not on file documented as of this encounter Visit Diagnoses Diagnosis Acute sinusitis, unspecified- Primary Acute pharyngitis Anxiety state, unspecified documented in this encounter
--- OUTSIDE RECORDS SUMMARY | 2024-12-30 04:59 | XMS_ITS | Encounter Summary ---
Author Organization [facility] Address [address] [place] [address] Care Team Providers Care Account Manager Education Name Role Phone Unavailable Primary Care Provider Unavailabl e Encounter Details Date Type Department Care Team (Latest Contact Info) Description 05/11/2000 Outpatient Historical HIS [facility] Umesh Petersen, Mark Alvares MD [address] [place] [phone] Bronchitis, not specified as acute or chronic (Primary Dx) Social History Tobacco Use Types Packs/Day Years Used Date Smoking Tobacco: Never Assessed Comments Unknown Sex and Gender Information Value Date Recorded Sex Assigned at Not on file Legal Sex Female 4:48 AM ASSISTANT FAMILY TEACHER Gender Identity Not on file Sexual Orientation Not on file documented as of this encounter Plan of Treatment Not on file documented as of this encounter Visit Diagnoses Diagnosis Bronchitis, not specified as acute or chronic- Primary documented in this encounter
--- OUTSIDE RECORDS SUMMARY | 2024-12-30 04:59 | XMS_ITS | Encounter Summary ---
Author Organization [facility] Address [address] [place] [address] Care Team Providers Care Director Of Marketing Analytics Name Role Phone Unavailable Primary Care Provider Unavailabl e Encounter Details Date Type Department Care Team (Latest Contact Info) Description 05/05/2000 Outpatient Historical HIS [facility] Umesh Petersen, Mark Alvares MD [address] [place] [phone] Hematuria (Primary Dx); Polydipsia; Obesity, unspecified Social History Tobacco Use Types Packs/Day Years Used Date Smoking Tobacco: Never Assessed Comments Unknown Sex and Gender Information Value Date Recorded Sex Assigned at Not on file Legal Sex Female 4:48 AM POLYMERIZATION KETTLE OPERATOR Gender Identity Not on file Sexual Orientation Not on file documented as of this encounter Plan of Treatment Not on file documented as of this encounter Visit Diagnoses Diagnosis Hematuria- Primary Polydipsia Obesity, unspecified documented in this encounter
--- OUTSIDE RECORDS SUMMARY | 2024-12-30 04:59 | XMS_ITS | Encounter Summary ---
Author Organization [facility] Address [address] [place] [address] Care Team Providers Care Special Education Instructor Name Role Phone Unavailable Primary Care Provider Unavailabl e Encounter Details Date Type Department Care Team (Latest Contact Info) Description 01/05/1998 Outpatient Historical [facility] Jose J Smith NO ADDRESS ON FILE Pneumonia, organism unspecified(486) (Primary Dx) Social History Tobacco Use Types Packs/Day Years Used Date Smoking Tobacco: Never Assessed Comments Unknown Sex and Gender Information Value Date Recorded Sex Assigned at Not on file Legal Sex Female 4:48 AM ENGINEER EXHAUSTER Gender Identity Not on file Sexual Orientation Not on file documented as of this encounter Plan of Treatment Not on file documented as of this encounter Visit Diagnoses Diagnosis Pneumonia, organism unspecified(486)- Primary Pneumonia, organism unspecified documented in this encounter
--- OUTSIDE RECORDS SUMMARY | 2024-12-30 04:59 | XMS_ITS | Encounter Summary ---
Author Organization [facility] Address [address] [place] [address] Care Team Providers Care Qualifications Examiner Name Role Phone Unavailable Primary Care Provider Unavailabl e Encounter Details Date Type Department Care Team (Latest Contact Info) Description 06/15/2000 Outpatient Historical HIS [facility] Mark Calvo Jr., MD [address] [place] [phone] Gynecologic examination (Primary Dx); Screening for malignant neoplasm of the cervix; Special screening for malignant neoplasms of other sites Social History Tobacco Use Types Packs/Day Years Used Date Smoking Tobacco: Never Assessed Comments Unknown Sex and Gender Information Value Date Recorded Sex Assigned at Not on file Legal Sex Female 4:48 AM MEDICAL AFFAIRS LEADER Gender Identity Not on file Sexual Orientation Not on file documented as of this encounter Plan of Treatment Not on file documented as of this encounter Visit Diagnoses Diagnosis Gynecologic examination- Primary Gynecological examination Screening for malignant neoplasm of the cervix Special screening for malignant neoplasms of other sites documented in this encounter
--- OUTSIDE RECORDS SUMMARY | 2024-12-30 04:59 | XMS_ITS | Encounter Summary ---
Author Organization [facility] Address [address] [place] [address] Care Team Providers Care Refund Clerk Name Role Phone Unavailable Primary Care Provider Unavailabl e Encounter Details Date Type Department Care Team (Latest Contact Info) Description 01/08/1998 Outpatient [facility] Mark Calvo Jr., MD [address] [place] [phone] Synovitis and tenosynovitis, unspecified (Primary Dx) Social History Tobacco Use Types Packs/Day Years Used Date Smoking Tobacco: Never Assessed Comments Unknown Sex and Gender Information Value Date Recorded Sex Assigned at Not on file Legal Sex Female 4:48 AM HOT BILLET SHEAR OPERATOR Gender Identity Not on file Sexual Orientation Not on file documented as of this encounter Plan of Treatment Not on file documented as of this encounter Visit Diagnoses Diagnosis Synovitis and tenosynovitis, unspecified- Primary documented in this encounter
--- OUTSIDE RECORDS SUMMARY | 2024-12-30 04:59 | XMS_ITS | Encounter Summary ---
Author Organization [facility] Address [address] [place] [address] Care Team Providers Care Lab Support Tech Name Role Phone Unavailable Primary Care Provider Unavailabl e Encounter Details Date Type Department Care Team (Latest Contact Info) Description 05/08/1998 Outpatient Historical HIS [facility] Umesh Petersen, Mark Alvares MD [address] [place] [phone] Lump or mass in breast (Primary Dx) Social History Tobacco Use Types Packs/Day Years Used Date Smoking Tobacco: Never Assessed Comments Unknown Sex and Gender Information Value Date Recorded Sex Assigned at Not on file Legal Sex Female 4:48 AM COMPUTATIONAL LINGUIST Gender Identity Not on file Sexual Orientation Not on file documented as of this encounter Plan of Treatment Not on file documented as of this encounter Visit Diagnoses Diagnosis Lump or mass in breast- Primary documented in this encounter
--- NOTE | 2024-12-30 05:16 | ED_ITS ---
HPI - Chest Pain 2 General: Chief Complaint: Chest Pain Stated Complaint: cp Time Seen by Provider: 12/30/24 05:00 Related Data Previous Rx's ?Medication ?Instructions ?Recorded glucometer testing kit #1 ea 09/03/21 lancets (Accu-Chek Softclix #100 ea 09/29/21 Lancets) blood-glucose sensor (Dexcom G6 #9 ea 03/10/22 Sensor device) blood-glucose transmitter (Dexcom #1 ea 03/10/22 G6 Transmitter device) blood-glucose,[place] cot[place] setter,cont #1 ea 03/10/22 (Dexcom G6 Operations Vocational Instructor) blood sugar diagnostic (Accu-Chek #100 ea 09/15/22 Guide test strips) pen needle, diabetic 32 gauge x #200 ea 07/28/24 (Pauly 2nd Gen Pen Needle) insulin regular hum U-500 conc 500 200 unit (0.4 mL) S UBCUT TID #36 mL 09/13/24 unit/mL(3 mL) subcut pen (Humulin R U-500 (Conc) Insulin Kwikpen) pen needle, diabetic 31 gauge x #100 ea 09/16/2402/09 (Comfort EZ Pen [place]) olanzapine 2.5 mg tablet 2.5 mg PO DAILY #90 tabs pantoprazole 40 mg tablet,delayed 40 mg PO DAILY #90 t abs 09/18/24 release (Protonix) spironolactone 50 mg tablet 50 mg PO DAILY edema & BP #90 tabs 09/18/24 azithromycin 500 mg tablet 500 mg PO DAILY fever and S OB 5 10/01/24 days #5 tabs atorvastatin 20 mg tablet 20 mg PO DAILY #90 tabs 07/31 fluoxetine 40 mg capsule 40 mg PO DAILY #90 caps 12/07 tirzepatide 5 mg/0.5 mL See Rx Instructions .Route 1 02/20/24 subcutaneous pen injector .COMPLEX #4 mL (Mounjaro) Allergies Allergy/AdvReac Type Severity Reaction Status Date / Time benzoin Allergy Intermediate rash Verified 12/30/24 05:00 butorphanol (From Stadol) Allergy Intermediate rash Verified 12/30/24 05:00 ciprofloxacin (From Cipro) Allergy Intermediate rash Verified 12/30/24 05:00 midazolam (From Versed) Allergy Intermediate rash Verified 12/30/24 05:00 Sulfa (Sulfonamide Allergy Intermediate rash Verified 12/30/24 05:00 Antibiotics) tramadol (From Ultram) Allergy Intermediate rash Verified 12/30/24 05:00 PFSH ED 2 PFSH: Medical History (Updated 10/01/24 @ 07:46 by Roscoe Chilel MD) Chills with fever Upper respiratory infection with cough and congestion History of hepatitis C treated and cleared Screening for lung cancer quit 2009; 28.5pk yr hx; LDCT ordered but pt has rescheduled it 13 times so far (4.15.25) Nicotine dependence in remission CKD stage 3 due to type 2 diabetes mellitus Diabetes mellitus, type II Hypertension associated with chronic kidney disease due to type 2 diabetes mellitus Obesity (BMI 30-39.9) GERD (gastroesophageal reflux disease) Fibromyalgia muscle pain Osteoarthritis (arthritis due to wear and tear of joints) Dyslipidemia (high LDL; low HDL) Amphetamine substance use disorder, moderate, in early remission last use of meth on 12/12/19 Urinary tract infection Chronic post-traumatic stress disorder Panic disorder with agoraphobia and severe panic attacks Major depressive disorder, recurrent severe without psychotic features Surgical History Hx of colonoscopy History of bladder suspension procedure History of temporal artery biopsy bilateral History of knee surgery R knee: arthroscopy for ACL, then graft, then infection, then regrafted; then 2 more scopes History of tonsillectomy and adenoidectomy History of hysterectomy w/ BSO--done for adenomysosis; no cancer History of appendectomy History of cholecystectomy Family History Other Hypertension Psychiatric illness Social History Smoking and tobacco/nicotine status: former use of tobacco/nicotine Quit status (tobacco/nicotine): has quit using Year quit tobacco: 2014 Former quit date comment: 04/09 ppd X 38yrs: 28.5pk yr hx Alcohol intake: former Substance/Drug Use: former Date of last use: injection meth use in past Lives independently: Yes Household members: none Housing: House Marital status: Number of children: 2 Number of grandchildren: 6 Highest education level completed: Bachelor's Degree Current occupational status: disabled 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 Course 2 Vital Signs: Vital signs: Vital Signs Temperature 98.8 F 12/30/24 04:50 Pulse Rate 84 12/30/24 04:50 Respiratory Rate 22 H 12/30/24 04:50 Blood Pressure 136/74 12/30/24 04:50 Pulse Oximetry 94 12/30/24 04:50 Oxygen Delivery Me thod Room Air 12/30/24 04:50 MDM - Chest Pain Lab Data 12/30/24 05:09 12/30/24 05:09 Discharge Plan Discharge Condition: Stable Prescriptions: No Action (DME) pen needle, diabetic [Comfort EZ Pen [place]] 31 gauge x 1/4 needle See Rx Instructions .Route Qty: 100 1RF Rx Instructions: As directed (DME) Dexcom G6 Sensor Device See Rx Instructions .ROUTE .MEDSUPPLY Qty: 9 3RF Rx Instructions: change every 10 days (DME) Dexcom G6 Operations Vocational Instructor Misc See Rx Instructions .ROUTE .MEDSUPPLY Qty: 1 3RF Rx Instructions: change every 90 days (DME) Dexcom G6 Transmitter Device See Rx Instructions .ROUTE .MEDSUPPLY Qty: 1 3RF Rx Instructions: change every 3 months azithromycin 500 mg tablet 500 mg PO DAILY 5 Days Qty: 5 0RF (DME) glucometer testing kit See Rx Instructions .Route .MEDSUPPLY Qty: 1 0RF Rx Instructions: Glucometer testing kit Lancets #100 Strips #100 Check blood sugar 3 times a day (DME) lancets [Accu-Chek Softclix Lancets] Misc See Rx Instructions .ROUTE .COMPLEX Qty: 100 5RF Dose Instruction: USE 1 LANCET TO CHECK GLUCOSE THREE TIMES DAILY (E11.9) Rx Instructions: USE 1 LANCET TO CHECK GLUCOSE THREE TIMES DAILY (E11.9) (DME) Accu-Chek Guide test strips Strip See Rx Instructions .ROUTE .COMPLEX Qty: 100 5RF Dose Instruction: USE 1 TEST STRIP THREE TIMES DAILY (E11.9) Rx Instructions: USE 1 TEST STRIP THREE TIMES DAILY (E11.9) (DME) pen needle, diabetic [Pauly 2nd Gen Pen Needle] 32 gauge x 5/32 needle See Rx Instructions .ROUTE .COMPLEX Qty: 200 0RF Dose Instruction: USE DIRECTED FIVE TIMES DAILY Rx Instructions: USE DIRECTED FIVE TIMES DAILY Humulin R U-500 (Conc) Kwikpen 500 unit/mL (3 mL) insulin pen 200 unit SUBCUT TID Qty: 36 2RF spironolactone 50 mg tablet 50 mg PO DAILY Qty: 90 0RF olanzapine 2.5 mg tablet 2.5 mg PO DAILY Qty: 90 0RF pantoprazole [Protonix] 40 mg tablet,delayed release (DR/EC) 40 mg PO DAILY Qty: 90 0RF atorvastatin 20 mg tablet 20 mg PO DAILY Qty: 90 1RF fluoxetine 40 mg capsule 40 mg PO DAILY Qty: 90 0RF Mounjaro 5 mg/0.5 mL pen injector See Rx Instructions .ROUTE .COMPLEX Qty: 4 0RF Dose Instruction: INJECT 5 MG SUBCUTANEOUSLY ONCE EVERY 7 DAYS FOR 1 MONTH Rx Instructions: INJECT 5 MG SUBCUTANEOUSLY ONCE EVERY 7 DAYS FOR 1 MONTH Referrals: Rosetta Galvan MD [Primary Care Provider, Family Practice] Print Language: Comoran Coding Level of Care Code ED Bottom Sander for Gage Narayanan
[2024-12-30 05:19] LABS: Hematocrit 47.4 % (36-47); Hemoglobin 14.80 g/dL (11.27-16.99); Mean Corpuscular HGB Conc 31.2 g/dL (30-55); Mean Corpuscular Hemoglobin 25.8 pg (27-33); Mean Corpuscular Volume 82.6 fl (85-98); Nucleated Red Blood Cells % 0 %; Platelet Count 374 10^3/cmm (157-399); Red Blood Count 5.74 10^6/uL (3.85-5.65); White Blood Count 13.11 10^3/uL (3.29-11.43)
[2024-12-30] MEDS: LORazepam 2 mg/mL INJ 1 mL 1 MG IVP (05:19)
[2024-12-30 05:33] LABS: INR 0.99 (0.8-1.2); Prothrombin Time 13.80 SECONDS (12.1-14.9)
[2024-12-30 05:45] LABS: Troponin(5th) Baseline 15 ng/L (0-10)
[2024-12-30 05:53] LABS: Anion Gap 21.2 (5-19); Blood Urea Nitrogen 14 mg/dL (8-23); CRP High Sensitivity Cardiac 1.730 mg/dL (0.0-0.3); Calcium 9.7 mg/dL (8.5-10.5); Carbon Dioxide 21 mmol/L (22-29); Chloride 98 mmol/L (98-107); Glucose 163 mg/dL (65-115); Lipase 31 U/L (13-60); Magnesium 2.1 mg/dL (1.7-2.3); NT Pro B Type Natriuretic Pept 152 pg/mL (0-125); Osmolality Calculated 286 mOsm/kg (285-295); Potassium 4.2 mmol/L (3.5-5.1); Sodium 136 mmol/L (136-145)
[2024-12-30] MEDS: morphine 4 mg/mL SDV 1 mL IVP (05:56)
--- NOTE | 2024-12-30 06:56 | ECG_ITS ---
[facility] 2024-12[facility]30 Pat Name: Annetta Delacruz Department: Room: Gender: Female Deputy Attorney General: : 1960 Requested By: Sidney Johnson Order Number: [id number] Sharon MD: Marisol Song M.D. Measurements Intervals [place] Rate: 63 P: 69 ME: 190 QRS: 32 QRSD: 106 T: 44 QT: 425 QTc: 436 Interpretive Statements SINUS RHYTHM Compared to ECG 12/30/2024 04:56:06 No significant changes Electronically Signed On 12-30-2024 10:41:41 HIGH SCHOOL ENGLISH TEACHER by Marisol Song M.D. [email or web address]
[2024-12-30 07:20] LABS: Troponin 5 2HR 11.69 ng/L (0-10)
[2024-12-30 07:32] LABS: Troponin 5 2HR Delta -3.31 ABS# (0-10)
--- NOTE | 2024-12-30 07:36 | ED_ITS ---
HPI - Chest Pain 2 General: Chief Complaint: Chest Pain Stated Complaint: cp Time Seen by Provider: 12/30/24 05:00 History of Present Illness: 64-year-old female with a history of typ e 2 diabetes, chronic kidney disease, hypertension, GERD, fibromyalgia, hyperlipidemia, PTSD, anxiety and depression who presents emergency room chest pain. She describes a left-sided squeezing pain. Said this started this morning when she went up to get to the bathroom. Says she felt sweaty with hot flashes. She has no known cardiac history. She does have multiple risk factors. No fever. No cough. No abdominal pain. No vomiting. Related Data Home Medications ?Medication ?Instructions ?Recorded ?Confirmed insulin regular hum U-500 conc 500 220 unit SUBCUT TID 12/30/24 12/30/24 unit/mL(3 mL) subcut pen (Humulin R U-500 (Conc) Insulin Kwikpen) olanzapine 2.5 mg tablet 2.5 mg PO QAM 12/30/2412/30 tirzepatide 5 mg/0.5 mL 5 mg SUBCUT Q7D 12/30/24 subcutaneous pen injector (Bennie) Previous Rx's ?Medication ?Instructions ?Recorded glucometer testing kit #1 ea 09/03/21 lancets (Accu-Chek Softclix #100 ea 09/29/21 Lancets) blood-glucose sensor (Dexcom G6 #9 ea 03/10/22 Sensor device) blood-glucose transmitter (Dexcom #1 ea 03/10/22 G6 Transmitter device) blood-glucose,national account representative,cont #1 ea 03/10/22 (Dexcom G6 [place] Upholsterer) blood sugar diagnostic (Accu-Chek #100 ea 09/15/22 Guide test strips) pen needle, diabetic 32 gauge x #200 ea 07/28/24 (Pauly 2nd Gen Pen Needle) pen needle, diabetic 31 gauge x #100 ea 09/16/2402/09 (Comfort EZ Pen [place]) pantoprazole 40 mg tablet,delayed 40 mg PO DAILY #90 t abs 09/18/24 release (Protonix) spironolactone 50 mg tablet 50 mg PO DAILY edema & BP #90 tabs 09/18/24 atorvastatin 20 mg tablet 20 mg PO DAILY #90 tabs 11/0 6/25 fluoxetine 40 mg capsule 40 mg PO DAILY #90 caps 12/07 Allergies Allergy/AdvReac Type Severity Reaction Status Date / Time benzoin Allergy Intermediate rash Verified 12/30/24 05:00 butorphanol (From Stadol) Allergy Intermediate rash Verified 12/30/24 05:00 ciprofloxacin (From Cipro) Allergy Intermediate rash Verified 12/30/24 05:00 midazolam (From Versed) Allergy Intermediate rash Verified 12/30/24 05:00 Sulfa (Sulfonamide Allergy Intermediate rash Verified 12/30/24 05:00 Antibiotics) tramadol (From Ultram) Allergy Intermediate rash Verified 12/30/24 05:00 Review of Systems 2 Narrative: Constitutional symptoms: Negative except as documented in HPI. Skin symptoms: Negative except as documented in HPI. Eye symptoms: Negative except as documented in HPI. ENMT symptoms: Negative except as documented in HPI. Respiratory symptoms: Negative except as documented in HPI. Cardiovascular symptoms: Negative except as documented in HPI. Gastrointestinal symptoms: Negative except as documented in HPI. Genitourinary symptoms: Negative except as documented in HPI. Musculoskeletal symptoms: Negative except as documented in HPI. Neurologic symptoms: Negative except as documented in HPI. Psychiatric symptoms: Negative except as documented in HPI. Endocrine symptoms: Negative except as documented in HPI. PFSH ED 2 PFSH: Medical History (Updated 12/30/24 @ 08:07 by Brunilda Valle MD) Chills with fever Upper respiratory infection with cough and congestion History of hepatitis C treated and cleared Screening for lung cancer quit 2009; 28.5pk yr hx; LDCT ordered but pt has rescheduled it 13 times so far (4.15.25) Nicotine dependence in remission CKD stage 3 due to type 2 diabetes mellitus Diabetes mellitus, type II Hypertension associated with chronic kidney disease due to type 2 diabetes mellitus Obesity (BMI 30-39.9) GERD (gastroesophageal reflux disease) Fibromyalgia muscle pain Osteoarthritis (arthritis due to wear and tear of joints) Dyslipidemia (high LDL; low HDL) Amphetamine substance use disorder, moderate, in early remission last use of meth on 12/12/19 Urinary tract infection Chronic post-traumatic stress disorder Panic disorder with agoraphobia and severe panic attacks Major depressive disorder, recurrent severe without psychotic features Surgical History Hx of colonoscopy History of bladder suspension procedure History of temporal artery biopsy bilateral History of knee surgery R knee: arthroscopy for ACL, then graft, then infection, then regrafted; then 2 more scopes History of tonsillectomy and adenoidectomy History of hysterectomy w/ BSO--done for adenomysosis; no cancer History of appendectomy History of cholecystectomy Family History Other Hypertension Psychiatric illness Social History Smoking and tobacco/nicotine status: former use of tobacco/nicotine Quit status (tobacco/nicotine): has quit using Year quit tobacco: 2014 Former quit date comment: 04/09 ppd X 38yrs: 28.5pk yr hx Alcohol intake: former Substance/Drug Use: former Date of last use: injection meth use in past Lives independently: Yes Household members: none Housing: House Marital status: Number of children: 2 Number of grandchildren: 6 Highest education level completed: Bachelor's Degree Current occupational status: disabled 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 Skin: Warm, dry. Head: Normocephalic, atraumatic. Neck: Supple, trachea midline. Eye: Extraocular movements are intact. Ears, nose, mouth and throat: mucosa moist. Cardiovascular: Regular, Normal peripheral perfusion. Respiratory: Lungs are clear to auscultation, respirations are non-labored, breath sounds are equal, Symmetrical chest wall expansion. Gastrointestinal: Soft, Nontender, Non distended Musculoskeletal: Normal ROM, no deformity. Neurological: Alert and oriented, No focal neurological deficit observed. Psychiatric: Cooperative, appropriate mood & affect. Course 2 Vital Signs: Vital signs: Vital Signs Temperature 98.8 F 12/30/24 04:50 Pulse Rate 59 L 12/30/24 07:29 Respiratory Rate 19 H 12/30/24 06:12 Blood Pressure 135/72 12/30/24 07:29 Pulse Oximetry 94 12/30/24 07:29 Oxygen Delivery Me thod Room Air 12/30/24 07:29 MDM - Chest Pain Medical Decision Making Medical decision making Patient's reason for coming to the emergency room: Chest pain Social determinants: Retired I reviewed the patient's medical record. 64-year-old female with a history of type 2 diabetes, chronic kidney disease, hypertension, GERD, fibromyalgia, hyperlipidemia, PTSD, anxiety and depression I reviewed the patient's current home meds Patient is insulin-dependent Alternate historians: None Differential diagnosis for patient with chest pain includes but is not limited to and based on the above HPI, review of systems and physical exam: Pneumonia. unstable angina. angina. Acute coronary syndrome / AK. Pulmonary embolism. Costochondritis / musculoskeletal. Pleurisy. Pericarditis. Esophageal spasm. Pancreatitis. Cholecystitis. Orders placed to evaluate differential diagnosis based on the above differential, HPI and physical exam EKG: Time 5:40 AM. Rate 71. Normal sinus rhythm, No ST-T changes, no ectopy, normal AK & QRS intervals, This was reviewed and interpreted by the ER physician at 5:45 AM Repeat EKG: Time 648. Rate 63. Normal sinus rhythm, No ST-T changes, no ectopy, normal AK & QRS intervals, This was reviewed and interpreted by myself the ER physician at 6:52 AM. No changes from EKG done previously in the emergency room today. Chest x-ray: No acute process. No infiltrate. No pneumothorax. This was reviewed and interpreted by myself the emergency room physician. I also reviewed the radiology report. Lab Review: Laboratory results were reviewed and interpreted by myself the emergency room physician. Assessment of risk: Level of risk: Moderate risk patient. Multiple comorbidities. Hospitalization considerations: Patient is being admitted/observed for chest pain to rule out acute coronary syndrome Clinical decision support: Heart score is 5. Recommends observation. Reexamination: Patient remained stable. No increased work of breathing. No altered mental status. No focal motor deficits. Patient says over the last hour she has had 2 or 3 brief episodes of squeezing pain in her left chest. It is not constant Consultation: I spoke with Dr. Gilmore who is on-call for the hospital service who agrees to admission Assessment and plan: Chest pain -I discussed the patient with the hospitalist on-call who is admitting the patient. - Discussed findings and plan with patient. Answered any questions. - All laboratory values were reviewed and interpreted personally by myself, the ER physician - All imaging was reviewed and interpreted personally by myself, the ER physician. - Evaluation and treatment of this problem were appropriate in the emergency setting Lab Data 12/30/24 05:09 12/30/24 05:09 Radiology Impressions Chest X-Ray 12/30/24 04:56 IMPRESSION: No acute findings. Laboratory Results WBC 13.11 10^3/uL (3.29-11.43) H 12/30/24 05:09 RBC 5.74 10^6/uL (3.85-5.65) H 12/30/24 05:09 Hgb 14.80 g/dL (11.27-16.99) 12/30/24 05:09 Hct 47.4 % (36-47) H 12/30/24 05:09 MCV 82.6 fl (85-98) L 12/30/24 05:09 MCH 25.8 pg (27-33) L 12/30/24 05:09 MCHC 31.2 g/dL (30-55) 12/30/24 05:09 RDW 15.4 % (12.1-15.1) H 12/30/24 05:09 Plt Count 374 10^3/cmm (157-399) 12/30/24 05:09 MPV 9.4 fL (7.4-10.4) 12/30/24 05:09 Neut % (Auto) 55.6 % 12/30/24 05:09 Lymph % (Auto) 35.2 % 12/30/24 05:09 [place] % (Auto) 6.2 % 12/30/24 05:09 Eos % (Auto) 1.7 % 12/30/24 05:09 Baso % (Auto) 0.8 % 12/30/24 05:09 Neut # (Auto) 7.28 10^3/uL (1.8-7.7) 12/30/24 05:09 Lymph # (Auto) 4.6 10^3/uL (0.8-4.8) 12/30/24 05:09 [place] # (Auto) 0.8 10^3/uL (0.2-0.9) 12/30/24 05:09 Eos # (Auto) 0.2 10^3/uL (0.0-0.8) 12/30/24 05:09 Baso # (Auto) 0.1 10^3/uL (0.0-0.1) 12/30/24 05:09 Nucleated RBC % (auto) 0 % 12/30/24 05:09 Nucleated RBCs # 0.0 /100WBC 12/30/24 05:09 PT 13.80 SECONDS (12.1-14.9) 12/30/24 05:09 INR 0.99 (0.8-1.2) 12/30/24 05:09 Sodium 136 mmol/L (136-145) 12/30/24 05:09 Potassium 4.2 mmol/L (3.5-5.1) 12/30/24 05:09 Chloride 98 mmol/L (98-107) 12/30/24 05:09 Carbon Dioxide 21 mmol/L (22-29) L 12/30/24 05:09 Anion Gap 21.2 (5-19) H 12/30/24 05:09 BUN 14 mg/dL (8-23) 12/30/24 05:09 Creatinine 1.4 mg/dL (0.5-0.9) H 12/30/24 05:09 GFR Calculation 37.6 mL/min (90-130) L 12/30/24 05:09 Glucose 163 mg/dL (65-115) H 12/30/24 05:09 Calculated Osmolality 286 mOsm/kg (285-295) 12/30/24 05:09 Calcium 9.7 mg/dL (8.5-10.5) 12/30/24 05:09 Phosphorus 3.0 mg/dL (2.5-4.5) 12/30/24 05:09 Magnesium 2.1 mg/dL (1.7-2.3) 12/30/24 05:09 Troponin T Baseline 15 ng/L (0-10) H 12/30/24 05:09 Troponin T 120 Minute 11.69 ng/L (0-10) H 12/30/24 06:59 Delta Troponin T -3.31 ABS# (0-10) L 12/30/24 06:59 C-React Prot High Sens 1.730 mg/dL (0.0-0.3) H 12/30/24 05:09 NT-Pro-B Natriuret Pep 152 pg/mL (0-125) H 12/30/24 05:09 Lipase 31 U/L (13-60) 12/30/24 05:09 All radiology interpretation(s) finalized by discharge Clincial Decision Support The following clinical decision support tools were used to aid in care of the patient HEART Score -> History: Moderately Suspicious, EKG: Normal, Age: 65 or more yrs, Risk Factors: >/=3 Risk Factors, Troponin: Baseline Trop <16 ng/L. Resulting HEART Score: 5. Discharge Plan Discharge Patient Disposition: Placed in Observation Clinical Impression: Chest pain Coding Level of Care Code ED [place] Spreader for Chg Fwd Heart Score HEART Score Components History: Moderately Suspicious EKG: Normal Age: 65 or more yrs Risk Factors: >/=3 Risk Factors Troponin: Baseline Trop <16 ng/L HEART Score RESULT HEART Score: 5
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
--- NOTE | 2024-12-30 09:20 | ECG_ITS ---
[facility]: 2024[facility]30 Pat Name: Annetta Delacruz Department: Room: [facility] Gender: Female Pediatric Immunologist: : 1960 Requested By: Elliott Garber Order Number: [id number] Sharon MD: Marisol Song M.D. Measurements Intervals [place] Rate: 64 P: 73 ME: 180 QRS: 24 QRSD: 106 T: 53 QT: 430 QTc: 444 Interpretive Statements SINUS RHYTHM Compared to ECG 12/30/2024 06:48:42 No significant changes Electronically Signed On 12-30-2024 10:31:01 DIESEL DRAGLINE OPERATOR by Marisol Song M.D. [email or web address]
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
[2024-12-30 12:52] LABS: Troponin 5 6HR 12.31 ng/L (0-10)
[2024-12-30 12:56] LABS: Troponin 5 6HR Delta -2.69 ng/L (0-12)
--- NOTE | 2024-12-30 13:05 | USCV_ITS ---
Annetta Delacruz Age: 64 Gender: F : 1960 Exam Date: 12/30/2024 13:46 Ordering Phys: Leatha Cleaning NP Technologist: SABINO Exam Location: [facility] Indication: CP, Exertional dyspnea BP: 127 / 71 HR: 60 Rhythm: Sinus Technical Quality: Adequate MEASUREMENTS (Male / Female) Normal Values 2D ECHO LV Diastolic Diameter PLAX 5.9 cm 4.2 - 5.9 / 3.9 - 5.3 cm IVS Diastolic Thickness 0.8 cm 0.6 - 1.0 / 0.6 - 0.9 cm IVS Systolic Thickness 0.9 cm LVPW Diastolic Thickness 0.8 cm 0.6 - 1.0 / 0.6 - 0.9 cm LVPW Systolic Thickness 1.1 cm LVOT Diameter 2.0 cm LV Ejection Fraction 2D Teich 36.4 % LV Ejection Fraction MOD 4C 68.6 % LV Ejection Fraction MOD 2C 66.1 % LV Ejection Fraction 2C AL 69.1 % LA Diameter 3.3 cm RA Systolic Volume 4C AL 36.2 ml RA Systolic Volume 4C MOD 36.1 ml LA Sys Volume AL 40.8 cm cubed LA Sys Volume Index AL 16.3 cm cubed/m squared Aorta at Sinotubular Diameter 2.9 cm M-MODE LA Ao Ratio MM 1.2 AV Cusp Separation MM 1.2 cm DOPPLER AV Peak Velocity 149.0 cm/s LVOT Peak Velocity 133.0 cm/s AV Area Cont Eq vti 2.6 cm squared AV Area Cont Eq pk 2.8 cm squared MV Peak Velocity 86.0 cm/s MV Area PHT 4.2 cm squared Mitral E to A Ratio 1.0 TR Peak Velocity 95.0 cm/s TR Peak Gradient 3.6 mmHg TV Peak E Velocity 56.0 cm/s PV Peak Velocity 104.0 cm/s FINDINGS Left Ventricle Normal left ventricular size, systolic function and wall thickness, with no regional wall motion abnormalities. Normal left ventricular size and systolic function, EF 65%. Right Ventricle Normal right ventricular size and systolic function. Right Atrium Normal right atrial size. Left Atrium Normal left atrial size. IA Septum Normal interatrial septum. Mitral Valve Structurally normal mitral valve. Trace mitral valve regurgitation. Aortic Valve Structurally normal trileaflet aortic valve. No aortic valve stenosis. Tricuspid Valve Structurally normal tricuspid valve. Trace tricuspid valve regurgitation. Normal pulmonary pressures. Pulmonic Valve Pulmonic valve not well visualized. Trace pulmonary valve regurgitation. Pericardium No pericardial effusion. Aorta Normal size aortic root and proximal ascending aorta. IVC Inferior vena cava not visualized. CONCLUSIONS Normal left ventricular systolic function. Normal wall motion and thickening. Estimated LVEF normal at 65%. No significant valve abnormality noted. Normal right heart and pulmonary pressures. Sonal Watson MD (Electronically Signed) Final Date: 30 December 2024 14:38 S
--- NOTE | 2024-12-30 20:22 | PC.NURSE ---
This RN spoke to department leader regarding physician documentation of SI diagnosis. Psychiatric Physician determined no active SI precautions are needed at this time.
[2024-12-31] VITALS (79 sets, daily range): BP systolic 88–164; BP diastolic 31–116; PULSE 52–91; RESP 14–31; TEMP 36.3–37.1; O2SAT 72–96
--- NOTE | 2024-12-31 | ECG_ITS ---
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 Interpretive Statements LEXISCAN SESTAMIBI STRESS TEST Procedure: At the baseline, the blood pressure was 106/70 mmHg with a heart rate of 65 bpm. The electrocardiogram showed normal sinus rhythm, normal axis with normal ST and T's. The Lexiscan was infused over a period of 20 seconds. A total of 0.4 mg of Lexiscan was infused. The stress phase was continued for a total of 5 minutes. Heart rate was at the end of stress phase was 77 bpm and a blood pressure of 124/78 mmHg. The EKG at the peak infusion revealed normal sinus rhythm with no significant ST-T wave changes. Sestamibi was injected 20 seconds after the Lexiscan infusion. Blood pressure at the end of recovery phase was 110/86 mmHg with a heart rate of 65 bpm. Conclusion: 1. Normal EKG response to Lexiscan infusion 2. No Lexiscan induced chest pain or cardiac arrhythmia. 3. Normal blood pressure and heart rate response. 4. Sestamibi/sestamibi perfusion scan pending; see separate report. Electronically Signed On 12-31-2024 10:31:44 [facility] DIRECT[facility] by Nnamdi Hewitt M.D. [email or web address]
[2024-12-31 05:44] LABS: Hematocrit 47.6 % (36-47); Hemoglobin 14.70 g/dL (11.27-16.99); Mean Corpuscular HGB Conc 30.9 g/dL (30-55); Mean Corpuscular Hemoglobin 25.7 pg (27-33); Mean Corpuscular Volume 83.4 fl (85-98); Nucleated Red Blood Cells % 0 %; Platelet Count 291 10^3/cmm (157-399); Red Blood Count 5.71 10^6/uL (3.85-5.65); White Blood Count 8.72 10^3/uL (3.29-11.43)
[2024-12-31 06:03] LABS: Cholesterol 212 mg/dL (0-200); HDL Cholesterol 39 mg/dL (60-100); Triglycerides 283 mg/dL (0-150)
[2024-12-31 06:06] LABS: Blood Urea Nitrogen 15 mg/dL (8-23); Calcium 9.7 mg/dL (8.5-10.5); Carbon Dioxide 22 mmol/L (22-29); Chloride 99 mmol/L (98-107); Glucose 165 mg/dL (65-115); Osmolality Calculated 287 mOsm/kg (285-295); Sodium 136 mmol/L (136-145); Thyroid Stimulating Hormone 1.69 uIU/mL (0.27-4.20)
[2024-12-31 06:07] LABS: Anion Gap 19.5 (5-19); Potassium 4.5 mmol/L (3.5-5.1)
--- NOTE | 2024-12-31 09:03 | PC.NURSE ---
Patients NPO, BS qualified for 4 units of insulin, held insulin due to NPO status, Dr. Bro notified and okayed it .
[2024-12-31] MEDS: aminophylline 25 mg/mL SDV 20 mL IVP (09:25)
--- NOTE | 2024-12-31 11:40 | PC.NURSE ---
Dr. Bro, rounding, received orders for Xanax, orders placed, see MAR, also recieved orders for diet order. See chart.
--- NOTE | 2024-12-31 12:38 | NMCV_ITS ---
NM peng perf SPECT r/s* [id number] Annetta Delacruz Age: 64 Gender: F : 1960 Exam Date: 12/31/2024 08:34 Ordering Phys: Leatha Cleaning NP Technologist: RHETT Dwyer Exam Location: [facility] Indications: cp STRESS TEST [facility] IMAGE PROTOCOL Rest/Stress 1 Lexiscan Day Radiopharmaceutical Dose (mCi) Administration Site Administered by Rest: Tc-99m 10.7 IV Kelley James, PHOTOENGRAVING APPRENTICE Sestamibi Stress:Tc-99m 32.6 IV Kelley Oneilgle, PHOTOENGRAVING APPRENTICE Sestamibi Rest: 31-Dec-2024 60 Discovery 630 Stress: 31-Dec-2024 30 Discovery 630 0.4mg Lexiscan. Supine position only as patient was unable to lay prone. SPECT RESULTS Technical Quality: Good Raw Data Analysis: Normal Image Corrections: No attenuation or motion correction applied Summed Stress Score: 0 Summed Rest Score: 0 Summed Difference Score: 0 PERFUSION FINDINGS SPECT images demonstrate homogeneous tracer distribution throughout the myocardium. FUNCTIONAL RESULTS (calculated via Gated SPECT) Stress Image LV EF (%): 66 Stress EDV (mL):95 TID: 1.07 Stress ESV (mL):32 FUNCTIONAL FINDINGS: There is normal left ventricular cavity size and systolic function. IMPRESSIONS Myocardial perfusion imaging is normal. Normal left ventricular systolic function, EF 66%. Ravi Rios MD, FACC (Electronically Signed) Final Date: 31 December 2024 12:54 S
--- NOTE | 2024-12-31 15:39 | P.PN_ITS ---
Subjective 2 Subjective: - Patient was seen this morning, current ly alert oriented x 3, following commands - Denies any fevers, no chills, no cough - No active chest pain - She does tell me that she is very anxi ous, she feels more depressed, she is having financial difficulties - She is being evicted from her section 8 housing, her heater is not working, she is in financial ruin and she has not told any of her family, she does not want to tell her family if she does not want to be a burden on her family - She tells me in her own words that it would be better if she would go to sleep and not wake up - She has no active suicidal ideation, n o plan, no homicidal ideation - But she tells me that she can talk to her family, and it would be better if she were not alive - She does feel hopeless - She does report to previous [facility] at [facility] via overdose in the distant past No active plan,-no recent history of suicide attempt - Patient was reexamined in the evening time, her stress test is within normal limits, no active chest pain -Discussed her case with Dr. Frank, who also feels that patient is not actively suicidal but she would benefit from a geriatric inpatient psychiatric stay, if patient is agreeable, Dr. Frank does not feel that patient needs a 96-hour hold - I again saw patient in the afternoon - She has no active suicidal ideation, o r homicidal ideation, but continues to have anxiety, hopelessness - Discussed with patient her stress test has no acute findings low probability of CAD - No active chest pain - Discussed her concerns for her depress ion, anxiety, hopelessness or prior history, her suicidal ideation - [place] [facility] [place] Spoke to case management will work on transferring her Vitals/I&O/Wt Last Vital Signs Temp 97.9 F 12/31/24 10:30 Pulse 67 12/31/24 14:30 Resp 22 H 12/31/24 14:30 BP 128/78 12/31/24 14:30 Pulse Ox 93 12/31/24 14:30 O2 Del Method Nasal Cannula 12/30/24 16:15 O2 Flow Rate 1 12/30/24 16:15 12/31/24 12/31/24 12/31/24 06:59 14:59 22:59 Intake Total 240 / 240 Balance 240 / 240 Weight last 48 hrs Weight 121.3 kg Weight 121.5 kg Weight 127.006 kg Physical Exam 2 Const: COMMON NORMALS: no acute distress and patient oriented x3 Resp: COMMON NORMALS: normal respiratory effort, No retractions, No use of accessory muscles and clear to auscultation bilaterally AUSCULTATION: clear to auscultation bilaterally Cardio: COMMON NORMALS: regular rate, regular rhythm, S1 normal heart sound present and S2 normal heart sound present RATE: regular rate RHYTHM: r egular rhythm HEART SOUNDS: S1 normal heart sound present and S2 normal heart sound present GI: COMMON NORMALS: Normal to inspection, nondistended, normoactive bowel sounds present and non-tender Extremity: COMMON NORMALS: no pedal edema Neuro: COMMON NORMALS: patient oriented x3, CN's II-XII intact bilaterally and moves all extremities Psych: COMMON NORMALS: mental status grossly normal Data 12/31/24 05:11 12/31/24 05:11 A&P Assessment and plan 1. Chest pain: 2. Suicidal ideation: 3. Diabetes mellitus, type II: 4. Dyslipidemia (high LDL; low HDL): Plan: Chest pain Stress test IMPRESSIONS Myocardial perfusion imaging is normal. Normal left ventricular systolic function, EF 66%. Cardiac echo CONCLUSIONS Normal left ventricular systolic function. Normal wall motion and thickening. Estimated LVEF normal at 65%. No significant valve abnormality noted. Normal right heart and pulmonary pressures. Depression, anxiety, suicidal ideation -Currently no active suicidal ideation, no plan -But does have persistent hopelessness, but due to her financial difficulties and her stressors she does feel that she would be better off in her own words, as she cannot face her children and her financial difficulties and her reality of losing her home -Does have a history of suicide attempt in the past - Cymbalta added - Xanax as needed for anxiety - Working on placement to geriatric psychiatric facility Type 2 diabetes mellitus, low-dose of insulin PDMP PDMP Reviewed: Not Reviewed Attestations 2 Medical Necessity Statement*: Patient requires hospitalization for depression, anxiety, suicidal ideation, requiring Diagnoses Chest pain R07.9 Suicidal ideation R45.851 Diabetes mellitus, type II E11.9 Dyslipidemia (high LDL; low HDL) E78.5
--- NOTE | 2024-12-31 21:42 | PC.NURSE ---
Transfer to [place]: Patient transferred to med surg, receiving nurse at bedside, all belongings with patients.
[2025-01-01] VITALS (7 sets, daily range): BP systolic 96–143; BP diastolic 55–85; PULSE 63–73; RESP 16–18; TEMP 36.8–37.1; O2SAT 90–95
[2025-01-01] MEDS: pneumococcal (23 valent) SDV 0.5 mL IM (08:06)
--- NOTE | 2025-01-01 16:05 | P.TS_ITS ---
Transfer Summary Providers Date of Admission: 12/30/24 08:20 Date of Discharge/Transfer: 01/01/25 Attending Provider at Admission: Elliott Garber Attending Provider at Transfer: Luis E Bro MD Primary Care Provider: Rosetta Galvan MD Transfer Plans: Anticipated date of transfer: 01/01/25 . Diagnoses at Discharge Discharge Diagnosis 1. Chest pain: 2. Suicidal ideation: 3. Type 2 diabetes mellitus with hyperglycemia, with long-term current use of insulin: 4. Dyslipidemia (high LDL; low HDL): Reason for Visit Reason for Visit cp Hospital Course Hospital Course This is a 64-year-old female with past medical history of hypertension, type 2 diabetes mellitus, hyperlipidemia, CKD stage III, hepatitis C, fibromyalgia, anxiety depression who presents [facility] for anxiety and depression/suicidal ideation Patient was admitted to [facility] for chest pain Stress test IMPRESSIONS Myocardial perfusion imaging is normal. Normal left ventricular systolic function, EF 66%. Cardiac echo CONCLUSIONS Normal left ventricular systolic function. Normal wall motion and thickening. Estimated LVEF normal at 65%. No significant valve abnormality noted. Normal right heart and pulmonary pressures. Depression, anxiety, suicidal ideation -Currently no active suicidal ideation, no plan -But does have persistent hopelessness, but due to her financial difficulties and her stressors she does feel that she would be better off in her own words, as she cannot face her children and her financial difficulties and her reality of losing her home -Does have a history of suicide attempt in the past - Cymbalta added to her regimen - Seroquel added to regimen - She was monitored on sedation, transferred to the geriatric psych facility Type 2 diabetes mellitus, low-dose sliding scale Zyprexa will be stopped on transfer, fluoxetine stopped on transfer Physical Exam Const: COMMON NORMALS: no acute distress and patient oriented x3 Resp: COMMON NORMALS: normal respiratory effort, No retractions, No use of accessory muscles and clear to auscultation bilaterally AUSCULTATION: clear to auscultation bilaterally Cardio: COMMON NORMALS: regular rate, regular rhythm, S1 normal heart sound present and S2 normal heart sound present RATE: regular rate RHYTHM: regular rhythm HEART SOUNDS: S1 normal heart sound present and S2 normal heart sound present GI: COMMON NORMALS: Normal to inspection, nondistended, normoactive bowel sounds present and non-tender Extremity: COMMON NORMALS: no pedal edema Neuro: COMMON NORMALS: patient oriented x3, CN's II-XII intact bilaterally and moves all extremities Psych: COMMON NORMALS: mental status grossly normal TS Data Studies Completed and Pending Completed Studies During Hospitalization Category Date Time Status CXRP [XR chest 1V portable [id number]] Stat Exams 12/30/24 04:56 Completed Sestamibi Stress Test Request Routine Exams 12/31/24 06:00 Completed NM peng perf SPECT r/s* [id number] Routine Nuc Med 12/31/24 12:38 Completed CV. echo complete* [id number] Routine Ultrasound 12/30/24 13:05 Completed Laboratory Last Values WBC 8.72 10^3/uL (3.29-11.43) 12/31/24 05:11 RBC 5.71 10^6/uL (3.85-5.65) H 12/31/24 05:11 Hgb 14.70 g/dL (11.27-16.99) 12/31/24 05:11 Hct 47.6 % (36-47) H 12/31/24 05:11 MCV 83.4 fl (85-98) L 12/31/24 05:11 MCH 25.7 pg (27-33) L 12/31/24 05:11 MCHC 30.9 g/dL (30-55) 12/31/24 05:11 RDW 15.6 % (12.1-15.1) H 12/31/24 05:11 Plt Count 291 10^3/cmm (157-399) 12/31/24 05:11 MPV 9.4 fL (7.4-10.4) 12/31/24 05:11 Neut % (Auto) 51.4 % 12/31/24 05:11 Lymph % (Auto) 37.5 % 12/31/24 05:11 [place] % (Auto) 8.0 % 12/31/24 05:11 Eos % (Auto) 1.7 % 12/31/24 05:11 Baso % (Auto) 0.9 % 12/31/24 05:11 Neut # (Auto) 4.48 10^3/uL (1.8-7.7) 12/31/24 05:11 Lymph # (Auto) 3.3 10^3/uL (0.8-4.8) 12/31/24 05:11 [place] # (Auto) 0.7 10^3/uL (0.2-0.9) 12/31/24 05:11 Eos # (Auto) 0.2 10^3/uL (0.0-0.8) 12/31/24 05:11 Baso # (Auto) 0.1 10^3/uL (0.0-0.1) 12/31/24 05:11 Nucleated RBC % (auto) 0 % 12/31/24 05:11 Nucleated RBCs # 0.0 /100WBC 12/31/24 05:11 PT 13.80 SECONDS (12.1-14.9) 12/30/24 05:09 INR 0.99 (0.8-1.2) 12/30/24 05:09 Sodium 136 mmol/L (136-145) 12/31/24 05:11 Potassium 4.5 mmol/L (3.5-5.1) 12/31/24 05:11 Chloride 99 mmol/L (98-107) 12/31/24 05:11 Carbon Dioxide 22 mmol/L (22-29) 12/31/24 05:11 Anion Gap 19.5 (5-19) H 12/31/24 05:11 BUN 15 mg/dL (8-23) 12/31/24 05:11 Creatinine 1.2 mg/dL (0.5-0.9) H 12/31/24 05:11 GFR Calculation 44.9 mL/min (90-130) L 12/31/24 05:11 Glucose 165 mg/dL (65-115) H 12/31/24 05:11 POC Glucose 218 mg/dL (70-110) H 01/01/25 11:01 Calculated Osmolality 287 mOsm/kg (285-295) 12/31/24 05:11 Calcium 9.7 mg/dL (8.5-10.5) 12/31/24 05:11 Phosphorus 3.0 mg/dL (2.5-4.5) 12/30/24 05:09 Magnesium 2.1 mg/dL (1.7-2.3) 12/30/24 05:09 Troponin T Baseline 15 ng/L (0-10) H 12/30/24 05:09 Troponin T 120 Minute 11.69 ng/L (0-10) H 12/30/24 06:59 Delta Troponin T -3.31 ABS# (0-10) L 12/30/24 06:59 Troponin T Hi Sens 6Hr 12.31 ng/L (0-10) H 12/30/24 12:01 Troponin T Hi Sens 6Hr Delta -2.69 ng/L (0-12) L 12/30/24 12:01 C-React Prot High Sens 1.730 mg/dL (0.0-0.3) H 12/30/24 05:09 NT-Pro-B Natriuret Pep 152 pg/mL (0-125) H 12/30/24 05:09 Triglycerides 283 mg/dL (0-150) H 12/31/24 05:11 Cholesterol 212 mg/dL (0-200) H 12/31/24 05:11 LDL Cholesterol, Calc 116 mg/dL (50-129) 12/31/24 05:11 HDL Cholesterol 39 mg/dL (60-100) L 12/31/24 05:11 LDL/HDL Ratio 2.97 RATIO (0.00-3.22) 12/31/24 05:11 Cholesterol/HDL Ratio 5.44 mg/dL (0.0-4.40) H 12/31/24 05:11 Lipase 31 U/L (13-60) 12/30/24 05:09 TSH 1.69 uIU/mL (0.27-4.20) 12/31/24 05:11 Radiology Impressions Chest X-Ray 12/30/24 04:56 IMPRESSION: No acute findings. Recent Clincial Data Last Vital Signs Temp 98.3 F 01/01/25 15:45 Pulse 63 01/01/25 15:45 Resp 17 01/01/25 15:45 BP 143/85 01/01/25 15:45 Pulse Ox 95 01/01/25 15:45 O2 Del Method Room Air 01/01/25 15:45 O2 Flow Rate 2 01/01/25 01:21 Vital Signs Temp Pulse Resp BP Pulse Ox O2 Del Method 01/01/25 15:45 98.3 F 63 17 143/85 95 Room Air 01/01/25 11:11 98.2 F 63 18 96/55 91 Room Air 01/01/25 07:15 98.4 F 65 18 136/77 91 Room Air 01/01/25 05:39 73 Intake & Output/Weight 12/30/24 12/31/24 01/01/25 01/02/25 06:59 06:59 06:59 06:59 Intake Total 480 / 480 480 / 480 480 / 480 Balance 480 / 480 480 / 480 480 / 480 Weight 127.006 kg 121.3 kg 122.016 kg Vitals Last Vital Signs Temp 98.3 F 01/01/25 15:45 Pulse 63 01/01/25 15:45 Resp 17 01/01/25 15:45 BP 143/85 01/01/25 15:45 Pulse Ox 95 01/01/25 15:45 O2 Del Method Room Air 01/01/25 15:45 O2 Flow Rate 2 01/01/25 01:21 TS Medications Medications Acetaminophen (Acetaminophen 325 Mg Tablet) 650 mg PO Q6H PRN PRN Reason: MILD PAIN Last Admin: 12/31/24 22:41 Dose: 650 mg Alprazolam (Alprazolam 0.25 Mg Tablet) 0.25 mg PO BID PRN PRN Reason: ANXIETY Last Admin: 01/01/25 14:26 Dose: 0.25 mg Aspirin (Aspirin 325 Mg Tablet) 325 mg PO DAILY REJI Last Admin: 01/01/25 04:42 Dose: 325 mg Duloxetine HCl (Duloxetine 30 Mg Capsule) 90 mg PO DAILY REJI Glucagon (Glucagon 1 Mg/Ml Kit 1 Ml) 1 mg IM ONCE PRN; Protocol PRN Reason: Adult Acute Hypoglycemia Nursing Prot. Hydroxyzine Pamoate (Hydroxyzine 25 Mg Capsule) 25 mg PO TID PRN PRN Reason: ANXIETY Last Admin: 12/31/24 10:40 Dose: 25 mg Dextrose (D5w) 500 mls @ 0 mls/hr IV ONCE PRN; Protocol PRN Reason: Adult Acute Hypoglycemia Prot Dextrose (D10w) 125 mls @ 750 mls/hr IV PRN PRN; Protocol PRN Reason: Adult Acute Hypoglycemia Nursing Protocol Dextrose (D10w) 250 mls @ 1,000 mls/hr IV PRN PRN; Protocol PRN Reason: Adult Acute Hypoglycemia Nursing Protocol Insulin Human Lispro (Insulin Lispro 100 Unit/1 Ml) 0 unit SUBCUT WM&BEDTIME REJI; Protocol Last Admin: 01/01/25 12:13 Dose: 6 unit Ondansetron HCl (Ondansetron 2 Mg/Ml Sdv 2 Ml) 4 mg IVP Q2M PRN PRN Reason: NAUSEA Quetiapine Fumarate (Quetiapine Xr (24hr) 50 Mg Tablet) 50 mg PO 1900 [facility] Discontinued Medications Aminophylline (Aminophylline 25 Mg/Ml Sdv 20 Ml) 25 mg IVP Q2M PRN PRN Reason: see dose instructions Stop: 01/01/25 06:38 Last Admin: 12/31/24 09:25 Dose: 25 mg Duloxetine HCl (Duloxetine 30 Mg Capsule) 30 mg PO DAILY [facility] Last Admin: 12/31/24 04:49 Dose: 30 mg Duloxetine HCl (Duloxetine 60 Mg Capsule) 60 mg PO DAILY [facility] Last Admin: 01/01/25 04:42 Dose: 60 mg Lorazepam (Lorazepam 2 Mg/Ml Inj 1 Ml) 1 mg IVP ONCE ONE Stop: 12/30/24 05:16 Last Admin: 12/30/24 05:19 Dose: 1 mg Midazolam HCl (Midazolam 1 Mg/Ml Inj 2 Ml) 2 mg IVP ONCE ONE Stop: 12/30/24 04:57 Last Admin: 12/30/24 05:13 Dose: Not Given Morphine Sulfate (Morphine 4 Mg/Ml Sdv 1 Ml) 4 mg IVP ONCE ONE Stop: 12/30/24 05:52 Last Admin: 12/30/24 05:56 Dose: 4 mg Nitroglycerin (Nitroglycerin 0.4 Mg Sublingual Tablet) 0.4 mg SUBLINGUAL ONCE ONE Stop: 12/30/24 04:57 Last Admin: 12/30/24 05:12 Dose: 0.4 mg Nitroglycerin (Nitroglycerin 0.4 Mg Sublingual Tablet) 0.4 mg SUBLINGUAL Q5M PRN PRN Reason: CHEST PAIN Stop: 01/01/25 06:38 Pneumococcal Polyvalent Vaccine (Pneumococcal (23 Valent) Sdv 0.5 Ml) 0.5 ml IM .ONCE ONE Stop: 01/01/25 09:01 Last Admin: 01/01/25 08:06 Dose: 0.5 ml Regadenoson (Regadenoson 0.4 Mg/5 Ml Syringe) 0.4 mg IVP ONCE PRN PRN Reason: Lexiscan Stress Test Last Admin: 12/31/24 09:15 Dose: 0.4 mg Allergies benzoin Allergy (Intermediate, Verified 12/30/24 05:00) rash butorphanol (From Stadol) Allergy (Intermediate, Verified 12/30/24 05:00) rash ciprofloxacin (From Cipro) Allergy (Intermediate, Verified 12/30/24 05:00) rash midazolam (From Versed) Allergy (Intermediate, Verified 12/30/24 05:00) rash Sulfa (Sulfonamide Antibiotics) Allergy (Intermediate, Verified 12/30/24 05:00) rash tramadol (From Ultram) Allergy (Intermediate, Verified 12/30/24 05:00) rash Home Medications glucometer testing kit #1 ea 09/03/21 [Rx Confirmed 12/30/24] lancets (Accu-Chek Softclix Lancets) #100 ea 09/29/21 [Rx Confirmed 12/30/24] blood-glucose sensor (Dexcom G6 Sensor device) #9 ea 03/10/22 [Rx Confirmed 12/30/24] blood-glucose transmitter (Dexcom G6 Transmitter device) #1 ea 03/10/22 [Rx Confirmed 12/30/24] blood-glucose,painter helper,cont (Dexcom G6 Card Checker) #1 ea 03/10/22 [Rx Confirmed 12/30/24] blood sugar diagnostic (Accu-Chek Guide test strips) #100 ea 09/15/22 [Rx Confirmed 12/30/24] pen needle, diabetic 32 gauge x 5/32 (Pauly 2nd Gen Pen Needle) #200 ea 07/28/24 [Rx Confirmed 12/30/24] pen needle, diabetic 31 gauge x 1/4 (Comfort EZ Pen [place]) #100 ea 09/16/24 [Rx Confirmed 12/30/24] pantoprazole 40 mg tablet,delayed release (Protonix) 40 mg PO DAILY #90 tabs 09/18/24 [Rx Confirmed 12/30/24] spironolactone 50 mg tablet 50 mg PO DAILY edema & BP #90 tabs 09/18/24 [Rx Confirmed 12/30/24] atorvastatin 20 mg tablet 20 mg PO DAILY #90 tabs 12/12/24 [Rx Confirmed 12/30/24] fluoxetine 40 mg capsule 40 mg PO DAILY #90 caps 12/16/24 [Rx Confirmed 12/30/24] insulin regular hum U-500 conc 500 unit/mL(3 mL) subcut pen (Humulin R U-500 (Conc) Insulin Kwikpen) 220 unit SUBCUT TID 12/30/24 [History Confirmed 12/30/24] olanzapine 2.5 mg tablet 2.5 mg PO QAM 12/30/24 [History Confirmed 12/30/24] tirzepatide 5 mg/0.5 mL subcutaneous pen injector (Mounjaro) 5 mg SUBCUT Q7D 12/30/24 [History Confirmed 12/30/24] Discharge Plan Discharge Patient Disposition: Xfer Psychiatric Hosp Condition: Stable Prescriptions: New aspirin 81 mg tablet 81 mg PO DAILY 30 Days Qty: 30 0RF duloxetine 30 mg Capsule,Delayed Release(Dr/Ec) 30 mg PO DAILY 30 Days Qty: 30 0RF nitroglycerin 0.4 mg Tablet, Sublingual 0.4 mg sublingual Q5M PRN (Reason: Chest Pain) 30 Days Qty: 30 0RF Continued spironolactone 50 mg tablet 50 mg PO DAILY Qty: 90 0RF pantoprazole [Protonix] 40 mg tablet,delayed release (DR/EC) 40 mg PO DAILY Qty: 90 0RF atorvastatin 20 mg tablet 20 mg PO DAILY Qty: 90 1RF Humulin R U-500 (Conc) Kwikpen 500 unit/mL (3 mL) insulin pen 220 unit SUBCUT TID Rx Instructions: with meals Mounjaro 5 mg/0.5 mL pen injector 5 mg SUBCUT Q7D Rx Instructions: Monday's Discontinued fluoxetine 40 mg capsule 40 mg PO DAILY Qty: 90 0RF olanzapine 2.5 mg tablet 2.5 mg PO QAM No Action (DME) pen needle, diabetic [Comfort EZ Pen [place]] 31 gauge x 1/4 needle See Rx Instructions .Route Qty: 100 1RF Rx Instructions: As directed (DME) Dexcom G6 Sensor Device See Rx Instructions .ROUTE .MEDSUPPLY Qty: 9 3RF Rx Instructions: change every 10 days (DME) Dexcom G6 Card Checker Misc See Rx Instructions .ROUTE .MEDSUPPLY Qty: 1 3RF Rx Instructions: change every 90 days (DME) Dexcom G6 Transmitter Device See Rx Instructions .ROUTE .MEDSUPPLY Qty: 1 3RF Rx Instructions: change every 3 months (DME) glucometer testing kit See Rx Instructions .Route .MEDSUPPLY Qty: 1 0RF Rx Instructions: Glucometer testing kit Lancets #100 Strips #100 Check blood sugar 3 times a day (DME) lancets [Accu-Chek Softclix Lancets] Misc See Rx Instructions .ROUTE .COMPLEX Qty: 100 5RF Dose Instruction: USE 1 LANCET TO CHECK GLUCOSE THREE TIMES DAILY (E11.9) Rx Instructions: USE 1 LANCET TO CHECK GLUCOSE THREE TIMES DAILY (E11.9) (DME) Accu-Chek Guide test strips Strip See Rx Instructions .ROUTE .COMPLEX Qty: 100 5RF Dose Instruction: USE 1 TEST STRIP THREE TIMES DAILY (E11.9) Rx Instructions: USE 1 TEST STRIP THREE TIMES DAILY (E11.9) (DME) pen needle, diabetic [Pauly 2nd Gen Pen Needle] 32 gauge x 5/32 needle See Rx Instructions .ROUTE .COMPLEX Qty: 200 0RF Dose Instruction: USE DIRECTED FIVE TIMES DAILY Rx Instructions: USE DIRECTED FIVE TIMES DAILY Discharge Order = DC NOW: Transfer Out of Facility (Order); Ordered 01/01/25 Ordered By: Luis E Bro Referrals: [facility] [Outside] Rosetta Galvan MD [Primary Care Provider, [facility]] Discharge Diet: Cardiac Discharge Activity: Resume usual activity Patient Instructions: Opioid Safety, Patient Portal & [place] Instructions Transfer Attestations Time Spent in Transfer Care: greater than 30 min Quality Metrics Clinical Quality Measures [ No reported AMI, CVA or VTE this stay] Coding Level of Care Code 56856 Total time (in minutes) for Discharge: 45 Diagnoses Chest pain R07.9 Suicidal ideation R45.851 Type 2 diabetes mellitus with hyperglycemia, with long-term current use of insulin E11.65; Z79.4 Diabetes mellitus oysterman insulin use: with halfway use Diabetes mellitus complication status: with hyperglycemia Dyslipidemia (high LDL; low HDL) E78.5
--- NOTE | 2025-01-01 17:29 | P.NPUPN_ITS ---
Subjective NPU 2 Subjective: 64-year-old female with a history of moo or depressive disorder, generalized anxiety disorder, social phobia and agoraphobia admitted with medical issues currently endorsing suicidal ideation and increased feelings of hopelessness with passive thoughts of still not wanting to live. She continue to report that she did not mind if she . She had reported having struggles with falling asleep. She continue to report having severe anxiety. The patient had reported that she had no social supports and had yet to inform anyone that her heater was not working at home as she reported concern that she lived in potential [place] and was worried that she may lose her rental. She had reported that she had not spoken to her children about on the [facility] regarding her dilemma including financial problems. She had reported sleep continuity disruption. She reported low energy and low motivation. Mental Status Exam 2 MSE Comments: 64-year-old female lying in bed who appe ared her stated age who was pleasant and cooperative on interview. There was no evidence of any abnormal involuntary motor movements, tics, or tremors appreciated. There was evidence of moderate psychomotor retardation. Her speech was normal in regards to rate, rhythm, and prosody. Her mood was described as depressed. Her affect was restricted in range and mood congruent. She endorsed passive suicidal ideation with no active plan. She denied any homicidal ideation. There was no evidence of any delusional thinking. She denied any auditory or visual hallucinations and did not appear to be responding to internal stimuli. She was alert and oriented to person, place, time, and situation. Her recent and remote memory were grossly intact. Her insight was fair. Her judgment is guarded at this time. Her impulse control appeared fair. Vitals/I&O/Wt Last Vital Signs Temp 98.3 F 01/01/25 15:45 Pulse 63 01/01/25 15:45 Resp 17 01/01/25 15:45 BP 143/85 01/01/25 15:45 Pulse Ox 95 01/01/25 15:45 O2 Del Method Room Air 01/01/25 15:45 O2 Flow Rate 2 01/01/25 01:21 01/01/25 01/01/25 01/01/25 06:59 14:59 22:59 Intake Total 480 / 480 Balance 480 / 480 Weight last 48 hrs Weight 122.016 kg Weight 123.377 kg Weight 121.3 kg Data NPU 12/31/24 05:11 12/31/24 05:11 A&P Assessment and plan 1. Major depressive disorder, recurrent severe without psychotic features: 2. Suicidal ideation: 3. PAVEL (generalized anxiety disorder): Plan: 64-year-old female currently in the intensive care unit with a significant history of generalized anxiety disorder, social phobia, and major depressive disorder who reports passive suicidal ideation requesting help with managing her ongoing recurrent depression. #1. Continue to titrate Cymbalta to 90mg daily. #2. Continue seroquel xr 50mg adjunctively tonight. #3. Patient will require follow up in [facility] for therapy and medication management on discharge. #4. Consider psychiatric hospitalization at geropsychiatric unit. PDMP PDMP Reviewed: Not Reviewed Involuntary Hold Information 2 96 Hour Hold: 96 Hour Involuntary Admission: No Attestations NPU 2 Medical Necessity Statement*: Awaiting transfer to geropsychiatry for continued stay at this time. Coding Level of Care Code Acute Code for [facility] Diagnoses Major depressive disorder, recurrent severe without psychotic features F33.2 Suicidal ideation R45.851 PAVEL (generalized anxiety disorder) F41.1
[2025-01-01] MEDS: quetiapine XR (24HR) 50 mg Tablet PO (18:39)
--- NOTE | 2025-01-01 21:00 | PC.NURSE ---
EMS here at 2100
--- NOTE | 2025-01-02 01:01 | PC.NURSE ---
late entry 2109 Pt was transported by EMS to [facility]. IV access was already removed, and report was already called by a dayshift nurse.
== END 2025-01-01 21:00 ==
LOC: ER 08:13 → ICU 08:20 → MEDSURG 12-31 21:37
PROVIDERS: Nurse Practitioner Gerontology; Student in an Organized Health Care Education/Training Program; Admitting Provider Internal Medicine; Emergency Provider Emergency Medicine; PCP Family Medicine; Visit Provider Family Medicine
DX: R45.851 Suicidal ideations (principal); Z79.4 Long term (current) use of insulin; E78.5 Hyperlipidemia, unspecified; K21.9 Gastro-esophageal reflux disease without esophagitis; Z79.82 Long term (current) use of aspirin; E11.22 Type 2 diabetes mellitus with diabetic chronic kidney disease; I12.9 Hypertensive chronic kidney disease with stage 1 through stage 4 chronic kidney disease, or unspecified chronic kidney disease; N18.30 Chronic kidney disease, stage 3 unspecified; F41.8 Other specified anxiety disorders; E66.9 Obesity, unspecified; Z68.37 Body mass index [BMI] 37.0-37.9, adult; F43.12 Post-traumatic stress disorder, chronic; Z87.891 Personal history of nicotine dependence; F33.2 Major depressive disorder, recurrent severe without psychotic features
CPT/HCPCS: 36415; 36416; 71045; 78452; 80048; 80061; 82962; 83690; 83735; 83880; 84100; 84443; 84484; 85025; 85610; 86141; 90471; 90732; 93005; 93017; 93306; 96372; 96375; A9500; G0378; J0280; J1815; J2060; J2270; J2785; J9999